=== PATIENT | male | born 1955 | race Caucasian/White ===

== ENCOUNTER 2024-06-04 14:17 | Inpatient (IN) | payer MEDICARE, MEDICAID, SELFPAY ==
[2024-06-04] VITALS (10 sets, daily range): BP systolic 153–216; BP diastolic 83–108; PULSE 85–121; RESP 16–20; TEMP 36.6–37; O2SAT 96–98; BMI 31.2
--- NOTE | ~2024-06-04 | US_ITS ---
EXAMINATION: US ABDOMEN LIMITED CLINICAL INFORMATION: Pain. Question acalculous cholecystitis. COMPARISON: CT abdomen/pelvis done earlier the same day. TECHNIQUE: Real-time imaging of the right upper quadrant abdominal viscera. FINDINGS: Thickened and heterogeneous, gallbladder wall measuring up to 1.0 cm with trace pericholecystic free fluid. No gallstone identified. Quadrant tenderness during the examination. The proximal common bile duct measures up to 0.6 cm. US/US abdomen limited IMPRESSION: Thickened and heterogeneous gallbladder wall with trace pericholecystic free fluid and positive sonographic Jules's sign. Findings are consistent with acute cholecystitis. Electronically signed by: Massimo So MD 06/04/2024 08:36 PM [facility] [place]
--- NOTE | ~2024-06-04 | CT_ITS ---
EXAMINATION: CT ABDOMEN AND PELVIS WITH CONTRAST CLINICAL INFORMATION: Upper abdominal pain, abnormal liver function tests COMPARISON: None available. TECHNIQUE: Multidetector volumetric images were obtained from the superior aspect of the liver through the pubic symphysis following administration 85 mL of Omnipaque 350 intravenous contrast. Sagittal and coronal reformatted images were obtained on the technologist's workstation. Oral contrast: No This CT examination was performed using dose optimization techniques as appropriate, variously including the following: *Automated exposure control *Adjustment of mA and/or kV according to patient size (this includes techniques or standardized protocols for targeted exams where dose is matched to indication/reason for exam; i.e. extremities or head) *Use of iterative reconstruction technique DLP: 723 mGy-cm FINDINGS: LUNG BASES: The visualized lung bases are unremarkable. LIVER, GALLBLADDER, AND BILIARY TREE: The liver is markedly nodular in contour with enlargement of the left and caudate lobes and a small right lobe compatible with cirrhosis. Thrombus is evident within the left portal vein extending into the main portal vein. There are multiple collateral vessels in the upper abdomen including left splenorenal shunt formation and very large esophageal varices. The spleen is enlarged, measuring 22 cm long. There are punctate hepatic and splenic calcifications indicative of prior granulomatous exposure. The gallbladder is collapsed and the wall is edematous measuring 8-9 mm, likely related to hepatocellular dysfunction. There is no biliary ductal dilatation. PANCREAS: Unremarkable. SPLEEN: Enlarged, as above. No splenic masses. Prominent splenic varices. Punctate granulomata. ADRENAL GLANDS: Unremarkable. 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 A 22 mm cyst is noted in the mid pole of the left kidney. No calculi, enhancing masses or obstructive uropathy is evident. The ureters are collapsed. BLADDER: Unremarkable. GASTROINTESTINAL TRACT: The small and large bowel are unremarkable. The appendix is unremarkable. ABDOMINAL WALL: There is a fat-containing umbilical hernia. Multiple collateral vessels are evident in the hernia as part of shunting related to portal hypertension, including a prominent vessel that extends through the umbilical hernia in the right side of the abdomen and joints the right common iliac vein. LYMPH NODES: Normal. VASCULAR: Aortoiliac atherosclerosis is present. There is no aneurysm. The proximal right common iliac artery is narrowed to 5 mm by atherosclerosis. PELVIC VISCERA: Unremarkable. OSSEOUS STRUCTURES: Degenerative disc disease is evident at L3-4. Unilateral right spondylolysis is evident at L5 with compensatory hypertrophy of the left pars. There are no suspicious bone lesions. CT/CT abdomen pelvis w IV con IMPRESSION: 1. Hepatic cirrhosis with thrombosis of the left and proximal main portal vein. 2. Splenomegaly with numerous collateral vessels including very prominent esophageal varices, collateral veins within a prominent fat-containing umbilical hernia, and extending from the splenic hilum to the right iliac vein. 3. Collapsed gallbladder with markedly edematous gallbladder wall edema might be on the basis of hepatocellular dysfunction, although primary gallbladder disease would be difficult to exclude. 3. Findings were reported by phone to Dr. Bernal in the [place] emergency division at the time of interpretation on 06/04/2024 at 6:38 PM Fleischner guidelines were followed. Electronically signed by: Charles Dias MD 06/04/2024 06:42 PM [facility]
--- NOTE | ~2024-06-04 | XR_ITS ---
EXAMINATION: XR CHEST CLINICAL INFORMATION: pain COMPARISON: None available TECHNIQUE: Frontal view of the chest was obtained. FINDINGS: No significant abnormality is noted involving the heart, lungs, mediastinum, bony thorax or soft tissues. XR/XR chest 1V IMPRESSION: No acute disease Electronically signed by: Charles Dias MD 06/04/2024 06:44 PM [facility] [place]
--- NOTE | 2024-06-04 14:27 | ECG_ITS ---
Test Reason : ABDOMINAL PAIN Blood Pressure : / mmHG Vent. Rate : 112 BPM Atrial Rate : 112 BPM P-R Int : 212 ms QRS Dur : 076 ms QT Int : 332 ms P-R-T Axes : 072 049 028 degrees QTc Int : 453 ms Sinus tachycardia with 1st degree A-V block with occasional Premature ventricular complexes Possible Left atrial enlargement Low voltage QRS Cannot rule out Anterior infarct (cited on or before 04-JUN-2024) Abnormal ECG When compared with ECG of 02-DEC-2015 10:05, Premature ventricular complexes are now Present OR interval has increased Questionable change in initial forces of Anterior leads Referred By: Carlos Montano Electronically Signed By:IVETH MOE MD
--- NOTE | 2024-06-04 14:28 | ED_ITS ---
HPI - General Adult General Chief complaint: Altered Mental Status Stated complaint: SOB, disoriented Time Seen by Provider: 06/04/24 14:32 Source: patient and old records reviewed Mode of arrival: ambulatory Limitations: other (poor historian) History of Present Illness ED Provider: CESIA BOBO narrative: 69 yo male with PMH of neuropathy, chronic pain, HTN, has known abdominal hernia but no other prior surgeries. He comes in stating he is sick and not well due to coming off his amitryptiline 25mg 20 days ago and he thinks it is making him ill. He notes he hasn't felt well in days and he states he has been feeling like he is dying for 20 days. He states he has upper abdominal pain and n/v this AM. He feels short of breath. He is very upset and agitated and hard to get a history from as he is fixated on his medications. Denies drug or ETOH use MD complaint: multiple Onset (ago): day(s) (20) Location: abdomen Radiation: non-radiation Severity: severe Quality: aching Pain Consistency: constant Relieving factors: none Exacerbating factors: eating Associated symptoms: loss of appetite, malaise, nausea/vomiting and shortness of breath Treatments prior to arrival: none Related Data Allergies Allergy/AdvReac Type Severity Reaction Status Date / Time No Known Allergies Allergy Unverified 06/04/24 14:24 [No Known Allergies*] polycillin Allergy Unknown Unknown Uncoded 06/04/24 14:24 Review of Systems 2 Review of Systems: Constitutional : No Weight loss, No Fever, No Chills ENT/Mouth : No sore throat, No Rhinorrhea Eyes: No Swelling, No Redness Cardiovascular : No Chest Pain, pos SOB, No Edema Respiratory : No Cough, No Sputum, No Wheezing Gastrointestinal : Positive Nausea, Positive Vomiting, no Diarrhea, positive abdominal Pain, No Hematochezia, No Melena Genitourinary : No Dysuria, No Urinary Frequency, No Hematuria, No Urgency Musculoskeletal : No joint pain, No Myalgias, No Joint Swelling Skin : No Skin Lesions, No rash Neuro : No Weakness, No Numbness, No Dizziness, No Headache Psych : pos Anxiety/Panic, No Depression All other systems reviewed and are negative. [facility] Past Medical History Attestation statement: The following information was validated with the patient. Source: old records reviewed Medical History Neuropathy HTN (hypertension) Social History Social History (Updated 06/04/24 @ 16:03 by Darcy Perkins DO) Alcohol intake: former Patient Tobacco Use Status: Tobacco use Unknown Smoked in Last 30 Days: No Use of substances other than those prescribed or required for medical reasons: No Advance Directives: No Advance Directives Information Provided: Yes Physical Exam ED Vital Signs: Vital Signs - 24 hr 06/04/24 14:21 06/04/24 17:17 06/04/24 18:00 Temperature 98.6 F 97.8 F Pulse Rate 121 H 111 H 100 Respiratory Rate 18 16 20 Blood Pressure 153/108 H 216/107 H 191/100 H Pulse Oximetry 97 98 97 Oxygen Delivery Method Room Air Room Air Room Air 06/04/24 19:13 06/04/24 19:33 Temperature 98.3 F Pulse Rate 98 112 H Respiratory Rate 18 Blood Pressure 169/95 H 186/101 H Pulse Oximetry 96 Oxygen Delivery Method Room Air BMI result Body Mass Index 31.2 Appearance: Alert. Oriented X3. Anxious in pain mild acute distress. Eyes: Pupils equal, round and reactive to light. ENT: Pharynx mildly dry MM. Neck: Normal inspection. Neck supple. CVS: tachycardic heart rate and rhythm. Pulses normal. Respiratory: No respiratory distress. Breath sounds normal. Abdomen: Soft and moderate RUQ and epigastric pain - no rebound Skin: Skin warm and dry. Normal skin color. Normal skin turgor. Extremities: No lower extremity edema. Neuro: Oriented X 3. No motor deficit. No sensory deficit. Course Course Course Narrative: RME: 69-year-old male to ED for possible withdrawal symptoms. Patient was on amitriptyline for 20 years and was cut off 15 days ago without being weaned off. Patient states chest pain, nausea, vomiting, and tremors. Patient hypertensive tachycardic in the ED and looks uncomfortable. Patient brought to the main ED immediately. Medications Administered Discontinued Medications Generic Name Dose Route Start Last Admin Trade Name Freq PRN Reason Stop Dose Admin Amlodipine Besylate 10 mg 06/04/24 19:08 06/04/24 19:16 Amlodipine Besylate 10 Mg Tablet PO 06/04/24 19:09 10 mg ONCE ONE Administration Protocol Ceftriaxone Sodium 1 gm 06/04/24 15:31 06/04/24 16:24 Ceftriaxone Sodium 1 Gm Vial IVPUSH 06/04/24 15:32 1 gm ONCE ONE Administration Lactated Ringer's 1,000 mls @ 999 mls/hr 06/04/24 15:28 06/04/24 18:22 Lr IV 06/04/24 16:28 Infused .Q1H1M ONE Infusion Sodium Chloride 1,000 mls @ 999 mls/hr 06/04/24 18:30 06/04/24 18:39 Ns IV 06/04/24 19:30 999 mls/hr .Q1H1M ONE Administration Iohexol 100 ml 06/04/24 15:51 06/04/24 15:51 Iohexol 350 Mg/Ml 100 Ml Infus..Btl IV 06/04/24 15:52 85 ml ONCE ONE Administration Lorazepam 1 mg 06/04/24 15:10 06/04/24 15:30 Lorazepam 2 Mg/Ml Vial IVPUSH 06/04/24 15:11 1 mg STAT STA Administration Morphine Sulfate 2 mg 06/04/24 15:28 06/04/24 15:38 Morphine Sulfate 2 Mg/Ml Cartridge IVPUSH 06/04/24 15:29 2 mg ONCE ONE Administration Protocol Morphine Sulfate 4 mg 06/04/24 18:30 06/04/24 18:40 Morphine Sulfate 4 Mg/Ml Cartridge IVPUSH 06/04/24 18:31 4 mg ONCE ONE Administration Protocol Octreotide Acetate 100 mcg 06/04/24 18:44 06/04/24 19:17 Octreotide Acetate 100 Mcg/Ml Ampul IVPUSH 06/04/24 18:45 100 mcg ONCE ONE Administration Ondansetron HCl 4 mg 06/04/24 15:10 06/04/24 15:30 Ondansetron Hcl 4 Mg/2 Ml Vial IVPUSH 06/04/24 15:11 4 mg ONCE ONE Administration Ondansetron HCl 4 mg 06/04/24 18:30 06/04/24 18:39 Ondansetron Hcl 4 Mg/2 Ml Vial IVPUSH 06/04/24 18:31 4 mg ONCE ONE Administration Pantoprazole Sodium 80 mg 06/04/24 18:45 06/04/24 19:28 Pantoprazole Sodium 40 Mg/10 Ml Vial IVPUSH 06/04/24 18:46 80 mg ONCE ONE Administration Medical Decision Making Medical Decision Making [facility] Narrative: 69 yo male with PMH of neuropathy, chronic pain, HTN here with vague symptoms of amitryptiline withdrawal that does not make sense as it was 25mg and last dose was 20 days ago he c/o he feels terrible with abdominal pain n/v and that he has been about to for 20 days. He notes he feels weak and short of breath pain radiates from upper abdomen at this time will need labs, CT scan IV ativan for anxiety, morphine for pain, empiric antibiotics started given concern for possible infection 1530. He does have some dyspnea and chest pain but I suspect this may be due to abdominal process. Signed out to Dr. Epperson pending further workup 1800; patient is 69 years old with history of hepatitis-C about 15 years old been treated for that follow up with PCP and so far liver enzymes were stable comes here for 20 days of pain in right upper quadrant epigastric area feels withdrawn from the amitriptyline unable to eat anything pain gets worse on taking anything p.o. last meal was 2 days ago vomited multiple times CT scan showed contracted gallbladder with fluid around the gallbladder. Will get ultrasound to rule out acalculous cholecystitis IV hydration CT scan of the abdomen showed portal vein thrombosis of left and proximal main portal vein with prominent esophageal varices platelet counts of 89,000 no history of GI bleed or melena will give sandostatin, Protonix old heparin thrombocytopenia control the blood pressure ultrasound to rule out acalculous cholecystitis Differential Diagnosis Differential Diagnoses: The differential diagnosis associated with the presentation includes biliary colic, pancreatitis, gastritis, atypical chest pain denies travel - dyspnea related to upper abdominal pain low susp for VTE at this time Admission/Observation Consideration of admission/observation: Escalation of care including admission/observation considered Lab Data MDM Lab Attestation statement: I reviewed the patient's lab results. 06/04/24 14:58 06/04/24 14:58 Labs: Lab Results 06/04/24 06/04/24 06/04/24 Range/Units 14:58 14:58 16:12 WBC 7.1 (4.8-10.8) X10*3/uL RBC 5.69 (4.60-5.80) X10*6/uL Hgb 17.1 (14.0-18.0) g/dl Hct 48.7 (42.0-52.0) % MCV 85.6 (80.0-98.0) fL MCH 30.1 (27.0-33.0) pg MCHC 35.1 (31.0-36.0) g/dl RDW 13.4 (11.0-16.0) % Plt Count 89 L (160-400) X10*3/uL MPV 10.6 (9.4-12.4) fL Immature Gran % (Auto) 0.6 H (0.0-0.4) % Neut % (Auto) 86.8 H (45-73) % Lymph % (Auto) 5.5 L (20-40) % [place] % (Auto) 6.5 (2-11) % Eos % (Auto) 0.3 (0-4) % Baso % (Auto) 0.3 (0-2) % Lymph # (Auto) 0.4 L (1.2-4.9) X10*3/uL [place] # (Auto) 0.5 (0.1-1.2) X10*3/uL Eos # (Auto) 0.0 (0.0-0.4) X10*3/uL Baso # (Auto) 0.0 (0.0-0.2) X10*3/uL Abs Immat Gran (auto) 0.04 H (0.00-0.03) X10*3/uL Absolute Neuts (auto) 6.2 (2.0-8.3) x10*3/uL Absolute Nucleated RBC 0.000 (0.0-0.012) X10*3/uL Nucleated RBC % (auto) 0.0 (0.0-0.2) /100WBC Smear Tech's Comments VERIFIED PT 12.7 H (10.9-12.4) SEC INR 1.1 (0.9-1.1) APTT 31.3 (26.0-36.8) SEC Sodium 135 (135-145) mmol/L Potassium 3.9 (3.3-5.1) mmol/L Chloride 101 (96-108) mmol/L Carbon Dioxide 21 L (22-29) mmol/L Anion Gap 17 (12-20) BUN 18 H (9-16) mg/dL Creatinine 0.98 (0.5-1.4) mg/dL Estim Creat Clear Calc 80.9 Estimated GFR > 60 Random Glucose 237 H (60-115) mg/dL Lactic Acid 2.7 H* (0.5-2.0) mmol/L Calcium 10.0 (8.4-10.2) mg/dL Total Bilirubin 4.8 H (0.0-1.0) mg/dL Direct Bilirubin 2.4 H (0.0-0.5) mg/dL AST 100 H (5-37) U/L ALT 56 H (0-40) U/L Alkaline Phosphatase 159 H (39-117) U/L Troponin I High Sens 47.1 H 52.3 H (<3.5-35.0) ng/L Total Protein 8.4 H (6.5-8.0) g/dL Albumin 4.1 (3.5-5.0) g/dL Lipase 45 (8-78) U/L Beta-Hydroxybutyrate 0.60 H (0.02-0.27) mmol/L Urine Color Urine Appearance Urine pH (5.0-9.0) Ur Specific [place] (1.005-1.025) Urine Protein (Neg-Trace) mg/dL Urine Glucose (UA) (Negative) mg/dL Urine Ketones (Negative) mg/dL Urine Blood (Negative) Urine Nitrite (Negative) Ur Leukocyte Esterase (Negative) Urine RBC (0-2) /HPF Urine WBC (0-5) /HPF Ur Squamous Epith Cells (0-2) /HPF Urine Bacteria (None Seen) Hyaline Casts (0-2) /LPF Urine Opiates Screen (Not Detect) Ur Buprenorphine Scrn (Not Detect) ng/mL Ur Oxycodone Screen (Not Detect) ng/mL Urine Methadone Screen (Not Detect) ng/mL Urine Fentanyl Screen (Not Detect) Ur Barbiturates Screen (Not Detect) Ur Phencyclidine Scrn (Not Detect) Ur Amphetamines Screen (Not Detect) U Benzodiazepines Scrn (Not Detect) Urine Cocaine Screen (Not Detect) U Marijuana (THC) Screen (Not Detect) Ethyl Alcohol < 10 Cancelled mg/dL 06/04/24 Range/Units 18:15 WBC (4.8-10.8) X10*3/uL RBC (4.60-5.80) X10*6/uL Hgb (14.0-18.0) g/dl Hct (42.0-52.0) % MCV (80.0-98.0) fL MCH (27.0-33.0) pg MCHC (31.0-36.0) g/dl RDW (11.0-16.0) % Plt Count (160-400) X10*3/uL MPV (9.4-12.4) fL Immature Gran % (Auto) (0.0-0.4) % Neut % (Auto) (45-73) % Lymph % (Auto) (20-40) % [place] % (Auto) (2-11) % Eos % (Auto) (0-4) % Baso % (Auto) (0-2) % Lymph # (Auto) (1.2-4.9) X10*3/uL [place] # (Auto) (0.1-1.2) X10*3/uL Eos # (Auto) (0.0-0.4) X10*3/uL Baso # (Auto) (0.0-0.2) X10*3/uL Abs Immat Gran (auto) (0.00-0.03) X10*3/uL Absolute Neuts (auto) (2.0-8.3) x10*3/uL Absolute Nucleated RBC (0.0-0.012) X10*3/uL Nucleated RBC % (auto) (0.0-0.2) /100WBC Smear Tech's Comments PT (10.9-12.4) SEC INR (0.9-1.1) APTT (26.0-36.8) SEC Sodium (135-145) mmol/L Potassium (3.3-5.1) mmol/L Chloride (96-108) mmol/L Carbon Dioxide (22-29) mmol/L Anion Gap (12-20) BUN (9-16) mg/dL Creatinine (0.5-1.4) mg/dL Estim Creat Clear Calc Estimated GFR Random Glucose (60-115) mg/dL Lactic Acid (0.5-2.0) mmol/L Calcium (8.4-10.2) mg/dL Total Bilirubin (0.0-1.0) mg/dL Direct Bilirubin (0.0-0.5) mg/dL AST (5-37) U/L ALT (0-40) U/L Alkaline Phosphatase (39-117) U/L Troponin I High Sens (<3.5-35.0) ng/L Total Protein (6.5-8.0) g/dL Albumin (3.5-5.0) g/dL Lipase (8-78) U/L Beta-Hydroxybutyrate (0.02-0.27) mmol/L Urine Color Dark Yellow Urine Appearance Clear Urine pH 6.0 (5.0-9.0) Ur Specific [place] >= 1.030 H (1.005-1.025) Urine Protein >=1000 (4+) H (Neg-Trace) mg/dL Urine Glucose (UA) 500 H (Negative) mg/dL Urine Ketones Trace (Negative) mg/dL Urine Blood Moderate (2+) H (Negative) Urine Nitrite Negative (Negative) Ur Leukocyte Esterase Negative (Negative) Urine RBC >20 H (0-2) /HPF Urine WBC 0-5 (0-5) /HPF Ur Squamous Epith Cells 0-2 (0-2) /HPF Urine Bacteria None Seen (None Seen) Hyaline Casts 0-2 (0-2) /LPF Urine Opiates Screen POSITIVE H (Not Detect) Ur Buprenorphine Scrn Not Detected (Not Detect) ng/mL Ur Oxycodone Screen Not Detected (Not Detect) ng/mL Urine Methadone Screen Not Detected (Not Detect) ng/mL Urine Fentanyl Screen Not Detected (Not Detect) Ur Barbiturates Screen Not Detected (Not Detect) Ur Phencyclidine Scrn Not Detected (Not Detect) Ur Amphetamines Screen Not Detected (Not Detect) U Benzodiazepines Scrn Not Detected (Not Detect) Urine Cocaine Screen Not Detected (Not Detect) U Marijuana (THC) Screen POSITIVE H (Not Detect) Ethyl Alcohol mg/dL Independent Interpretation I performed an independent interpretation of an: EKG, Plain X-Ray and CT Scan Interpretation: Rate: 112 Rhythm: sinus tach Leming: normal Normal P waves. Normal LETTY. Normal QRS complex. ST T wave : nonspecific ST T wave changes no RIGOBERTO qTC: 453 prior studies: no prior The study has been interpreted contemporaneously by me. . Discharge Plan Discharge Clinical Impression: Abnormal LFTs Abdominal pain Qualifiers: Abdominal location: epigastric Qualified Code(s): R10.13 - Epigastric pain Nausea & vomiting Qualifiers: Vomiting type: unspecified Qualified Code(s): R11.2 - Nausea with vomiting, unspecified Patient Disposition: Still a Patient Print Language: Malian
[2024-06-04 15:07] LABS: Hemoglobin 17.1 g/dl (14.0-18.0); Imm Gran Abs Auto 0.04 X10*3/uL (0.00-0.03); Imm Gran Pct Auto 0.6 % (0.0-0.4); MANUAL DIFF FLAG SCAN; PLT CLUMP 1; SCAN SMEAR FLAG 1
[2024-06-04 15:09] LABS: Basophils Percent Auto 0.3 % (0-2); Eosinophils Percent Auto 0.3 % (0-4); Hematocrit 48.7 % (42.0-52.0); INTERNATIONAL NORM RATIO 1.1 (0.9-1.1); Lymphocytes Absolute Auto 0.4 X10*3/uL (1.2-4.9); Lymphocytes Percent Auto 5.5 % (20-40); Mean Corpuscular HGB Conc 35.1 g/dl (31.0-36.0); Mean Corpuscular Hemoglobin 30.1 pg (27.0-33.0); Mean Corpuscular Volume 85.6 fL (80.0-98.0); Mean Platelet Volume 10.6 fL (9.4-12.4); Monocytes Absolute Auto 0.5 X10*3/uL (0.1-1.2); Monocytes Percent Auto 6.5 % (2-11); Neutrophils Absolute Auto 6.2 x10*3/uL (2.0-8.3); Neutrophils Percent Auto 86.8 % (45-73); Prothrombin Time 12.7 SEC (10.9-12.4); Red Blood Count 5.69 X10*6/uL (4.60-5.80); Red Cell Distribution Width 13.4 % (11.0-16.0)
[2024-06-04 15:12] LABS: Partial Thromboplastin Time 31.3 SEC (26.0-36.8)
[2024-06-04 15:23] LABS: Alanine Aminotransferase 56 U/L (0-40); Albumin Level 4.1 g/dL (3.5-5.0); Alkaline Phosphatase 159 U/L (39-117); Anion Gap 17 (12-20); Aspartate Amino Transferase 100 U/L (5-37); Bilirubin Total 4.8 mg/dL (0.0-1.0); Blood Urea Nitrogen 18 mg/dL (9-16); Carbon Dioxide 21 mmol/L (22-29); Chloride 101 mmol/L (96-108); Creatinine Clr Calc Pharmacy 80.9; Estimated Glomerular Filt Rate > 60; Ethanol < 10 mg/dL; Glucose Random 237 mg/dL (60-115); Potassium 3.9 mmol/L (3.3-5.1); Sodium 135 mmol/L (135-145); Total Protein 8.4 g/dL (6.5-8.0)
[2024-06-04 15:27] LABS: Troponin-I High Sensitivity 47.1 ng/L (<3.5-35.0); White Blood Count 7.1 X10*3/uL (4.8-10.8)
[2024-06-04] MEDS: ondansetron HCL 4 MG/2 ML VIAL IVPUSH ×2 (15:30→18:39)
[2024-06-04] MEDS: LORazepam 2 MG/ML VIAL 1 MG IVPUSH (15:30)
[2024-06-04 15:32] LABS: Lipase 45 U/L (8-78)
[2024-06-04] MEDS: Lactated Ringers 1,000 ML 999 ML IV (15:33)
[2024-06-04] MEDS: Morphine Sulfate 2 MG/ML CARTRIDGE IVPUSH (15:38)
[2024-06-04] MEDS: iohexoL 350 MG/ML 100 ML INFUS..BTL IV (15:51)
[2024-06-04 16:04] LABS: Bilirubin Direct 2.4 mg/dL (0.0-0.5)
[2024-06-04 16:07] LABS: Platelet Count 89 X10*3/uL (160-400); SLIDE REVIEW VERIFIED
[2024-06-04] MEDS: cefTRIAXone sodium 1 GM VIAL IVPUSH (16:24)
[2024-06-04 16:38] LABS: Lactic Acid 2.7 mmol/L (0.5-2.0)
[2024-06-04 16:42] LABS: Troponin-I High Sensitivity 52.3 ng/L (<3.5-35.0)
[2024-06-04 18:19] LABS: Reflex Lactate? Lactic Acid Added
[2024-06-04 18:22] LABS: Appearance Urine Clear; Color Urine Dark Yellow; Glucose Urine UA 500 mg/dL (Negative); Leukocyte Esterase Urine Negative (Negative); Nitrite Urine Negative (Negative); Specific Gravity - Urine >= 1.030 (1.005-1.025); UMIC TRIGGER UACC YES; Urine Blood Moderate (2+) (Negative); Urine Ketones Trace mg/dL (Negative); Urine Protein >=1000 (4+) mg/dL (Neg-Trace)
[2024-06-04 18:25] LABS: Bacteria Urine None Seen (None Seen); Hyaline Casts Urine 0-2 /LPF (0-2); RBC Urine >20 /HPF (0-2); Squamous Epithelial Cell Urine 0-2 /HPF (0-2); WBC Urine 0-5 /HPF (0-5)
[2024-06-04 18:37] LABS: Amphetamine Screen Urine Not Detected (Not Detect); Barbiturates, Urine Not Detected (Not Detect); Benzodiazepines Screen Urine Not Detected (Not Detect); Buprenorphine Scr Not Detected (Not Detect); Cannabinoid Screen Urine POSITIVE (Not Detect); Cocaine Screen Urine Not Detected (Not Detect); Fentanyl, urine Not Detected (Not Detect); Methadone Screen, Urine Not Detected (Not Detect); Opiate Screen Urine POSITIVE (Not Detect); Oxycodone Screen Urine Not Detected (Not Detect); Phencyclidine Screen Urine Not Detected (Not Detect)
[2024-06-04] MEDS: 0.9 % Sodium Chloride 1,000 ML 999 ML IV (18:39)
[2024-06-04] MEDS: Morphine Sulfate 4 MG/ML CARTRIDGE IVPUSH (18:40)
--- NOTE | 2024-06-04 19:07 | PC.NURSE ---
Report taken from Breana BINGHAM assumed care of pt at this time.Pt off floor to US.
[2024-06-04] MEDS: amLODIPine Besylate 10 MG TABLET PO (19:16)
[2024-06-04] MEDS: Octreotide Acetate 100 MCG/ML AMPUL IVPUSH (19:17)
--- NOTE | 2024-06-04 19:25 | PC.NURSE ---
pt started in 22h. reporting abd pain that had been getting worse over the course of several days, starting with when he stopped his amitriptyline without a taper. ativan, zofran, fluids, morphine started. pt reported that pain improved slightly but then came back. pt very uncofortable. Dr Bernal notified of pts condition - very uncomfrotalbe. more pain medications and BP medications ordered. Pt took PO amlodipine but them vomited. notified and IVP labetalol ordered.
[2024-06-04] MEDS: Pantoprazole Sodium 40 MG/10 ML VIAL 80 MG IVPUSH (19:28)
[2024-06-04] MEDS: Labetalol HCL 100 MG/20 ML VIAL 10 MG IVPUSH ×2 (19:37→23:43)
[2024-06-04 20:02] LABS: ~Lactic Acid-LAB USE ONLY 3.4 mmol/L (0.5-2.0)
--- NOTE | 2024-06-04 20:39 | PC.NURSE ---
Pt resting on stretcher A&Ox3 skin pwd respirations even unlabored. BP improving post meds. IVF completed. Pt reports feeling better, denies N/V, endorsing continued yet improved left upper abd pain 01/21. MD notified. Pt awaiting US results and MD reeval. Probable admit, aware of plan of care.
[2024-06-04] MEDS: Piperacillin Sodium/Tazobactam 3.375 GM in 0.9 % Sodium Chloride 50 ML IV (21:01)
--- NOTE | 2024-06-04 21:04 | PM.CNGS ---
History of Present Illness Consult details Consult date: 06/04/24 Narrative: 69-year-old male with known chronic liver disease, here in the ER because of multiple complaints. He says that he has not been feeling well for about over a month now. He says that he had been on multiple medications and had been trying to wean off this medications. He says that his primary care physician stopped some of his medications abruptly and he has not been feeling well for over a month. He says that he has had a sense of being unwell, with vague complaints including severe anxiety, body malaise, weakness, agitation, and emotional instability. He says the he had an episode of abdominal pain in the epigastric area today and had 1 episode of vomiting In view of his multiple complaints he decided to come to the emergency room He used to drink heavily but says he has been sober for about 12 years He has known hepatitis-C. Currently he denies any abdominal pain. Review of Systems Constitutional: Constitutional: Reports fatigue, Reports lethargy, Reports malaise, Reports poor appetite and Reports weakness Cardiovascular: Cardiovascular: Denies chest pain Respiratory: Respiratory: Denies cough Gastrointestinal: Gastrointestinal: Denies hematochezia and Denies diarrhea Genitourinary: Genitourinary: Denies difficulty urinating Neurologic: Reports weakness Endocrine: Endocrine: Reports fatigue [facility] Past Medical History Medical History (Updated 06/13/24 @ 00:03 by Dexter Craig) Peripheral neuropathy Insulin dependent type 2 diabetes mellitus Neuropathy HTN (hypertension) Social History Social History Alcohol intake: former Patient Tobacco Use Status: Never used Tobacco Meds Allergies Allergy/AdvReac Type Severity Reaction Status Date / Time No Known Allergies Allergy Unverified 06/04/24 14:24 [No Known Allergies*] polycillin Allergy Unknown Unknown Uncoded 06/04/24 14:24 Active Medications: Current Medications Piperacillin Sod/Tazobactam (Sod 3.375 gm/ Sodium Chloride) 50 mls @ 100 mls/hr IV ONCE ONE Stop: 06/04/24 21:14 Last Admin: 06/04/24 21:01 Dose: 100 mls/hr Home Medications ?Medication ?Instructions ?Recorded ?Confirmed ?Last Taken ?Type amlodipine 5 mg tablet 5 mg PO DAILY 06/04/24 06/04/2406/03/24 History dulaglutide 3 mg/0.5 mL 3 mg subcut WE 06/04/24 06/04/24 06/03/24 History subcutaneous pen injector (Trulicity) insulin aspart U-100 100 unit/mL See Protocol subcut TIDAC 06/04/24 06/04/24 06/03/24 History (3 mL) subcutaneous pen (Novolog FlexPen U-100 Insulin aspart) insulin glargine-yfgn 100 unit/mL 60 unit subcut BEDTIME 06/04/24 06/04/24 06/03/24 History (3 mL) subcutaneous pen (Semglee (insulin glargine-yfgn) Pen) lisinopril 20 1 tab PO DAILY 06/04/24 06/04/24 06/03/24 History mg-hydrochlorothiazide 12.5 mg tablet Physical Exam Vital Signs: Vital Signs: Last Vital Signs Temp 98.3 F 06/04/24 19:13 Pulse 97 06/04/24 19:42 Resp 20 06/04/24 19:42 BP 166/87 H 06/04/24 20:19 Pulse Ox 96 06/04/24 19:13 O2 Del Method Room Air 06/04/24 19:13 BMI result Body Mass Index 31.2 Const: General: comfortable and no acute distress Orientation/consciousness: patient oriented x3 Neck: Neck: Yes no lymphadenopathy Resp: Auscultation: clear to auscultation bilaterally Cardio: Rhythm: regular rhythm GI: Other: No abdominal pain or tenderness, no Jules's sign Palpation (GI): Soft to palpation, nontender and no guarding Neuro: General: patient oriented x3 Results Labs 06/05/24 04:41 06/05/24 04:41 Labs: Abnormal lab results 06/04/24 06/04/24 06/04/24 Range/Units 14:58 16:12 18:15 Plt Count 89 L (160-400) X10*3/uL Immature Gran % (Auto) 0.6 H (0.0-0.4) % Neut % (Auto) 86.8 H (45-73) % Lymph % (Auto) 5.5 L (20-40) % Lymph # (Auto) 0.4 L (1.2-4.9) X10*3/uL Abs Immat Gran (auto) 0.04 H (0.00-0.03) X10*3/uL PT 12.7 H (10.9-12.4) SEC Carbon Dioxide 21 L (22-29) mmol/L BUN 18 H (9-16) mg/dL Random Glucose 237 H (60-115) mg/dL Lactic Acid 2.7 H* (0.5-2.0) mmol/L Lactic Acid F/U @ 2Hr (0.5-2.0) mmol/L Total Bilirubin 4.8 H (0.0-1.0) mg/dL Direct Bilirubin 2.4 H (0.0-0.5) mg/dL AST 100 H (5-37) U/L ALT 56 H (0-40) U/L Alkaline Phosphatase 159 H (39-117) U/L Troponin I High Sens 47.1 H 52.3 H (<3.5-35.0) ng/L Total Protein 8.4 H (6.5-8.0) g/dL Beta-Hydroxybutyrate 0.60 H (0.02-0.27) mmol/L Ur Specific [place] >= 1.030 H (1.005-1.025) Urine Protein >=1000 (4+) H (Neg-Trace) mg/dL Urine Glucose (UA) 500 H (Negative) mg/dL Urine Blood Moderate (2+) H (Negative) Urine RBC >20 H (0-2) /HPF Urine Opiates Screen POSITIVE H (Not Detect) U Marijuana (THC) Screen POSITIVE H (Not Detect) 06/04/24 Range/Units 19:36 Plt Count (160-400) X10*3/uL Immature Gran % (Auto) (0.0-0.4) % Neut % (Auto) (45-73) % Lymph % (Auto) (20-40) % Lymph # (Auto) (1.2-4.9) X10*3/uL Abs Immat Gran (auto) (0.00-0.03) X10*3/uL PT (10.9-12.4) SEC Carbon Dioxide (22-29) mmol/L BUN (9-16) mg/dL Random Glucose (60-115) mg/dL Lactic Acid (0.5-2.0) mmol/L Lactic Acid F/U @ 2Hr 3.4 H* (0.5-2.0) mmol/L Total Bilirubin (0.0-1.0) mg/dL Direct Bilirubin (0.0-0.5) mg/dL AST (5-37) U/L ALT (0-40) U/L Alkaline Phosphatase (39-117) U/L Troponin I High Sens (<3.5-35.0) ng/L Total Protein (6.5-8.0) g/dL Beta-Hydroxybutyrate (0.02-0.27) mmol/L Ur Specific [place] (1.005-1.025) Urine Protein (Neg-Trace) mg/dL Urine Glucose (UA) (Negative) mg/dL Urine Blood (Negative) Urine RBC (0-2) /HPF Urine Opiates Screen (Not Detect) U Marijuana (THC) Screen (Not Detect) Short CBC 06/04/24 Range/Units 14:58 WBC 7.1 (4.8-10.8) X10*3/uL Hgb 17.1 (14.0-18.0) g/dl Hct 48.7 (42.0-52.0) % Plt Count 89 L (160-400) X10*3/uL BMP 06/04/24 14:58 Sodium 135 Potassium 3.9 Chloride 101 Carbon Dioxide 21 L BUN 18 H Creatinine 0.98 Calcium 10.0 Liver Function 06/04/24 Range/Units 14:58 Total Bilirubin 4.8 H (0.0-1.0) mg/dL Direct Bilirubin 2.4 H (0.0-0.5) mg/dL AST 100 H (5-37) U/L ALT 56 H (0-40) U/L Alkaline Phosphatase 159 H (39-117) U/L Albumin 4.1 (3.5-5.0) g/dL Urine 06/04/24 Range/Units 18:15 Urine Color Dark Yellow Urine Appearance Clear Urine pH 6.0 (5.0-9.0) Ur Specific [place] >= 1.030 H (1.005-1.025) Urine Protein >=1000 (4+) H (Neg-Trace) mg/dL Urine Glucose (UA) 500 H (Negative) mg/dL All other labs normal. Imaging Abdomen CT scan report/results: report reviewed and image reviewed CT scan - pelvis: report reviewed Abdominal ultrasound report/results: report reviewed and image reviewed Assessment and Plan (1) Abnormal LFTs: Status: Acute The patient has a known history of alcohol abuse and hepatitis-C. This explains his elevated bilirubin. Review of his CT scan shows that he has significant cirrhosis, portal hypertension, very cell disease, with a contracted thick-walled gallbladder. He does not have gallstones. He does not have cholecystitis. The changes seen on the gallbladder wall is secondary to his liver cirrhosis He does not have any surgical issue at this time with regards to the gallbladder. He does not appear septic although his lactate is elevated. He is hemodynamically stable. He may benefit from a consultation with a commercial green retrofit architect as the patient says he has not seen any liver specialist. I discussed the above with the ER staff. Procedures Date of Service Date of Service: 06/16/24
--- NOTE | 2024-06-04 21:12 | PHA.MEDREC ---
Addendum entered by Amna Nice RPh 06/04/24 21:44: reviewed by [facility]. Original Note: Pharmacy Consult ? Medication Reconciliation Pharmacy has completed the medication reconciliation. Confirmed medication with patient. He confirmed his Trulicity 3 mg/0.5 mL injection once a week on Wednesdays and he confirmed he took it this past Sunday 06/03. He confirmed his Novolog 100 unit/mL (3 mL) sliding scale three times a day before his meals. He also confirmed his Semglee 100 unit/mL (3 mL) injecting 60 units at bedtime. He confirmed he took all his medications last night.
--- NOTE | 2024-06-04 21:13 | PC.NURSE ---
Pt to be admitted, aware of plan of care. Med rec completed by pharmacy. No change in physical assessment. Will continue to monitor.
[2024-06-04 21:38] LABS: Reflex Lactate? 2 Y
--- NOTE | 2024-06-04 21:47 | PM.IMHP ---
History of Present Illness Date of Service: 06/04/24 Attending physician on admission: Bhavesh Barkley Chief Complaint: SOB, N/V, abd pain Pt is a 69-year-old male with a PMH significant for?HTN, insulin-dependent type 2 diabetes, peripheral neuropathy, and remote hx of alcohol use disorder sober x20 years who presents to the ED with?multiple complaints, including shortness of breath, pleuritic chest pain, nausea, vomiting, tremors, and disorientation. Patient believes his symptoms started around 3 weeks ago when he went to his PCP and requested be taken off amitriptyline, gabapentin, and tramadol. Reports he initially was going to be tapered off his amitriptyline, but when he went to refill his script found he was unable to do so. Called his PCP back but still was unable to get anymore refills for tapering. Patient then reports a constellation of symptoms, including headache, dizziness, disorientation, shortness of breath, productive cough, nausea, vomiting, hiccups, ataxia, and central abdominal pain at the site of his weekly Trulicity injection. Patient has a long and remote history of heavy alcohol use, though reports quit drinking approximately 20 years ago. At that time was told he had fatty liver but no indication of cirrhosis. In the ED pt was tachycardic up to 121 and hypertensive up to 216/107. Labs were significant for initial lactic acid 2.7 with repeat 3.4, T bili 4.8, AST 100, ALT 56, alk-phos 159, and initial troponin 47.1 with repeat 52.3. No leukocytosis. Stable H&H. No significant electrolyte abnormalities. UA negative for UTI. CXR showed no acute disease. CT?of abdomen and pelvis showed hepatic cirrhosis with thrombus of the left and proximal main portal vein, splenomegaly with numerous collateral vessels including prominent esophageal varices, and collateral veins with a prominent fat containing umbilical hernia and extending from splenic hilum to right iliac vein. Also found collapsed gallbladder with markedly edematous gallbladder wall edema. Abdominal ultrasound found thickened and heterogeneous gallbladder wall with trace pericholecystic free fluid and positive sonographic Jules sign, concerning for acute cholecystitis. EKG demonstrated sinus tachycardia with occasional PVCs. Pt was treated with Ativan, ondansetron, IVF, morphine, amlodipine 10 mg p.o., labetalol 10 mg IV, octreotide 100 mcg IV, Protonix, ceftriaxone, and Zosyn. Pt will be admitted to the hospital for treatment and further evaluation of abdominal pain and portal vein thrombosis likely secondary to liver cirrhosis. Review of Systems Review of Systems: Negative except for that which is stated in the [facility] Medical History (Updated 06/04/24 @ 22:36 by VINNIE Burkett) Peripheral neuropathy Insulin dependent type 2 diabetes mellitus Neuropathy HTN (hypertension) Social History Alcohol intake: former Patient Tobacco Use Status: Never used Tobacco Smoked in Last 30 Days: No Use of substances other than those prescribed or required for medical reasons: No Advance Directives: No Advance Directives Information Provided: Yes Nutrition Risks: No Nutritional Risk Meds Allergies Allergy/AdvReac Type Severity Reaction Status Date / Time No Known Allergies Allergy Unverified 06/04/24 14:24 [No Known Allergies*] polycillin Allergy Unknown Unknown Uncoded 06/04/24 14:24 Active Medications: Current Medications Acetaminophen (Acetaminophen 325 Mg Tablet) 650 mg PO Q6H PRN PRN Reason: Pain, Mild (Pain Scale 1-3), fever or headache Calcium Carbonate (Calcium Carbonate 750 Mg Tab.Chew) 750 mg PO Q4H PRN PRN Reason: Heartburn Glucose (Glucose Gel 15 Gm Gel..Gram.) 15 gm PO Q15M PRN; Protocol PRN Reason: per Hypoglycemia Standing Ord. Hydromorphone HCl (Hydromorphone Hcl 1 Mg/Ml Syringe) 0.5 mg IVPUSH Q4H PRN; Protocol PRN Reason: Pain, Severe (Pain Scale 7-10) Piperacillin Sod/Tazobactam (Sod 3.375 gm/ Sodium Chloride) 50 mls @ 100 mls/hr IV Q6H DO Dextrose (D10) 250 mls @ 750 mls/hr IV Q15M PRN; Protocol PRN Reason: per Hypoglycemia Standing Ord. Insulin Human Lispro (Insulin Lispro 100 Unit/Ml 3 Ml Vial) 0 unit SUBCUT Q6H DO; Protocol Magnesium Hydroxide (Milk Of Magnesia 30 Ml Oral.Susp) 30 ml PO DAILY PRN PRN Reason: Constipation Melatonin (Melatonin 3 Mg Tablet) 6 mg PO BEDTIME PRN PRN Reason: Insomnia Ondansetron HCl (Ondansetron Hcl 4 Mg/2 Ml Vial) 4 mg IVPUSH Q8H PRN PRN Reason: Nausea and Vomiting Sodium Chloride (0.9 % Sodium Chloride Flush 3 Ml Syringe) [facility]ations ?Medication ?Instructions ?Recorded ?Confirmed ?Last Taken ?Type amlodipine 5 mg tablet 5 mg PO DAILY 06/04/24 06/04/24 06/03/24 History dulaglutide 3 mg/0.5 mL 3 mg subcut WE 06/04/24 06/04/24 06/03/24 History subcutaneous pen injector (Trulicity) insulin aspart U-100 100 unit/mL See Protocol subcut TIDAC 06/04/24 06/04/24 06/03/24 History (3 mL) subcutaneous pen (Novolog FlexPen U-100 Insulin aspart) insulin glargine-yfgn 100 unit/mL 60 unit subcut BEDTIME 06/04/24 06/04/24 06/03/24 History (3 mL) subcutaneous pen (Semglee (insulin glargine-yfgn) Pen) lisinopril 20 1 tab PO DAILY 06/04/24 06/04/24 06/03/24 History mg-hydrochlorothiazide 12.5 mg tablet Physical Exam Vital Signs and Narrative: Vital Signs: Last Vital Signs Temp 98.3 F 06/04/24 19:13 Pulse 88 06/04/24 21:04 Resp 16 06/04/24 21:04 BP 174/101 H 06/04/24 21:04 Pulse Ox 97 06/04/24 21:04 O2 Del Method Room Air 06/04/24 21:04 BMI result Body Mass Index 31.2 General: AOx3, no acute distress Resp: CTA bilaterally CVS: S1, S2, RRR GI: +BS, no distention, with epigastric and RUQ tenderness. Large reducible umbilical hernia. Skin: Warm, dry Neuro: Cranial nerves II-XII grossly intact bilaterally. Motor grossly intact bilaterally Extremities: No edema Psych: Appropriate affect Results Labs 06/04/24 14:58 06/04/24 14:58 Labs: Laboratory Results - last 24 hr 06/04/24 06/04/24 06/04/24 14:58 14:58 16:12 MCV 85.6 MCH 30.1 MCHC 35.1 RDW 13.4 Plt Count 89 L MPV 10.6 Immature Gran % (Auto) 0.6 H Neut % (Auto) 86.8 H Lymph % (Auto) 5.5 L [place] % (Auto) 6.5 Eos % (Auto) 0.3 Baso % (Auto) 0.3 Lymph # (Auto) 0.4 L [place] # (Auto) 0.5 Eos # (Auto) 0.0 Baso # (Auto) 0.0 Abs Immat Gran (auto) 0.04 H Absolute Neuts (auto) 6.2 Absolute Nucleated RBC 0.000 Nucleated RBC % (auto) 0.0 Smear Tech's Comments VERIFIED PT 12.7 H INR 1.1 APTT 31.3 Anion Gap 17 Estim Creat Clear Calc 80.9 Estimated GFR > 60 Random Glucose 237 H Lactic Acid 2.7 H* Lactic Acid F/U @ 2Hr Calcium 10.0 Total Bilirubin 4.8 H Direct Bilirubin 2.4 H AST 100 H ALT 56 H Alkaline Phosphatase 159 H Troponin I High Sens 47.1 H 52.3 H Total Protein 8.4 H Albumin 4.1 Lipase 45 Beta-Hydroxybutyrate 0.60 H Urine Color Urine Appearance Urine pH Ur Specific [place] Urine Protein Urine Glucose (UA) Urine Ketones Urine Blood Urine Nitrite Ur Leukocyte Esterase Urine RBC Urine WBC Ur Squamous Epith Cells Urine Bacteria Hyaline Casts Urine Opiates Screen Ur Buprenorphine Scrn Ur Oxycodone Screen Urine Methadone Screen Urine Fentanyl Screen Ur Barbiturates Screen Ur Phencyclidine Scrn Ur Amphetamines Screen U Benzodiazepines Scrn Urine Cocaine Screen U Marijuana (THC) Screen Ethyl Alcohol < 10 Cancelled 06/04/24 06/04/24 18:15 19:36 MCV MCH MCHC RDW Plt Count MPV Immature Gran % (Auto) Neut % (Auto) Lymph % (Auto) [place] % (Auto) Eos % (Auto) Baso % (Auto) Lymph # (Auto) [place] # (Auto) Eos # (Auto) Baso # (Auto) Abs Immat Gran (auto) Absolute Neuts (auto) Absolute Nucleated RBC Nucleated RBC % (auto) Smear Tech's Comments PT INR APTT Anion Gap Estim Creat Clear Calc Estimated GFR Random Glucose Lactic Acid Lactic Acid F/U @ 2Hr 3.4 H* Calcium Total Bilirubin Direct Bilirubin AST ALT Alkaline Phosphatase Troponin I High Sens Total Protein Albumin Lipase Beta-Hydroxybutyrate Urine Color Dark Yellow Urine Appearance Clear Urine pH 6.0 Ur Specific [place] >= 1.030 H Urine Protein >=1000 (4+) H Urine Glucose (UA) 500 H Urine Ketones Trace Urine Blood Moderate (2+) H Urine Nitrite Negative Ur Leukocyte Esterase Negative Urine RBC >20 H Urine WBC 0-5 Ur Squamous Epith Cells 0-2 Urine Bacteria None Seen Hyaline Casts 0-2 Urine Opiates Screen POSITIVE H Ur Buprenorphine Scrn Not Detected Ur Oxycodone Screen Not Detected Urine Methadone Screen Not Detected Urine Fentanyl Screen Not Detected Ur Barbiturates Screen Not Detected Ur Phencyclidine Scrn Not Detected Ur Amphetamines Screen Not Detected U Benzodiazepines Scrn Not Detected Urine Cocaine Screen Not Detected U Marijuana (THC) Screen POSITIVE H Ethyl Alcohol Imaging Radiologist's Impressions: Impressions Abdomen/Pelvis CT 06/04/24 15:53 IMPRESSION: 1. Hepatic cirrhosis with thrombosis of the left and proximal main portal vein. 2. Splenomegaly with numerous collateral vessels including very prominent esophageal varices, collateral veins within a prominent fat-containing umbilical hernia, and extending from the splenic hilum to the right iliac vein. 3. Collapsed gallbladder with markedly edematous gallbladder wall edema might be on the basis of hepatocellular dysfunction, although primary gallbladder disease would be difficult to exclude. 3. Findings were reported by phone to Dr. Bernal in the [place] emergency division at the time of interpretation on 06/04/2024 at 6:38 PM Fleischner guidelines were followed. Electronically signed by: Charles Dias MD 06/04/2024 06:42 PM [employer] RP Chest X-Ray 06/04/24 15:55 IMPRESSION: No acute disease Electronically signed by: Charles Dias MD 06/04/2024 06:44 PM [employer] RP Abdomen Ultrasound 06/04/24 18:54 IMPRESSION: Thickened and heterogeneous gallbladder wall with trace pericholecystic free fluid and positive sonographic Jules's sign. Findings are consistent with acute cholecystitis. Electronically signed by: Massimo So MD 06/04/2024 08:36 PM EST RP Assessment and Plan (1) Abdominal pain: Qualifiers: Abdominal location: epigastric Qualified Code(s): R10.13 - Epigastric pain Status: Acute (2) Portal vein thrombosis: Status: Acute Plan Pt is a 69-year-old male with a PMH significant for?HTN, insulin-dependent type 2 diabetes, peripheral neuropathy, and remote hx of alcohol use disorder sober x20 years who presents to the ED with?multiple complaints, including shortness of breath, pleuritic chest pain, nausea, vomiting, tremors, and disorientation. Pt will be admitted to the hospital for treatment and further evaluation of abdominal pain and portal vein thrombosis likely secondary to liver cirrhosis. Abdominal pain CT of abdomen/pelvis found collapsed gallbladder with markedly edematous gallbladder wall edema Abdominal ultrasound found thickened and heterogeneous gallbladder with trace pericholecystic free fluid and positive sonographic Jules's sign, concerning for acute cholecystitis General surgery consulted, believe GB changes secondary to hepatocellular dysfunction, not cholecystitis Analgesics for pain management GI consult Will empirically cover with Zosyn, started 06/04/2024 No sepsis: Tachycardic, but no fever, tachypnea, leukocytosis Portal vein thrombosis CT showing thrombus of left and proximal main portal vein Secondary to hepatic cirrhosis Patient given octreotide and Protonix in the ED GI consult Will defer anticoagulation pending likely EGD in the morning Patient will be made NPO Hypertensive urgency BP as high as 216/107 in the ED Given amlodipine 10 mg p.o. and labetalol 10 mg IV Continue amlodipine, lisinopril/hydrochlorothiazide Monitor BP ?Amitriptyline withdrawal Patient previously on amitriptyline 25 mg daily x15+ years Abruptly quit 3 weeks ago when discontinued by PCP Patient received Ativan in the ED Continue supportive care Insulin-dependent type [address] on sliding scale insulin, continue Lantus Diabetic diet once no longer NPO Full Code Attending:?Dr. Barkley DVT Prophylaxis: Pneumatic compression due to risk of variceal bleeding Pt will require a hospitalization of at least two nights for treatment of?abdominal pain and portal vein thrombosis likely secondary to hepatic cirrhosis. Patient will require hospital level care for further workup to evaluate for bleeding risk with an EGD before starting anticoagulation for portal vein thrombosis. Quality Stroke Does the patient have a stroke diagnosis?: No VTE Prior VTE?: No VTE Risk Level:: Medical - moderate - high VTE Device Contraindication: N/A - Device Ordered VTE Drug Contraindication: Treatment Not Indicated
[2024-06-04 21:56] LABS: Glucose, Whole Blood 188 mg/dL (60-115)
[2024-06-04] MEDS: Insulin Glargine,Hum.rec.anlog 100 UNIT/ML 10 ML VIAL 30 UNIT SUBCUT (22:16)
[2024-06-04 22:17] LABS: Cancel Lactic Acid Canceled
[2024-06-04] MEDS: Insulin Lispro 100 UNIT/ML 3 ML VIAL SUBCUT (22:17)
[2024-06-04] MEDS: 0.9 % Sodium Chloride Flush 3 ML SYRINGE IVFLUSH (23:45)
--- NOTE | 2024-06-05 01:58 | PC.NURSE ---
Pt sleeping, NAD. Awaiting bed assignment for admission, will continue to monitor.
[2024-06-05 03:18] VITALS: BP 131/74; PULSE 75; RESP 20; TEMP 37.3; O2SAT 96
--- NOTE | 2024-06-05 04:30 | PC.NURSE ---
Pt is NPO per hospitalist.
[2024-06-05 04:55] LABS: MANUAL DIFF FLAG NO
[2024-06-05 05:01] LABS: Basophils Percent Auto 0.2 % (0-2); Eosinophils Absolute Auto 0.1 X10*3/uL (0.0-0.4); Eosinophils Percent Auto 1.8 % (0-4); Hematocrit 39.7 % (42.0-52.0); Hemoglobin 13.8 g/dl (14.0-18.0); Imm Gran Abs Auto 0.02 X10*3/uL (0.00-0.03); Imm Gran Pct Auto 0.4 % (0.0-0.4); Lymphocytes Absolute Auto 0.6 X10*3/uL (1.2-4.9); Lymphocytes Percent Auto 12.7 % (20-40); Mean Corpuscular HGB Conc 34.8 g/dl (31.0-36.0); Mean Corpuscular Volume 86.3 fL (80.0-98.0); Mean Platelet Volume 11.2 fL (9.4-12.4); Monocytes Absolute Auto 0.5 X10*3/uL (0.1-1.2); Monocytes Percent Auto 10.8 % (2-11); Neutrophils Absolute Auto 3.6 x10*3/uL (2.0-8.3); Neutrophils Percent Auto 74.1 % (45-73); Red Cell Distribution Width 13.5 % (11.0-16.0); White Blood Count 4.9 X10*3/uL (4.8-10.8)
[2024-06-05 05:10] LABS: Platelet Count 71 X10*3/uL (160-400)
[2024-06-05 05:20] LABS: Alanine Aminotransferase 46 U/L (0-40); Albumin Level 3.3 g/dL (3.5-5.0); Alkaline Phosphatase 112 U/L (39-117); Anion Gap 13 (12-20); Aspartate Amino Transferase 66 U/L (5-37); Blood Urea Nitrogen 22 mg/dL (9-16); Calcium 8.7 mg/dL (8.4-10.2); Carbon Dioxide 24 mmol/L (22-29); Chloride 104 mmol/L (96-108); Creatinine Clr Calc Pharmacy 62.9; Estimated Glomerular Filt Rate 57; Glucose Random 171 mg/dL (60-115); Potassium 3.6 mmol/L (3.3-5.1); Sodium 137 mmol/L (135-145); Total Protein 6.5 g/dL (6.5-8.0)
[2024-06-05 05:55] VITALS: BP 115/60; PULSE 80; RESP 18; TEMP 36.8; O2SAT 95
[2024-06-05 05:55] LABS: Glucose, Whole Blood 146 mg/dL (60-115)
[2024-06-05] MEDS: Piperacillin Sodium/Tazobactam 3.375 GM in 0.9 % Sodium Chloride 50 ML IV (06:29)
--- NOTE | 2024-06-05 06:31 | PC.NURSE ---
Pt medicated per SEP, remains NPO. POC 146, no ss coverage. Offers no complaints, awaiting bed assignment for admission, aware of plan of care.
--- NOTE | 2024-06-05 07:29 | P.CNGI_ITS ---
History of Present Illness Data of Consult Service Date: 06/05/24 Requesting physician: Bhavesh Barkley Primary Care Provider: Kyle Dyson MD HPI Reason for consult: Cirrhosis, Portal Vein Thrombosis 69 YM with HTN, insulin-dependent type 2 diabetes, peripheral neuropathy, and remote hx of alcohol use disorder sober x 20 years seen at [facility] on 06/03/24 with?shortness of breath, pleuritic chest pain, nausea, vomiting, tremors, difficulty urinating and disorientation. Patient believes his symptoms started around 3 weeks ago when he went to his PCP and requested be taken off amitriptyline, gabapentin, and tramadol (after taking these medications x 10 yrs) Reports he initially was going to be tapered off his amitriptyline, but when he went to refill his script found he was unable to do so. Called his PCP back but still was unable to get anymore refills for tapering. Patient then reports a constellation of symptoms, including headache, dizziness, disorientation, shortness of breath, productive cough, nausea, vomiting, hiccups, ataxia, and central abdominal pain at the site of his weekly Trulicity injection. Pt denies hearburn, dysphagia, hematochezia or melena. He reports having a BM 1-3 times a day. Pt notes wt loss from 212 to 205 lbs after taking Trulicity for DM for the past 1-2 years. Patient has a long and remote history of heavy alcohol use, though reports quit drinking approximately 20 years ago. At that time was told he had fatty liver but no indication of cirrhosis. Pt smokes week 1 jt per day and denies smoking tobacco or ETOH abuse Pt states he quitted drinking alcohol when he gained custody of his son. Patient denies major cardiac or pulmonary problems, loud snoring or sleep apnea. 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 Pt reports his Mom had liver cirrhosis (? from exposure to hair spray while working in a hair salon) and denies known history of colon polyps or GI malignancy In the ED pt was tachycardic up to 121 and hypertensive up to 216/107. Labs were significant for initial lactic acid 2.7 with repeat 3.4, T bili 4.8, AST 100, ALT 56, alk-phos 159, and initial troponin 47.1 with repeat 52.3. No leukocytosis. Stable H&H. No significant electrolyte abnormalities. UA negative for UTI. CXR showed no acute disease. Pt was treated with Ativan, ondansetron, IVF, morphine, amlodipine 10 mg p.o., labetalol 10 mg IV, octreotide 100 mcg IV, Protonix, ceftriaxone, and Zosyn And admitted to [facility] for management of abdominal pain and portal vein thrombosis likely secondary to liver cirrhosis. 06/04/[address] SCAN SHOWED: 1. Hepatic cirrhosis with thrombosis of the left and proximal main portal vein. 2. Splenomegaly with numerous collateral vessels including very prominent esophageal varices, collateral veins within a prominent fat-containing umbilical hernia, and extending from the splenic hilum to the right iliac vein. 3. Collapsed gallbladder with markedly edematous gallbladder wall edema might be on the basis of hepatocellular dysfunction, although primary gallbladder disease would be difficult to exclude. 06/04/24 ABD US SHOWED: Thickened and heterogeneous gallbladder wall with trace pericholecystic free fluid and positive sonographic Jules's sign. [facility] Past Medical History Medical History (Updated 06/04/24 @ 22:36 by VINNIE Burkett) Peripheral neuropathy Insulin dependent type 2 diabetes mellitus Neuropathy HTN (hypertension) Social History Social History Alcohol intake: former Patient Tobacco Use Status: Never used Tobacco Meds Allergies Allergy/AdvReac Type Severity Reaction Status Date / Time No Known Allergies Allergy Unverified 06/04/24 14:24 [No Known Allergies*] polycillin Allergy Unknown Unknown Uncoded 06/04/24 14:24 Active Medications: Current Medications Acetaminophen (Acetaminophen 325 Mg Tablet) 650 mg PO Q6H PRN PRN Reason: Pain, Mild (Pain Scale 1-3), fever or headache Amlodipine Besylate (Amlodipine Besylate 5 Mg Tablet) 5 mg PO DAILY DO; Protocol Calcium Carbonate (Calcium Carbonate 750 Mg Tab.Chew) 750 mg PO Q4H PRN PRN Reason: Heartburn Glucose (Glucose Gel 15 Gm Gel..Gram.) 15 gm PO Q15M PRN; Protocol PRN Reason: per Hypoglycemia Standing Ord. Hydrochlorothiazide (Hydrochlorothiazide 12.5 Mg Tablet) 12.5 mg PO DAILY DO Hydromorphone HCl (Hydromorphone Hcl 1 Mg/Ml Syringe) 0.5 mg IVPUSH Q4H PRN; Protocol PRN Reason: Pain, Severe (Pain Scale 7-10) Piperacillin Sod/Tazobactam (Sod 3.375 gm/ Sodium Chloride) 50 mls @ 100 mls/hr IV Q6H [facility] Last Infusion: 06/05/24 07:04 Dose: Infused Dextrose (D10) 250 mls @ 750 mls/hr IV Q15M PRN; Protocol PRN Reason: per Hypoglycemia Standing Ord. Insulin Glargine (Insulin Glargine,Hum.Rec.Anlog 100 Unit/Ml 10 Ml Vial) 42 unit SUBCUT BEDTIME [facility] Insulin Human Lispro (Insulin Lispro 100 Unit/Ml 3 Ml Vial) 0 unit SUBCUT Q6H [facility]; Protocol Last Admin: 06/05/24 06:19 Dose: Not Given Lisinopril (Lisinopril 20 Mg Tablet) 20 mg PO DAILY [facility] Magnesium Hydroxide (Milk Of Magnesia 30 Ml Oral.Susp) 30 ml PO DAILY PRN PRN Reason: Constipation Melatonin (Melatonin 3 Mg Tablet) 6 mg PO BEDTIME PRN PRN Reason: Insomnia Ondansetron HCl (Ondansetron Hcl 4 Mg/2 Ml Vial) 4 mg IVPUSH Q8H PRN PRN Reason: Nausea and Vomiting Sodium Chloride (0.9 % Sodium Chloride Flush 3 Ml Syringe) 3 ml IVFLUSH QSHIFT [facility] Last Admin: 06/05/24 07:04 Dose: Not Given Home Medications ?Medication ?Instructions ?Recorded ?Confirmed ?Last Taken ?Type amlodipine 5 mg tablet 5 mg PO DAILY 06/04/24 06/04/24 06/03/24 History dulaglutide 3 mg/0.5 mL 3 mg subcut WE 06/04/24 06/04/24 06/03/24 History subcutaneous pen injector (Trulicity) insulin aspart U-100 100 unit/mL See Protocol subcut TIDAC 06/04/24 06/04/24 06/03/24 History (3 mL) subcutaneous pen (Novolog FlexPen U-100 Insulin aspart) insulin glargine-yfgn 100 unit/mL 60 unit subcut BEDTIME 06/04/24 06/04/24 06/03/24 History (3 mL) subcutaneous pen (Semglee (insulin glargine-yfgn) Pen) lisinopril 20 1 tab PO DAILY 06/04/24 06/04/24 06/03/24 History mg-hydrochlorothiazide 12.5 mg tablet Physical Exam 2 Vital Signs: Vital Signs: Last Vital Signs Temp 98.2 F 06/05/24 05:55 Pulse 80 06/05/24 05:55 Resp 18 06/05/24 05:55 BP 115/60 06/05/24 05:55 Pulse Ox 95 06/05/24 05:55 O2 Del Method Room Air 06/05/24 05:55 BMI result Body Mass Index 31.2 Const: General: healthy appearing and no acute distress Nutritional Appearance: obese Orientation/consciousness: patient oriented x3 L imitations: no limitations HEENT: Head: Yes normal to inspection Ears: hearing grossly normal bilaterally Eyes: Sclerae: sclerae normal Pupils: Equal, round and reactive pupils present Neck: Neck: Yes normal visual inspection Chest: Chest palpation & inspection: normal inspection of the chest Resp: Effort & Inspection: normal respiratory effort Auscultation: clear to auscultation bilaterally Cardio: Palpation: normal PMI Rate: regular rate Rhythm: regular rhythm Heart sounds: S1 normal heart sound present, S2 normal heart sound present and no murmurs GI: Inspection: Yes obesity Palpation (GI): Soft to palpation, nontender and No hepatosplenomegaly present Auscultation: normal bowel sounds Rectal Exam - Male: Yes deferred Skin: General skin exam: no rashes or lesions noted and spider nevi Neuro: General: patient oriented x3, gait normal and moves all extremities Cranial nerves: Yes Equal, round and reactive pupils present Extrem: General: No pedal edema Psych: Appearance: grossly normal Mental Status: mental status grossly normal Results Labs 06/05/24 04:41 06/05/24 04:41 Labs: Short CBC 06/04/24 06/05/24 Range/Units 14:58 04:41 WBC 7.1 4.9 (4.8-10.8) X10*3/uL Hgb 17.1 13.8 L (14.0-18.0) g/dl Hct 48.7 39.7 L (42.0-52.0) % Plt Count 89 L 71 L (160-400) X10*3/uL BMP 11/21/24 11/22/24 14:58 04:41 Sodium 135 137 Potassium 3.9 3.6 Chloride 101 104 Carbon Dioxide 21 L 24 BUN 18 H 22 H Creatinine 0.98 1.26 Calcium 10.0 8.7 D Liver Function 06/04/24 06/05/24 Range/Units 14:58 04:41 Total Bilirubin 4.8 H 2.0 H (0.0-1.0) mg/dL Direct Bilirubin 2.4 H (0.0-0.5) mg/dL AST 100 H 66 H (5-37) U/L ALT 56 H 46 H (0-40) U/L Alkaline Phosphatase 159 H 112 (39-117) U/L Albumin 4.1 3.3 L (3.5-5.0) g/dL Urine 06/04/24 Range/Units 18:15 Urine Color Dark Yellow Urine Appearance Clear Urine pH 6.0 (5.0-9.0) Ur Specific [place] >= 1.030 H (1.005-1.025) Urine Protein >=1000 (4+) H (Neg-Trace) mg/dL Urine Glucose (UA) 500 H (Negative) mg/dL Assessment and Plan (1) Portal vein thrombosis: Status: Acute (2) Abnormal LFTs: Status: Acute (3) Abdominal pain: Qualifiers: Abdominal location: epigastric Qualified Code(s): R10.13 - Epigastric pain Status: Acute Plan 69 YM with HTN, insulin-dependent type 2 diabetes, peripheral neuropathy, and remote hx of alcohol use disorder sober x 20 years seen at [facility] on 06/03/24 with?shortness of breath, pleuritic chest pain, nausea, vomiting, tremors, difficulty urinating and disorientation. 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 Cirrhosis is likely due to past Hep C and CARTAGENA He was treated for Hep C in 2009 with Ribavarin + two additional oral medications with eradication. In the ED pt was tachycardic up to 121 and hypertensive up to 216/107. Labs were significant for initial lactic acid 2.7 with repeat 3.4, T bili 4.8, AST 100, ALT 56, alk-phos 159, and initial troponin 47.1 with repeat 52.3. No leukocytosis. Stable H&H. No significant electrolyte abnormalities. UA negative for UTI. Abd CT showed hepatic cirrhosis with thrombosis of the left and proximal main portal vein, splenomegaly with collateral vessels, prominent esophageal varices, fat containing umbilical hernia Gallbladder wall edema which was felt to be related to hepatocellular dysfunction. Pt was evaluated by surgery and GB abnormality was felt to be related to cirrhosis Pt staes he is back to normal today. RECOMMENDATIONS: 1. Since pt has prominent esophageal varices, he is not a candidate for anticoagulation due to increased risk of variceal bleed 2. Pt was offered further evaluation with EGD with possible band ligation of esophafeal varices. He declined due to concern for complications and prefer to discuss his condition with his PCP. He may elect to an EGD as an outpt Procedures Date of Service Date of Service: 06/05/24
--- NOTE | 2024-06-05 08:43 | P.DS_ITS ---
DS: Providers Provider Date of Service: 06/05/24 Date of admission: 06/04/24 21:32 Date of discharge: 06/05/24 Primary care physician: Kyle Dyson MD Consults: 06/04/24 21:32 Consult to Gastroenterology Routine Consulting Provider: George Perez Reason for consultation: cirrhosis with varices, portal vein thrombosis DS: Diagnosis Discharge Diagnosis (1) Portal vein thrombosis: Status: Acute (2) Abnormal LFTs: Status: Acute (3) Abdominal pain: Status: Acute DS: Summary Hospital Course Hospital Course: from initial hpi: 69-year-old male with a PMH significant for?HTN, insulin-dependent type 2 diabetes, peripheral neuropathy, and remote hx of alcohol use disorder sober x20 years who presents to the ED with?multiple complaints, including shortness of breath, pleuritic chest pain, nausea, vomiting, tremors, and disorientation. Patient believes his symptoms started around 3 weeks ago when he went to his PCP and requested be taken off amitriptyline, gabapentin, and tramadol. Reports he initially was going to be tapered off his amitriptyline, but when he went to refill his script found he was unable to do so. Called his PCP back but still was unable to get anymore refills for tapering. Patient then reports a constellation of symptoms, including headache, dizziness, disorientation, shortness of breath, productive cough, nausea, vomiting, hiccups, ataxia, and central abdominal pain at the site of his weekly Trulicity injection. Patient has a long and remote history of heavy alcohol use, though reports quit drinking approximately 20 years ago. At that time was told he had fatty liver but no indication of cirrhosis. In the ED pt was tachycardic up to 121 and hypertensive up to 216/107. Labs were significant for initial lactic acid 2.7 with repeat 3.4, T bili 4.8, AST 100, ALT 56, alk-phos 159, and initial troponin 47.1 with repeat 52.3. No leukocytosis. Stable H&H. No significant electrolyte abnormalities. UA negative for UTI. CXR showed no acute disease. CT?of abdomen and pelvis showed hepatic cirrhosis with thrombus of the left and proximal main portal vein, splenomegaly with numerous collateral vessels including prominent esophageal varices, and collateral veins with a prominent fat containing umbilical hernia and extending from splenic hilum to right iliac vein. Also found collapsed gallbladder with markedly edematous gallbladder wall edema. Abdominal ultrasound found thickened and heterogeneous gallbladder wall with trace pericholecystic free fluid and positive sonographic Jules sign, concerning for acute cholecystitis. EKG demonstrated sinus tachycardia with occasional PVCs. Pt was treated with Ativan, ondansetron, IVF, morphine, amlodipine 10 mg p.o., labetalol 10 mg IV, octreotide 100 mcg IV, Protonix, ceftriaxone, and Zosyn. Pt will be admitted to the hospital for treatment and further evaluation of abdominal pain and portal vein thrombosis likely secondary to liver cirrhosis. hospital course: Patient was admitted for abdominal pain, possibly due to acute portal vein thrombosis, imaging was suggestive of cholecystitis however patient was evaluated by General surgery who felt this was likely just changes due to cirrhosis. Patient's pain quickly resolved making cholecystitis unlikely. For portal vein thrombosis patient is not a candidate for anticoagulation due to large varices and thrombocytopenia. Was seen by Gastroenterology who recommended starting low-dose beta-wally and EGD for banding, however, patient was not interested in EGD at this time and will follow up outpatient. For hypertensive urgency was given amlodipine, lisinopril, hydrochlorothiazide and blood pressure improved. For diabetes with proteinuria patient was continued on basal bolus insulin and lisinopril. For liver cirrhosis likely due to combination of history of alcohol dependence now in remission, HCV, nonalcoholic fatty liver we will follow up with GI as outpatient. Time Attestation Discharge Coordination Time (in mins): 33 Quality: Safe Use of Opioids Does Pt have an Active Cancer Diagnosis on the Problem List?: No Quality: Stroke Does the patient have a stroke diagnosis?: No Physical Exam Vital Signs: Vital Signs: Last Vital Signs Temp 98.2 F 06/05/24 05:55 Pulse 80 06/05/24 05:55 Resp 18 06/05/24 05:55 BP 115/60 06/05/24 05:55 Pulse Ox 95 06/05/24 05:55 O2 Del Method Room Air 06/05/24 05:55 BMI result Body Mass Index 31.2 Const: General: comfortable and no acute distress Orientation/consciousness: patient oriented x3 Neck: Neck: Yes no lymphadenopathy Resp: Auscultation: clear to auscultation bilaterally Cardio: Rhythm: regular rhythm GI: Other: No abdominal pain or tenderness, no Jules's sign Palpation (GI): Soft to palpation, nontender and no guarding Neuro: General: patient oriented x3 DS: Data Data Completed and Pending Labs on day of discharge: Laboratory Results - last 24 hr 06/04/24 06/04/24 06/04/24 14:58 14:58 16:12 WBC 7.1 RBC 5.69 Hgb 17.1 Hct 48.7 MCV 85.6 MCH 30.1 MCHC 35.1 RDW 13.4 Plt Count 89 L MPV 10.6 Immature Gran % (Auto) 0.6 H Neut % (Auto) 86.8 H Lymph % (Auto) 5.5 L [place] % (Auto) 6.5 Eos % (Auto) 0.3 Baso % (Auto) 0.3 Lymph # (Auto) 0.4 L [place] # (Auto) 0.5 Eos # (Auto) 0.0 Baso # (Auto) 0.0 Abs Immat Gran (auto) 0.04 H Absolute Neuts (auto) 6.2 Absolute Nucleated RBC 0.000 Nucleated RBC % (auto) 0.0 Smear Tech's Comments VERIFIED PT 12.7 H INR 1.1 APTT 31.3 Sodium 135 Potassium 3.9 Chloride 101 Carbon Dioxide 21 L Anion Gap 17 BUN 18 H Creatinine 0.98 Estim Creat Clear Calc 80.9 Estimated GFR > 60 POC Glucose Random Glucose 237 H Lactic Acid 2.7 H* Lactic Acid F/U @ 2Hr Calcium 10.0 Total Bilirubin 4.8 H Direct Bilirubin 2.4 H AST 100 H ALT 56 H Alkaline Phosphatase 159 H Troponin I High Sens 47.1 H 52.3 H Total Protein 8.4 H Albumin 4.1 Lipase 45 Beta-Hydroxybutyrate 0.60 H Urine Color Urine Appearance Urine pH Ur Specific [place] Urine Protein Urine Glucose (UA) Urine Ketones Urine Blood Urine Nitrite Ur Leukocyte Esterase Urine RBC Urine WBC Ur Squamous Epith Cells Urine Bacteria Hyaline Casts Urine Opiates Screen Ur Buprenorphine Scrn Ur Oxycodone Screen Urine Methadone Screen Urine Fentanyl Screen Ur Barbiturates Screen Ur Phencyclidine Scrn Ur Amphetamines Screen U Benzodiazepines Scrn Urine Cocaine Screen U Marijuana (THC) Screen Ethyl Alcohol < 10 Cancelled 06/04/24 06/04/24 06/04/24 18:15 19:36 21:51 WBC RBC Hgb Hct MCV MCH MCHC RDW Plt Count MPV Immature Gran % (Auto) Neut % (Auto) Lymph % (Auto) [place] % (Auto) Eos % (Auto) Baso % (Auto) Lymph # (Auto) [place] # (Auto) Eos # (Auto) Baso # (Auto) Abs Immat Gran (auto) Absolute Neuts (auto) Absolute Nucleated RBC Nucleated RBC % (auto) Smear Tech's Comments PT INR APTT Sodium Potassium Chloride Carbon Dioxide Anion Gap BUN Creatinine Estim Creat Clear Calc Estimated GFR POC Glucose 188 H Random Glucose Lactic Acid Lactic Acid F/U @ 2Hr 3.4 H* Calcium Total Bilirubin Direct Bilirubin AST ALT Alkaline Phosphatase Troponin I High Sens Total Protein Albumin Lipase Beta-Hydroxybutyrate Urine Color Dark Yellow Urine Appearance Clear Urine pH 6.0 Ur Specific [place] >= 1.030 H Urine Protein >=1000 (4+) H Urine Glucose (UA) 500 H Urine Ketones Trace Urine Blood Moderate (2+) H Urine Nitrite Negative Ur Leukocyte Esterase Negative Urine RBC >20 H Urine WBC 0-5 Ur Squamous Epith Cells 0-2 Urine Bacteria None Seen Hyaline Casts 0-2 Urine Opiates Screen POSITIVE H Ur Buprenorphine Scrn Not Detected Ur Oxycodone Screen Not Detected Urine Methadone Screen Not Detected Urine Fentanyl Screen Not Detected Ur Barbiturates Screen Not Detected Ur Phencyclidine Scrn Not Detected Ur Amphetamines Screen Not Detected U Benzodiazepines Scrn Not Detected Urine Cocaine Screen Not Detected U Marijuana (THC) Screen POSITIVE H Ethyl Alcohol 06/05/24 06/05/24 04:41 05:43 WBC 4.9 RBC 4.60 Hgb 13.8 L Hct 39.7 L MCV 86.3 MCH 30.0 MCHC 34.8 RDW 13.5 Plt Count 71 L MPV 11.2 Immature Gran % (Auto) 0.4 Neut % (Auto) 74.1 H Lymph % (Auto) 12.7 L [place] % (Auto) 10.8 Eos % (Auto) 1.8 Baso % (Auto) 0.2 Lymph # (Auto) 0.6 L [place] # (Auto) 0.5 Eos # (Auto) 0.1 Baso # (Auto) 0.0 Abs Immat Gran (auto) 0.02 Absolute Neuts (auto) 3.6 Absolute Nucleated RBC 0.000 Nucleated RBC % (auto) 0.0 Smear Tech's Comments PT INR APTT Sodium 137 Potassium 3.6 Chloride 104 Carbon Dioxide 24 Anion Gap 13 BUN 22 H Creatinine 1.26 Estim Creat Clear Calc 62.9 Estimated GFR 57 POC Glucose 146 H Random Glucose 171 H Lactic Acid Lactic Acid F/U @ 2Hr Calcium 8.7 D Total Bilirubin 2.0 H Direct Bilirubin AST 66 H ALT 46 H Alkaline Phosphatase 112 Troponin I High Sens Total Protein 6.5 Albumin 3.3 L Lipase Beta-Hydroxybutyrate Urine Color Urine Appearance Urine pH Ur Specific [place] Urine Protein Urine Glucose (UA) Urine Ketones Urine Blood Urine Nitrite Ur Leukocyte Esterase Urine RBC Urine WBC Ur Squamous Epith Cells Urine Bacteria Hyaline Casts Urine Opiates Screen Ur Buprenorphine Scrn Ur Oxycodone Screen Urine Methadone Screen Urine Fentanyl Screen Ur Barbiturates Screen Ur Phencyclidine Scrn Ur Amphetamines Screen U Benzodiazepines Scrn Urine Cocaine Screen U Marijuana (THC) Screen Ethyl Alcohol Discharge Plan Discharge Anticipated Discharge Date/Time: 06/05/24 08:40 Patient Disposition: Home, Self-Care Discharge Diagnosis: portal vein thrombosus, varices, cirrhosis Referrals: Kyle Dyson MD [Primary Care Provider] - 1 Week George Perez MD [Physician] - 1 Week Discharge Medications: New carvedilol 3.125 mg tablet 3.125 mg PO BID Qty: 180 0RF Rx Instructions: must administer with a meal/food Continued lisinopril-hydrochlorothiazide 20-12.5 mg tablet 1 tab PO DAILY amlodipine 5 mg tablet 5 mg PO DAILY insulin aspart U-100 [Novolog FlexPen U-100 Insulin] 100 unit/mL (3 mL) insulin pen See Protocol subcut TIDA Protocol: Insulin Correction Scale Less than or equal to 110 ---- Give (units): 0 111 to 150 Give (units): 0 151 to 200 Give (units): 2 201 to 250 Give (units): 4 251 to 300 Give (units): 6 301 to 350 Give (units): 8 Greater than 350 Give (units): 10 Call MD if Blood Glucose > : 350 Trulicity 3 mg/0.5 mL pen injector 3 mg subcut WE insulin glargine-yfgn [Semglee(insulin glarg-yfgn)Pen] 100 unit/mL (3 mL) insulin pen 60 unit subcut BEDTIME Discharge Orders: Discharge Order (Routine); Ordered 06/05/24 Ordered By: Delgado Mercado Diet: Diabetic diet Activity on Discharge: As tolerated Stand Alone Forms: Patient Portal Discharge page Print Language: Latvian Care Plan Goals: manage cirrhosis Health Concerns: cirrhosis, portal vein thrombosus, esophogeal varices Plan of Treatment: starting low dose beta wally for variceal bleed prophylaxis follow up with GI for EGD for banding Assessment: see above
--- NOTE | 2024-06-05 08:45 | MHC.CM.PN ---
Patient dc'd home self care prior to CM assessment.
== END 2024-06-05 09:01 | disposition home or self-care (01) | DRG 442 ==
LOC: HO.ED 16:20 → HO.EDOVER 21:37 → HO.S3 06-05 07:49 → HO.EDOVER 06-05 08:38
PROVIDERS: Emergency Medicine; Physician Assistant; Student in an Organized Health Care Education/Training Program; Admitting Provider Student in an Organized Health Care Education/Training Program; Emergency Provider Internal Medicine; PCP Family Medicine; Visit Provider Internal Medicine
DX: I81 Portal vein thrombosis (principal); F13.939 Sedative, hypnotic or anxiolytic use, unspecified with withdrawal, unspecified; I85.10 Secondary esophageal varices without bleeding; E11.42 Type 2 diabetes mellitus with diabetic polyneuropathy; K70.30 Alcoholic cirrhosis of liver without ascites; D69.6 Thrombocytopenia, unspecified; F10.21 Alcohol dependence, in remission; K76.0 Fatty (change of) liver, not elsewhere classified; B19.20 Unspecified viral hepatitis C without hepatic coma; I16.0 Hypertensive urgency; Z79.4 Long term (current) use of insulin; Z79.85 Long-term (current) use of injectable non-insulin antidiabetic drugs; Z79.899 Other long term (current) drug therapy
CPT/HCPCS: 36415; 71045; 74177; 76705; 80053; 80307; 81001; 82010; 82248; 82947; 83605; 83690; 84484; 85025; 85610; 85730; 87040; 93005; 99285; J0696; J1920; J2060; J2270; J2354; J2405; J2470; J2543; J7120; Q9967

== ENCOUNTER → 2024-06-04 14:27 | Outpatient (BNV) | payer OTHER, MEDICAID, SELFPAY | PROVIDERS: Admitting Provider Student in an Organized Health Care Education/Training Program; Emergency Provider Internal Medicine; PCP Family Medicine; Visit Provider Internal Medicine Cardiovascular Disease | DX: R00.0 Tachycardia, unspecified (principal); R94.31 Abnormal electrocardiogram [ECG] [EKG]; I44.0 Atrioventricular block, first degree | CPT/HCPCS: 93010 ==

== ENCOUNTER → 2024-06-04 21:32 | Outpatient (BNV) | payer MEDICARE, MEDICAID, SELFPAY | PROVIDERS: Admitting Provider Student in an Organized Health Care Education/Training Program; Emergency Provider Internal Medicine; PCP Family Medicine; Visit Provider Surgery | DX: R79.89 Other specified abnormal findings of blood chemistry (principal) | CPT/HCPCS: 99283 ==

== ENCOUNTER → 2024-06-04 21:32 | Outpatient (BNV) | payer OTHER, MEDICAID, SELFPAY | PROVIDERS: Admitting Provider Student in an Organized Health Care Education/Training Program; Emergency Provider Internal Medicine; PCP Family Medicine; Visit Provider Student in an Organized Health Care Education/Training Program | DX: I81 Portal vein thrombosis (principal); R79.89 Other specified abnormal findings of blood chemistry; R10.13 Epigastric pain | CPT/HCPCS: 99223; 99239 ==

== ENCOUNTER → 2024-06-04 21:32 | Outpatient (BNV) | payer MEDICARE, MEDICAID, SELFPAY | PROVIDERS: Admitting Provider Student in an Organized Health Care Education/Training Program; Emergency Provider Internal Medicine; PCP Family Medicine; Visit Provider Internal Medicine Gastroenterology | DX: I81 Portal vein thrombosis (principal); R74.01 Elevation of levels of liver transaminase levels; R10.13 Epigastric pain | CPT/HCPCS: 99222 ==

== ENCOUNTER 2024-07-24 11:19 | Inpatient (IN) | payer MEDICARE, MEDICAID, SELFPAY ==
--- NOTE | ~2024-07-24 | CT_ITS ---
EXAMINATION: CT ABDOMEN AND PELVIS WITH CONTRAST CLINICAL INFORMATION: Severe right upper quadrant pain. Question of acalculous cholecystitis. COMPARISON: CT AP 06/04/2024. Ultrasound abdomen Limited 07/24/2024. TECHNIQUE: Multidetector volumetric images were obtained from the superior aspect of the liver through the pubic symphysis following administration 85 mL of Omnipaque 350 intravenous contrast. Sagittal and coronal reformatted images were obtained on the technologist's workstation. Oral contrast: No This CT examination was performed using dose optimization techniques as appropriate, variously including the following: *Automated exposure control *Adjustment of mA and/or kV according to patient size (this includes techniques or standardized protocols for targeted exams where dose is matched to indication/reason for exam; i.e. extremities or head) *Use of iterative reconstruction technique DLP: 556 mGy-cm FINDINGS: LUNG BASES: -Lung bases demonstrate motion degradation, limiting findings. There is a vague nodular opacity in the medial right lower lobe measuring 1.3 cm (series 3, image 87), unable to further characterize due to motion. In addition there are subcentimeter nodular foci in the lingula, and right lateral costophrenic sulcus, all new from the prior exam. These could be inflammatory, infectious, or neoplastic. Motion precludes further characterization. -There are no effusions. -There are large esophageal varices. -Heart size is normal. There are mitral and aortic annular calcifications. There are heavy coronary calcifications. No pericardial effusion. LIVER, GALLBLADDER, AND BILIARY TREE: -Shrunken, nodular appearance of the liver consistent with cirrhosis. -There is redemonstration of thrombosis, chronic, of the left main portal vein and its radicles to the left hepatic lobe. -There is worsening intrahepatic biliary radicle dilatation of the left hepatic lobe, with associated geographic fatty change, and worsening left hepatic lobe atrophy. Altered perfusion to the left lobe. -There is a vague hypoattenuating focus involving the origin of segments 4A and 4B, suggestive of an infiltrating hypoattenuating nonenhancing mass. A biliary neoplasm is suspected. This is difficult to measure due to its infiltrative appearance although grossly appears to measure approximately 2.2 x 3.9 x 1.9 cm (rough estimate). MRI is recommended for further characterization. -The gallbladder is suboptimally distended and demonstrates diffuse low-attenuation wall thickening suggesting wall edema. No calculi visualized. This is most likely secondary to the process in the liver. No pericholecystic inflammatory change. -The common bile duct is hyperattenuating which may indicate presence of sludge or other, and measures up to 10 mm in diameter. -There are mild infiltrative changes surrounding the celiac axis, and marc hepatis, of uncertain etiology or significance. PANCREAS: Unremarkable. Normal pancreatic duct. SPLEEN: Marked splenomegaly present, with the spleen measuring 20.1 cm in AP, by 20.1 cm in craniocaudad dimension. No focal splenic lesions. ADRENAL GLANDS: Mild bilateral hyperplasia. KIDNEYS AND URETERS: The kidneys are normal in size, shape, and attenuation. No hydronephrosis, hydroureter, or calculi seen. No perinephric stranding. There is a 1.8 cm simple cyst in the lower pole of the left kidney, which is mildly malrotated. There are bilateral extrarenal pelves. BLADDER: Minimal wall thickening without other abnormality. GASTROINTESTINAL TRACT: -Mild thickening of the cecum and proximal ascending colon, possibly due to cirrhosis and portal hypertension. -Stomach is decompressed. -Duodenum is normal. -Small bowel is nondilated without evidence of inflammatory change. -Normal appendix. -Mild diverticulosis of the descending and sigmoid colon. -No rectal abnormality. ABDOMINAL WALL: There is a periumbilical hernia on the right containing dilated varices. LYMPH NODES: No pathologic lymphadenopathy is detected.. VASCULAR: -There are splenic, gastric, splenorenal, umbilical, and esophageal varices. There are mesenteric varices. -Left portal vein thrombosis as described above. -There is a subtle filling defect in the infracardiac IVC (series 2, image 9), for which thrombus is not excluded, although this is possibly artifact as well. -No aortic aneurysm. Moderate atheromatous disease of the aorta and iliac vessels. PELVIC VISCERA: -The prostate is enlarged, with estimated diameter of 5.1 cm. The median lobe protrudes into the bladder base. -There are calcifications within the corpora cavernosa. OSSEOUS STRUCTURES: No suspicious lytic or blastic bone lesions. Severe disc degeneration L3-4. Mild bilateral hip degenerative changes. CT/CT abdomen pelvis w IV con IMPRESSION: 1. Advanced hepatic cirrhosis. There is left main portal vein thrombosis, which appears chronic and unchanged from the prior study. There is altered perfusion to the left lobe of the liver. 2. There is a suggestion of biliary radical dilatation of the left hepatic lobe, versus nonenhancing portal veins, although there is a subtle hypoattenuating focus at the junction of the left and right hepatic lobes as discussed, possibly representing a neoplasm (possibly biliary). This is indeterminate on this examination and enhanced MRI is recommended for definitive characterization. 3. The common bile duct is dilated to 10 mm in hyperattenuating, uncertain etiology, possibly filled with sludge. Again, MRI recommended. 4. Massive splenomegaly. 5. Extensive esophageal, splenic, splenorenal, gastric, mesenteric, and umbilical varices. Portal hypertension. 6. The gallbladder is underdistended but demonstrates a markedly edematous wall. This is felt to most likely represent changes related to portal hypertension as opposed to acalculus cholecystitis. There are no surrounding inflammatory changes. 7. There are new vague nodular opacities in the lingula and right lower lobe of the lungs, of which further characterization is not possible due to motion artifact. Consider infectious, inflammatory, and neoplastic causes. 8. Refer to the body the report for more details and additional ancillary findings. Electronically signed by: Roderick Martinez MD 07/24/2024 04:28 PM JEANETTE
--- NOTE | ~2024-07-24 | MR_ITS ---
CLINICAL HISTORY: biliary neoplasm? MR abdomen with and without intravenous contrast Comparison: CT of the abdomen and pelvis from 07/24/2024 Findings: Again there is marked liver surface nodularity of the cirrhosis. Multiple hypervascular masses demonstrate rapid washout concerning for hepatocellular carcinoma. To expand in the caudate, measuring 2.5 cm posteriorly and 2.5 cm anteriorly (image number 26 of series 3). Diffuse GI spur affects. And/or large mass measures 6.7 x 13.3 cm (image number 33 of series 19). Anterior and inferior right lobe measures 2.4 cm. Dorsal right lobe measures 2.8 cm approaching the inferior vena cava without definite extra capsular spread or intravascular invasion to the IVC. Upper portions of the IVC partly obscured by artifacts. Abnormal appearance of the gallbladder with cholelithiasis, gallbladder wall thickening, and pericholecystic fluid. These 3 findings are concerning for cholecystitis. Findings of portal vein hypertension with splenomegaly. Spleen measures 17 cm at this time. Main portal vein and portions of the portal veins in the right lobe of the liver are patent. Majority of portal veins in the left lobe of the liver are thrombosed. No significant change in cystic lesions in the kidneys. No hydronephrosis. Bilateral adrenal hyperplasia. Pancreas unremarkable for technique. Multiple varices are noted including about imaged umbilicus, and in the upper abdomen including paraesophageal, perigastric, and perisplenic. No definite small bowel obstruction in the [id number]. Mild free fluid is nonspecific and may be due to ascites. Infected fluid is not excluded. Degenerative changes involve the imaged spine. Mild bibasilar atelectasis in the [id number]. IMPRESSION: 1. Liver masses concerning for hepatocellular carcinoma. 2. Largest left lobe mass may be overestimated and/or accentuated by asymmetric perfusion given left-sided portal vein thrombosis. 3. Findings of portal venous hypertension with multiple varices and splenomegaly. 4. Cholelithiasis, gallbladder wall thickening, and pericholecystic fluid concerning for cholecystitis. This document has been electronically signed by: Diego Tejada MD on 07/25/2024 19:35:38
--- NOTE | ~2024-07-24 | US_ITS ---
EXAMINATION: US ABDOMEN LIMITED CLINICAL INFORMATION: Right upper quadrant pain and vomiting. COMPARISON: None available. TECHNIQUE: Real-time imaging of the right upper quadrant abdominal viscera. FINDINGS: GALLBLADDER: The gallbladder is physiologically distended without any echogenic stones, sludge or polyps. Echogenic bile is visualized within. The gallbladder wall is heterogenous with thickness measuring 1.5 cm there is anechoic fluid within the wall. There is mild pericholecystic fluid collection. There is mild tenderness in right upper quadrant by ultrasound probe COMMON BILE DUCT: Normal in caliber measuring 0.7 cm in diameter. US/US abdomen limited IMPRESSION: Findings suspicious of acalculous cholecystitis. Heterogenous-appearing gallbladder wall. Electronically signed by: Tanner Yanes MD 07/24/2024 12:29 PM EST
[2024-07-24 11:22] VITALS: BP 165/90; PULSE 110; RESP 20; TEMP 36.6; O2SAT 98; BMI 25.8
--- NOTE | 2024-07-24 11:22 | ED_ITS ---
HPI - General Adult General Chief complaint: Abdominal Pain Stated complaint: gallbladder pain Time Seen by Provider: 07/24/24 13:30 Source: patient Mode of arrival: ambulatory Limitations: no limitations History of Present Illness ED Provider: VINNIE Motta HPI narrative: This is a 69-year-old male history of portal vein thrombus, hypertension, diabetes, cirrhosis, hep c, opiate use presenting with right upper quadrant pain it is severe in nature and patient is very uncomfortable he states pain >12/10. He reports associated nausea and vomiting and cant keep food down. He reports something like this happened to him a few months ago, they wanted to take his gallbladder out but now the pain is much more severe. Pain seems to be worse today. He tells me initially he was hesitant to get his gallbladder out however now pain is intolerable. He denies fevers, chills, chest pain, shortness of breath, headache, vision changes, dizziness, weakness. No sick contacts. Related Data Home Medications ?Medication ?Instructions ?Recorded ?Confirmed amlodipine 5 mg tablet 5 mg PO DAILY 06/04/24 06/04/24 dulaglutide 3 mg/0.5 mL 3 mg subcut WE 06/04/24 06/04/24 subcutaneous pen injector (Trulicity) insulin aspart U-100 100 unit/mL See Protocol subcut TIDAC 06/04/24 06/04/24 (3 mL) subcutaneous pen (Novolog FlexPen U-100 Insulin aspart) insulin glargine-yfgn 100 unit/mL 60 unit subcut BEDTIME 06/04/24 06/04/24 (3 mL) subcutaneous pen (Semglee (insulin glargine-yfgn) Pen) lisinopril 20 1 tab PO DAILY 06/04/24 06/04/24 mg-hydrochlorothiazide 12.5 mg tablet Previous Rx's ?Medication ?Instructions ?Recorded carvedilol 3.125 mg tablet 3.125 mg PO BID #180 tabs 06/05/24 Allergies Allergy/AdvReac Type Severity Reaction Status Date / Time No Known Allergies Allergy Verified 07/24/24 11:28 [No Known Allergies*] Review of Systems 2 Review of Systems: Yes all other systems are reviewed and are negative PMFSH Past Medical History Attestation statement: The following information was validated with the patient. Source: old records reviewed and nursing notes reviewed Medical History (Updated 07/24/24 @ 14:14 by VINNIE Gould) Peripheral neuropathy Insulin dependent type 2 diabetes mellitus Neuropathy HTN (hypertension) Social History Social History Alcohol intake: former Patient Tobacco Use Status: Never used Tobacco Advance Directives: No Advance Directives Information Provided: No Physical Exam ED Vital Signs: Vital Signs - 24 hr 07/24/24 11:22 07/24/24 13:52 Temperature 97.9 F 98.3 F Pulse Rate 110 H 104 H Respiratory Rate 20 18 Blood Pressure 165/90 H 150/95 H Pulse Oximetry 98 97 Oxygen Delivery Method Room Air Room Air BMI result Body Mass Index 25.8 vss Appearance: Alert.? Oriented X3.? No acute distress.? Head: Normocephalic, atraumatic, no step-offs or deformities Eyes: Pupils equal, round and reactive to light.? Neck: Normal inspection.? Neck supple.? CVS: Normal heart rate and rhythm.? Pulses normal.? Respiratory: No respiratory distress.? Breath sounds normal.? Abdomen: Soft and right upper quadrant tenderness with positive Jules sign.? Skin: Skin warm and dry.? Normal skin color.? Normal skin turgor.? Extremities: No lower extremity edema.? No calf ttp. 5/5 strength to bilateral upper and lower extremities Neuro: Oriented X 3.? No motor deficit.? No sensory deficit. CN 2-12 intact Course Course Course Narrative: This is an RME performed by Harinder Martinez CNP: Additional HPI, ROS, PE not included below will be deferred to primary provider. Patient is a 69-year-old male who presents to the emergency department for evaluation of ?gallbladder attack? reports onset of pain a few days ago but increasingly more severe over the past couple of hours. Localized to right upper quadrant and epigastrium. One episode of vomiting just prior to arrival. Recently constipated but has since resolved. Admitted in May of 2024 due to possible acute portal vein thrombosis imaging suggestive of cholecystitis general surgery thought this may be secondary changes from cirrhosis, head quick resolution pain thought to be unlikely cholecystitis unfortunately deemed not a candidate for anticoagulation for portal vein thrombosis due to large varices and thrombocytopenia, GI recommended low-dose beta-wally and EGD for banding patient was not interested in EGD at that time, patient states he wanted to ?follow-up with his PCP? Plan: Serum labs, US Reevaluation(s) Reevaluation #1: CBC with leukopenia, chemistry with no acute findings needing acute intervention. Mild bump in BUN likely secondary to poor p.o. intake/dehydration patient states he is not eating or drinking secondary to nausea and vomiting. Elevated total bilirubin appears to be around his baseline with elevated transaminases likely secondary to hepatitis-C/hepatitis. Non surgical management per Dr. Phipps. Patient needs to see a GI specialist. Hospitalist consult advised. Time: 14:14 Reevaluation #2: Ultrasound showing acalculous cholecystitis however nonoperative per surgery. CT scan recommended for further evaluation. Will admit patient to the medical team. CT scan pending at time of the admission Time: 14:14 Medical Decision Making Medical Decision Making [facility] Narrative: 69-year-old male presents with right upper quadrant abdominal discomfort intermittent in nature, severe. Physical exam positive Jules's and right upper quadrant tenderness. Patient appears uncomfortable History and physical exam concerning for acute cholecystitis. Less likely diverticulitis, appendicitis, acute abdomen, obstruction. Will rule out metabolic derangements. Plan labs, imaging, urine. Differential Diagnosis Differential Diagnoses: The differential diagnosis associated with the presentation includes (History and physical exam concerning for acute cholecystitis. Less likely diverticulitis, appendicitis, acute abdomen, obstruction. Will rule out metabolic derangements.) Admission/Observation Consideration of admission/observation: Escalation of care including admission/observation considered (Likely) Consult Healthcare Provider Management of the patient was discussed with: Lint Cleaner (Dr. Phipps surgery) Lab Data [facility] Lab Attestation statement: I reviewed the patient's lab results. 07/24/24 13:21 07/24/24 13:21 Labs: Lab Results 07/24/24 Range/Units 13:21 WBC 3.1 L (4.8-10.8) X10*3/uL RBC 4.78 (4.60-5.80) X10*6/uL Hgb 14.3 (14.0-18.0) g/dl Hct 41.6 L (42.0-52.0) % MCV 87.0 (80.0-98.0) fL MCH 29.9 (27.0-33.0) pg MCHC 34.4 (31.0-36.0) g/dl RDW 13.9 (11.0-16.0) % Plt Count 57 L (160-400) X10*3/uL MPV 13.0 H (9.4-12.4) fL Immature Gran % (Auto) 0.3 (0.0-0.4) % Neut % (Auto) 79.1 H (45-73) % Lymph % (Auto) 10.6 L (20-40) % [place] % (Auto) 9.7 (2-11) % Eos % (Auto) 0.0 (0-4) % Baso % (Auto) 0.3 (0-2) % Lymph # (Auto) 0.3 L (1.2-4.9) X10*3/uL [place] # (Auto) 0.3 (0.1-1.2) X10*3/uL Eos # (Auto) 0.0 (0.0-0.4) X10*3/uL Baso # (Auto) 0.0 (0.0-0.2) X10*3/uL Abs Immat Gran (auto) 0.01 (0.00-0.03) X10*3/uL Absolute Neuts (auto) 2.5 (2.0-8.3) x10*3/uL Absolute Nucleated RBC 0.000 (0.0-0.012) X10*3/uL Nucleated RBC % (auto) 0.0 (0.0-0.2) /100WBC PT 12.9 H (10.9-12.4) SEC INR 1.1 (0.9-1.1) Sodium 136 (135-145) mmol/L Potassium 3.9 (3.3-5.1) mmol/L Chloride 107 (96-108) mmol/L Carbon Dioxide 22 (22-29) mmol/L Anion Gap 11 L (12-20) BUN 30 H (9-16) mg/dL Creatinine 1.08 (0.5-1.4) mg/dL Estim Creat Clear Calc 64.2 Estimated GFR > 60 Random Glucose 319 H (60-115) mg/dL Calcium 8.9 (8.4-10.2) mg/dL Total Bilirubin 1.6 H (0.0-1.0) mg/dL Direct Bilirubin 0.9 H (0.0-0.5) mg/dL AST 136 H (5-37) U/L ALT 70 H (0-40) U/L Alkaline Phosphatase 229 H (39-117) U/L Total Protein 7.4 (6.5-8.0) g/dL Albumin 3.5 (3.5-5.0) g/dL Lipase 95 H (8-78) U/L Independent Interpretation I performed an independent interpretation of an: Ultrasound (US/US abdomen limited IMPRESSION: Findings suspicious of acalculous cholecystitis. Heterogenous-appearing gallbladder wall.) Radiology Impression Discussion of test interpretation with radiology: I have reviewed the radiologist's reading. External Record Review External record reviewed: Inpatient record, Office record, Outpatient record, Prior outpatient labs, Prior outpatient radiology and Primary care record Prescription Management I considered prescription management with: Antibiotic Chronic Conditions Patient?s care impacted by: Diabetes, Hypertension and Other (Portal vein thrombus ) Critical Care Time Critical Care Time Critical Care Time: Yes Total Critical Care Time: 35 Attestation: I attest to this time spent taking care of the patient, obtaining history, physical, reviewing labs, imaging, treatment of patients condition +/- specialist/hospitalist consult Discharge Plan Discharge Clinical Impression: Cholecystitis, Portal vein thrombosis, Abdominal pain, Cirrhosis, Nausea & vomiting Patient Disposition: Admitted As Inpatient Print Language: Wallisian
[2024-07-24 13:27] LABS: MANUAL DIFF FLAG NO
[2024-07-24 13:30] LABS: Basophils Percent Auto 0.3 % (0-2); Hematocrit 41.6 % (42.0-52.0); Hemoglobin 14.3 g/dl (14.0-18.0); Imm Gran Abs Auto 0.01 X10*3/uL (0.00-0.03); Imm Gran Pct Auto 0.3 % (0.0-0.4); Lymphocytes Absolute Auto 0.3 X10*3/uL (1.2-4.9); Lymphocytes Percent Auto 10.6 % (20-40); Mean Corpuscular HGB Conc 34.4 g/dl (31.0-36.0); Mean Corpuscular Hemoglobin 29.9 pg (27.0-33.0); Monocytes Absolute Auto 0.3 X10*3/uL (0.1-1.2); Monocytes Percent Auto 9.7 % (2-11); Neutrophils Absolute Auto 2.5 x10*3/uL (2.0-8.3); Neutrophils Percent Auto 79.1 % (45-73); Platelet Count 57 X10*3/uL (160-400); Red Blood Count 4.78 X10*6/uL (4.60-5.80); Red Cell Distribution Width 13.9 % (11.0-16.0); White Blood Count 3.1 X10*3/uL (4.8-10.8)
[2024-07-24 13:37] LABS: INTERNATIONAL NORM RATIO 1.1 (0.9-1.1); Prothrombin Time 12.9 SEC (10.9-12.4)
[2024-07-24 13:52] VITALS: BP 150/95; PULSE 104; RESP 18; TEMP 36.8; O2SAT 97
[2024-07-24 13:58] LABS: Alanine Aminotransferase 70 U/L (0-40); Albumin Level 3.5 g/dL (3.5-5.0); Anion Gap 11 (12-20); Aspartate Amino Transferase 136 U/L (5-37); Bilirubin Direct 0.9 mg/dL (0.0-0.5); Bilirubin Total 1.6 mg/dL (0.0-1.0); Blood Urea Nitrogen 30 mg/dL (9-16); Calcium 8.9 mg/dL (8.4-10.2); Carbon Dioxide 22 mmol/L (22-29); Chloride 107 mmol/L (96-108); Creatinine Clr Calc Pharmacy 64.2; Estimated Glomerular Filt Rate > 60; Glucose Random 319 mg/dL (60-115); Lipase 95 U/L (8-78); Potassium 3.9 mmol/L (3.3-5.1); Sodium 136 mmol/L (135-145); Total Protein 7.4 g/dL (6.5-8.0)
[2024-07-24 14:09] LABS: Alkaline Phosphatase 229 U/L (39-117)
--- NOTE | 2024-07-24 14:10 | PM.CNGS ---
History of Present Illness Consult details Consult date: 07/24/24 Narrative: 69-year-old male with known chronic liver disease, here in the ER because of multiple complaints including abdominal pain. He was actually here last May, for similar complaints.. He says that he has not been feeling well for several months now.now. He had initially stated that time that he had been on multiple medications and had been trying to wean off this medications. He says that his primary care physician stopped some of his medications abruptly and blames all his symptoms to this. He says that he has had a sense of being unwell, with vague complaints including severe anxiety, body malaise, weakness, agitation, and emotional instability for over a year now. He has known chronic liver disease and cirrhosis. He has had chronic abdominal pain for several months. He says that he usually gets medication and this helps with relief significantly. He says his primary care physician in [place] is away so he decided to come to the emergency room today because of his abdominal pain. He denies any fever or chills. Denies any vomiting. He also complains of severe coughing with ?phlegm?. He says he has not been feeling well at all for several months overall. He says he was supposed to see a liver specialist in [place] but says this is not scheduled until 01/31/2025. 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 Review of Systems Constitutional: Constitutional: Denies chills, Denies fever(s), Reports lethargy and Reports weakness Cardiovascular: Cardiovascular: Denies chest pain, Denies dyspnea and Reports dyspnea on exertion Respiratory: Respiratory: Denies cough, Denies dyspnea and Reports dyspnea on exertion Gastrointestinal: Gastrointestinal: Denies hematochezia and Denies change in bowel habits Genitourinary: Genitourinary: Denies hematuria and Denies difficulty urinating Musculoskeletal: Musculoskeletal: Denies back pain and Denies limited range of motion Neurologic: Denies focal weakness, Denies convulsions and Reports weakness Psychiatric: Psychiatric: Denies depression and Denies mood swings [facility] Past Medical History Medical History Peripheral neuropathy Insulin dependent type 2 diabetes mellitus Neuropathy HTN (hypertension) Social History Social History Household Members: Friend(s) Housing: Apartment Do you presently have visiting nurse or other home services: No Alcohol intake: never Patient Tobacco Use Status: Never used Tobacco Use of substances other than those prescribed or required for medical reasons: No Substance Use Type: Marijuana Do you feel safe in your current relationship?: No Current Relationship Do you have thoughts of harming others: None Do you have a plan to hurt others: No Plan service: Yes Current occupational status: retired Gender identity: Male Meds Allergies Allergy/AdvReac Type Severity Reaction Status Date / Time lisinopril AdvReac Severe cough Verified 07/28/24 13:04 Home Medications ?Medication ?Instructions ?Recorded ?Confirmed ?Last Taken ?Type amlodipine 5 mg tablet 5 mg PO DAILY 06/04/24 07/28/24 07/24/24 History insulin glargine-yfgn 100 unit/mL 60 unit subcut BEDTIME 06/04/24 07/28/24 07/24/24 History (3 mL) subcutaneous pen (Semglee (insulin glargine-yfgn) Pen) carvedilol 3.125 mg tablet 3.15 mg PO DAILY 07/28/24 07/28/24 Unknown History Physical Exam Vital Signs: Vital Signs: Last Vital Signs Temp 98.3 F 07/24/24 13:52 Pulse 104 H 07/24/24 13:52 Resp 18 07/24/24 13:52 BP 150/95 H 07/24/24 13:52 Pulse Ox 97 07/24/24 13:52 O2 Del Method Room Air 07/24/24 13:52 BMI result Body Mass Index 25.8 Const: Other: He does not seem to be in obvious pain at this time General: no acute distress Eyes: Other: Nonicteric GI: Other: No Jules's sign currently Palpation (GI): Soft to palpation, not firm, nontender and no guarding Results Labs 07/26/24 05:40 07/26/24 05:40 Labs: Abnormal lab results 07/24/24 Range/Units 13:21 WBC 3.1 L (4.8-10.8) X10*3/uL Hct 41.6 L (42.0-52.0) % Plt Count 57 L (160-400) X10*3/uL MPV 13.0 H (9.4-12.4) fL Neut % (Auto) 79.1 H (45-73) % Lymph % (Auto) 10.6 L (20-40) % Lymph # (Auto) 0.3 L (1.2-4.9) X10*3/uL PT 12.9 H (10.9-12.4) SEC Anion Gap 11 L (12-20) BUN 30 H (9-16) mg/dL Random Glucose 319 H (60-115) mg/dL Total Bilirubin 1.6 H (0.0-1.0) mg/dL Direct Bilirubin 0.9 H (0.0-0.5) mg/dL AST 136 H (5-37) U/L ALT 70 H (0-40) U/L Alkaline Phosphatase 229 H (39-117) U/L Lipase 95 H (8-78) U/L Short CBC 07/24/24 Range/Units 13:21 WBC 3.1 L (4.8-10.8) X10*3/uL Hgb 14.3 (14.0-18.0) g/dl Hct 41.6 L (42.0-52.0) % Plt Count 57 L (160-400) X10*3/uL BMP 07/24/24 13:21 Sodium 136 Potassium 3.9 Chloride 107 Carbon Dioxide 22 BUN 30 H Creatinine 1.08 Calcium 8.9 Liver Function 07/24/24 Range/Units 13:21 Total Bilirubin 1.6 H (0.0-1.0) mg/dL Direct Bilirubin 0.9 H (0.0-0.5) mg/dL AST 136 H (5-37) U/L ALT 70 H (0-40) U/L Alkaline Phosphatase 229 H (39-117) U/L Albumin 3.5 (3.5-5.0) g/dL All other labs normal. Imaging Abdominal ultrasound report/results: report reviewed and image reviewed Assessment and Plan (1) Abdominal pain: Status: Acute He has had this chronic abdominal pain which he says has been going for several months now. He says that often times this becomes severe. He has known chronic liver disease with cirrhosis and portal vein thrombosis. Current exam does not suggest acute cholecystitis. I have reviewed his ultrasound. The gallbladder actually does not appear to be markedly distended. The gallbladder wall thickening is likely secondary to this cirrhosis. There is no gallstones seen. I would not recommend going ahead with cholecystectomy at this time, especially in the background of his chronic liver disease and cirrhosis. I actually had recommended to him to be followed by a exchange specialist as well to see if there is any intervention that may be beneficial to him for his liver cirrhosis. He does state that has been sober long time now. His exam is actually very benign. He has no leukocytosis. I will follow along while he is in the hospital. Procedures Date of Service Date of Service: 07/31/24
[2024-07-24] MEDS: ondansetron HCL 4 MG/2 ML VIAL IVPUSH (14:37)
[2024-07-24] MEDS: Morphine Sulfate 4 MG/ML CARTRIDGE IVPUSH ×2 (14:38→18:08)
[2024-07-24] MEDS: Lactated Ringers 1,000 ML 100 ML IVCONT (14:42)
--- NOTE | 2024-07-24 14:44 | P.HPHOSP_ITS ---
History of Present Illness Date of Service: 07/24/24 Chief Complaint: Right upper quadrant abdominal pain 69-year-old male history of portal vein thrombus, hypertension, diabetes, cirrhosis, hep c, opiate use presenting with right upper quadrant pain it is severe in nature and patient is very uncomfortable he states pain >12/10. He reports associated nausea and vomiting and cant keep food down. He reports something like this happened to him a few months ago, they wanted to take his gallbladder out but now the pain is much more severe. Pain seems to be worse today. He tells me initially he was hesitant to get his gallbladder out however now pain is intolerable. Has been worked up previously and not been taken for cholecystectomy.. Seen by surgery in ER; not found to be surgical candidate at this time Review of Systems 2 Review of Systems: Denies chest pain Denies shortness of breath Admits to nausea vomiting and right upper quadrant pain with anorexia Denies fever chills PMFSH Medical History (Updated 07/24/24 @ 14:48 by Cralo Handy DO) Peripheral neuropathy Insulin dependent type 2 diabetes mellitus Neuropathy HTN (hypertension) Social History Alcohol intake: former Patient Tobacco Use Status: Never used Tobacco Advance Directives: No Advance Directives Information Provided: No Meds Allergies Allergy/AdvReac Type Severity Reaction Status Date / Time No Known Allergies Allergy Verified 07/24/24 11:28 [No Known Allergies*] Active Medications: Current Medications Acetaminophen (Acetaminophen 325 Mg Tablet) 650 mg PO Q6H PRN PRN Reason: Pain, Mild 1-3,fever,headache Calcium Carbonate (Calcium Carbonate 750 Mg Tab.Chew) 750 mg PO Q4H PRN PRN Reason: Heartburn Enoxaparin Sodium (Enoxaparin Sodium 40 Mg/0.4 Ml Syringe) 40 mg SUBCUT Q24H DO Glucose (Glucose Gel 15 Gm Gel..Gram.) 15 gm PO Q15M PRN; Protocol PRN Reason: per Hypoglycemia Standing Ord. Lactated Ringer's (Lr) 1,000 mls @ 100 mls/hr IVCONT .Q10H DO Last Admin: 07/24/24 14:42 Dose: 100 mls/hr Dextrose (D10) 250 mls @ 750 mls/hr IV Q15M PRN; Protocol PRN Reason: per Hypoglycemia Standing Ord. Insulin Human Lispro (Insulin Lispro 100 Unit/Ml 3 Ml Vial) 0 unit SUBCUT QIDACHS [facility]; Protocol Magnesium Hydroxide (Milk Of Magnesia 30 Ml Oral.Susp) 30 ml PO DAILY PRN PRN Reason: Constipation Melatonin (Melatonin 3 Mg Tablet) 6 mg PO BEDTIME PRN PRN Reason: Insomnia Morphine Sulfate (Morphine Sulfate 4 Mg/Ml Cartridge) 4 mg IVPUSH Q4H PRN; Protocol PRN Reason: Pain, Severe (Pain Scale 7-10) Ondansetron HCl (Ondansetron Hcl 4 Mg/2 Ml Vial) 4 mg IVPUSH Q4H PRN PRN Reason: Nausea and Vomiting Oxycodone HCl (Oxycodone Hcl Immed Release 5 Mg Tablet) 10 mg PO Q6H PRN PRN Reason: Pain, Moderate(Pain Scale 4-6) Sodium Chloride (0.9 % Sodium Chloride Flush 3 Ml Syringe) 3 ml IVFLUSH [facility] Home Medications ?Medication ?Instructions ?Recorded ?Confirmed ?Last Taken ?Type amlodipine 5 mg tablet 5 mg PO DAILY 06/04/24 06/04/24 06/03/24 History dulaglutide 3 mg/0.5 mL 3 mg subcut WE 06/04/24 06/04/24 06/03/24 History subcutaneous pen injector (Trulicity) insulin aspart U-100 100 unit/mL See Protocol subcut TIDAC 06/04/24 06/04/24 06/03/24 History (3 mL) subcutaneous pen (Novolog FlexPen U-100 Insulin aspart) insulin glargine-yfgn 100 unit/mL 60 unit subcut BEDTIME 06/04/24 06/04/24 06/03/24 History (3 mL) subcutaneous pen (Semglee (insulin glargine-yfgn) Pen) lisinopril 20 1 tab PO DAILY 06/04/24 06/04/24 06/03/24 History mg-hydrochlorothiazide 12.5 mg tablet Physical Exam 2 Vital Signs and Narrative: Vital Signs: Last Vital Signs Temp 98.3 F 07/24/24 13:52 Pulse 104 H 07/24/24 13:52 Resp 18 07/24/24 13:52 BP 150/95 H 07/24/24 13:52 Pulse Ox 97 07/24/24 13:52 O2 Del Method Room Air 07/24/24 13:52 BMI result Body Mass Index 25.8 Const: Other: Awake alert; uncomfortable appearing Resp: Other: Clear to auscultation bilaterally no rales rhonchi or wheezes Cardio: Other: No S4; positive S1-S2; no S3 murmurs rubs or gallops GI: Other: Soft positive bowel sounds. Umbilical hernia noted. Diffusely tender across upper abdomen without rebound Neuro: Other: Cranial nerves 2-12 grossly intact as tested. Sensation is intact. Motor 5/5 all extremities. Cognition appropriate. Gait steady Extrem: Other: No edema bilaterally Results Labs 07/24/24 13:21 07/24/24 13:21 Labs: Laboratory Results - last 24 hr 07/24/24 13:21 MCV 87.0 MCH 29.9 MCHC 34.4 RDW 13.9 Plt Count 57 L MPV 13.0 H Immature Gran % (Auto) 0.3 Neut % (Auto) 79.1 H Lymph % (Auto) 10.6 L [place] % (Auto) 9.7 Eos % (Auto) 0.0 Baso % (Auto) 0.3 Lymph # (Auto) 0.3 L [place] # (Auto) 0.3 Eos # (Auto) 0.0 Baso # (Auto) 0.0 Abs Immat Gran (auto) 0.01 Absolute Neuts (auto) 2.5 Absolute Nucleated RBC 0.000 Nucleated RBC % (auto) 0.0 PT 12.9 H INR 1.1 Anion Gap 11 L Estim Creat Clear Calc 64.2 Estimated GFR > 60 Random Glucose 319 H Calcium 8.9 Total Bilirubin 1.6 H Direct Bilirubin 0.9 H AST 136 H ALT 70 H Alkaline Phosphatase 229 H Total Protein 7.4 Albumin 3.5 Lipase 95 H Imaging Radiologist's Impressions: Impressions Abdomen Ultrasound 07/24/24 11:50 IMPRESSION: Findings suspicious of acalculous cholecystitis. Heterogenous-appearing gallbladder wall. Electronically signed by: Tanner Yanes MD 07/24/2024 12:29 PM [facility] [place] and Plan (1) Abdominal pain: Qualifiers: Abdominal location: right lower quadrant Qualified Code(s): R10.31 - Right lower quadrant pain Status: Acute (2) Insulin dependent type 2 diabetes mellitus: Status: Acute (3) HTN (hypertension): Qualifiers: Hypertension type: primary hypertension Qualified Code(s): I10 - Essential (primary) hypertension Status: Acute Plan 69-year-old male with past medical history significant for hypertension, insulin-dependent type 2 diabetes, peripheral neuropathy and remote history of alcohol use presents with recurrent right upper quadrant pain. He has previously worked up at this institution not felt to candidate for cholecystectomy. Pain has been severe over the last 5 weeks and then he notes a 30 lb weight loss. 1. Right upper quadrant abdominal pain -imaging reviewed by surgery; does not feel candidate for cholecystectomy at this time -CTA abdomen pelvis ordered by ER. .. Pending at this time -morphine/oxycodone for pain -empiric Zosyn -GI consult in a.m. 2. Diabetes type 2 requiring insulin -acceptable control on current therapies -lispro correctional scale -continue outpatient therapies as tolerated -adjust as indicated 3. Hypertension -acceptable control on outpatient therapies... Continue same -adjust as indicated Full code Lovenox Patient will require at least 2 midnights going forward of inpatient stay for empiric antibiotics to treat right upper quadrant abdominal pain and specialty consultation. This can not be achieved a lesser acute setting Quality Stroke Does the patient have a stroke diagnosis?: No VTE Prior VTE?: No VTE Risk Level:: Medical - moderate - high VTE Device Contraindication: Treatment Not Indicated VTE Drug Contraindication: N/A - Med Ordered
[2024-07-24 14:51] LABS: Glucose, Whole Blood 240 mg/dL (60-115)
[2024-07-24 15:07] LABS: Hematocrit 38.7 % (42.0-52.0); Hemoglobin 13.4 g/dl (14.0-18.0); Mean Corpuscular HGB Conc 34.6 g/dl (31.0-36.0); Mean Corpuscular Hemoglobin 30.3 pg (27.0-33.0); Mean Corpuscular Volume 87.6 fL (80.0-98.0); Red Blood Count 4.42 X10*6/uL (4.60-5.80)
[2024-07-24 15:13] LABS: Platelet Count 47 X10*3/uL (160-400); White Blood Count 2.5 X10*3/uL (4.8-10.8)
--- NOTE | 2024-07-24 15:23 | PHA.MEDREC ---
Addendum entered by Atilio Luna [facility] 07/24/24 15:35: med rec reviewed Original Note: Pharmacy Consult ? Medication Reconciliation Pharmacy has completed the medication reconciliation. Spoke to patient to confirm med list. Patient states he is no longer taking Carvedilol 3.125 mg, Tresiba Flextouch pen, Lisinopril-HZTZ (now on Losartan-HCTZ) and Trulicity 3 mg. Patient confirmed Novolog Flex pen is per sliding scale, and Semglee is 60 units at bedtime.
[2024-07-24] MEDS: iohexoL 350 MG/ML 100 ML INFUS..BTL IV (15:39)
[2024-07-24 15:41] VITALS: BP 139/78; PULSE 81; RESP 17; TEMP 36.6; O2SAT 99
[2024-07-24 16:47] LABS: Appearance Urine Clear; Color Urine Yellow; Glucose Urine UA >=1000 mg/dL (Negative); Leukocyte Esterase Urine Negative (Negative); Nitrite Urine Negative (Negative); Specific Gravity - Urine 1.015 (1.005-1.025); UMIC TRIGGER UACC YES; Urine Blood Negative (Negative); Urine Ketones Negative (Negative); Urine Protein 100 (2+) mg/dL (Neg-Trace)
[2024-07-24 16:53] VITALS: BP 141/83; PULSE 80; RESP 16; TEMP 36.6; O2SAT 96
[2024-07-24 17:01] LABS: Bacteria Urine None Seen (None Seen); Hyaline Casts Urine 0-2 /LPF (0-2); RBC Urine 0-2 /HPF (0-2); Squamous Epithelial Cell Urine 0-2 /HPF (0-2); WBC Urine 0-5 /HPF (0-5)
[2024-07-24 17:09] LABS: Glucose, Whole Blood 154 mg/dL (60-115)
[2024-07-24] MEDS: Insulin Lispro 100 UNIT/ML 3 ML VIAL SUBCUT (18:00)
[2024-07-24] MEDS: Enoxaparin Sodium 40 MG/0.4 ML SYRINGE SUBCUT (18:38)
[2024-07-24 19:19] VITALS: BP 152/82; PULSE 100; RESP 16; TEMP 36.5; O2SAT 96
[2024-07-24 19:45] LABS: Glucose, Whole Blood 114 mg/dL (60-115)
[2024-07-24] MEDS: LORazepam 1 MG TABLET PO (21:01)
[2024-07-25] MEDS: Lactated Ringers 1,000 ML 100 ML IVCONT ×3 (00:54→21:00)
[2024-07-25 03:46] VITALS: BP 120/65; PULSE 79; RESP 16; TEMP 36.1; O2SAT 95
[2024-07-25 07:10] VITALS: BP 126/71; PULSE 81; RESP 18; TEMP 36.6; O2SAT 98
[2024-07-25 07:22] LABS: Eosinophils Percent Auto 1.7 % (0-4); Hematocrit 32.3 % (42.0-52.0); Hemoglobin 11.2 g/dl (14.0-18.0); Lymphocytes Absolute Auto 0.4 X10*3/uL (1.2-4.9); Lymphocytes Percent Auto 29.8 % (20-40); MANUAL DIFF FLAG SCAN; Mean Corpuscular HGB Conc 34.7 g/dl (31.0-36.0); Mean Corpuscular Hemoglobin 30.4 pg (27.0-33.0); Mean Corpuscular Volume 87.5 fL (80.0-98.0); Mean Platelet Volume 12.9 fL (9.4-12.4); Monocytes Absolute Auto 0.1 X10*3/uL (0.1-1.2); Monocytes Percent Auto 11.6 % (2-11); Neutrophils Absolute Auto 0.7 x10*3/uL (2.0-8.3); Neutrophils Percent Auto 56.9 % (45-73); Red Blood Count 3.69 X10*6/uL (4.60-5.80); Red Cell Distribution Width 14.2 % (11.0-16.0); SCAN SMEAR FLAG 1
[2024-07-25 07:26] LABS: Platelet Count 35 X10*3/uL (160-400); White Blood Count 1.2 X10*3/uL (4.8-10.8)
[2024-07-25 07:47] LABS: Alanine Aminotransferase 67 U/L (0-40); Albumin Level 2.7 g/dL (3.5-5.0); Alkaline Phosphatase 180 U/L (39-117); Anion Gap 7 (12-20); Aspartate Amino Transferase 114 U/L (5-37); Bilirubin Total 1.3 mg/dL (0.0-1.0); Blood Urea Nitrogen 18 mg/dL (9-16); Calcium 7.4 mg/dL (8.4-10.2); Carbon Dioxide 26 mmol/L (22-29); Chloride 111 mmol/L (96-108); Creatinine Clr Calc Pharmacy 73.7; Estimated Glomerular Filt Rate > 60; Glucose Random 73 mg/dL (60-115); Potassium 3.7 mmol/L (3.3-5.1); Sodium 140 mmol/L (135-145); Total Protein 5.7 g/dL (6.5-8.0)
[2024-07-25 07:59] LABS: SLIDE REVIEW VERIFIED
[2024-07-25] MEDS: Morphine Sulfate 4 MG/ML CARTRIDGE IVPUSH (08:52)
--- NOTE | 2024-07-25 09:07 | PM.PNGS ---
Subjective Subjective Date of Service: 07/25/24 Interval history: Slept well overnight He says he feels much better However, asked for Dilaudid this morning Tolerating clear liquids and says he is hungry Seen to be ambulating down the hallway and looks well Physical Exam Vital Signs: Vital Signs: Last Vital Signs Temp 97.8 F 07/25/24 07:10 Pulse 81 07/25/24 07:10 Resp 18 07/25/24 07:10 BP 126/71 07/25/24 07:10 Pulse Ox 98 07/25/24 07:10 O2 Del Method Room Air 07/25/24 07:10 BMI result Body Mass Index 25.8 Const: Other: Actually looks well General: comfortable and no acute distress Resp: Effort & Inspection: normal respiratory effort Cardio: Rate: regular rate GI: Other: Mild vague tenderness Palpation (GI): Soft to palpation, not firm and no guarding Objective Data Active Medications Acetaminophen (Acetaminophen 325 Mg Tablet) 650 mg PO Q6H PRN PRN Reason: Pain, Mild 1-3,fever,headache Calcium Carbonate (Calcium Carbonate 750 Mg Tab.Chew) 750 mg PO Q4H PRN PRN Reason: Heartburn Enoxaparin Sodium (Enoxaparin Sodium 40 Mg/0.4 Ml Syringe) 40 mg SUBCUT Q24H [facility] Last Admin: 07/24/24 18:38 Dose: 40 mg Documented By: ROHIT Glucose (Glucose Gel 15 Gm Gel..Gram.) 15 gm PO Q15M PRN; Protocol PRN Reason: per Hypoglycemia Standing Ord. Lactated Ringer's (Lr) 1,000 mls @ 100 mls/hr IVCONT .Q10H [facility] Last Admin: 07/25/24 00:54 Dose: 100 mls/hr Documented By: MEG Dextrose (D10) 250 mls @ 750 mls/hr IV Q15M PRN; Protocol PRN Reason: per Hypoglycemia Standing Ord. Insulin Human Lispro (Insulin Lispro 100 Unit/Ml 3 Ml Vial) 0 unit SUBCUT QIDACHS [facility]; Protocol Last Admin: 07/24/24 21:03 Dose: Not Given Documented By: MEG Non-Admin Reason: No Insulin Coverage Comments: poc 114 Magnesium Hydroxide (Milk Of Magnesia 30 Ml Oral.Susp) 30 ml PO DAILY PRN PRN Reason: Constipation Melatonin (Melatonin 3 Mg Tablet) 6 mg PO BEDTIME PRN PRN Reason: Insomnia Morphine Sulfate (Morphine Sulfate 4 Mg/Ml Cartridge) 4 mg IVPUSH Q4H PRN; Protocol PRN Reason: Pain, Severe (Pain Scale 7-10) Last Admin: 07/25/24 08:52 Dose: 4 mg Documented By: CIARA Ondansetron HCl (Ondansetron Hcl 4 Mg/2 Ml Vial) 4 mg IVPUSH Q6H PRN PRN Reason: Nausea and Vomiting Oxycodone HCl (Oxycodone Hcl Immed Release 5 Mg Tablet) 10 mg PO Q6H PRN PRN Reason: Pain, Moderate(Pain Scale 4-6) Sodium Chloride (0.9 % Sodium Chloride Flush 3 Ml Syringe) 3 ml IVFLUSH QSHIFT [facility] Last Admin: 07/24/24 21:59 Dose: Not Given Documented By: MEG Non-Admin Reason: IV Running Labs 07/25/24 06:31 07/25/24 06:31 Labs: Laboratory Results - last 24 hr 07/24/24 07/24/24 07/24/24 13:21 14:47 14:57 MCV 87.0 87.6 MCH 29.9 30.3 MCHC 34.4 34.6 RDW 13.9 14.0 Plt Count 57 L 47 L MPV 13.0 H 12.0 Immature Gran % (Auto) 0.3 Neut % (Auto) 79.1 H Lymph % (Auto) 10.6 L [place] % (Auto) 9.7 Eos % (Auto) 0.0 Baso % (Auto) 0.3 Lymph # (Auto) 0.3 L [place] # (Auto) 0.3 Eos # (Auto) 0.0 Baso # (Auto) 0.0 Abs Immat Gran (auto) 0.01 Absolute Neuts (auto) 2.5 Absolute Nucleated RBC 0.000 0.000 Nucleated RBC % (auto) 0.0 0.0 Smear Tech's Comments PT 12.9 H INR 1.1 Anion Gap 11 L Estim Creat Clear Calc 64.2 Estimated GFR > 60 POC Glucose 240 H Random Glucose 319 H Calcium 8.9 Total Bilirubin 1.6 H Direct Bilirubin 0.9 H AST 136 H ALT 70 H Alkaline Phosphatase 229 H Total Protein 7.4 Albumin 3.5 Lipase 95 H Urine Color Urine Appearance Urine pH Ur Specific [place] Urine Protein Urine Glucose (UA) Urine Ketones Urine Blood Urine Nitrite Ur Leukocyte Esterase Urine RBC Urine WBC Ur Squamous Epith Cells Urine Bacteria Hyaline Casts 07/24/24 07/24/24 07/24/24 16:38 16:56 19:14 MCV MCH MCHC RDW Plt Count MPV Immature Gran % (Auto) Neut % (Auto) Lymph % (Auto) [place] % (Auto) Eos % (Auto) Baso % (Auto) Lymph # (Auto) [place] # (Auto) Eos # (Auto) Baso # (Auto) Abs Immat Gran (auto) Absolute Neuts (auto) Absolute Nucleated RBC Nucleated RBC % (auto) Smear Tech's Comments PT INR Anion Gap Estim Creat Clear Calc Estimated GFR POC Glucose 154 H 114 Random Glucose Calcium Total Bilirubin Direct Bilirubin AST ALT Alkaline Phosphatase Total Protein Albumin Lipase Urine Color Yellow Urine Appearance Clear Urine pH 5.0 Ur Specific [place] 1.015 Urine Protein 100 (2+) H Urine Glucose (UA) >=1000 H Urine Ketones Negative Urine Blood Negative Urine Nitrite Negative Ur Leukocyte Esterase Negative Urine RBC 0-2 Urine WBC 0-5 Ur Squamous Epith Cells 0-2 Urine Bacteria None Seen Hyaline Casts 0-2 07/25/24 06:31 MCV 87.5 MCH 30.4 MCHC 34.7 RDW 14.2 Plt Count 35 L D MPV 12.9 H Immature Gran % (Auto) 0.0 Neut % (Auto) 56.9 Lymph % (Auto) 29.8 [place] % (Auto) 11.6 H Eos % (Auto) 1.7 Baso % (Auto) 0.0 Lymph # (Auto) 0.4 L [place] # (Auto) 0.1 Eos # (Auto) 0.0 Baso # (Auto) 0.0 Abs Immat Gran (auto) 0.00 Absolute Neuts (auto) 0.7 L Absolute Nucleated RBC 0.000 Nucleated RBC % (auto) 0.0 Smear Tech's Comments VERIFIED PT INR Anion Gap 7 L Estim Creat Clear Calc 73.7 Estimated GFR > 60 POC Glucose Random Glucose 73 Calcium 7.4 L D Total Bilirubin 1.3 H Direct Bilirubin AST 114 H ALT 67 H Alkaline Phosphatase 180 H Total Protein 5.7 L Albumin 2.7 L Lipase Urine Color Urine Appearance Urine pH Ur Specific [place] Urine Protein Urine Glucose (UA) Urine Ketones Urine Blood Urine Nitrite Ur Leukocyte Esterase Urine RBC Urine WBC Ur Squamous Epith Cells Urine Bacteria Hyaline Casts Procedures Date of Service Date of Service: 07/25/24 Progress Note: A&P Assessment and plan (1) Abdominal pain: Status: Acute Assessment and Plan: Clinically not acute cholecystitis He has multiple medical problems including cirrhosis, low platelets, low WBC Would not do cholecystectomy at this time especially with background of portal hypertension/thrombosis He looks well overall Okay to advance diet Exam remains very benign Time Spent With Patient Time: Total time managing care of this patient today ____ minutes. Quality Stroke Does the patient have a stroke diagnosis?: No VTE Prior VTE?: No VTE Risk Level:: Medical - moderate - high VTE Device Contraindication: Treatment Not Indicated VTE Drug Contraindication: N/A - Med Ordered
[2024-07-25] MEDS: oxyCODONE HCl Immed Release 5 MG TABLET 10 MG PO ×2 (09:58→21:20)
--- NOTE | 2024-07-25 09:58 | PM.GICN ---
History of Present Illness Data of Consult Service Date: 07/25/24 Requesting physician: Carlo Handy Primary Care Provider: Kyle Dyson MD HPI Reason for consult: RUQ pain 69 YM with portal vein thrombus, hypertension, diabetes, cirrhosis, hep c, opiate use seen at [facility] [place] [facility] on 07/24/24 with severe RUQ pain (patient was very uncomfortable and stated pain was >12/10). He reported associated nausea and vomiting and was unable to keep food down. Pain has been severe over the last 5 weeks and then he notes a 30 lb weight loss. Pt reported similar symptoms a few months ago and cholecystectomy was advised and now the pain is more severe in intensity. Pain seems to be worse today. Pt notes that he was hesitant to have his GB removed and now pain is intolerable. Has been worked up previously and not been taken for cholecystectomy.. Pt was seen by surgery in ER; not found to be surgical candidate at this time PT was admitted and started on IV pain medications and antibiotics Pt reports pain has improved to 4/10 (from 8/10 earlier today) after he was given pain medications (PO oxycodone) Pt notes wt loss from 212 to 205 lbs after taking Trulicity for DM for the past 1-2 years. Patient has a long and remote history of heavy alcohol use, though reports quit drinking approximately 20 years ago. At that time was told he had fatty liver but no indication of cirrhosis. Pt smokes week 1 jt per day and denies smoking tobacco or ETOH abuse Pt states he quitted drinking alcohol when he gained custody of his son. Patient denies major cardiac or pulmonary problems, loud snoring or sleep apnea. 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 Pt reports his Mom had liver cirrhosis (? from exposure to hair spray while working in a hair salon) and denies known history of colon polyps or GI malignancy 07/24/[address] SCAN SHOWED: 1. Advanced hepatic cirrhosis. There is left main portal vein thrombosis, which appears chronic and unchanged from the prior study. There is altered perfusion to the left lobe of the liver. 2. There is a suggestion of biliary radical dilatation of the left hepatic lobe, versus nonenhancing portal veins, although there is a subtle hypoattenuating focus at the junction of the left and right hepatic lobes as discussed, possibly representing a neoplasm (possibly biliary). This is indeterminate on this examination and enhanced MRI is recommended for definitive characterization. 3. The common bile duct is dilated to 10 mm in hyperattenuating, uncertain etiology, possibly filled with sludge. Again, MRI recommended. 4. Massive splenomegaly. 5. Extensive esophageal, splenic, splenorenal, gastric, mesenteric, and umbilical varices. Portal hypertension. 6. The gallbladder is underdistended but demonstrates a markedly edematous wall. This is felt to most likely represent changes related to portal hypertension as opposed to acalculus cholecystitis. There are no surrounding inflammatory changes. 7. There are new vague nodular opacities in the lingula and right lower lobe of the lungs, of which further characterization is not possible due to motion artifact. Consider infectious, inflammatory, and neoplastic causes. Review of Systems Review of Systems: Denies chest pain Denies shortness of breath Admits to nausea vomiting and right upper quadrant pain with anorexia Denies fever chills PMFSH Past Medical History Medical History (Updated 07/24/24 @ 14:48 by Carlo Handy DO) Peripheral neuropathy Insulin dependent type 2 diabetes mellitus Neuropathy HTN (hypertension) Social History Social History Household Members: Friend(s) Housing: Apartment Do you presently have visiting nurse or other home services: No Alcohol intake: never Patient Tobacco Use Status: Never used Tobacco Smoked in Last 30 Days: No Use of substances other than those prescribed or required for medical reasons: Yes Substance Use Type: Marijuana Substance Use Frequency: Daily Last Used Substance: Days (ago) Currently Displaying Signs/Symptoms of Drug Intoxication Withdrawal: No Any prior treatment program specific to substance use: No Have you been hit, kicked, punched, or otherwise hurt by someone within the past year? If so, by whom?: No Do you feel safe in your current relationship?: No Current Relationship Is there a partner from a previous relationship who is making you feel unsafe now?: No Are you made to feel afraid or neglected: No Advance Directives: No Advance Directives Information Provided: No Do you have a plan to hurt others: No Plan Recently lost weight without trying: Yes How much weight loss: 34pounds or more Eating poorly because of decreased appetite: Yes Nutrition screen score: 7 Nutrition Risks: No Nutritional Risk Poor oral hygiene: No service: Yes Meds Allergies Allergy/AdvReac Type Severity Reaction Status Date / Time No Known Allergies Allergy Verified 07/24/24 11:28 [No Known Allergies*] Active Medications: Current Medications Acetaminophen (Acetaminophen 325 Mg Tablet) 650 mg PO Q6H PRN PRN Reason: Pain, Mild 1-3,fever,headache Amlodipine Besylate (Amlodipine Besylate 5 Mg Tablet) 5 mg PO DAILY DO; Protocol Calcium Carbonate (Calcium Carbonate 750 Mg Tab.Chew) 750 mg PO Q4H PRN PRN Reason: Heartburn Enoxaparin Sodium (Enoxaparin Sodium 40 Mg/0.4 Ml Syringe) 40 mg SUBCUT Q24H [facility] Last Admin: 07/24/24 18:38 Dose: 40 mg Glucose (Glucose Gel 15 Gm Gel..Gram.) 15 gm PO Q15M PRN; Protocol PRN Reason: per Hypoglycemia Standing Ord. Hydrochlorothiazide (Hydrochlorothiazide 12.5 Mg Tablet) 12.5 mg PO BEDTIME [facility] Lactated Ringer's (Lr) 1,000 mls @ 100 mls/hr IVCONT .Q10H [facility] Last Admin: 07/25/24 00:54 Dose: 100 mls/hr Dextrose (D10) 250 mls @ 750 mls/hr IV Q15M PRN; Protocol PRN Reason: per Hypoglycemia Standing Ord. Insulin Human Lispro (Insulin Lispro 100 Unit/Ml 3 Ml Vial) 0 unit SUBCUT QIDACHS [facility]; Protocol Last Admin: 07/25/24 09:19 Dose: Not Given Losartan Potassium (Losartan Potassium 50 Mg Tablet) 50 mg PO BEDTIME [facility] Magnesium Hydroxide (Milk Of Magnesia 30 Ml Oral.Susp) 30 ml PO DAILY PRN PRN Reason: Constipation Melatonin (Melatonin 3 Mg Tablet) 6 mg PO BEDTIME PRN PRN Reason: Insomnia Morphine Sulfate (Morphine Sulfate 4 Mg/Ml Cartridge) 4 mg IVPUSH Q4H PRN; Protocol PRN Reason: Pain, Severe (Pain Scale 7-10) Last Admin: 07/25/24 08:52 Dose: 4 mg Ondansetron HCl (Ondansetron Hcl 4 Mg/2 Ml Vial) 4 mg IVPUSH Q6H PRN PRN Reason: Nausea and Vomiting Oxycodone HCl (Oxycodone Hcl Immed Release 5 Mg Tablet) 10 mg PO Q6H PRN PRN Reason: Pain, Moderate(Pain Scale 4-6) Sodium Chloride (0.9 % Sodium Chloride Flush 3 Ml Syringe) 3 ml IVFLUSH QSHIFT [facility] Last Admin: 07/24/24 21:59 Dose: Not Given Home Medications ?Medication ?Instructions ?Recorded ?Confirmed ?Last Taken ?Type amlodipine 5 mg tablet 5 mg PO DAILY 06/04/24 07/24/24 07/24/24 History insulin aspart U-100 100 unit/mL See Protocol subcut TIDAC 06/04/24 07/24/24 07/24/24 History (3 mL) subcutaneous pen (Novolog FlexPen U-100 Insulin aspart) insulin glargine-yfgn 100 unit/mL 60 unit subcut BEDTIME 06/04/24 07/24/24 07/24/24 History (3 mL) subcutaneous pen (Semglee (insulin glargine-yfgn) Pen) losartan 50 mg-hydrochlorothiazide 1 tab PO BEDTIME 07/24/24 07/24/24 07/24/24 History 12.5 mg tablet Physical Exam Vital Signs: Vital Signs: Last Vital Signs Temp 97.8 F 07/25/24 07:10 Pulse 81 07/25/24 07:10 Resp 18 07/25/24 07:10 BP 126/71 07/25/24 07:10 Pulse Ox 98 07/25/24 07:10 O2 Del Method Room Air 07/25/24 07:10 BMI result Body Mass Index 25.8 Results Labs 07/25/24 06:31 07/25/24 06:31 Labs: Short CBC 07/24/24 07/24/24 07/25/24 Range/Units 13:21 14:57 06:31 WBC 3.1 L 2.5 L 1.2 L (4.8-10.8) X10*3/uL Hgb 14.3 13.4 L 11.2 L (14.0-18.0) g/dl Hct 41.6 L 38.7 L 32.3 L (42.0-52.0) % Plt Count 57 L 47 L 35 L D (160-400) X10*3/uL BMP 07/24/24 07/25/24 13:21 06:31 Sodium 136 140 Potassium 3.9 3.7 Chloride 107 111 H Carbon Dioxide 22 26 BUN 30 H 18 H Creatinine 1.08 0.94 Calcium 8.9 7.4 L D Liver Function 07/24/24 07/25/24 Range/Units 13:21 06:31 Total Bilirubin 1.6 H 1.3 H (0.0-1.0) mg/dL Direct Bilirubin 0.9 H (0.0-0.5) mg/dL AST 136 H 114 H (5-37) U/L ALT 70 H 67 H (0-40) U/L Alkaline Phosphatase 229 H 180 H (39-117) U/L Albumin 3.5 2.7 L (3.5-5.0) g/dL Urine 07/24/24 Range/Units 16:38 Urine Color Yellow Urine Appearance Clear Urine pH 5.0 (5.0-9.0) Ur Specific [place] 1.015 (1.005-1.025) Urine Protein 100 (2+) H (Neg-Trace) mg/dL Urine Glucose (UA) >=1000 H (Negative) mg/dL Assessment and Plan (1) Cirrhosis: Status: Acute (2) Abdominal pain: Qualifiers: Abdominal location: right lower quadrant Qualified Code(s): R10.31 - Right lower quadrant pain Status: Acute (3) Portal vein thrombosis: Status: Acute Plan 69 YM with HTN, insulin-dependent type 2 diabetes, peripheral neuropathy, and remote hx of alcohol use disorder sober x 20 years admitted to [facility] [place] [facility] on 07/24/24 with?RUQ pain. 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 Cirrhosis is likely due to past Hep C and CARTAGENA He was treated for Hep C in 2009 with Ribavarin + two additional oral medications with eradication. Abd CT scan showed advanced cirrhosis, splenomegaly, chronic left main portal vein thrombosis and biliary radical dilatation of the left hepatic lobe and a subtle hypo-attenuating focus at the junction of the left and right hepatic lobes (possible cholangioca) and dilated CBD 10 mm with possible sludge RECOMMENDATIONS: 1. Agree with pain medications, antiemetics and antibiotics. 2. Await MRI results 3. Check CEA, CA 19-9 - added to am labs. Procedures Date of Service Date of Service: 07/25/24
--- NOTE | 2024-07-25 13:21 | MHC.CM.PN ---
pt lives with a roomate he is indepedent has his car in parking lot at [facility] when dcd he plans on driving himself home
[2024-07-25 15:25] VITALS: BP 115/65; PULSE 91; RESP 18; TEMP 36.5; O2SAT 92
--- NOTE | 2024-07-25 15:47 | PC.NURSE ---
Addendum entered by Nidia Mak RN 07/25/24 19:27: POC @ 1600 124. Remains NPO for MRI. Original Note: Pt refusing POC checks with our meter. Has subcutaneous monitor in right upper arm. AM POC 92. 11am POC 238. Pt had his own medications in a janessa pack at bedside. Took 4 units of novolog from his insulin pen. Explained that we need to take his medications to store them while inpatient. Educated him that it was unsafe for him to take his own medications and we would manage them. Pt understood and medications were placed in med storage bag and sent to pharmacy. Pt was NPO when he took the insulin injection. POC recheced at 1415 - 144.
--- NOTE | 2024-07-25 16:01 | HO.PM.IMPN ---
Subjective Subjective Date of Service: 07/25/24 Interval History: c/o RUQ pain, no N/V no fever Review of Systems Review of Systems: Yes all other systems are reviewed and are negative Physical Exam Vital Signs: Vital Signs: Last Vital Signs Temp 97.7 F 07/25/24 15:25 Pulse 91 07/25/24 15:25 Resp 18 07/25/24 15:25 BP 115/65 07/25/24 15:25 Pulse Ox 92 07/25/24 15:25 O2 Del Method Room Air 07/25/24 15:25 BMI result Body Mass Index 25.8 Gen: in no acute distress HEENT: sclera anicteric, moist mucus membranes Neck: supple Lungs: clear to auscultation bilaterally Heart: regular rate and rhythm, no murmurs Abd: soft, RUQ tender without rebound, non-distended Ext: no edema Skin: warm/well-perfused Neuro: alert and oriented x3, no focal findings Psych: appropriate affect Objective Data Active Medications Acetaminophen (Acetaminophen 325 Mg Tablet) 650 mg PO Q6H PRN PRN Reason: Pain, Mild 1-3,fever,headache Amlodipine Besylate (Amlodipine Besylate 5 Mg Tablet) 5 mg PO DAILY [facility]; Protocol Calcium Carbonate (Calcium Carbonate 750 Mg Tab.Chew) 750 mg PO Q4H PRN PRN Reason: Heartburn Enoxaparin Sodium (Enoxaparin Sodium 40 Mg/0.4 Ml Syringe) 40 mg SUBCUT Q24H [facility] Last Admin: 07/24/24 18:38 Dose: 40 mg Documented By: ROHIT Glucose (Glucose Gel 15 Gm Gel..Gram.) 15 gm PO Q15M PRN; Protocol PRN Reason: per Hypoglycemia Standing Ord. Hydrochlorothiazide (Hydrochlorothiazide 12.5 Mg Tablet) 12.5 mg PO BEDTIME [facility] Lactated Ringer's (Lr) 1,000 mls @ 100 mls/hr IVCONT .Q10H [facility] Last Admin: 07/25/24 09:59 Dose: 100 mls/hr Documented By: MADHAV Dextrose (D10) 250 mls @ 750 mls/hr IV Q15M PRN; Protocol PRN Reason: per Hypoglycemia Standing Ord. Insulin Human Lispro (Insulin Lispro 100 Unit/Ml 3 Ml Vial) 0 unit SUBCUT QIDACHS [facility]; Protocol Last Admin: 07/25/24 12:13 Dose: Not Given Documented By: MADHAV Non-Admin Reason: pt took own meds Losartan Potassium (Losartan Potassium 50 Mg Tablet) 50 mg PO BEDTIME DO Magnesium Hydroxide (Milk Of Magnesia 30 Ml Oral.Susp) 30 ml PO DAILY PRN PRN Reason: Constipation Melatonin (Melatonin 3 Mg Tablet) 6 mg PO BEDTIME PRN PRN Reason: Insomnia Morphine Sulfate (Morphine Sulfate 4 Mg/Ml Cartridge) 4 mg IVPUSH Q4H PRN; Protocol PRN Reason: Pain, Severe (Pain Scale 7-10) Last Admin: 07/25/24 08:52 Dose: 4 mg Documented By: CIARA Ondansetron HCl (Ondansetron Hcl 4 Mg/2 Ml Vial) 4 mg IVPUSH Q6H PRN PRN Reason: Nausea and Vomiting Oxycodone HCl (Oxycodone Hcl Immed Release 5 Mg Tablet) 10 mg PO Q6H PRN PRN Reason: Pain, Moderate(Pain Scale 4-6) Last Admin: 07/25/24 09:58 Dose: 10 mg Documented By: MADHAV Sodium Chloride (0.9 % Sodium Chloride Flush 3 Ml Syringe) 3 ml IVFLUSH QSHIFT [facility] Last Admin: 07/25/24 10:21 Dose: Not Given Documented By: MADHAV Non-Admin Reason: IV Running Labs 07/25/24 06:31 07/25/24 06:31 Labs: Laboratory Results - last 24 hr 07/24/24 07/24/24 07/24/24 16:38 16:56 19:14 MCV MCH MCHC RDW Plt Count MPV Immature Gran % (Auto) Neut % (Auto) Lymph % (Auto) [place] % (Auto) Eos % (Auto) Baso % (Auto) Lymph # (Auto) [place] # (Auto) Eos # (Auto) Baso # (Auto) Abs Immat Gran (auto) Absolute Neuts (auto) Absolute Nucleated RBC Nucleated RBC % (auto) Smear Tech's Comments Anion Gap Estim Creat Clear Calc Estimated GFR POC Glucose 154 H 114 Random Glucose Calcium Total Bilirubin AST ALT Alkaline Phosphatase Total Protein Albumin Urine Color Yellow Urine Appearance Clear Urine pH 5.0 Ur Specific [place] 1.015 Urine Protein 100 (2+) H Urine Glucose (UA) >=1000 H Urine Ketones Negative Urine Blood Negative Urine Nitrite Negative Ur Leukocyte Esterase Negative Urine RBC 0-2 Urine WBC 0-5 Ur Squamous Epith Cells 0-2 Urine Bacteria None Seen Hyaline Casts 0-2 07/25/24 06:31 MCV 87.5 MCH 30.4 MCHC 34.7 RDW 14.2 Plt Count 35 L D MPV 12.9 H Immature Gran % (Auto) 0.0 Neut % (Auto) 56.9 Lymph % (Auto) 29.8 [place] % (Auto) 11.6 H Eos % (Auto) 1.7 Baso % (Auto) 0.0 Lymph # (Auto) 0.4 L [place] # (Auto) 0.1 Eos # (Auto) 0.0 Baso # (Auto) 0.0 Abs Immat Gran (auto) 0.00 Absolute Neuts (auto) 0.7 L Absolute Nucleated RBC 0.000 Nucleated RBC % (auto) 0.0 Smear Tech's Comments VERIFIED Anion Gap 7 L Estim Creat Clear Calc 73.7 Estimated GFR > 60 POC Glucose Random Glucose 73 Calcium 7.4 L D Total Bilirubin 1.3 H AST 114 H ALT 67 H Alkaline Phosphatase 180 H Total Protein 5.7 L Albumin 2.7 L Urine Color Urine Appearance Urine pH Ur Specific [place] Urine Protein Urine Glucose (UA) Urine Ketones Urine Blood Urine Nitrite Ur Leukocyte Esterase Urine RBC Urine WBC Ur Squamous Epith Cells Urine Bacteria Hyaline Casts ITS Impressions Abdomen Ultrasound 07/24/24 11:50 IMPRESSION: Findings suspicious of acalculous cholecystitis. Heterogenous-appearing gallbladder wall. Electronically signed by: Tanner Yanes MD 07/24/2024 12:29 PM [facility] Abdomen/Pelvis CT 07/24/24 13:35 IMPRESSION: 1. Advanced hepatic cirrhosis. There is left main portal vein thrombosis, which appears chronic and unchanged from the prior study. There is altered perfusion to the left lobe of the liver. 2. There is a suggestion of biliary radical dilatation of the left hepatic lobe, versus nonenhancing portal veins, although there is a subtle hypoattenuating focus at the junction of the left and right hepatic lobes as discussed, possibly representing a neoplasm (possibly biliary). This is indeterminate on this examination and enhanced MRI is recommended for definitive characterization. 3. The common bile duct is dilated to 10 mm in hyperattenuating, uncertain etiology, possibly filled with sludge. Again, MRI recommended. 4. Massive splenomegaly. 5. Extensive esophageal, splenic, splenorenal, gastric, mesenteric, and umbilical varices. Portal hypertension. 6. The gallbladder is underdistended but demonstrates a markedly edematous wall. This is felt to most likely represent changes related to portal hypertension as opposed to acalculus cholecystitis. There are no surrounding inflammatory changes. 7. There are new vague nodular opacities in the lingula and right lower lobe of the lungs, of which further characterization is not possible due to motion artifact. Consider infectious, inflammatory, and neoplastic causes. 8. Refer to the body the report for more details and additional ancillary findings. Electronically signed by: Roderick Martinez MD 07/24/2024 04:28 PM [facility] Assessment and Plan (1) Abdominal pain: Status: Acute Plan d2 for 69yo M with HTN, DM2, neuropaathy, hx alcohol use, cirrhosis likely due to HCV [treated in past with Harvoni + ribavirin] and CARTAGENA; presenting with worsening RUQ pain + weight loss of 30lb over last 5wk RUQ pain advanced cirrhosis chronic portal vein thrombosis CBD dilation with sludge possible biliary neoplasm - Gen Surg consulted; doubt cholecystitis - CT findings as above; GI consulted; MRI ordered - NOT on empiric Zosyn as the H+P would have suggested; agree no antibiotics for now - prn oxycodone + morphine pancytopenia - due to cirrhosis; monitor CHRONIC ISSUES HTN: losartan, amlodipine, HCTZ DM2: camille-dose lispro VTE ppx - SCDs; d/c enoxaparin due to thrombocytopenia Total time managing care of this patient today: 45 minutes. Quality Stroke Does the patient have a stroke diagnosis?: No VTE Prior VTE?: No VTE Risk Level:: Medical - moderate - high VTE Device Contraindication: Treatment Not Indicated VTE Drug Contraindication: N/A - Med Ordered
[2024-07-25] MEDS: gadobutroL 10 ML VIAL IVPUSH (19:04)
[2024-07-25 19:59] VITALS: BP 147/86; PULSE 103; RESP 20; TEMP 36.3; O2SAT 96
[2024-07-25 20:03] LABS: Glucose, Whole Blood 182 mg/dL (60-115)
[2024-07-25] MEDS: Insulin Lispro 100 UNIT/ML 3 ML VIAL SUBCUT (20:09)
[2024-07-25] MEDS: hydroCHLOROthiazide 12.5 MG TABLET PO (20:12)
[2024-07-25] MEDS: Losartan Potassium 50 MG TABLET PO (20:12)
[2024-07-25] MEDS: LORazepam 1 MG TABLET PO (20:58)
[2024-07-26 04:00] VITALS: BP 112/60; PULSE 62; RESP 18; TEMP 36.1; O2SAT 97
[2024-07-26 06:06] LABS: Hematocrit 32.4 % (42.0-52.0); Hemoglobin 10.9 g/dl (14.0-18.0); Mean Corpuscular HGB Conc 33.6 g/dl (31.0-36.0); Mean Corpuscular Volume 89.3 fL (80.0-98.0); Mean Platelet Volume 12.5 fL (9.4-12.4); Red Blood Count 3.63 X10*6/uL (4.60-5.80)
[2024-07-26 06:07] LABS: Platelet Count 38 X10*3/uL (160-400); White Blood Count 1.2 X10*3/uL (4.8-10.8)
[2024-07-26 06:25] LABS: Alanine Aminotransferase 55 U/L (0-40); Albumin Level 2.8 g/dL (3.5-5.0); Alkaline Phosphatase 175 U/L (39-117); Anion Gap 8 (12-20); Aspartate Amino Transferase 95 U/L (5-37); Bilirubin Total 1.3 mg/dL (0.0-1.0); Blood Urea Nitrogen 21 mg/dL (9-16); Calcium 7.9 mg/dL (8.4-10.2); Carbon Dioxide 25 mmol/L (22-29); Chloride 110 mmol/L (96-108); Creatinine Clr Calc Pharmacy 78.8; Estimated Glomerular Filt Rate > 60; Glucose Random 103 mg/dL (60-115); Potassium 3.7 mmol/L (3.3-5.1); Sodium 139 mmol/L (135-145); Total Protein 5.7 g/dL (6.5-8.0)
[2024-07-26 07:33] VITALS: BP 167/89; PULSE 104; RESP 16; TEMP 36.1; O2SAT 99
[2024-07-26 07:42] LABS: Glucose, Whole Blood 123 mg/dL (60-115)
[2024-07-26] MEDS: Lactated Ringers 1,000 ML 100 ML IVCONT (07:52)
[2024-07-26] MEDS: amLODIPine Besylate 5 MG TABLET PO (07:52)
[2024-07-26] MEDS: oxyCODONE HCl Immed Release 5 MG TABLET 10 MG PO (08:22)
[2024-07-26] MEDS: 0.9 % Sodium Chloride Flush 3 ML SYRINGE IVFLUSH (08:24)
--- NOTE | 2024-07-26 09:54 | P.PNGS_ITS ---
Subjective Subjective Date of Service: 07/26/24 Interval history: Has multiple complaints Says he is not getting his usual medications for diabetes here in the hospital Abdominal pain better Tolerating diet No nausea or vomiting Physical Exam 2 Vital Signs: Vital Signs: Last Vital Signs Temp 97.0 F 07/26/24 07:33 Pulse 104 H 07/26/24 07:33 Resp 16 07/26/24 07:33 BP 167/89 H 07/26/24 07:33 Pulse Ox 99 07/26/24 07:33 O2 Del Method Room Air 07/26/24 07:33 BMI result Body Mass Index 25.8 Const: General: comfortable and no acute distress Resp: Effort & Inspection: normal respiratory effort Cardio: Rate: regular rate GI: Other: Some mild diffuse tenderness Palpation (GI): Soft to palpation, not firm, Tenderness to palpation present (GI) and no guarding Objective Data Active Medications Acetaminophen (Acetaminophen 325 Mg Tablet) 650 mg PO Q6H PRN PRN Reason: Pain, Mild 1-3,fever,headache Amlodipine Besylate (Amlodipine Besylate 5 Mg Tablet) 5 mg PO DAILY [facility]; Protocol Last Admin: 07/26/24 07:52 Dose: 5 mg Documented By: MADHAV Calcium Carbonate (Calcium Carbonate 750 Mg Tab.Chew) 750 mg PO Q4H PRN PRN Reason: Heartburn Glucose (Glucose Gel 15 Gm Gel..Gram.) 15 gm PO Q15M PRN; Protocol PRN Reason: per Hypoglycemia Standing Ord. Hydrochlorothiazide (Hydrochlorothiazide 12.5 Mg Tablet) 12.5 mg PO BEDTIME [facility] Last Admin: 07/25/24 20:12 Dose: 12.5 mg Documented By: MEG Lactated Ringer's (Lr) 1,000 mls @ 100 mls/hr IVCONT .Q10H [facility] Last Admin: 07/26/24 07:52 Dose: 100 mls/hr Documented By: MADHAV Dextrose (D10) 250 mls @ 750 mls/hr IV Q15M PRN; Protocol PRN Reason: per Hypoglycemia Standing Ord. Insulin Human Lispro (Insulin Lispro 100 Unit/Ml 3 Ml Vial) 0 unit SUBCUT QIDACHS [facility]; Protocol Last Admin: 07/26/24 07:46 Dose: Not Given Documented By: MADHAV Non-Admin Reason: No Insulin Coverage Lorazepam (Lorazepam 1 Mg Tablet) 1 mg PO BEDTIME PRN PRN Reason: anxiety and/or insomnia Last Admin: 07/25/24 20:58 Dose: 1 mg Documented By: MEG Losartan Potassium (Losartan Potassium 50 Mg Tablet) 50 mg PO BEDTIME [facility] Last Admin: 07/25/24 20:12 Dose: 50 mg Documented By: MEG Magnesium Hydroxide (Milk Of Magnesia 30 Ml Oral.Susp) 30 ml PO DAILY PRN PRN Reason: Constipation Melatonin (Melatonin 3 Mg Tablet) 6 mg PO BEDTIME PRN PRN Reason: Insomnia Morphine Sulfate (Morphine Sulfate 4 Mg/Ml Cartridge) 4 mg IVPUSH Q4H PRN; Protocol PRN Reason: Pain, Severe (Pain Scale 7-10) Last Admin: 07/25/24 08:52 Dose: 4 mg Documented By: CIARA Ondansetron HCl (Ondansetron Hcl 4 Mg/2 Ml Vial) 4 mg IVPUSH Q6H PRN PRN Reason: Nausea and Vomiting Oxycodone HCl (Oxycodone Hcl Immed Release 5 Mg Tablet) 10 mg PO Q6H PRN PRN Reason: Pain, Moderate(Pain Scale 4-6) Last Admin: 07/26/24 08:22 Dose: 5 mg Documented By: MADHAV Comments: pt requesting 5mg Sodium Chloride (0.9 % Sodium Chloride Flush 3 Ml Syringe) 3 ml IVFLUSH [facility] Last Admin: 07/26/24 08:24 Dose: 3 ml Documented By: MADHAV Labs 07/26/24 05:40 07/26/24 05:40 Labs: Laboratory Results - last 24 hr 07/25/24 07/26/24 07/26/24 19:57 05:40 07:36 MCV 89.3 MCH 30.0 MCHC 33.6 RDW 14.0 Plt Count 38 L MPV 12.5 H Absolute Nucleated RBC 0.000 Nucleated RBC % (auto) 0.0 Anion Gap 8 L Estim Creat Clear Calc 78.8 Estimated GFR > 60 POC Glucose 182 H 123 H Random Glucose 103 Calcium 7.9 L D Total Bilirubin 1.3 H AST 95 H ALT 55 H Alkaline Phosphatase 175 H Total Protein 5.7 L Albumin 2.8 L Carcinoembryonic Ag 3.20 Microbiology Microbiology Results: Microbiology 07/24/24 14:57 Blood Culture - Preliminary Blood - Venous No growth after 24 hours. 07/24/24 14:57 Blood Culture - Preliminary Blood - Venous No growth after 24 hours. Procedures Date of Service Date of Service: 07/26/24 Progress Note: A&P Assessment and plan (1) Abdominal pain: Status: Acute Assessment and Plan: Unlikely to be acute cholecystitis He has cirrhosis, chronic liver disease Pain actually chronic in nature Low platelet count, low WBC, may be because of chronic liver disease He wants to see a industrial design engineer because of his chronic liver disease Says he will not be able to see a industrial design engineer in [place] until January, No surgical intervention at this time Time Spent With Patient Time: Total time managing care of this patient today ____ minutes. Quality Stroke Does the patient have a stroke diagnosis?: No VTE Prior VTE?: No VTE Risk Level:: Medical - moderate - high VTE Device Contraindication: Treatment Not Indicated VTE Drug Contraindication: N/A - Med Ordered
[2024-07-26] MEDS: Sennosides/Docusate Sodium TABLET 2 TAB PO (10:59)
[2024-07-26] MEDS: Furosemide 20 MG TABLET PO (10:59)
[2024-07-26] MEDS: LORazepam 2 MG/ML VIAL 0.5 MG IVPUSH (10:59)
[2024-07-26 11:19] LABS: Glucose, Whole Blood 196 mg/dL (60-115)
[2024-07-26] MEDS: Insulin Lispro 100 UNIT/ML 3 ML VIAL SUBCUT (12:20)
[2024-07-26 14:49] VITALS: BP 138/88; PULSE 100; RESP 18; TEMP 36.4; O2SAT 96
--- NOTE | 2024-07-26 15:31 | MHC.CM.PN ---
pt dcd home self care
[2024-07-26] MEDS: oxyCODONE HCl Immed Release 5 MG TABLET PO (15:52)
--- NOTE | 2024-07-26 16:50 | PM.DS ---
DS: Providers Provider Date of Service: 07/26/24 Date of admission: 07/24/24 14:36 Date of discharge: 07/26/24 Primary care physician: Kyle Dyson MD Consults: 07/24/24 14:40 Consult to Gastroenterology Routine Consulting Provider: George Perez Reason for consultation: RUQ pain Has provider been notified: No 07/24/24 14:41 Consult to General Surgery Routine Consulting Provider: [facility] General Surgeons Reason for consultation: RUQ pain Has provider been notified: Yes 07/26/24 07:21 Consult to Hematology / Oncology Routine Consulting Provider: [facility] Oncology/Hematology Reason for consultation: hepatocellular carcinoma DS: Diagnosis Discharge Diagnosis (1) Abdominal pain: Status: Acute (2) Hepatocellular carcinoma: Status: Acute (3) Portal vein thrombosis: Status: Acute (4) Cirrhosis: Status: Acute DS: Summary Hospital Course Hospital Course: From the history and physical by the admitting hospitalist, Carlo Handy DO, 07/24/24: 69-year-old male history of portal vein thrombus, hypertension, diabetes, cirrhosis, hep c, opiate use presenting with right upper quadrant pain it is severe in nature and patient is very uncomfortable he states pain >12/10. He reports associated nausea and vomiting and cant keep food down. He reports something like this happened to him a few months ago, they wanted to take his gallbladder out but now the pain is much more severe. Pain seems to be worse today. He tells me initially he was hesitant to get his gallbladder out however now pain is intolerable. Has been worked up previously and not been taken for cholecystectomy.. 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 Admitted to the medical-surgical unit with Gastroenterology and General Surgery consultations. He was not felt clinically to have acute cholecystitis. CT showed chronic portal vein thrombosis, CBD dilation with sludge, advanced cirrhosis with multiple varices, and possible biliary neoplasm. MRI revealed multiple lesions with rapid washout concerning for hepatocellular carcinoma. Oncology consultation was requested but the patient did not wish to stay to speak to the oncologist. Likely treatment plan will be systemic immunotherapy. I will arrange an outpatient appointment at [facility] Oncology for the patient and call him with the appointment. He also plans to seek a second opinion at [facility] [place] in [place]. I prescribed oxycodone 5 mg q4h prn severe pain #30. Time Attestation Discharge Coordination Time (in mins): 45 Quality: Safe Use of Opioids Does Pt have an Active Cancer Diagnosis on the Problem List?: No Quality: Stroke Does the patient have a stroke diagnosis?: No Physical Exam Vital Signs: Vital Signs: Last Vital Signs Temp 97.5 F 07/26/24 14:49 Pulse 100 07/26/24 14:49 Resp 18 07/26/24 14:49 BP 138/88 07/26/24 14:49 Pulse Ox 96 07/26/24 14:49 O2 Del Method Room Air 07/26/24 14:49 BMI result Body Mass Index 25.8 Gen: in no acute distress HEENT: sclera anicteric, moist mucus membranes Neck: supple Lungs: clear to auscultation bilaterally Heart: regular rate and rhythm, no murmurs Abd: soft, RUQ tender without rebound, non-distended Ext: no edema Skin: warm/well-perfused Neuro: alert and oriented x3, no focal findings Psych: appropriate affect DS: Data Data Completed and Pending Completed studies during hospitalization [Text1]: Laboratory Results WBC 1.2 X10*3/uL (4.8-10.8) L 07/26/24 05:40 RBC 3.63 X10*6/uL (4.60-5.80) L 07/26/24 05:40 Hgb 10.9 g/dl (14.0-18.0) L 07/26/24 05:40 Hct 32.4 % (42.0-52.0) L 07/26/24 05:40 MCV 89.3 fL (80.0-98.0) 07/26/24 05:40 MCH 30.0 pg (27.0-33.0) 07/26/24 05:40 MCHC 33.6 g/dl (31.0-36.0) 07/26/24 05:40 RDW 14.0 % (11.0-16.0) 07/26/24 05:40 Plt Count 38 X10*3/uL (160-400) L 07/26/24 05:40 MPV 12.5 fL (9.4-12.4) H 07/26/24 05:40 Immature Gran % (Auto) 0.0 % (0.0-0.4) 07/25/24 06:31 Neut % (Auto) 56.9 % (45-73) 07/25/24 06:31 Lymph % (Auto) 29.8 % (20-40) 07/25/24 06:31 [place] % (Auto) 11.6 % (2-11) H 07/25/24 06:31 Eos % (Auto) 1.7 % (0-4) 07/25/24 06:31 Baso % (Auto) 0.0 % (0-2) 07/25/24 06:31 Lymph # (Auto) 0.4 X10*3/uL (1.2-4.9) L 07/25/24 06:31 [place] # (Auto) 0.1 X10*3/uL (0.1-1.2) 07/25/24 06:31 Eos # (Auto) 0.0 X10*3/uL (0.0-0.4) 07/25/24 06:31 Baso # (Auto) 0.0 X10*3/uL (0.0-0.2) 07/25/24 06:31 Abs Immat Gran (auto) 0.00 X10*3/uL (0.00-0.03) 07/25/24 06:31 Absolute Neuts (auto) 0.7 x10*3/uL (2.0-8.3) L 07/25/24 06:31 Absolute Nucleated RBC 0.000 X10*3/uL (0.0-0.012) 07/26/24 05:40 Nucleated RBC % (auto) 0.0 /100WBC (0.0-0.2) 07/26/24 05:40 Smear Tech's Comments VERIFIED 07/25/24 06:31 PT 12.9 SEC (10.9-12.4) H 07/24/24 13:21 INR 1.1 (0.9-1.1) 07/24/24 13:21 Sodium 139 mmol/L (135-145) 07/26/24 05:40 Potassium 3.7 mmol/L (3.3-5.1) 07/26/24 05:40 Chloride 110 mmol/L (96-108) H 07/26/24 05:40 Carbon Dioxide 25 mmol/L (22-29) 07/26/24 05:40 Anion Gap 8 (12-20) L 07/26/24 05:40 BUN 21 mg/dL (9-16) H 07/26/24 05:40 Creatinine 0.88 mg/dL (0.5-1.4) 07/26/24 05:40 Estim Creat Clear Calc 78.8 07/26/24 05:40 Estimated GFR > 60 07/26/24 05:40 POC Glucose 196 mg/dL (60-115) H 07/26/24 11:15 Random Glucose 103 mg/dL (60-115) 07/26/24 05:40 Calcium 7.9 mg/dL (8.4-10.2) L D 07/26/24 05:40 Total Bilirubin 1.3 mg/dL (0.0-1.0) H 07/26/24 05:40 Direct Bilirubin 0.9 mg/dL (0.0-0.5) H 07/24/24 13:21 AST 95 U/L (5-37) H 07/26/24 05:40 ALT 55 U/L (0-40) H 07/26/24 05:40 Alkaline Phosphatase 175 U/L (39-117) H 07/26/24 05:40 Total Protein 5.7 g/dL (6.5-8.0) L 07/26/24 05:40 Albumin 2.8 g/dL (3.5-5.0) L 07/26/24 05:40 Lipase 95 U/L (8-78) H 07/24/24 13:21 Carcinoembryonic Ag 3.20 ng/mL 07/26/24 05:40 Urine Color Yellow 07/24/24 16:38 Urine Appearance Clear 07/24/24 16:38 Urine pH 5.0 (5.0-9.0) 07/24/24 16:38 Ur Specific [place] 1.015 (1.005-1.025) 07/24/24 16:38 Urine Protein 100 (2+) mg/dL (Neg-Trace) H 07/24/24 16:38 Urine Glucose (UA) >=1000 mg/dL (Negative) H 07/24/24 16:38 Urine Ketones Negative mg/dL (Negative) 07/24/24 16:38 Urine Blood Negative (Negative) 07/24/24 16:38 Urine Nitrite Negative (Negative) 07/24/24 16:38 Ur Leukocyte Esterase Negative (Negative) 07/24/24 16:38 Urine RBC 0-2 /HPF (0-2) 07/24/24 16:38 Urine WBC 0-5 /HPF (0-5) 07/24/24 16:38 Ur Squamous Epith Cells 0-2 /HPF (0-2) 07/24/24 16:38 Urine Bacteria None Seen (None Seen) 07/24/24 16:38 Hyaline Casts 0-2 /LPF (0-2) 07/24/24 16:38 Impressions Abdomen Ultrasound 07/24/24 11:50 IMPRESSION: Findings suspicious of acalculous cholecystitis. Heterogenous-appearing gallbladder wall. Electronically signed by: Tanner Yanes MD 07/24/2024 12:29 PM [facility] Abdomen/Pelvis CT 07/24/24 13:35 IMPRESSION: 1. Advanced hepatic cirrhosis. There is left main portal vein thrombosis, which appears chronic and unchanged from the prior study. There is altered perfusion to the left lobe of the liver. 2. There is a suggestion of biliary radical dilatation of the left hepatic lobe, versus nonenhancing portal veins, although there is a subtle hypoattenuating focus at the junction of the left and right hepatic lobes as discussed, possibly representing a neoplasm (possibly biliary). This is indeterminate on this examination and enhanced MRI is recommended for definitive characterization. 3. The common bile duct is dilated to 10 mm in hyperattenuating, uncertain etiology, possibly filled with sludge. Again, MRI recommended. 4. Massive splenomegaly. 5. Extensive esophageal, splenic, splenorenal, gastric, mesenteric, and umbilical varices. Portal hypertension. 6. The gallbladder is underdistended but demonstrates a markedly edematous wall. This is felt to most likely represent changes related to portal hypertension as opposed to acalculus cholecystitis. There are no surrounding inflammatory changes. 7. There are new vague nodular opacities in the lingula and right lower lobe of the lungs, of which further characterization is not possible due to motion artifact. Consider infectious, inflammatory, and neoplastic causes. 8. Refer to the body the report for more details and additional ancillary findings. Electronically signed by: Roderick Martinez MD 07/24/2024 04:28 PM [facility] MRI abdomen with/without contrast 07/25/24 1. Liver masses concerning for hepatocellular carcinoma. 2. Largest left lobe mass may be overestimated and/or accentuated by asymmetric perfusion given left-sided portal vein thrombosis. 3. Findings of portal venous hypertension with multiple varices and splenomegaly. 4. Cholelithiasis, gallbladder wall thickening, and pericholecystic fluid concerning for cholecystitis. Discharge Plan Discharge Anticipated Discharge Date/Time: 07/26/24 15:17 Patient Disposition: Home, Self-Care Discharge Diagnosis: hepatocellular carcinoma Referrals: Mary Kay Potts MD [Physician] - 1 Week Kyle Dyson MD [Primary Care Provider] - 1 Week Discharge Medications: New oxycodone 5 mg Tablet 5 mg PO Q4H PRN (Reason: severe pain) Qty: 30 0RF Rx Instructions: Partial Fill upon patient request. Continued amlodipine 5 mg tablet 5 mg PO DAILY insulin aspart U-100 [Novolog FlexPen U-100 Insulin] 100 unit/mL (3 mL) insulin pen See Protocol subcut TIDAC Protocol: Insulin Correction Scale Less than or equal to 110 ---- Give (units): 0 111 to 150 Give (units): 0 151 to 200 Give (units): 2 201 to 250 Give (units): 4 251 to 300 Give (units): 6 301 to 350 Give (units): 8 Greater than 350 Give (units): 10 Call MD if Blood Glucose > : 350 insulin glargine-yfgn [Semglee(insulin glarg-yfgn)Pen] 100 unit/mL (3 mL) insulin pen 60 unit subcut BEDTIME losartan-hydrochlorothiazide 50-12.5 mg tablet 1 tab PO BEDTIME Discharge Orders: Discharge Order (Routine); Ordered 07/26/24 Ordered By: Dilip Soria Diet: Diabetic diet Activity on Discharge: As tolerated Stand Alone Forms: Patient Portal Discharge page Print Language: [place] Care Plan Goals: treatment of cancer Health Concerns: hepatocellular carcinoma Plan of Treatment: continue to follow a healthy diet and exercise program we will call you tomorrow with an initial appointment with the oncologist Dr Potts at [facility] Oncology for pain, take acetaminophen [Tylenol] but do NOT exceed 2000 mg a day; for severe pain, take oxycodone 5 mg every 4 hours as needed Please follow up with your primary care doctor within 1 week. Return to the hospital if you experience recurrent or worsening symptoms. Assessment: See Discharge Summary. Discharge Date/Time: 07/26/24 15:55
[2024-07-27 15:57] LABS: Carbohydrate Antigen 19-9 49 U/mL (<34)
== END 2024-07-26 15:55 | disposition home or self-care (01) | DRG 435 ==
LOC: HO.ED 14:53 → HO.EDOVER 14:59 → HO.S3 15:37
PROVIDERS: Internal Medicine Gastroenterology; Nurse Practitioner Family; Admitting Provider Hospitalist; Emergency Provider Emergency Medicine; PCP Family Medicine; Visit Provider Family Medicine
DX: C22.0 Liver cell carcinoma (principal); I81 Portal vein thrombosis; D61.818 Other pancytopenia; E11.42 Type 2 diabetes mellitus with diabetic polyneuropathy; I10 Essential (primary) hypertension; F10.91 Alcohol use, unspecified, in remission; K74.69 Other cirrhosis of liver; Z86.19 Personal history of other infectious and parasitic diseases; K75.81 Nonalcoholic steatohepatitis (NASH); Z79.4 Long term (current) use of insulin; Z79.899 Other long term (current) drug therapy
CPT/HCPCS: 36415; 74177; 74183; 76705; 80048; 80053; 80076; 81001; 82105; 82378; 82947; 83690; 85025; 85027; 85610; 86301; 87040; 99285; A9585; J1650; J2060; J2270; J2405; J7120; Q9967

== ENCOUNTER → 2024-07-24 11:26 | Outpatient (BNV) | payer MEDICARE, MEDICAID, SELFPAY | PROVIDERS: PCP Family Medicine; Visit Provider Radiology Diagnostic Radiology | DX: K82.9 Disease of gallbladder, unspecified (principal) | CPT/HCPCS: 74177; 76705 ==

== ENCOUNTER → 2024-07-24 14:13 | Outpatient (BNV) | payer MEDICARE, MEDICAID, SELFPAY | PROVIDERS: PCP Family Medicine; Visit Provider Hospitalist | DX: R10.11 Right upper quadrant pain (principal) | CPT/HCPCS: 99222; 99232 ==

== ENCOUNTER 2024-07-24 14:36 | Outpatient (BNV) | payer MEDICARE, MEDICAID, SELFPAY | END 2024-07-25 18:22 | PROVIDERS: Admitting Provider Hospitalist; Emergency Provider Emergency Medicine; PCP Family Medicine; Visit Provider Radiology Neuroradiology | DX: R10.31 Right lower quadrant pain (principal) | CPT/HCPCS: 74183 ==

== ENCOUNTER → 2024-07-24 14:36 | Outpatient (BNV) | payer MEDICARE, MEDICAID, SELFPAY | PROVIDERS: Admitting Provider Hospitalist; Emergency Provider Emergency Medicine; PCP Family Medicine; Visit Provider Internal Medicine Gastroenterology | DX: K74.60 Unspecified cirrhosis of liver (principal); R10.31 Right lower quadrant pain; I81 Portal vein thrombosis | CPT/HCPCS: 99222 ==

== ENCOUNTER → 2024-07-24 14:36 | Outpatient (BNV) | payer MEDICARE, MEDICAID, SELFPAY | PROVIDERS: Admitting Provider Hospitalist; Emergency Provider Emergency Medicine; PCP Family Medicine; Visit Provider Surgery | DX: R10.31 Right lower quadrant pain (principal) | CPT/HCPCS: 99222; 99232 ==

== ENCOUNTER → 2024-07-28 13:00 | Outpatient (BNV) | payer MEDICARE, MEDICAID, SELFPAY | PROVIDERS: PCP Family Medicine; Visit Provider Internal Medicine | DX: C22.0 Liver cell carcinoma (principal) | CPT/HCPCS: 99205; G2211 ==

== ENCOUNTER 2024-09-01 13:02 | Outpatient (REF) | payer MEDICARE, SELFPAY ==
--- NOTE | ~2024-09-01 | CT_ITS ---
CLINICAL HISTORY: staging CT chest without contrast Comparison: MR/DE - MR ABDOMEN WO/W CON - 07/25/24 17:[address]/DE/SR - CT ABDOMEN PELVIS W IV CON - 07/24/24 15:25 EST Findings: The thyroid gland appears normal. There is no mediastinal, hilar, or axillary lymphadenopathy. The heart is normal in size. Coronary artery calcifications are present. There is a trace pericardial effusion. Gastroesophageal varices are noted. 3 mm right upper lobe nodule (axial image 21 of series 3), 2 mm subpleural right lower lobe nodule (axial image 40), 5 mm left upper lobe nodule (axial image 28), and 4 mm subpleural lingular nodule (axial image 35) are present. Mild paraseptal emphysema is noted. Limited examination of the upper abdomen demonstrates nodularity of the liver contour. There is dilatation of the left hepatic ducts. 3.8 cm hypodense right hepatic lesion is noted. Nonspecific gallbladder wall thickening is present. The spleen is enlarged in size. Mild ascites is present. 2.2 cm left renal cyst is seen. No acute osseous abnormality is identified. No aggressive lytic or blastic lesion is seen. IMPRESSION: 1. Several lung nodules measuring up to 5 mm in the left upper lobe. 2. Mild pulmonary emphysema. 3. Imaging findings of cirrhosis and portal hypertension with gastroesophageal varices, splenomegaly, and mild ascites. 4. 3.8 cm hypodense right hepatic lesion and dilatation of the left hepatic ducts. MR abdomen of 07/25/2024 better illustrates the known hepatic masses. 5. Gallbladder wall thickening, which can be seen in patients with cirrhosis. This document has been electronically signed by: Андрей Cruz on 09/02/2024 08:39:26
== END 2024-09-01 13:03 | disposition home or self-care (01) ==
LOC: HO.CT 13:02
PROVIDERS: PCP Family Medicine; Visit Provider Internal Medicine
DX: C22.0 Liver cell carcinoma (principal)
CPT/HCPCS: 71250

== ENCOUNTER → 2024-09-01 13:04 | Outpatient (BNV) | payer MEDICARE, SELFPAY | PROVIDERS: PCP Family Medicine; Visit Provider Radiology Vascular & Interventional Radiology | DX: R91.8 Other nonspecific abnormal finding of lung field (principal); C22.0 Liver cell carcinoma | CPT/HCPCS: 71250 ==

== ENCOUNTER → 2024-09-22 08:06 | Day surgery (SDC) | payer MEDICARE, SELFPAY ==
[2024-09-22] VITALS (10 sets, daily range): BP systolic 127–146; BP diastolic 64–91; PULSE 82–99; RESP 16–20; TEMP 36.1; O2SAT 95–99; BMI 30.6
--- NOTE | ~2024-09-22 | US_ITS ---
EXAMINATION: US GUIDED PARACENTESIS CLINICAL INFORMATION: Abdominal discomfort, ascites COMPARISON: None available. TECHNIQUE: Following explaining ultrasound-guided abdominal paracentesis procedure, benefits in risk, a written consent was obtained. Patient was placed supine on ultrasound stretcher and preliminary ultrasound imaging was obtained. An optimal site was selected along the right lower quadrant and marked. The marked site was cleaned and draped in usual sterile manner. 1% lidocaine was administered prior to side. There is small skin incision a 5 Latvian catheter was advanced into the peritoneal space. After observing fluid return, the stylet was withdrawn and catheter connected to vacuum bottle via connecting cannula. After obtaining all fluid and observing no more fluid return, catheter was withdrawn and complete hemostasis achieved appendicitis. Sterile dressing was applied post procedure. Patient tolerated procedure extremely well. FINDINGS: There is a large amount of free fluid seen on preliminary ultrasound imaging. 5.6 L of red-tinged fluid was drained from the right lower quadrant for therapeutic purpose. US/US paracentesis abd w/image IMPRESSION: Successful ultrasound-guided right paracentesis without immediate complications. Electronically signed by: Tanner Yanes MD 09/24/2024 09:27 AM EDT
[2024-09-22 09:49] LABS: INTERNATIONAL NORM RATIO 1.3 (0.9-1.1); Prothrombin Time 14.9 SEC (10.9-12.4)
[2024-09-22] MEDS: Lidocaine HCl 1 % MPF 5 ML VIAL SUBCUT (11:01)
== END | disposition home or self-care (01) ==
PROVIDERS: Radiology Diagnostic Radiology; PCP Family Medicine; Visit Provider Internal Medicine
DX: R18.8 Other ascites (principal); C22.0 Liver cell carcinoma; R10.9 Unspecified abdominal pain; I10 Essential (primary) hypertension; E11.9 Type 2 diabetes mellitus without complications; G62.9 Polyneuropathy, unspecified; D69.6 Thrombocytopenia, unspecified; Z79.4 Long term (current) use of insulin; Z79.899 Other long term (current) drug therapy; Z88.8 Allergy status to other drugs, medicaments and biological substances
CPT/HCPCS: 36415; 49083; 85610; J2003

== ENCOUNTER → 2024-09-22 09:25 | Outpatient (BNV) | payer MEDICARE, MEDICAID, SELFPAY | PROVIDERS: PCP Family Medicine; Visit Provider Radiology Diagnostic Radiology | DX: R10.9 Unspecified abdominal pain (principal); R18.8 Other ascites | CPT/HCPCS: 49083 ==

== ENCOUNTER 2024-10-23 11:18 | Day surgery (SDC) | payer MEDICARE, MEDICAID, SELFPAY ==
[2024-10-23] VITALS (10 sets, daily range): BP systolic 107–136; BP diastolic 69–84; PULSE 75–96; RESP 12–20; TEMP 36.1–37.1; O2SAT 94–100; BMI 27.8
--- NOTE | ~2024-10-23 | US_ITS ---
EXAMINATION: US GUIDED PARACENTESIS CLINICAL INFORMATION: Ascites. COMPARISON: Ultrasound guided paracentesis 09/22/2024 TECHNIQUE: Following explaining ultrasound-guided paracentesis procedure, benefits and risk, a written consent was obtained from the patient. Patient was placed supine on ultrasound stretcher and pulmonary ultrasound imaging was obtained through the abdomen. There is moderate fluid seen in the left lower quadrant. An optimal site was marked on the skin in the left lower quadrant. Area marked was cleaned and draped in usual sterile manner. 1% lidocaine was injected at puncture site. Through a small skin incision a short 5 Ecuadorean Yueh catheter was advanced from the skin into the peritoneal space. After observing fluid return, stylet was withdrawn and catheter connective to vacuum bottle via connecting cannula. After obtaining all fluid and observing no more fluid return, catheter was withdrawn and complete hemostasis achieved at puncture site. Simple dressing was applied at the puncture site. Patient tolerated procedure extremely well. FINDINGS: Preliminary ultrasound imaging there is very little fluid remaining cyst suggestive of significant improvement since the last exam. Approximately 1.4 L of orange thinned color fluid was removed. Then of this fluid was sent to lab. US/US paracentesis abd w/image IMPRESSION: Therapeutic ultrasound-guided paracentesis performed. Electronically signed by: Tanner Yanes MD 10/23/2024 02:16 PM EDT
[2024-10-23 12:23] LABS: INTERNATIONAL NORM RATIO 1.2 (0.9-1.1); Prothrombin Time 13.9 SEC (10.9-12.4)
[2024-10-23] MEDS: Lidocaine HCl 1 % MPF 5 ML VIAL SUBCUT (13:40)
== END 2024-10-23 14:50 | disposition home or self-care (01) ==
PROVIDERS: Radiology Diagnostic Radiology; PCP Family Medicine; Visit Provider Internal Medicine
DX: R18.8 Other ascites (principal); C22.0 Liver cell carcinoma; K74.60 Unspecified cirrhosis of liver; I81 Portal vein thrombosis; R16.1 Splenomegaly, not elsewhere classified; I10 Essential (primary) hypertension; G62.9 Polyneuropathy, unspecified; E11.9 Type 2 diabetes mellitus without complications; Z79.4 Long term (current) use of insulin; Z79.899 Other long term (current) drug therapy; Z88.8 Allergy status to other drugs, medicaments and biological substances
CPT/HCPCS: 36415; 49083; 85610; J2003

== ENCOUNTER → 2024-10-23 13:00 | Outpatient (BNV) | payer MEDICARE, MEDICAID, SELFPAY | PROVIDERS: PCP Family Medicine; Visit Provider Radiology Diagnostic Radiology | DX: R18.8 Other ascites (principal) | CPT/HCPCS: 49083 ==

== ENCOUNTER 2024-11-29 12:39 | Outpatient (REF) | payer MEDICARE, MEDICAID, SELFPAY ==
--- NOTE | ~2024-11-29 | MR_ITS ---
CLINICAL HISTORY: Assess response to treatment Diagnosis of liver cancer 6 months ago. MR abdomen with and without gadolinium Comparison: MR/SD - MR ABDOMEN WO/W CON - 07/25/24 17:[address]/SD/SR - CT ABDOMEN PELVIS W IV CON - 07/24/24 15:[address]/SR - CT ABDOMEN PELVIS W IV CON - 07/24/24 15:16 EST Findings: Lung bases are clear. Heart size is normal. Hepatic contour is nodular as before. There has been a slight decrease in previously seen hepatic masses which demonstrate arterial phase hyperenhancement. For example, the caudate lobe mass currently measures 34 mm transverse by 20 mm anteroposterior. The mass within the right hepatic lobe posteromedially currently measures 26 mm anteroposterior by 16 mm transverse. Hypervascular mass within the right hepatic lobe anterolaterally measures 30 mm anteroposterior by 25 mm transverse. No new hepatic masses are seen. Previously seen intrahepatic biliary ductal dilatation, predominantly within the left hepatic lobe, has decreased, and is now mild. No extrahepatic biliary ductal dilatation. Gallbladder is contracted and demonstrates severe wall thickening as before. Pancreas is within normal limits. No pancreatic ductal dilatation. Splenomegaly is present as before. Spleen measures 20.2 cm anteroposterior. Adrenals and kidneys are within normal limits. Visualized bowel loops are normal in caliber. Multiple portosystemic collateral vessels are present as before, predominantly within the periesophageal location. Visualized vasculature is otherwise normal in appearance. No adenopathy. Visualized osseous structures are normal in appearance. IMPRESSION: 1. Slight decrease in multifocal hepatic masses, consistent with multifocal hepatocellular carcinoma. 2. Decreased intrahepatic biliary ductal dilatation within the left hepatic lobe. 3. Cirrhosis and portal hypertension. This document has been electronically signed by: Norman Garcia MD on 11/29/2024 14:05:36
[2024-11-29] MEDS: gadobutroL 10 ML VIAL IVPUSH (13:29)
== END 2024-11-29 12:40 | disposition home or self-care (01) ==
LOC: HO.MRI 12:39
PROVIDERS: PCP Family Medicine; Visit Provider Internal Medicine
DX: C22.0 Liver cell carcinoma (principal)
CPT/HCPCS: 74183; A9585

== ENCOUNTER → 2024-11-29 12:47 | Outpatient (BNV) | payer MEDICARE, MEDICAID, SELFPAY | PROVIDERS: PCP Family Medicine; Visit Provider Radiology Diagnostic Radiology | DX: Z85.05 Personal history of malignant neoplasm of liver (principal) | CPT/HCPCS: 74183 ==

== ENCOUNTER 2024-12-21 07:58 | Outpatient (AMB) | payer MEDICARE, MEDICAID, SELFPAY ==
--- NOTE | 2024-12-21 08:32 | MHC.PC.OV ---
Vital Signs 12/21/24 08:37 Height 5 ft 5.35 in Weight 169 lb 8 oz BMI 27.9 BP 130/70 Blood Pressure Location Lt brachial Position Sitting Respiration 18 Pulse 105 H Pulse Source Pulse Oximeter Temp 97.3 F Temp Source Temporal Artery Scan Pulse Oximetry (%) 98 Oxygen Delivery Method Room Air Intake Visit Reasons: Establish Care Intake Note: Patient is a new patient here to establish care for Liver Cancer, T2DM, Umbilical hernia, HTN, Depression, Anxiety. Transferring care from DR Dyson ([facility]). Medical records have been requested and have not received. Ice Cream Man Required: No Esthetician Makeup Artist: Not Required per policy Accompanied by: Self / Same As Patient Allergies lisinopril Adverse Reaction (Severe, Verified 12/21/24 09:20) cough Tobacco use date assessed: 12/21/24 Fall risk assessment: No Falls in past year Last assessed Fall Risk: 12/21/24 Dental Screening Dental Screen Date: 12/21/24 Did you have a dental visit in the last 12 months?: No Did you have a dental problem in the last 6 months where you did not have access to dental care?: No Was dental information given to patient?: Patient declined HPI Establish Care HPI Details Previous PCP: Dr. Dyson, [facility] Last visit: 4 months ago Last PE:couple of years ago Specialist: endocrinology (Dr. Eber Tesfaye), oncologist, OBGYN:n/a Past medical history:DM, Medications: Family HX: mother and father had diabetes, both Problem: The patient is a 69-year-old male presenting primarily for the management of chronic conditions including Diabetes Mellitus Type 2 and Hypertension, as well as ongoing symptoms associated with liver cancer. The patient has a history of diabetes, which appears to be well-managed under the care of an pharmacy stock clerk, Dr. Eber Moran, in [place], [place]. The patient's diabetes regimen includes daily monitoring of blood glucose levels. Hypertension is also a concern, with medications currently being administered to maintain stable blood pressure. The patient has been diagnosed with liver cancer, presenting symptoms that prompted past interventions, including drainage of abdominal fluid and management with chemotherapy. He reports pain associated with the cancer, currently managed with oxycodone and morphine prescribed by an oncologist, Dr. Potts. Additionally, the patient describes issues with sinus infections and past use of amoxicillin for symptomatic relief. He notes a history of deviated nasal septum likely resulting from martial arts activity, leading to chronic nasal congestion and episodic sinusitis. The patient has a history of alcohol use, which he discontinued for familial responsibilities, and expresses concern about potential dependency on prescribed opioid analgesia. He reports familial history of diabetes with both parents diagnosed and due to complications of the disease. Sara De La Cruz- Eber Moran, pharmacy stock clerk, [address] [place] [address] Dr. Fausto [place] Reports that he had two cups of coffee this morning possibly influencing elevated his blood pressure rhinosinitis-Augmentin, deviated septum and chronic sinusitis-will refer to ENT Reports sob-with exertion, no chest pain, dizziness/lightheaded everyday since he had cancer, only if he exerted himself left upper quadrant stomach pain-reports that this used to be on the right side of the upper abdomen He does used ducolox once a week, the natarajan flavor 60 mg with positive reporting since, his constipation resolved umbilical hernia, stomach binder in place, reports that this was deemed inoperative leg pain, +1 pitting edema Bilateral leg neuropathy-refused gabapentin, reports that it was hard for him to be weaned off this medication He is taking NAC-1000mg, which he thinks is helping in reducing his mucus Arthritis in both knees, lower back, and shoulders-reports that his left knee is the most concerning [facility] Medical History (Updated 12/21/24 @ 19:56 by MARTA Walker) Hepatitis C HTN (hypertension) Diabetes mellitus Nausea & vomiting Peripheral neuropathy Insulin dependent type 2 diabetes mellitus Neuropathy Surgical History (Updated 12/21/24 @ 12:31 by Mary Kay Potts MD) No pertinent past surgical history Family History (Updated 12/21/24 @ 10:07 by MARTA Walker) Father Diabetes mellitus Mother Diabetes mellitus Other Substance use disorder Social History Household Members: Friend(s) Housing: Homeless Do you presently have visiting nurse or other home services: No Alcohol intake: former Patient Tobacco Use Status: Never used Tobacco e-Cigarette/Vaping Use: Never Used Second Hand Smoke Exposure: No Use of substances other than those prescribed or required for medical reasons: No Substance Use Type: Marijuana Do you feel safe in your current relationship?: No Current Relationship Do you have thoughts of harming others: None Do you have a plan to hurt others: No Plan service: Yes Current occupational status: retired Gender identity: Male Cognitive needs: No Hearing needs: No Vision needs: Yes (Glasses) Questionnaire PHQ-9 Over the last 2 weeks, how often have you been bothered by any of the following problems? 1. Little interest or pleasure in doing things: not at all 2. Feeling down, depressed, or hopeless: not at all 3. Trouble falling or staying asleep, or sleeping too much: not at all 4. Feeling tired or having little energy: not at all 5. Poor appetite or overeating: not at all 6. Feeling bad about yourself - or that you are a failure or have let yourself or your family down: not at all 7. Trouble concentrating on things, such as reading the newspaper or watching television: not at all 8. Moving or speaking so slowly that other people could have noticed. Or the opposite - being so fidgety or restless that you have been moving around a lot more than usual: not at all 9. Thoughts that you would be better off or of hurting yourself in some way: not at all Total score: 0 Depression Screening Interpretation: Negative Depression Screening Done: Yes 44731 - PHQ-9 Billing: Yes Source: Developed by Drs. Leonardo August, Shyla Monzon, Andrew Jimenez and colleagues, with an educational martha from [employer]. Thrive Questionnaire Date Thrive assessed: 07/25/24 AUDIT C Alcohol Use Questionnaire (AUDIT-C) 1. How often do you have a drink containing alcohol?: Never Total Score: 0 ROSITA-7 AMB Questionnaire ROSITA-7 Date ROSITA - 7 assessed: 12/21/24 Feeling nervous, anxious, or on edge: 0 = Not at all Not being able to stop or control worryin = Not at all Worrying too much about different things: 0 = Not at all Trouble relaxin = Not at all Being so restless that it is hard to sit still: 0 = Not at all Becoming easily annoyed or irritable: 0 = Not at all Feeling afraid as if something awful might happen: 0 = Not at all Total ROSITA-7 score (0-4 normal; 5-9 mild; 10-14 moderate; 15-21 severe): 0 Source: Developed by Drs. Leonardo August, Shyla Monzon, Andrew Jimenez and colleagues, with an educational martha from [employer]. ROSITA-7 Assessment Billing ROSITA-7 Assessment Tool: ROSITA-7 Assessment 98172 Review of Systems Const Denies headache(s) Eyes Reports change in vision and Denies loss of vision ENT Denies vertigo, Reports dizziness, Denies headache(s), Reports nasal congestion, Reports nasal discharge, Denies sinus pressure and Denies sore throat Card Denies chest pain, Reports leg edema (ongoing), Denies lightheadedness and Reports dyspnea on exertion Resp Denies cough, Denies hemoptysis, Reports dyspnea on exertion and Denies wheezing GI Reports abdominal pain (left upper quadrant), Denies melena, Reports constipation (improved with current treatment and after starting chemo), Denies diarrhea, Denies vomiting and Reports other (umbilical hernia inoperable) Denies dysuria, Denies urinary frequency and Denies urinary urgency Musc Reports back pain (lower back), Reports arthralgias (bilateral knees, shoulders), Denies joint swelling, Reports numbness (feet and burning sensation in feet) and Denies tingling Skin/Breast Denies lesions and Denies rash Neuro Denies Abnormal speech present, Denies behavioral changes, Denies vertigo, Reports dizziness, Denies headache(s), Denies loss of vision, Denies memory loss, Reports numbness (feet and burning sensation in feet) and Denies tingling Psych Denies anxiety, Denies behavioral changes, Denies depression, Denies memory loss and Denies panic attacks Sadiq/Lymph Denies easy bleeding and Denies easy bruising Aller/Immun Denies wheezing Physical exam (Primary Care) Vital Signs: Last Vital Signs Temp 97.3 F 12/21/24 08:37 Pulse 105 H 12/21/24 08:37 BP 130/70 12/21/24 08:37 Pulse Ox 98 12/21/24 08:37 Oxygen Delivery Method Room Air 12/21/24 08:37 BMI result Body Mass Index 27.9 Tobacco/Smoking Status: Tobacco use Status Tobacco use date assessed 12/21/24 12/21/24 09:00 Patient Tobacco Use Status Never used Tobacco 12/21/24 08:57 e-Cigarette/Vaping Use Never Used 12/21/24 09:00 PHQ-9: PHQ-9 Score PHQ-9: Total score 0 12/21/24 10:20 Depression Screening Interpretation: Negative Thrive Assessment: Date of Thrive Assessment Date Thrive assessed 07/25/24 12/21/24 08:32 Const General: healthy appearing, no acute distress, alert and awake Nutritional Appearance: well nourished Orientation/consciousness: oriented to person, oriented to place and oriented to time HENMT Ears: TM's normal bilaterally General nose exam: Abnormal mucous membranes and turbinates present boggy bilateral and erythematous bilateral, Abnormal nasal septum present deviated and Nasal discharge present purulent on the left Face and sinus: No sinuses nontender Eyes Conjunctivae: conjunctivae normal Sclerae: sclerae normal Pupils: Equal, round and reactive pupils present Neck Neck: Yes no lymphadenopathy and Yes no JVD Thyroid: Thyroid normal Carotids: no bruits Resp Effort & Inspection: normal respiratory effort and not tachypneic Auscultation: no crackles, no rales, no rhonchi and no wheezes Cardio Rate: regular rate Rhythm: regular rhythm Heart sounds: no murmurs and normal S1 and S2 GI Palpation (GI): Soft to palpation, nontender, no hepatomegaly and no splenomegaly Auscultation: normal bowel sounds General: Yes no CVA tenderness Back/Spine/Pelvis Back: no CVA tenderness Skin General skin exam: no rashes or lesions noted and dry skin Neuro General: oriented to person, oriented to place and oriented to time Cranial nerves: Yes Equal, round and reactive pupils present Speech: No Abnormal speech present Gait exam (Neuro): Normal gait present Motor exam (neuro): no tremor noted Extrem Right upper extremity: full ROM Left upper extremity: full ROM Right lower extremity: full ROM and lower leg Details: pitting edema Details: 1+ Left lower extremity: full ROM and lower leg Details: pitting edema Details: 1+ Psych Mental Status: mental status grossly normal Speech and movement: Normal speech and movement present Affect: normal affect Attitude: cooperative Thought process: Normal thought process present Results AMB Hemoglobin A1c AMB Hemoglobin A1c 6.3 % Last Edit by ANGELICA Bush on 12/21/24 09:00 Results Reviewed Results Reviewed: Laboratory Last Values Hgb A1c (Clinic) 6.3 % (4.0-6.0) H 12/21/24 08:33 Coding Level of Care Code New Pt Level 4 (09235) Diagnoses Type 2 diabetes mellitus with other specified complication, with long-term current use of insulin E11.69; Z79.4 Diabetes mellitus type: type 2 Diabetes mellitus prison insulin use: with termite exterminator use Diabetes mellitus complication status: with other specified complication Rhinosinusitis J32.9 Hepatocellular carcinoma C22.0 Primary hypertension I10 Hypertension type: primary hypertension Alcoholic cirrhosis of liver with ascites K70.31 Hepatic cirrhosis type: alcoholic cirrhosis Ascites presence: with ascites Hepatitis C virus infection without hepatic coma, unspecified chronicity B19.20 Viral hepatitis chronicity: unspecified Hepatic coma status: without hepatic coma Portal venous hypertension K76.6 Esophageal varices without bleeding, unspecified esophageal varices type I85.00 Esophageal varices type: unspecified type Esophageal varices bleeding: without bleeding Lung nodules R91.8 Portal vein thrombosis I81 Right lower quadrant abdominal pain R10.31 Abdominal location: right lower quadrant Additional Codes ROSITA-7 Assessment Billing - ROSITA-7 Assessment Tool: ROSITA-7 Assessment 28264 ([id number]) PHQ-9 - 93645 - PHQ-9 Billing: Yes ([id number]) Time Spent (min) 49 Assessment & Plan Assessment & Plan (1) Diabetes mellitus: Code(s): E11.9 - Type 2 diabetes mellitus without complications Category: Medical Qualifiers: Diabetes mellitus type: type 2 Diabetes mellitus termite exterminator insulin use: with termite exterminator use Diabetes mellitus complication status: with other specified complication Qualified Code(s): E11.69 - Type 2 diabetes mellitus with other specified complication; Z79.4 - exterminator termite (current) use of insulin Plan: A1c in office 6.3%-goal less than 7% Continue NovoLog FlexPen U-100 insulin as part per sliding scale, insulin glargine-yfgn 60 units s.c bedtime Follow up with Endocrinology as scheduled, Sara Moran, pharmacy stock clerk, [address] [place] [address] Dr. Fausto [place] (2) Rhinosinusitis: Code(s): J32.9 - Chronic sinusitis, unspecified Category: Medical Plan: Boggy erythematous turbinates with small amount of purulent drainage in left nostril will give the patient augmentin 875-125 mg bid ongoing deviated septum from an old injury-will refer the patient to ENT (3) Hepatocellular carcinoma: Code(s): C22.0 - Liver cell carcinoma Category: Medical Plan: Patient was admitted on 08/03/2024 for complaints of abdominal pain. Imaging, MRI abdomen with contrast was read as multiple hypervascular masses demonstrating rapid washout concerning for hepatocellular carcinoma. He underwent core needle biopsy of left liver lobe lesion with Dr. Abebe at [facility] on 08/10/2024 which revealed hepatocellular carcinoma, moderate to poorly differentiated. Tumor necrosis and lymphovascular invasion present. Pathological diagnosis was disscussed with patient by Dr. Potts - confirms that he has HCC. He was started on systemic therapy with durvalumab plus tremelimumab on 08/24/24. He is not eligible to receive bevacizumab because of extensive varices. He is s/p cycle 5 with durvalumab. He will receive it every 4 weeks until disease progression or unacceptable toxicity. Alpha fetoprotein level decreased from 731898 NG/mL to 5029 NG/mL in December 2024. Follow up with Oncology as scheduled (4) HTN (hypertension): Code(s): I10 - Essential (primary) hypertension Category: Medical Qualifiers: Hypertension type: primary hypertension Qualified Code(s): I10 - Essential (primary) hypertension Plan: multiple factor, liver cirrhosis with portal hypertension, Hepatic liver cancer with abdominal pain Encouraged a low sodium diet continue carvedilol 3.15 mg daily-patient did not remember being on this medication at first, suspect that he was not taking this. After talking to him about the medication, he remembered that this was started after he was unable to tolerate lisinopril, continue amlodipine 5 mg daily. Encouraged the patient to monitor his blood pressure at least twice a day (5) Cirrhosis: Code(s): K74.60 - Unspecified cirrhosis of liver Category: Medical Qualifiers: Hepatic cirrhosis type: alcoholic cirrhosis Ascites presence: with ascites Qualified Code(s): K70.31 - Alcoholic cirrhosis of liver with ascites Plan: Hx of alcoholism. Refrain from alcohol or Tylenol use. Reinforced low-cholesterol diet (6) Hepatitis C: Code(s): B19.20 - Unspecified viral hepatitis C without hepatic coma Category: Medical Qualifiers: Viral hepatitis chronicity: unspecified Hepatic coma status: without hepatic coma Qualified Code(s): B19.20 - Unspecified viral hepatitis C without hepatic coma Plan: Treated successfully with Harvoni 5 years ago (7) Portal venous hypertension: Code(s): K76.6 - Portal hypertension Category: Medical Plan: Ascites was drained in the hospital with positive effect (8) Esophageal varices: Code(s): I85.00 - Esophageal varices without bleeding Category: Medical Qualifiers: Esophageal varices type: unspecified type Esophageal varices bleeding: without bleeding Qualified Code(s): I85.00 - Esophageal varices without bleeding Plan: Was seen by Gastroenterology who recommended starting low-dose beta-wally and EGD for banding, however, patient was not interested in EGD and wanted to follow up as outpatient. (9) Lung nodules: Code(s): R91.8 - Other nonspecific abnormal finding of lung field Category: Medical Plan: Ongoing shortness of breath with exertion, the patient was also found to have mild emphysema Resolves with rest (10) Portal vein thrombosis: Code(s): I81 - Portal vein thrombosis Category: Medical Plan: Patient was not coagulated due to thrombocytopenia and varicose veins (11) Abdominal pain: Code(s): R10.9 - Unspecified abdominal pain Category: Medical Qualifiers: Abdominal location: right lower quadrant Qualified Code(s): R10.31 - Right lower quadrant pain Plan: Abdominal pain secondary to malignancy. He has been started on oxycodone 5 mg every 4-6 hours as needed and MS Contin 30 mg p.o. at bedtime by Oncology with positive effects Follow up with Oncology as scheduled Orders: Orders Vitamin B12 and Folate Today E11.9 - Type 2 diabetes mellitus without complications, Z00.00 - Encounter for general adult medical examination without abnormal findings UA CC w/rflx Micro + Cult Today E11.9 - Type 2 diabetes mellitus without complications, Z00.00 - Encounter for general adult medical examination without abnormal findings Lipid Panel Today E11.9 - Type 2 diabetes mellitus without complications, Z00.00 - Encounter for general adult medical examination without abnormal findings AMB Hemoglobin A1c Today Z13.9 - Encounter for screening, unspecified Vitamin D 25-OH Total Today E11.9 - Type 2 diabetes mellitus without complications, Z00.00 - Encounter for general adult medical examination without abnormal findings Medications: New carvedilol 3.15 mg (1.008 x 3.125 mg) PO DAILY 30 tabs 3RF amoxicillin-pot clavulanate 875-125 mg 1 tab PO BID 14 tabs 0RF J32.9 - Chronic sinusitis, unspecified Refilled amlodipine 5 mg PO DAILY 60 tabs 3RF spironolactone 50 mg PO QAM 30 tabs 3RF Discontinued diazepam Discontinued Reason: Patient Completed Course 2 mg PO BID PRN 30 tabs 0RF Anxiety furosemide (Lasix) Discontinued Reason: Patient Completed Course 20 mg PO QAM 7 tabs 0RF ondansetron Discontinued Reason: Patient Completed Course 8 mg PO Q8H PRN 30 tabs 2RF Nausea
[2024-12-21 08:37] VITALS: BP 130/70; PULSE 105; RESP 18; TEMP 36.3; O2SAT 98; BMI 27.9
== END 2024-12-21 10:09 | disposition home or self-care (01) ==
LOC: HO.HMCH 07:58
DX: E11.69 Type 2 diabetes mellitus with other specified complication (principal); Z79.4 Long term (current) use of insulin; C22.0 Liver cell carcinoma; K70.31 Alcoholic cirrhosis of liver with ascites; K76.6 Portal hypertension; I85.00 Esophageal varices without bleeding; J32.9 Chronic sinusitis, unspecified; I10 Essential (primary) hypertension; B19.20 Unspecified viral hepatitis C without hepatic coma; R91.8 Other nonspecific abnormal finding of lung field; I81 Portal vein thrombosis; R10.31 Right lower quadrant pain

== ENCOUNTER 2024-12-21 10:23 | Outpatient (REF) | payer MEDICARE, MEDICAID, SELFPAY ==
--- NOTE | ~2024-12-21 | CT_ITS ---
EXAMINATION: CT ANGIOGRAM CHEST CLINICAL INFORMATION: Shortness of breath with ambulation. COMPARISON: No prior CTPA. CT chest 09/01/2024. MRI abdomen 11/29/2024. TECHNIQUE: Multiple axial images were obtained through the chest after the administration of 50 mL of Omnipaque 350 intravenous contrast. Extensive vascular post-processing including two-dimensional and three-dimensional reformatted images were created and reviewed on an independent workstation. This CT examination was performed using dose optimization techniques as appropriate, variously including the following: *Automated exposure control *Adjustment of mA and/or kV according to patient size (this includes techniques or standardized protocols for targeted exams where dose is matched to indication/reason for exam; i.e. extremities or head) *Use of iterative reconstruction technique FINDINGS: VASCULAR: Diagnostic opacification of the pulmonary arterial system. There is a solitary pulmonary embolus identified in a right lower lobe segmental pulmonary artery (series 7, image 65). This may be old embolus although this is not definitive. There is no additional pulmonary embolus identified. There is no right heart strain. There is no reflux of contrast into the IVC. The aorta is normal in caliber with mild tortuosity, however there is no evidence of acute aortic syndrome. The main pulmonary artery is not enlarged. The heart is mildly enlarged. There is no pericardial effusion. There are moderate coronary calcifications. LUNGS: There is mild paraseptal emphysema with upper lobe predominance. There is mild linear atelectasis or scarring in the medial right middle lobe. The lungs are otherwise grossly clear. There are no small airway abnormalities. There are no consolidative opacities. No groundglass opacities. No effusion or pneumothorax. No pulmonary nodules. MEDIASTINUM: -No masses or lymphadenopathy. -There are probable extensive esophageal varices and there is a moderate-sized hiatus hernia. Given the appearance, soft tissue masses not excluded although difficult to characterize fully. -Central airways are patent. -The thyroid is normal. -Prominent hiatus hernia. The esophagus appears patulous diffusely. CHEST WALL/AXILLAE: Moderate gynecomastia bilaterally. No masses or abnormal lymph nodes. UPPER ABDOMEN: Advanced cirrhosis of the liver. Evaluation of liver parenchyma extremely limited on this examination. Multifocal hepatic masses again suspected. Refer to the recent MR abdomen 11/29/2024. Marked splenomegaly again noted. Varices and sequela of portal hypertension. CT/CT angio chest PE protocol IMPRESSION: 1. There is a solitary pulmonary embolus in a left lower lobe segmental pulmonary artery. No additional pulmonary embolus seen. 2. No evidence of right heart strain. No acute aortic syndrome. 3. Paraseptal emphysema. No active pulmonary disease identified. 4. There are no effusions. 5. There are extensive gastric varices surrounding a hiatus hernia. 6. Advanced cirrhosis, splenomegaly, and sequela of portal hypertension. Please refer to the dedicated MRI abdomen 11/29/2024 for clarification on liver masses. This critical result was discussed with Elda Connors NP of the [facility] via secure text at 12:41 PM, 12/21/2024. It was ascertained that the content and urgency of the report was understood at the time of direct communication. Electronically signed by: Roderick Martinez MD 12/21/2024 12:43 PM EDT
[2024-12-21] MEDS: iohexoL 350 MG/ML 100 ML INFUS..BTL IV (12:14)
== END 2024-12-21 10:24 | disposition home or self-care (01) ==
LOC: HO.CT 10:23
PROVIDERS: PCP Family Medicine; Visit Provider Nurse Practitioner Family
DX: R06.02 Shortness of breath (principal); E11.69 Type 2 diabetes mellitus with other specified complication; J32.9 Chronic sinusitis, unspecified; C22.0 Liver cell carcinoma; I10 Essential (primary) hypertension; K70.31 Alcoholic cirrhosis of liver with ascites; B19.20 Unspecified viral hepatitis C without hepatic coma; K76.6 Portal hypertension; I85.00 Esophageal varices without bleeding; R91.8 Other nonspecific abnormal finding of lung field; I81 Portal vein thrombosis; R10.31 Right lower quadrant pain; Z79.4 Long term (current) use of insulin
CPT/HCPCS: 71275; 83036; 96127; 99202; Q9967

== ENCOUNTER → 2024-12-21 10:25 | Outpatient (BNV) | payer MEDICARE, MEDICAID, SELFPAY | PROVIDERS: PCP Family Medicine; Visit Provider Radiology Diagnostic Radiology | DX: J43.8 Other emphysema (principal) | CPT/HCPCS: 71275 ==

== ENCOUNTER 2025-02-12 10:07 | Outpatient (REF) | payer MEDICARE, SELFPAY ==
--- NOTE | ~2025-02-12 | US_ITS ---
EXAMINATION: US TRIPLEX LOWER EXTREMITY, BILATERAL CLINICAL INFORMATION: Bilateral lower extremity edema and swelling COMPARISON: None available. TECHNIQUE: Color-flow triplex imaging with spectral analysis and compression Doppler were performed on the bilateral lower extremities. FINDINGS: Respiratory variation, normal compression and augmented flow are noted throughout the bilateral lower extremities. The visualized common femoral vein, superficial femoral vein, profunda femoral vein, popliteal vein and midcalf peroneal and posterior tibial venous segments show no evidence of deep venous thrombosis bilaterally. US/US venous duplex LE BI IMPRESSION: No evidence of deep venous thrombosis involving the bilateral lower extremities. Electronically signed by: Emeterio Post MD 02/12/2025 11:37 AM EDT
--- OUTSIDE RECORDS SUMMARY | 2025-02-12 10:15 | XMS_ITS | Patient Health Record ---
Author Organization [facility] Address [address] [place] [address] Care Team Providers Care Photographic Colorist Name Role Phone Harish Madrid MD Primary Care Provider Migue Beltran Jr Unavailable Reason For Referral No Information Medications Medication SIG (Take, Route, Frequency, Duration) Notes Start Date End Date Status Colyte with Flavor Packs 240 GM As directed Orally Over the specified time. for 1 day(s) 10/14/2013 Active Lisinopril-hydroCHLOROthia zide 20/12.5mg Active Cymbalta 60mg Active Metoprolol Tartrate 50mg Active oxyCODONE HCl 15mg A ctive glyBURIDE Active Problems Problem Type SNOMED Code ICD Code Onset Dates Problem Status W/U Status Risk Notes Problem Colon cancer screening (V76.51) Active confirmed Problem Hepatitis C (66623430) Hepatitis C (070.70) Active confirmed Plan Of Treatment Future Test Test Name Order Date COLONOSCOPY 10/14/2013 Insurance Providers Payer Name Payer Address Payer Phone Subscriber Number Group Number Insured Name Patient Relationship to Insured Coverage Start Date Coverage End Date [employer] OF [employer] [address] [place] HERNANDEZ [phone] [id number] STEPHANIE PHILIP Self - patient is the insured Medical (General) History Medical History History ICD Code type II diabetes neuropathy hypertension depression hepatitis C-not treated osteoarthritis Denies RI,CVA,Lung disease,renal disease Surgical History Surgery Date(Month/Year) tonsillectomy
== END 2025-02-12 10:08 | disposition home or self-care (01) ==
LOC: HO.US 10:07
PROVIDERS: Visit Provider Internal Medicine
DX: C22.0 Liver cell carcinoma (principal); R60.0 Localized edema
CPT/HCPCS: 93970

== ENCOUNTER → 2025-02-12 10:08 | Outpatient (BNV) | payer MEDICARE, SELFPAY | PROVIDERS: Visit Provider Radiology Diagnostic Radiology | DX: R22.43 Localized swelling, mass and lump, lower limb, bilateral (principal) | CPT/HCPCS: 93970 ==

== ENCOUNTER 2025-02-16 12:47 | Outpatient (AMB) | payer MEDICARE, MEDICAID, SELFPAY ==
[2025-02-16 12:52] VITALS: BP 132/76; PULSE 70; RESP 18; O2SAT 95
--- NOTE | 2025-02-16 12:52 | A.OFFPC_ITS ---
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 Accompanied by: Self / Same As Patient Allergies lisinopril Adverse Reaction (Severe, Verified 02/16/25 14:03) cough Medication List - Last Reconciled 03/12/25 by MARTA Walker amlodipine 10 mg PO DAILY amoxicillin-pot clavulanate 875-125 mg 1 tab PO BID 10 days apixaban (Eliquis) 2.5 mg PO BID carvedilol 3.15 mg (1.008 x 3.125 mg) PO DAILY furosemide (Lasix) 20 mg PO DAILY insulin aspart U-100 (Novolog FlexPen U-100 Insulin aspart) 1 sliding scale dose subcut TID insulin glargine-yfgn (Semglee (insulin glargine-yfgn) Pen) 60 units subcut BEDTIME magnesium oxide 250 mg PO DAILY morphine ER (MS Contin) 30 mg PO Q12H oxycodone 5 mg PO Q4H PRN spironolactone 50 mg PO QAM Tobacco use date assessed: 02/16/25 Fall risk assessment: No Falls in past year Last assessed Fall Risk: 02/16/25 Dental Screening Dental Screen Date: 02/16/25 Did you have a dental visit in the last 12 months?: Yes Did you have a dental problem in the last 6 months where you did not have access to dental care?: No Was dental information given to patient?: Patient has dentist HPI Annual Exam HPI Details Patient is presenting for annual physical Dentist: up to date Eye: up to date Snellen: Right: Left: Corrected vision:yes: new pair of glasses for the first time STI screening: Colonoscopy: He was already referred-put in the referral Pap Smer:n/a PHQ-9: Flu: COVID: n/a Tdap:one year ago Diet:Reports that his appetite has been good, which needs to be due to his chemotherapy Exercise: Not right now, he is being treated for cancer and does not have the energy The patient is a 70-year-old male presenting with concerns related to cancer and its treatment, as well as management of chronic conditions such as hypertension and diabetes. The patient reports undergoing chemotherapy for cancer, which has been challenging due to significant side effects, including fatigue and general malaise. He has completed five chemotherapy sessions and is scheduled for another session next week. 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 He has been prescribed amoxicillin for these infections, but has not completed the full course of antibiotics in the past, leading to recurrent symptoms. Hypertension is managed with amlodipine, which was recently increased to 10 mg, resulting in well-controlled blood pressure. Diabetes mellitus is also under c ontrol, with recent endocrinology follow-up indicating satisfactory management. The patient experiences neuropathy, particularly at night, which he manages with hot baths and topical creams. He has previously tried gabapentin but discontinued it due to adverse effects. The patient has a history of hepatitis C, which he believes was contracted during his time in the [facility]. He reports a hernia that is currently inoperable, and dry mouth, which he attributes to his medications. [facility] Medical History Hepatitis C HTN (hypertension) Diabetes mellitus Nausea & vomiting Peripheral neuropathy Insulin dependent type 2 diabetes mellitus Neuropathy Surgical History No pertinent past surgical history Family History Father Diabetes mellitus Mother Diabetes mellitus Other Substance use disorder Social History Household Members: Friend(s) Housing: Homeless Do you presently have visiting nurse or other home services: No Alcohol intake: former Patient Tobacco Use Status: Never used Tobacco e-Cigarette/Vaping Use: Never Used Second Hand Smoke Exposure: No Substance Use Type: Marijuana service: Yes Current occupational status: retired Gender identity: Male Cognitive needs: No Hearing needs: No Vision needs: Yes (Glasses) Questionnaire PHQ-9 Over the last 2 weeks, how often have you been bothered by any of the following problems? 1. Little interest or pleasure in doing things: not at all 2. Feeling down, depressed, or hopeless: not at all 3. Trouble falling or staying asleep, or sleeping too much: not at all 4. Feeling tired or having little energy: several days 5. Poor appetite or overeating: not at all 6. Feeling bad about yourself - or that you are a failure or have let yourself or your family down: not at all 7. Trouble concentrating on things, such as reading the newspaper or watching television: not at all 8. Moving or speaking so slowly that other people could have noticed. Or the opposite - being so fidgety or restless that you have been moving around a lot more than usual: not at all 9. Thoughts that you would be better off or of hurting yourself in some way: not at all Total score: 1 Depression Screening Interpretation: Negative Depression Screening Done: Yes Source: Developed by Drs. Leonardo uAgust, Shyla Monzon, Andrew Jimenez and colleagues, with an educational martha from [employer]. Thrive Questionnaire Date Thrive assessed: 02/16/25 I am a: Patient What is your living situation today?: I have a steady place to live Within the past 12 months, did the food you bought not last and you didn't have the money to get more?: Sometimes True Within the past 12 months, did you worry whether your food would run out before you got money to buy more?: Sometimes True Do you have trouble paying for medicines?: No Do you have trouble getting transportation to medical appointments?: No Do you have trouble paying your heating and electricity bill?: No Do you have trouble taking care of your child, family member or friend?: No Do you have trouble with day-to-day activities such as bathing, preparing meals, shopping, managing finances, etc.?: No Are you currently unemployed and looking for a job?: No Are you interested in more education?: No Please select the resources that you would like help with: Housing/Intermediate Currently or been in a relationship where the following occur: No concerns reported THRIVE Score: 2 AUDIT C Alcohol Use Questionnaire (AUDIT-C) 1. How often do you have a drink containing alcohol?: Never 3. How often do you have six or more drinks on one occasion?: Never Total Score: 0 ROSITA-7 AMB Questionnaire ROSITA-7 Date ROSITA - 7 assessed: 02/16/25 Feeling nervous, anxious, or on edge: 1 = Several days Not being able to stop or control worryin = Several days Worrying too much about different things: 0 = Not at all Trouble relaxin = More than half the days Being so restless that it is hard to sit still: 0 = Not at all Becoming easily annoyed or irritable: 0 = Not at all Feeling afraid as if something awful might happen: 0 = Not at all Total ROSITA-7 score (0-4 normal; 5-9 mild; 10-14 moderate; 15-21 severe): 4 Source: Developed by Drs. Leonardo August, Shyla Monzon, Andrew Jimenez and colleagues, with an educational martha from [employer]. Review of Systems Const Denies headache(s) and Reports lethargy Eyes Denies loss of vision ENT Denies vertigo, Reports dizziness (On and off), Denies headache(s) and Denies sore throat Card Denies chest pain, Denies leg edema, Denies lightheadedness and Reports dyspnea on exertion (Occasional, resolves with rest) Resp Denies cough, Denies hemoptysis, Reports dyspnea on exertion (Occasional, resolves with rest) and Denies wheezing GI Reports abdominal pain, Denies melena, Denies constipation, Denies diarrhea and Denies vomiting Denies dysuria, Denies urinary frequency and Denies urinary urgency Musc Reports back pain (Lower back), Reports arthralgias (Both knees), Denies joint swelling, Denies numbness and Denies tingling Neuro Denies Abnormal speech present, Denies behavioral changes, Denies vertigo, Reports dizziness (On and off), Denies headache(s), Denies loss of vision, Denies memory loss, Denies numbness and Denies tingling Psych Denies anxiety, Denies behavioral changes, Denies depression, Denies memory loss and Denies panic attacks Sadiq/Lymph Denies easy bleeding and Denies easy bruising Aller/Immun Denies wheezing Physical exam (Primary Care) Vital Signs: Last Vital Signs Pulse 70 02/16/25 12:52 Resp 18 02/16/25 12:53 BP 132/76 02/16/25 12:52 Pulse Ox 95 02/16/25 12:52 Oxygen Delivery Method Room Air 02/16/25 12:53 Tobacco/Smoking Status: Tobacco use Status Tobacco use date assessed 02/16/25 02/16/25 13:02 Patient Tobacco Use Status Never used Tobacco 02/16/25 13:02 e-Cigarette/Vaping Use Never Used 02/16/25 13:02 PHQ-9: PHQ-9 Score PHQ-9: Total score 1 03/15/25 03:20 Depression Screening Interpretation: Negative Thrive Assessment: Date of Thrive Assessment Date Thrive assessed 02/16/25 02/16/25 13:02 Currently or been in a relationship where the following occur: No concerns reported Const General: healthy appearing, no acute distress, alert and awake Nutritional Appearance: well nourished Orientation/consciousness: oriented to person, oriented to place and oriented to time HENMT Ears: TM's normal bilaterally General nose exam: Normal nasal mucous membranes and turbinates present Eyes Conjunctivae: conjunctivae normal Sclerae: sclerae normal Pupils: Equal, round and reactive pupils present Neck Neck: Yes no lymphadenopathy and Yes no JVD Thyroid: Thyroid normal Carotids: no bruits Resp Effort & Inspection: normal respiratory effort and not tachypneic Auscultation: no crackles, no rales, no rhonchi and no wheezes Cardio Rate: regular rate Rhythm: regular rhythm Heart sounds: no murmurs and normal S1 and S2 GI Palpation (GI): Soft to palpation, nontender, no hepatomegaly and no splenomegaly Auscultation: normal bowel sounds General: Yes no CVA tenderness Back/Spine/Pelvis Back: no CVA tenderness Thoracic/Lumbar Spine: thoracic and lumbar spine normal to inspection Skin General skin exam: no rashes or lesions noted and dry skin Neuro General: oriented to person, oriented to place and oriented to time Cranial nerves: Yes Equal, round and reactive pupils present Speech: No Abnormal speech present Gait exam (Neuro): Normal gait present Motor exam (neuro): no tremor noted Deep tendon reflexes (DTR's): Right triceps reflex intensity grade: 2+, Left triceps reflex intensity grade: 2+, Rt Biceps (C5, C6): 2+, Left biceps reflex intensity grade: 2+, Right brachioradialis reflex intensity grade: 2+, Left brachioradialis reflex intensity grade: 2+, Right patellar reflex intensity grade: 2+ and Left patellar reflex intensity grade: 2+ Extrem Right upper extremity: full ROM Left upper extremity: full ROM Right lower extremity: full ROM and knee Details: no tenderness and no swelling; no edema Left lower extremity: full ROM and knee Details: no tenderness and no swelling; no edema Psych Mental Status: mental status grossly normal Speech and movement: Normal speech and movement present Affect: normal affect Attitude: cooperative Thought process: Normal thought process present Results Reviewed Results Reviewed: Laboratory Tests 02/08/25 12:13 WBC 3.6 L RBC 4.12 L Hgb 13.1 L Hct 37.6 L MCV 91.3 MCH 31.8 MCHC 34.8 RDW 13.2 Plt Count 60 L Sodium 140 Potassium 4.8 Chloride 107 Carbon Dioxide 28 Anion Gap 10 L BUN 28 H Creatinine 1.05 Estim Creat Clear Calc 66.0 Estimated GFR > 60 Random Glucose 117 H Calcium 9.1 Total Bilirubin 1.4 H AST 56 H ALT 18 Alkaline Phosphatase 106 Total Protein 7.3 Albumin 3.9 TSH 1.56 Coding Level of Care Code Est Pt Prev Care >65y(00973) Diagnoses Annual physical exam Z00.00 Type 2 diabetes mellitus with other specified complication, with long-term current use of insulin E11.69; Z79.4 Diabetes mellitus complication status: with other specified complication Diabetes mellitus detention insulin use: with technician terminal and repeater use Diabetes mellitus type: type 2 Hepatocellular carcinoma C22.0 Primary hypertension I10 Hypertension type: primary hypertension Alcoholic cirrhosis of liver with ascites K70.31 Ascites presence: with ascites Hepatic cirrhosis type: alcoholic cirrhosis Hepatitis C virus infection without hepatic coma, unspecified chronicity B19.20 Hepatic coma status: without hepatic coma Viral hepatitis chronicity: unspecified Portal venous hypertension K76.6 Esophageal varices without bleeding, unspecified esophageal varices type I85.00 Esophageal varices bleeding: without bleeding Esophageal varices type: unspecified type Lung nodules R91.8 Portal vein thrombosis I81 Right lower quadrant abdominal pain R10.31 Abdominal location: right lower quadrant Time Spent (min) 41 Assessment & Plan Assessment & Plan (1) Annual physical exam: Code(s): Z00.00 - Encounter for general adult medical examination without abnormal findings Category: Medical Plan: PREVENTIVE GUIDELINES AND RECENT LABS REVIEWED WITH THE PATIENT. (2) Diabetes mellitus: Code(s): E11.9 - Type 2 diabetes mellitus without complications Category: Medical Qualifiers: Diabetes mellitus complication status: with other specified complication Diabetes mellitus detention insulin use: with detention use Diabetes mellitus type: type 2 Qualified Code(s): E11.69 - Type 2 diabetes mellitus with other specified complication; Z79.4 - technician terminal and repeater (current) use of insulin Plan: A1c in office 6.3%-goal less than 7% Continue NovoLog FlexPen U-100 insulin as part per sliding scale, insulin glargine-yfgn 60 units s.c bedtime Follow up with Endocrinology as scheduled, Sara Moran, poultry dresser, [address] [place] [address] Dr. Fausto MA (3) Hepatocellular carcinoma: Code(s): C22.0 - Liver cell carcinoma Category: Medical Plan: Patient was admitted on 08/03/2024 for complaints of abdominal pain. Imaging, MRI abdomen with contrast was read as multiple hypervascular masses demonstrating rapid washout concerning for hepatocellular carcinoma. He underwent core needle biopsy of left liver lobe lesion with Dr. Abebe at [facility] on 08/10/2024 which revealed hepatocellular carcinoma, moderate to poorly differentiated. Tumor necrosis and lymphovascular invasion present. Pathological diagnosis was disscussed with patient by Dr. Potts - confirms that he has HCC. He was started on systemic therapy with durvalumab plus tremelimumab on 08/24/24. He is not eligible to receive bevacizumab because of extensive varices. He is s/p cycle 5 with durvalumab. He will receive it every 4 weeks until d isease progression or unacceptable toxicity. Alpha fetoprotein level decreased from 502802 NG/mL to 5029 NG/mL in December 2024. Follow up with Oncology as scheduled (4) HTN (hypertension): Code(s): I10 - Essential (primary) hypertension Category: Medical Qualifiers: Hypertension type: primary hypertension Qualified Code(s): I10 - Essential (primary) hypertension Plan: Blood pressure 132/76 within goal Reinforced low-salt diet Continue amlodipine 10 mg daily, carvedilol 3.15 mg daily, furosemide 20 mg daily, spironolactone 50 mg q.a.m. (5) Cirrhosis: Code(s): K74.60 - Unspecified cirrhosis of liver Category: Medical Qualifiers: Ascites presence: with ascites Hepatic cirrhosis type: alcoholic cirrhosis Qualified Code(s): K70.31 - Alcoholic cirrhosis of liver with ascites Plan: Hx of alcoholism. Refrain from alcohol or Tylenol use. Reinforced low- cholesterol diet (6) Hepatitis C: Code(s): B19.20 - Unspecified viral hepatitis C without hepatic coma Category: Medical Qualifiers: Hepatic coma status: without hepatic coma Viral hepatitis chronicity: unspecified Qualified Code(s): B19.20 - Unspecified viral hepatitis C without hepatic coma Plan: Treated successfully with Harvoni 5 years ago (7) Portal venous hypertension: Code(s): K76.6 - Portal hypertension Category: Medical Plan: Ascites was drained in the hospital with positive effect previously. No sign or symptom of ascites noted. (8) Esophageal varices: Code(s): I85.00 - Esophageal varices without bleeding Category: Medical Qualifiers: Esophageal varices bleeding: without bleeding Esophageal varices type: unspecified type Qualified Code(s): I85.00 - Esophageal varices without bleeding Plan: Was seen by Gastroenterology who recommended starting low-dose beta-wally and EGD for banding, however, patient was not interested in EGD and wanted to follow up as outpatient. Continue monitoring for bleeding. (9) Lung nodules: Code(s): R91.8 - Other nonspecific abnormal finding of lung field Category: Medical Plan: Ongoing shortness of breath with exertion, the patient was also found to have mild emphysema Resolves with rest. Pace yourself and modify activities as needed. (10) Portal vein thrombosis: Code(s): I81 - Portal vein thrombosis Category: Medical Plan: Patient was not coagulated due to thrombocytopenia and varicose veins. The patient refused EGD and wanted to be seen outpatient, will refer him to GI. (11) Abdominal pain: Code(s): R10.9 - Unspecified abdominal pain Category: Medical Qualifiers: Abdominal location: right lower quadrant Qualified Code(s): R10.31 - Right lower quadrant pain Plan: Abdominal pain secondary to malignancy. He has been started on oxycodone 5 mg every 4-6 hours as needed and MS Contin 30 mg p.o. at bedtime by Oncology with positive effects Follow up with Oncology as scheduled Orders: Orders Comprehensive [place]. Panel Fast 3 Months I10 - Essential (primary) hypertension, I26.93 - Single subsegmental thrombotic pulmonary embolism without acute cor pulmonale, E11.69 - Type 2 diabetes mellitus with other specified complication, Z79.4 - [facility] (current) use of insulin, I85.00 - Esophageal varices without bleeding, R79.89 - Other specified abnormal findings of blood chemistry, K70.31 - Alcoholic cirrhosis of liver with ascites Hemoglobin A1c 3 Months I10 - Essential (primary) hypertension, I26.93 - Single subsegmental thrombotic pulmonary embolism without acute cor pulmonale, E11.69 - Type 2 diabetes mellitus with other specified complication, Z79.4 - [facility] (current) use of insulin, I85.00 - Esophageal varices without bleeding, R79.89 - Other specified abnormal findings of blood chemistry, K70.31 - Alcoholic cirrhosis of liver with ascites Complete Blood Count Auto Diff 3 Months I10 - Essential (primary) hypertension, I26.93 - Single subsegmental thrombotic pulmonary embolism without acute cor pulmonale, E11.69 - Type 2 diabetes mellitus with other specified complication, Z79.4 - [facility] (current) use of insulin, I85.00 - Esophageal varices without bleeding, R79.89 - Other specified abnormal findings of blood chemistry, K70.31 - Alcoholic cirrhosis of liver with ascites UA CC w/rflx Micro + Cult 3 Months I10 - Essential (primary) hypertension, I26.93 - Single subsegmental thrombotic pulmonary embolism without acute cor pulmonale, E11.69 - Type 2 diabetes mellitus with other specified complication, Z79.4 - [facility] (current) use of insulin, I85.00 - Esophageal varices without bleeding, R79.89 - Other specified abnormal findings of blood chemistry, K70.31 - Alcoholic cirrhosis of liver with ascites TSH reflex Free T4 3 Months I10 - Essential (primary) hypertension, I26.93 - Single subsegmental thrombotic pulmonary embolism without acute cor pulmonale, E11.69 - Type 2 diabetes mellitus with other specified complication, Z79.4 - [facility] (current) use of insulin, I85.00 - Esophageal varices without bleeding, R79.89 - Other specified abnormal findings of blood chemistry, K70.31 - Alcoholic cirrhosis of liver with ascites Medications: Changed From amoxicillin-pot clavulanate 875-125 mg 1 tab PO BID 14 tabs 0RF J32.9 - Chronic sinusitis, unspecified To amoxicillin-pot clavulanate 875-125 mg 1 tab PO BID 20 tabs 0RF 10 days J32.9 - Chronic sinusitis, unspecified Patient Instructions: Follow up in 3 months
[2025-02-16 12:53] VITALS: RESP 18
--- OUTSIDE RECORDS SUMMARY | 2025-02-16 13:19 | XMS_ITS | Patient Health Record ---
Author Organization [facility] Address [address] [place] [address] Care Team Providers Care Collateral Clerk Name Role Phone Harish Madrid MD Primary Care Provider Migue Beltran Jr Unavailable [phone] Reason For Referral No Information Medications Medication [...] Status Risk Notes Problem Colon cancer screening (767093429) Colon cancer screening (V76.51) Active confirmed Problem Hepatitis C (25289765) Hepatitis C (070.70) Active confirmed Plan Of Treatment Future Test Test Name Order Date COLONOSCOPY 10/14/2013 Insurance Providers Payer Name Payer Address Payer Phone Subscriber Number Group Number Insured Name Patient Relationship to Insured Coverage Start Date Coverage End Date MEDICAID OF [employer] [address] [place]NDEZ [phone] [id number] STEPHANIE PHILIP Self - patient is the insured Medical (General) History Medical History History ICD Code type II diabetes neuropathy hypertension depression hepatitis C-not treated osteoarthritis Denies RI,CVA,Lung disease,renal disease Surgical History Surgery Date(Month/Year) tonsillectomy
== END 2025-02-16 14:40 | disposition home or self-care (01) ==
LOC: HO.HMCH 12:48
DX: Z00.00 Encounter for general adult medical examination without abnormal findings (principal); E11.69 Type 2 diabetes mellitus with other specified complication; Z79.4 Long term (current) use of insulin; C22.0 Liver cell carcinoma; K70.31 Alcoholic cirrhosis of liver with ascites; K76.6 Portal hypertension; I85.00 Esophageal varices without bleeding; I10 Essential (primary) hypertension; B19.20 Unspecified viral hepatitis C without hepatic coma; R91.8 Other nonspecific abnormal finding of lung field; I81 Portal vein thrombosis; R10.31 Right lower quadrant pain

== ENCOUNTER → 2025-02-16 12:47 | Outpatient (BNVA) | payer MEDICARE, MEDICAID, SELFPAY | DX: Z00.00 Encounter for general adult medical examination without abnormal findings (principal); E11.69 Type 2 diabetes mellitus with other specified complication; Z79.4 Long term (current) use of insulin; C22.0 Liver cell carcinoma; I10 Essential (primary) hypertension; K70.31 Alcoholic cirrhosis of liver with ascites; B19.20 Unspecified viral hepatitis C without hepatic coma; K76.6 Portal hypertension; I85.00 Esophageal varices without bleeding; R91.8 Other nonspecific abnormal finding of lung field; I81 Portal vein thrombosis; R10.31 Right lower quadrant pain | CPT/HCPCS: 99397 ==

== ENCOUNTER 2025-03-18 10:27 | Inpatient (IN) | payer MEDICARE, MEDICAID, SELFPAY ==
[2025-03-18] VITALS (7 sets, daily range): BP systolic 132–158; BP diastolic 67–83; PULSE 84–103; RESP 16–20; TEMP 36.7–37.3; O2SAT 93–98; BMI 26.9
--- NOTE | ~2025-03-18 | XR_ITS ---
EXAMINATION: XR CHEST CLINICAL INFORMATION: CP COMPARISON: CTPA chest 12/21/2024. TECHNIQUE: 2 views of the chest were obtained. FINDINGS: Borderline cardiac enlargement. Aorta is tortuous and uncoiled. Hilar silhouettes appear normal. Retrocardiac hiatus hernia suggested. There are known retrocardiac esophageal varices. Lungs demonstrate increased subtle nodular opacities in the right mid and upper lung, not previously seen and suggestive of metastases versus pneumonia. There is likely underlying COPD with pulmonary hyperaeration. There is no pneumothorax or pleural effusion. There is no focal osseous or soft tissue abnormality. XR/XR chest 2V IMPRESSION: 1. Increased nodular opacities in the right mid and upper lung suggestive of metastases versus pneumonia in the appropriate clinical setting. Recommend radiographic follow-up. Electronically signed by: Roderick Martinez MD 03/18/2025 11:00 AM EDT
--- NOTE | ~2025-03-18 | US_ITS ---
EXAMINATION: US TRIPLEX LOWER EXTREMITY, BILATERAL CLINICAL INFORMATION: Bilateral lower extremity edema COMPARISON: None available. TECHNIQUE: Color-flow triplex imaging with spectral analysis and compression Doppler were performed on the bilateral lower extremities. FINDINGS: Respiratory variation, normal compression and augmented flow are noted throughout the bilateral lower extremities. The visualized common femoral vein, superficial femoral vein, profunda femoral vein, popliteal vein and midcalf peroneal and posterior tibial venous segments show no evidence of deep venous thrombosis bilaterally. US/US venous duplex LE BI IMPRESSION: No evidence of deep venous thrombosis involving the bilateral lower extremities. Electronically signed by: Emeterio Post MD 03/23/2025 05:03 PM EDT
--- NOTE | ~2025-03-18 | XR_ITS ---
EXAMINATION: XR CHEST CLINICAL INFORMATION: dyspnea leg swelling COMPARISON: March 18, 2025. TECHNIQUE: Frontal view of the chest was obtained. FINDINGS: Pulmonary reticular nodular pattern involving mostly the right lung. Poor inspiration. No gross pleural effusion or pneumothorax. Cardiomediastinal silhouette size is normal. Thoracic aorta is tortuous. S-shaped curvature of the thoracic spine. XR/XR chest 1V IMPRESSION: Overall no gross change. Please refer to the CT chest findings from March 18, 2025. Electronically signed by: Avel Anderson MD 03/23/2025 10:40 AM EDT
--- NOTE | ~2025-03-18 | CT_ITS ---
EXAMINATION: CT ANGIOGRAM CHEST CLINICAL INFORMATION: Cancer, pets vs pna on xr. COMPARISON: December 21, 2024. TECHNIQUE: Multiple axial images were obtained through the chest after the administration of 65 mL of Omnipaque 350 intravenous contrast. Extensive vascular post-processing including two-dimensional and three-dimensional reformatted images were created and reviewed on an independent workstation. SmartPrep technique. This CT examination was performed using dose optimization techniques as appropriate, variously including the following: *Automated exposure control *Adjustment of mA and/or kV according to patient size (this includes techniques or standardized protocols for targeted exams where dose is matched to indication/reason for exam; i.e. extremities or head) *Use of iterative reconstruction technique. DLP: 341 mGy centimeter. FINDINGS: There is intraluminal filling defects extending throughout the subsegmental pulmonary artery branches to the right lower lung lobe. The right ventricle is not enlarged. The intervertebral septum is in normal position. No aneurysm or dissection in the thoracic aorta. There is confluent pulmonary groundglass in the right lower lung lobe. There is patchy pulmonary groundglass in the posterior segment right upper lung lobe. Multiple, less than 1 cm noncalcified round pulmonary nodules in the right upper lung lobe and to a lesser extent right lower lung lobe. Paraseptal centrilobular emphysematous changes in the upper lung lobes and to a lesser extent right middle lung lobe. No gross bronchiectasis or honeycombing. Respiratory airways patent. Calcified plaques in the thoracic aortic arch, left subclavian artery and right brachiocephalic trunk. Calcified plaques in the coronary arteries. Calcified plaque in the mitral valve. No gross pleural effusion or pneumothorax. No pneumomediastinum. There is a moderate to large size hiatal hernia. Prominent nodularity and the paraesophageal/gastroesophageal junction region. There is a nodular liver with prominent caudate lobe. There is splenomegaly. Fluid-filled prominent gallbladder. There is ascites, moderate volume. Multilevel thoracic spondylosis without acute fracture or gross listhesis. Gynecomastia, bilaterally. CT/CT angio chest PE protocol IMPRESSION: Positive exam for acute pulmonary artery emboli involving mostly subsegmental pulmonary artery branches right lower lung lobe. Multifocal pneumonia, right lung and multiple noncalcified less than 1 cm pulmonary nodules, right lung concerning for metastasis. Probable varices, gastroesophageal junction. Cirrhosis and small moderate amount of ascites likely related to portal hypertension. Findings were communicated to the emergency physician Moe Blackmon at 12:50 PM on March 18, 2025. Fleischner guidelines were followed. Electronically signed by: Avel Anderson MD 03/18/2025 01:00 PM EDT RP
--- NOTE | 2025-03-18 10:31 | ECG_ITS ---
Test Reason : chest pain Blood Pressure : */* mmHG Vent. Rate : 91 BPM Atrial Rate : 91 BPM P-R Int : 200 ms QRS Dur : 86 ms QT Int : 360 ms P-R-T Axes : 63 26 7 degrees QTcB Int : 442 ms Normal sinus rhythm Possible Left atrial enlargement Septal infarct (cited on or before 01-Dec-2015) Abnormal ECG When compared with ECG of 04-Jun-2024 14:47, Premature ventricular complexes are no longer Present Referred By: Generic ED Physician Electronically Signed By: Remberto Donnelly
[2025-03-18 10:46] LABS: MANUAL DIFF FLAG NO
[2025-03-18 10:50] LABS: Hematocrit 37.0 % (42.0-52.0); Hemoglobin 12.8 g/dl (14.0-18.0); Imm Gran Abs Auto 0.02 X10*3/uL (0.00-0.03); Imm Gran Pct Auto 0.5 % (0.0-0.4); Lymphocytes Absolute Auto 0.5 X10*3/uL (1.2-4.9); Mean Corpuscular HGB Conc 34.6 g/dl (31.0-36.0); Mean Corpuscular Hemoglobin 30.0 pg (27.0-33.0); Mean Corpuscular Volume 86.9 fL (80.0-98.0); NRBC Abs Auto 0.000 X10*3/uL (0.0-0.012); NRBC Pct Auto 0.0 /100WBC (0.0-0.2); Platelet Count 85 X10*3/uL (160-400); Red Blood Count 4.26 X10*6/uL (4.60-5.80); White Blood Count 4.1 X10*3/uL (4.8-10.8)
[2025-03-18 11:04] LABS: Anion Gap 13 (12-20); Blood Urea Nitrogen 33 mg/dL (9-16); Calcium 9.5 mg/dL (8.4-10.2); Carbon Dioxide 25 mmol/L (22-29); Chloride 103 mmol/L (96-108); Creatinine Clr Calc Pharmacy 65.1; Estimated Glomerular Filt Rate > 60; Magnesium 1.6 mg/dL (1.6-2.6); Potassium 3.9 mmol/L (3.3-5.1); Sodium 137 mmol/L (135-145)
[2025-03-18 11:06] LABS: COVID-19 Test Negative (Negative); IDNOW Serial# 55D5AD1C
[2025-03-18 11:07] LABS: IDNOW Serial# 58CA691E; Influenza B2 Negative (Negative)
[2025-03-18 11:09] LABS: Troponin-I High Sensitivity 24.6 ng/L (<3.5-35.0)
--- NOTE | 2025-03-18 11:26 | ED_ITS ---
HPI - Chest Pain General Chief Complaint: Chest Pain Stated Complaint: chest pain sob Time Seen by Provider: 03/18/25 11:18 History of Present Illness ED Provider: SHANTE HPI narrative: 70 M with Liver CA, HCV chronic, cirrhoiss, HCC hx 7 mo ago ,on chemo under care of heme onc . Reports worsening PARK, mailaise, deconditioning some mild pleuritic chest pain. No hemoptysis. Denies leg swelling. Recent change of apixaban 2.5 mg Tess epistaxis. No current epistaxis Related Data Home Medications ?Medication ?Instructions ?Recorded ?Confirmed insulin aspart U-100 100 unit/mL 1 sliding scale dose subcut TIDAC 12/21/24 03/18/25 (3 mL) subcutaneous pen (Novolog FlexPen U-100 Insulin aspart) carvedilol 3.125 mg tablet 3.125 mg PO DAILY 03/18/25 03/18/25 insulin degludec 100 unit/mL (3 25 unit subcut BEDTIME 03/18/25 03/18/25 mL) subcutaneous pen (Tresiba FlexTouch U-100 insulin) spironolactone 50 mg tablet 50 mg PO DAILY 03/18/25 Previous Rx's ?Medication ?Instructions ?Recorded magnesium oxide 250 mg PO DAILY #60 tabs amlodipine 10 mg tablet 10 mg PO DAILY #90 tabs 01/14 apixaban 2.5 mg tablet (Eliquis) 2.5 mg PO BID #60 tab s 03/02/25 furosemide 20 mg tablet (Lasix) 20 mg PO DAILY #30 tab s 03/08/25 morphine 30 mg tablet,extended 30 mg PO Q12H #60 tabs 03/08/25 release (MS Contin) oxycodone 5 mg tablet 5 mg PO Q4H PRN Pain (Scale Score 03/08/25 7-10) #60 tabs Allergies Allergy/AdvReac Type Severity Reaction Status Date / Time lisinopril AdvReac Severe cough Verified 03/18/25 10:54 [facility] Past Medical History Medical History Hepatitis C HTN (hypertension) Diabetes mellitus Nausea & vomiting Peripheral neuropathy Insulin dependent type 2 diabetes mellitus Neuropathy Surgical History No pertinent past surgical history Family History Family History Father Diabetes mellitus Mother Diabetes mellitus Other Substance use disorder Social History Social History Household Members: None Housing: Apartment Housing Other:: pt states it is like a [facility]cfp Do you presently have visiting nurse or other home services: No Alcohol intake: former Patient Tobacco Use Status: Never used Tobacco e-Cigarette/Vaping Use: Never Used Second Hand Smoke Exposure: No Substance Use Type: Marijuana service: No Current occupational status: retired Gender identity: Male Cognitive needs: No Hearing needs: No Vision needs: Yes (Glasses) Physical Exam 2 Exam: Exam: EXAM: Gen: Alert, awake, mild respiratory distress but speaking full sentences Head: Atraumatic Eyes: Anicteric, Normal conjunctiva. ENT: Moist mucosa, no pallor. ? Neck: Supple. Skin: ?No observable rash or bruising on exposed or examined skin Respiratory: Tachypneic rate about 26 clear lungs speaking full sentences Cardiovascular: Heart rate 90s Regular rate and rhythm. No murmurs or rub. Well perfused periphery, warm extremities. No edema. ? Abdominal: No focal tenderness. Soft, no objective distension. No palpable masses or obvious organomegaly. ?No guarding, no rebound tenderness or other peritoneal findings. Ventral hernia easily reducible no significant distention tenderness or stigmata of end-stage liver disease. : No flank tenderness. Neuro: Alert. Gross movement of all extremities intact. ? Psych: Calm. Cooperative. MSK: No grossly visible deformity. Vital signs: See flowsheet Vital Signs: Vital Signs: Last Vital Signs Temp 97.1 F 03/19/25 11:25 Pulse 74 03/19/25 11:25 Resp 20 03/19/25 11:25 BP 140/69 H 03/19/25 11:25 Pulse Ox 95 03/19/25 11:25 O2 Del Method Room Air 03/19/25 11:25 BMI result Body Mass Index 26.9 Course Reevaluation(s) Reevaluation #1: 13:50 focused sepsis reassessment with improved overall mentation/clinical impression improved sepsis UTI pyelonephritis Medications Administered Generic Name Dose Route Start Last Admin Trade Name Freq PRN Reason Stop Dose Admin Amlodipine Besylate 10 mg 03/19/25 09:00 03/19/25 07:57 Amlodipine Besylate 10 Mg Tablet PO 10 mg DAILY [facility] Administration Protocol Carvedilol 3.125 mg 03/19/25 09:00 03/19/25 07:56 Carvedilol 3.125 Mg Tablet PO 3.125 mg DAILY DO Administration Protocol Ceftriaxone Sodium 1 gm 03/18/25 15:15 03/18/25 15:40 Ceftriaxone Sodium 1 Gm Vial IVPUSH 1 gm Q24H [facility] Administration Enoxaparin Sodium 80 mg 03/19/25 01:00 03/19/25 12:01 Enoxaparin Sodium 80 Mg/0.8 Ml Syringe 1 mg/kg (80 mg) 80 mg SUBCUT Administration Q12H [facility] Furosemide 20 mg 03/19/25 09:00 03/19/25 07:56 Furosemide 20 Mg Tablet PO 20 mg DAILY [facility] Administration Protocol Doxycycline Hyclate 100 mg/ 250 mls @ 166.67 mls/hr 03/18/25 15:15 03/19/25 04:01 Sodium Chloride IV Infused Q12H [facility] Infusion Insulin Glargine 12 unit 03/18/25 21:00 03/18/25 21:03 Insulin Glargine,Hum.Rec.Anlog 100 Unit/Ml 10 Ml Vial SUBCUT 12 unit BEDTIME [facility] Administration Insulin Human Lispro 0 unit 03/18/25 16:30 03/19/25 11:37 Insulin Lispro 100 Unit/Ml 3 Ml Vial SUBCUT 2 unit QIDACHS [facility] Administration Protocol Lorazepam 0.5 mg 03/19/25 11:30 03/19/25 11:38 Lorazepam 0.5 Mg Tablet PO 0.5 mg Q8H PRN Administration Anxiety Magnesium Oxide 200 mg 03/19/25 09:00 03/19/25 08:04 Magnesium Oxide 400 Mg Tablet PO 200 mg DAILY [facility] Administration Morphine Sulfate 30 mg 03/18/25 15:00 03/19/25 12:02 Morphine Sulfate Er 30 Mg Tablet.Er PO Not Given Q12H [facility] Oxycodone HCl 10 mg 03/19/25 11:31 03/19/25 12:00 Oxycodone Hcl Immed Release 5 Mg Tablet PO 10 mg Q4H PRN Administration Pain (Scale Score 7-10) Sodium Chloride 3 ml 03/18/25 16:00 03/19/25 07:59 0.9 % Sodium Chloride Flush 3 Ml Syringe IVFLUSH 3 ml QSHIFT DO Administration Spironolactone 50 mg 03/19/25 09:00 03/19/25 07:58 Spironolactone 25 Mg Tablet PO 50 mg DAILY DO Administration Protocol Discontinued Medications Generic Name Dose Route Start Last Admin Trade Name Freq PRN Reason Stop Dose Admin Enoxaparin Sodium 80 mg 03/18/25 12:39 03/18/25 12:53 Enoxaparin Sodium 100 Mg/Ml Syringe SUBCUT 03/18/25 12:40 80 mg ONCE ONE Administration Iohexol 100 ml 03/18/25 12:23 03/18/25 12:30 Iohexol 350 Mg/Ml 100 Ml Infus..Btl IV 03/18/25 12:24 65 ml ONCE ONE Administration Oxycodone HCl 10 mg 03/18/25 13:39 03/18/25 13:52 Oxycodone Hcl Immed Release 5 Mg Tablet PO 03/18/25 13:40 10 mg ONCE ONE Administration Oxycodone HCl 5 mg 03/18/25 14:58 03/19/25 07:57 Oxycodone Hcl Immed Release 5 Mg Tablet PO 5 mg Q4H PRN Administration Pain (Scale Score 7-10) Oxycodone HCl 5 mg 03/18/25 20:12 03/18/25 20:53 Oxycodone Hcl Immed Release 5 Mg Tablet PO 03/18/25 20:13 5 mg ONCE ONE Administration Procedures Procedure Narrative Procedure Narrative: EMERGENCY ULTRASOUND INTERPRETATION-Limited Echocardiography [This study was ordered, performed, and interpreted by myself. The study reveals: Impression: NORMAL LV FUNCTION, NO RV DYSFUNCTION, NO PERICARDIAL EFFUSION] [Emergent Cardiac for Indication: Views Used: PLAX, PSSA, A4, apical 5 chamber Pericardial Effusion/Tamponade Findings: NONE RV Dilation (> LV diam in 4ch apical): NONE - Tapse 35mm (normal) Global LV Fxn: NORMAL Performed by: MD Leo Images were stored CPT:19628] __ EMERGENCY ULTRASOUND INTERPRETATION-Limited Point of Care Venous (DVT) [This study was ordered, performed, and interpreted by myself. The study reveals: Impression: NO EVIDENCE OF DVT. I RECOMMENDED TO THE PATIENT REPEAT ULTRASOUND IN ONE WEEK IF SYMPTOMS PERSIST.] [Indication: Laterality: Bilateral Common Femoral: -Full Compressibility: YES -Clot Seen: NO Superficial Femoral: -Full Compressibility: YES -Clot Seen: NO Popliteal: -Full Compressibility: YES -Clot Seen: NO Other: Performed by: Moe Bailey MD Images were stored CPT: 46944] Medical Decision Making Medical Decision Making MDM Narrative: Medical Decision Makin-year-old male with hepatitis/liver CA progressively worsening shortness of breath some atypical chest pain pleuritic/some exertional. No hemoptysis or prior DVT or PE. Mildly tachypneic but not distress no supplemental oxygen requirement. Clear lungs. X-ray initial reading Mets 1st pneumonia. To better clarify this given the patient's cancer history we will get CT with angiography. 13:00: CT reveals segmental right-sided PE this is new was also possible infiltrate and nodule. Bedside echo without RV strain. Troponin 24, BNP slightly elevated. Patient meets criteria for intermediate risk pulmonary embolism. PESI 108 requires admission certainly given the patient has currently on anticoagulation has failed this, low-dose apixaban with minimal missed doses this is unlikely to be an adherence issue. No DVT on bedside ultrasound Preliminary Favored Differential Diagnosis: Mets, deconditioning, ACS, bronchitis, reactive airway disease, restrictive lung disease, PE, pneumonia, pleural effusion, pneumothorax among additional considered etiologies Testing Interpreted Independently: ?See below for details Radiology or Lab testing Results Reviewed: ?See below for details Consults: ?See below for details Independent Historians/External Chart Reviews: ?See below for details Social Determinants of Health Impacting MDM/Planning: ?See below for details Consult Healthcare Provider Management of the patient was discussed with: Hospitalist Lab Data MDM Lab Attestation statement: I reviewed the patient's lab results. 03/19/25 06:47 03/19/25 06:47 Labs: Lab Results 03/18/25 03/18/25 Range/Units 10:38 10:40 WBC 4.1 L (4.8-10.8) X10*3/uL RBC 4.26 L (4.60-5.80) X10*6/uL Hgb 12.8 L (14.0-18.0) g/dl Hct 37.0 L (42.0-52.0) % MCV 86.9 (80.0-98.0) fL MCH 30.0 (27.0-33.0) pg MCHC 34.6 (31.0-36.0) g/dl RDW 12.7 (11.0-16.0) % Plt Count 85 L (160-400) X10*3/uL MPV 11.0 (9.4-12.4) fL Immature Gran % (Auto) 0.5 H (0.0-0.4) % Neut % (Auto) 73.0 (45-73) % Lymph % (Auto) 11.2 L (20-40) % Johnson % (Auto) 11.4 H (2-11) % Eos % (Auto) 3.4 (0-4) % Baso % (Auto) 0.5 (0-2) % Lymph # (Auto) 0.5 L (1.2-4.9) X10*3/uL [place] # (Auto) 0.5 (0.1-1.2) X10*3/uL Eos # (Auto) 0.1 (0.0-0.4) X10*3/uL Baso # (Auto) 0.0 (0.0-0.2) X10*3/uL Abs Immat Gran (auto) 0.02 (0.00-0.03) X10*3/uL Absolute Neuts (auto) 3.0 (2.0-8.3) x10*3/uL Absolute Nucleated RBC 0.000 (0.0-0.012) X10*3/uL Nucleated RBC % (auto) 0.0 (0.0-0.2) /100WBC Sodium 137 (135-145) mmol/L Potassium 3.9 (3.3-5.1) mmol/L Chloride 103 (96-108) mmol/L Carbon Dioxide 25 (22-29) mmol/L Anion Gap 13 (12-20) BUN 33 H (9-16) mg/dL Creatinine 1.05 (0.5-1.4) mg/dL Estim Creat Clear Calc 65.1 Estimated GFR > 60 Random Glucose 178 H (60-115) mg/dL Calcium 9.5 (8.4-10.2) mg/dL Magnesium 1.6 (1.6-2.6) mg/dL Troponin I High Sens 24.6 D (<3.5-35.0) ng/L B-Natriuretic Peptide 335 H (<100) pg/mL Procalcitonin 0.05 ng/mL COVID-19 (SAM) Negative (Negative) COVID-19 Clin Com See Note Influenza Type A (SANDRITA) Negative (Negative) Influenza Type B (SANDRITA) Negative (Negative) Influenza A & B Note See Note Independent Interpretation I performed an independent interpretation of an: EKG (Sinus rhythm rate 91 QTC 442 no ischemic changes artifact in V4. Poor R-wave progression. Similar to previous May 2024) Radiology Impression Discussion of test interpretation with radiology: I have reviewed the radiologist's reading. Radiologist Impression: CT with pyelonephritis and possibly renal cell carcinoma Critical Care Time Critical Care Time Critical Care Time: Yes Total Critical Care Time: 30 Attestation: ED Critical Care: Acute severe dyspnea due to recurrent proximal pulmonary embolism with high PE severity index score Authorized and Performed by: Moe Bailey MD Total critical care time: Approximately 30 Due to a high probability of clinically significant, life threatening deterioration, the patient required my highest level of preparedness to intervene emergently and I personally spent this critical care time directly and personally managing the patient. This critical care time included obtaining a history; examining the patient; pulse oximetry; ordering and review of studies; arranging urgent treatment with development of a management plan; evaluation of patient's response to treatment; frequent reassessment; and, discussions with other providers. This critical care time was performed to assess and manage the high probability of imminent, life-threatening deterioration that could result in multi-organ failure. It was exclusive of separately billable procedures and treating other patients and teaching time. Discharge Plan Discharge Clinical Impression: Pulmonary embolism Patient Disposition: Admitted As Inpatient Interventions: Admission Worksheet (ED) Last Done: 03/18/25 19:44 Discharge Date/Time: 03/19/25 02:53
[2025-03-18] MEDS: iohexoL 350 MG/ML 100 ML INFUS..BTL IV (12:30)
[2025-03-18 13:30] LABS: B Type Natriuretic Peptide 335 pg/mL (<100)
[2025-03-18 13:46] LABS: Hematocrit 36.7 % (42.0-52.0); Hemoglobin 13.0 g/dl (14.0-18.0); Mean Corpuscular HGB Conc 35.4 g/dl (31.0-36.0); Mean Corpuscular Hemoglobin 30.6 pg (27.0-33.0); Mean Corpuscular Volume 86.4 fL (80.0-98.0); NRBC Abs Auto 0.000 X10*3/uL (0.0-0.012); NRBC Pct Auto 0.0 /100WBC (0.0-0.2); Platelet Count 91 X10*3/uL (160-400); Red Blood Count 4.25 X10*6/uL (4.60-5.80); White Blood Count 4.2 X10*3/uL (4.8-10.8)
[2025-03-18] MEDS: oxyCODONE HCl Immed Release 5 MG TABLET 10 MG PO (13:52)
[2025-03-18 13:54] LABS: INTERNATIONAL NORM RATIO 1.3 (0.9-1.1); Prothrombin Time 14.9 SEC (10.9-12.4)
[2025-03-18 13:57] LABS: Partial Thromboplastin Time 37.5 SEC (26.7-34.1)
--- NOTE | 2025-03-18 13:58 | P.HPHOSP_ITS ---
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 Patient states for the past 3 days he has not been feeling well. He has reported shortness of breath with no significant cough. He is reporting chills no fever. He reports chronic abdominal pain with no associated nausea or vomiting. He does take chronic narcotics at baseline due to underlying hepatocellular carcinoma which she states is the source of his abdominal pain. In the emergency department he underwent a CTA which was positive for acute pulmonary artery emboli involving mostly subsegmental pulmonary artery branches of the right lower lobe. Also showing multifocal pneumonia. Patient does have history of previous PE and has been on Eliquis. Recently his Eliquis was reduced from 5 mg twice daily to 2.5 mg twice daily which seems to be due to worsening thrombocytopenia and daily nosebleeds. In the emergency department patient received a dose of Lovenox in the decision was made to admit him to the hospital for further management. Of note patient was not hypoxic, bedside echocardiogram as per emergency room provider showed no RV strain. Troponin 24.6, lower than previous. BNP 335 although did not appear volume overloaded. Review of Systems 2 Review of Systems: Yes all other systems are reviewed and are negative Constitutional: Constitutional: Reports chills and Denies fever(s) Cardiovascular: Cardiovascular: Denies chest pain, Denies palpitations and Reports dyspnea Respiratory: Respiratory: Denies cough and Reports dyspnea Gastrointestinal: Gastrointestinal: Reports abdominal pain, Reports constipation, Denies nausea and Denies vomiting Endocrine: Endocrine: Denies palpitations [facility] Medical History Hepatitis C HTN (hypertension) Diabetes mellitus Nausea & vomiting Peripheral neuropathy Insulin dependent type 2 diabetes mellitus Neuropathy Family History Father Diabetes mellitus Mother Diabetes mellitus Other Substance use disorder Surgical History No pertinent past surgical history Social History Household Members: Friend(s) Housing: Homeless Do you presently have visiting nurse or other home services: No Alcohol intake: former Patient Tobacco Use Status: Never used Tobacco Smoked in Last 30 Days: No e-Cigarette/Vaping Use: Never Used Second Hand Smoke Exposure: No Use of substances other than those prescribed or required for medical reasons: Yes Substance Use Type: Marijuana Substance Use Frequency: Occasionally Advance Directives: No Advance Directives Information Provided: Yes Do you have a plan to hurt others: No Plan service: Yes Current occupational status: retired Gender identity: Male Cognitive needs: No Hearing needs: No Vision needs: Yes (Glasses) Meds Allergies Allergy/AdvReac Type Severity Reaction Status Date / Time lisinopril AdvReac Severe cough Verified 03/18/25 10:54 Active Medications: Current Medications Acetaminophen (Acetaminophen 325 Mg Tablet) 650 mg PO Q6H PRN PRN Reason: Pain, Mild 1-3,fever,headache Apixaban (Apixaban 5 Mg Tablet) 10 mg PO BID DO Stop: 03/25/25 09:01 Calcium Carbonate (Calcium Carbonate 750 Mg Tab.Chew) 750 mg PO Q4H PRN PRN Reason: Heartburn Dextrose (Dextrose 50 % 25 Gm/50 Ml Syringe) 25 gm IVPUSH Q15M PRN; Protocol PRN Reason: per Hypoglycemia Standing Ord. Glucose (Glucose Gel 15 Gm Gel..Gram.) 15 gm PO Q15M PRN; Protocol PRN Reason: per Hypoglycemia Standing Ord. Insulin Human Lispro (Insulin Lispro 100 Unit/Ml 3 Ml Vial) [facility]; Protocol Magnesium Hydroxide (Milk Of Magnesia 30 Ml Oral.Susp) 30 ml PO DAILY PRN PRN Reason: Constipation Melatonin (Melatonin 3 Mg Tablet) 6 mg PO BEDTIME PRN PRN Reason: Insomnia Sodium Chloride (0.9 % Sodium Chloride Flush 3 Ml Syringe) 3 ml IVFLUSH QSHIFT [facility] Home Medications ?Medication ?Instructions ?Recorded ?Confirmed ?Last Taken ?Type insulin aspart U-100 100 unit/mL 1 sliding scale dose subcut TIDAC 12/21/24 03/18/25 03/17/25 History (3 mL) subcutaneous pen (Novolog FlexPen U-100 Insulin aspart) carvedilol 3.125 mg tablet 3.125 mg PO DAILY 09/11/0603/18/25 03/17/25 History insulin degludec 100 unit/mL (3 25 unit subcut BEDTIME 03/18/25 03/18/25 03/17/25 History mL) subcutaneous pen (Tresiba FlexTouch U-100 insulin) spironolactone 50 mg tablet 50 mg PO DAILY 03/18/2503/17/25 History Physical Exam 2 Vital Signs and Narrative: Vital Signs: Last Vital Signs Temp 98.6 F 03/18/25 12:44 Pulse 103 H 03/18/25 13:48 Resp 16 03/18/25 12:55 BP 139/69 03/18/25 13:48 Pulse Ox 93 03/18/25 12:55 O2 Del Method Room Air 03/18/25 12:55 BMI result Body Mass Index 26.9 Const: General: cooperative, alert and awake Nutritional Appearance: a verage body habitus Orientation/consciousness: patient oriented x3 Resp: Effort & Inspection: normal respiratory effort, able to speak in complete sentences, no respiratory distress and no use of accessory muscles Cardio: Rate: regular rate GI: Other: denies tenderness at this time, no guarding or rebound Palpation (GI): Soft to palpation Neuro: General: patient oriented x3, moves all extremities and CN's II-XI intact bilaterally Results Labs 03/18/25 13:39 03/18/25 10:40 Labs: Laboratory Results - last 24 hr 03/18/25 03/18/25 03/18/25 10:38 10:40 13:39 MCV 86.9 86.4 MCH 30.0 30.6 MCHC 34.6 35.4 RDW 12.7 12.9 Plt Count 85 L 91 L MPV 11.0 11.0 Immature Gran % (Auto) 0.5 H Neut % (Auto) 73.0 Lymph % (Auto) 11.2 L [place] % (Auto) 11.4 H Eos % (Auto) 3.4 Baso % (Auto) 0.5 Lymph # (Auto) 0.5 L [place] # (Auto) 0.5 Eos # (Auto) 0.1 Baso # (Auto) 0.0 Abs Immat Gran (auto) 0.02 Absolute Neuts (auto) 3.0 Absolute Nucleated RBC 0.000 0.000 Nucleated RBC % (auto) 0.0 0.0 PT 14.9 H INR 1.3 H APTT 37.5 H Anion Gap 13 Estim Creat Clear Calc 65.1 Estimated GFR > 60 Random Glucose 178 H Calcium 9.5 Magnesium 1.6 B-Natriuretic Peptide 335 H COVID-19 (SAM) Negative COVID-19 Clin Com See Note Influenza Type A (SANDRITA) Negative Influenza Type B (SANDRITA) Negative Influenza A & B Note See Note Imaging Radiologist's Impressions: Impressions Chest X-Ray 03/18/25 09:50 IMPRESSION: 1. Increased nodular opacities in the right mid and upper lung suggestive of metastases versus pneumonia in the appropriate clinical setting. Recommend radiographic follow-up. Electronically signed by: Roderick Martinez MD 03/18/2025 11:00 AM EDT RP Chest CTA 03/18/25 12:17 IMPRESSION: Positive exam for acute pulmonary artery emboli involving mostly subsegmental pulmonary artery branches right lower lung lobe. Multifocal pneumonia, right lung and multiple noncalcified less than 1 cm pulmonary nodules, right lung concerning for metastasis. Probable varices, gastroesophageal junction. Cirrhosis and small moderate amount of ascites likely related to portal hypertension. Findings were communicated to the emergency physician Moe Blackmon at 12:50 PM on March 18, 2025. Fleischner guidelines were followed. Electronically signed by: Avel Anderson MD 03/18/2025 01:00 PM EDT RP Assessment and Plan (1) Pulmonary embolism: Qualifiers: Pulmonary embolism type: single subsegmental (without acute cor pulmonale) Qualified Code(s): I26.93 - Single subsegmental thrombotic pulmonary embolism without acute cor pulmonale Status: Acute Plan This is a 70-year-old male with history of alcoholic liver cirrhosis with esophageal varices and chronic thrombocytopenia, hepatocellular carcinoma followed by Dr. Potts, portal vein hypertension, chronic thrombosis of the left and proximal main portal veins on anticoagulation with Eliquis who presents to the emergency department with dyspnea found to have acute PE Acute PE Involving sub segmental pulmonary artery branches of the right lower lung lobe Eliquis recently decreased from 5 mg twice daily to 2.5 mg twice daily During hospitalization we will treat with therapeutic Lovenox, then increase Eliquis back to 5 mg bid Echocardiogram to eval for right heart strain, bedside echocardiogram with no heart strain as per ED provider Mild elevation of BNP at 335, no overt fluid overload pneumonia CTA with multifocal pna treat with IV doxy and ceftriaxone check procalcitonin HHC/liver cirrhosis due to h/o etoh and HCV with thrombocytopenia, portal hypertension, splenomegaly, chronic thrombosis of left and proximal main portal vein, esophageal varices imaging with concern for lung mets Currently undergoing chemotherapy for hepatocellular carcinoma - follows with Dr Potts. last chemo 03/08 Continue Lasix, Aldactone, carvedilol Continue baseline pain medication DM. on tresiba at baseline (nonformulary) converted to lantus is 17 units, will start at 12U and titrate prn SSI, POCs, ada diet HTN Continue Norvasc, carvedilol dvt ppx - therapeutic Lovenox Patient will likely require 2 midnight stay in the hospital for management of acute PE and pneumonia requiring IV antibiotics and therapeutic Lovenox as well as close monitoring for bleeding as high bleeding risk due to chronic thrombocytopenia and underlying liver disease Quality Stroke Does the patient have a stroke diagnosis?: No VTE Prior VTE?: Yes VTE Risk Level:: Medical - moderate - high VTE Device Contraindication: Treatment Not Indicated VTE Drug Contraindication: N/A - Med Ordered
--- NOTE | 2025-03-18 14:28 | PHA.MEDREC ---
Addendum entered by Ramona Solis RPh 03/18/25 14:49: MED REC REVIEWED BY [facility] Original Note: Pharmacy Consult ? Medication Reconciliation Pharmacy has completed the medication reconciliation. Spoke with pt and he confirmed his medications. Pt confirmed his Eliquis decreased from 5mg to 2.5mg BID ~5 days ago. Pt confirmed his Tresiba FlexTouch 25 units at bedtime and Insulin Aspart per a sliding scale TIDAC.
[2025-03-18 14:46] LABS: Procalcitonin 0.05 ng/mL
[2025-03-18] MEDS: 0.9 % Sodium Chloride Flush 3 ML SYRINGE IVFLUSH (15:40)
[2025-03-18] MEDS: Morphine Sulfate ER 30 MG TABLET.ER PO (15:41)
[2025-03-18 16:00] LABS: Glucose, Whole Blood 195 mg/dL (60-115)
--- NOTE | 2025-03-18 16:44 | PC.NURSE ---
Pt c/o blood streaked phlegm/nasal mucous. Information reported to Attending Brendan. verbal orders received to continue to monitor at this time. No orders for intervention received.
[2025-03-18] MEDS: oxyCODONE HCl Immed Release 5 MG TABLET PO (20:53)
[2025-03-18] MEDS: Insulin Glargine,Hum.rec.anlog 100 UNIT/ML 10 ML VIAL 12 UNIT SUBCUT (21:03)
[2025-03-18 21:06] LABS: Glucose, Whole Blood 142 mg/dL (60-115)
[2025-03-19] VITALS: BP 125/59; PULSE 71; RESP 16; TEMP 36.7; O2SAT 94
[2025-03-19] MEDS: Morphine Sulfate ER 30 MG TABLET.ER PO (02:14)
[2025-03-19] MEDS: 0.9 % Sodium Chloride Flush 3 ML SYRINGE IVFLUSH ×4 (02:17→21:06)
[2025-03-19] MEDS: oxyCODONE HCl Immed Release 5 MG TABLET PO ×2 (03:59→07:57)
[2025-03-19 04:00] VITALS: BP 115/56; PULSE 82; RESP 16; TEMP 37.1; O2SAT 92
--- NOTE | 2025-03-19 07:00 | CA_ITS ---
Transthoracic Echocardiogram Patient (Last, First, Middle): Damian Strauss, Gender: Male Date of : 1955 Age: 70 Procedure Date: 03/19/2025 Procedure Type: Transthoracic Echocardiogram Location: [facility] [place] Height: 172.72 cm Weight: 84.37 kg BSA: 1.98 m2 Heart Rate: bpm BP: 115 / 56 mmHg Test Conductor: Referring MD: Noa BIRMINGHAM Symptoms: PE Study Quality: Good ECG Rhythm: Sinus Conclusions: - 1. Normal LV ejection fraction of 65-70% with mild LVH with impaired relaxation filling pattern 2. Severely dilated left atrium 3. Calcific aortic valve changes noted with mild aortic stenosis 4. At least moderate mitral regurgitation could be underestimated 5. Upper limits of normal ascending aortic size 6. Upper limits normal RV systolic pressure 7. No gross pericardial effusion Findings Left Ventricle Normal left ventricular size and systolic function. There is mildly increased left ventricular wall thickness. The visually estimated ejection fraction is between 65-70%. Spectral Doppler is indicative of an impaired relaxation filling pattern. E/E prime ratio is between 8 and 15 consistent with indeterminate filling pressures. Right Ventricle Normal right ventricular cavity size and systolic function. Atria The left atrium is severely dilated. There is no evidence of interatrial shunt. The right atrium is mildly dilated. Aortic Valve There is moderate calcification of the aortic valve. There is mild aortic valve stenosis. The peak aortic gradient is 24 mmHg.The mean gradient is 12 mmHg. The aortic valve area is 2.13 cm2. There is no aortic valve regurgitation. Mitral Valve There is mild anterior and moderate posterior mitral leaflet thickening. The posterior mitral leaflet has restricted mobility. There is moderate mitral valve regurgitation. There is no mitral valve stenosis. Pulmonic Valve The pulmonic valve was not well visualized. Tricuspid Valve There is mild tricuspid valve regurgitation. The right ventricular systolic pressure is normal. The right ventricular systolic pressure is 35 mmHg. Normal right atrial pressure. There is no evidence of pulmonary hypertension. Great Vessels The pulmonary artery was not well visualized. There is no dilatation of the ascending aorta measuring 3.60 cm. Small plaque is seen in the sino tubular ridge. Venous The inferior vena cava is normal in size and collapses greater than 50% with inspiration. Pericardium/Pleural There is no evidence of pericardial effusion. Prior Study Comparison No prior study available for comparison. I was requested to read this study on 03/22/2025 Measurements 2D Linear Measurements IVSd: 1.39 0.6-0.9/0.6-1.0 cm LVIDd: 4.12 3.9-5.3/4.2-5.9 cm LVIDd Index: 2.08 2.4-3.2/2.2-3.1 cm/m2 LVIDs: 2.67 2.0-3.6 cm LVPWd: 1.30 0.7-1.1 cm Ao Root: 3.20 2.1-3.5 cm LA Diam: 5.90 2.7-3.8/3.0-4.0 cm LAIDs Index: 2.98 1.5-2.3 cm/m2 LV Mass: 255.72 67-162/88-224 g LV Mass Index: 129.15 43-95/49-115 g/m2 LVOT Diam: 2.20 3.0+(-)1.3 cm Mitral Valve MR Vol - PW Dopp: 42.00 MR VTI: 1.68 MR ERO: 25.00 MR Alias Heath: 0.34 MR RAD: 0.80 Aortic Valve AoV Pk Heath: 2.46 AoV Mn Heath: 1.61 AoV VTI: 0.54 AoV Pk Grad: 24.00 Aov Mn Grad: 12.00 MELINDA Cont.VTI: 2.13 LVOT LVOT Pk Heath: 1.41 LVOT Mn Heath: 0.97 LVOT VTI: 0.30 LVOT Pk Grad: 8.00 LVOT Mn Grad: 5.00 LVOT Diam: 2.20 LVOT Area: 3.80 Right Ventricle TAPSE (mm): 26.00 TVS' Heath: 21.00 Tricuspid Valve TR Pk Heath: 2.82 TR Pk Grad: 32.00 RA Press: 3.00 RVSP: 35.00 Great Vessels Aorta Ao Root-2D: 3.20 2.0-3.7 cm Ao Asc: 3.60 2.1-3.4 cm Pulmonary Valve PV Pk Heath: 1.46 Peak PV Grad: 9.00 Updated in Other Vendor System with Status of Final Felipe Arroyo MD electronically signed on 03/22/2025 11:08:22 AM with status of Final
[2025-03-19 07:09] LABS: Glucose, Whole Blood 93 mg/dL (60-115)
[2025-03-19 07:21] VITALS: BP 145/76; PULSE 92; RESP 20; TEMP 36.4; O2SAT 96
[2025-03-19 07:22] LABS: MANUAL DIFF FLAG NO
[2025-03-19 07:27] LABS: Hematocrit 33.4 % (42.0-52.0); Hemoglobin 11.4 g/dl (14.0-18.0); Imm Gran Abs Auto 0.01 X10*3/uL (0.00-0.03); Imm Gran Pct Auto 0.3 % (0.0-0.4); Lymphocytes Absolute Auto 0.5 X10*3/uL (1.2-4.9); Mean Corpuscular HGB Conc 34.1 g/dl (31.0-36.0); Mean Corpuscular Hemoglobin 29.8 pg (27.0-33.0); Mean Corpuscular Volume 87.4 fL (80.0-98.0); NRBC Abs Auto 0.000 X10*3/uL (0.0-0.012); NRBC Pct Auto 0.0 /100WBC (0.0-0.2); Red Blood Count 3.82 X10*6/uL (4.60-5.80); White Blood Count 3.2 X10*3/uL (4.8-10.8)
[2025-03-19 07:31] LABS: Platelet Count 74 X10*3/uL (160-400)
[2025-03-19 07:43] LABS: Anion Gap 12 (12-20); Blood Urea Nitrogen 32 mg/dL (9-16); Carbon Dioxide 24 mmol/L (22-29); Chloride 106 mmol/L (96-108); Creatinine Clr Calc Pharmacy 68.4; Estimated Glomerular Filt Rate > 60; Potassium 3.7 mmol/L (3.3-5.1); Sodium 138 mmol/L (135-145)
[2025-03-19 07:56] LABS: Calcium 8.7 mg/dL (8.4-10.2)
[2025-03-19 11:21] LABS: Glucose, Whole Blood 157 mg/dL (60-115)
[2025-03-19 11:25] VITALS: BP 140/69; PULSE 74; RESP 20; TEMP 36.2; O2SAT 95
[2025-03-19] MEDS: oxyCODONE HCl Immed Release 5 MG TABLET 10 MG PO ×3 (12:00→21:04)
--- NOTE | 2025-03-19 12:05 | HO.PM.IMPN ---
Subjective Subjective Date of Service: 03/19/25 Interval History: c/o dyspnea but not hypoxic Review of Systems Review of Systems: Yes all other systems are reviewed and are negative Physical Exam Vital Signs: Vital Signs: Last Vital Signs Temp 97.1 F 03/19/25 11:25 Pulse 74 03/19/25 11:25 Resp 20 03/19/25 11:25 BP 140/69 H 03/19/25 11:25 Pulse Ox 95 03/19/25 11:25 O2 Del Method Room Air 03/19/25 11:25 BMI result Body Mass Index 26.9 Gen: in no acute distress HEENT: sclera anicteric, moist mucus membranes Neck: supple Lungs: a few inspiratory crackles Heart: regular rate and rhythm, no murmurs Abd: soft, non-tender, non-distended Ext: no edema Skin: warm/well-perfused Neuro: alert and oriented x3, no focal findings Psych: appropriate affect Objective Data Active Medications Acetaminophen (Acetaminophen 325 Mg Tablet) 650 mg PO Q6H PRN PRN Reason: Pain, Mild 1-3,fever,headache Amlodipine Besylate (Amlodipine Besylate 10 Mg Tablet) 10 mg PO DAILY [facility]; Protocol Last Admin: 03/19/25 07:57 Dose: 10 mg Documented By: VENKATA Calcium Carbonate (Calcium Carbonate 750 Mg Tab.Chew) 750 mg PO Q4H PRN PRN Reason: Heartburn Carvedilol (Carvedilol 3.125 Mg Tablet) 3.125 mg PO DAILY DO; Protocol Last Admin: 03/19/25 07:56 Dose: 3.125 mg Documented By: VENKATA Ceftriaxone Sodium (Ceftriaxone Sodium 1 Gm Vial) 1 gm IVPUSH Q24H DO Last Admin: 03/18/25 15:40 Dose: 1 gm Documented By: KALA Dextrose (Dextrose 50 % 25 Gm/50 Ml Syringe) 25 gm IVPUSH Q15M PRN; Protocol PRN Reason: per Hypoglycemia Standing Ord. Enoxaparin Sodium (Enoxaparin Sodium 80 Mg/0.8 Ml Syringe) 80 mg 1 mg/kg (80 mg) SUBCUT Q12H DO Last Admin: 03/19/25 12:01 Dose: 80 mg Documented By: CHANDLER Furosemide (Furosemide 20 Mg Tablet) 20 mg PO DAILY DO; Protocol Last Admin: 03/19/25 07:56 Dose: 20 mg Documented By: VENKATA Glucose (Glucose Gel 15 Gm Gel..Gram.) 15 gm PO Q15M PRN; Protocol PRN Reason: per Hypoglycemia Standing Ord. Doxycycline Hyclate 100 mg/ (Sodium Chloride) 250 mls @ 166.67 mls/hr IV Q12H [facility] Last Infusion: 03/19/25 04:01 Dose: Infused Documented By: VIVIEN Insulin Glargine (Insulin Glargine,Hum.Rec.Anlog 100 Unit/Ml 10 Ml Vial) 12 unit SUBCUT BEDTIME [facility] Last Admin: 03/18/25 21:03 Dose: 12 unit Documented By: VIVIEN Insulin Human Lispro (Insulin Lispro 100 Unit/Ml 3 Ml Vial) 0 unit SUBCUT QIDACHS [facility]; Protocol Last Admin: 03/19/25 11:37 Dose: 2 unit Documented By: CHANDLER Lorazepam (Lorazepam 0.5 Mg Tablet) 0.5 mg PO Q8H PRN PRN Reason: Anxiety Last Admin: 03/19/25 11:38 Dose: 0.5 mg Documented By: CHANDLER Magnesium Hydroxide (Milk Of Magnesia 30 Ml Oral.Susp) 30 ml PO DAILY PRN PRN Reason: Constipation Magnesium Oxide (Magnesium Oxide 400 Mg Tablet) 200 mg PO DAILY [facility] Last Admin: 03/19/25 08:04 Dose: 200 mg Documented By: VENKATA Melatonin (Melatonin 3 Mg Tablet) 6 mg PO BEDTIME PRN PRN Reason: Insomnia Morphine Sulfate (Morphine Sulfate Er 30 Mg Tablet.Er) 30 mg PO Q12H [facility] Last Admin: 03/19/25 12:02 Dose: Not Given Documented By: CHANDLER Non-Admin Reason: Patient Refused Oxycodone HCl (Oxycodone Hcl Immed Release 5 Mg Tablet) 10 mg PO Q4H PRN PRN Reason: Pain (Scale Score 7-10) Last Admin: 03/19/25 12:00 Dose: 10 mg Documented By: CHANDLER Sodium Chloride (0.9 % Sodium Chloride Flush 3 Ml Syringe) 3 ml IVFLUSH QSHIFT [facility] Last Admin: 03/19/25 07:59 Dose: 3 ml Documented By: VENKATA Spironolactone (Spironolactone 25 Mg Tablet) 50 mg PO DAILY [facility]; Protocol Last Admin: 03/19/25 07:58 Dose: 50 mg Documented By: VENKATA Labs 03/19/25 06:47 03/19/25 06:47 Labs: Laboratory Results - last 24 hr 03/18/25 03/18/25 03/18/25 10:40 13:39 15:33 MCV 86.4 MCH 30.6 MCHC 35.4 RDW 12.9 Plt Count 91 L MPV 11.0 Immature Gran % (Auto) Neut % (Auto) Lymph % (Auto) Sterling % (Auto) Eos % (Auto) Baso % (Auto) Lymph # (Auto) Sterling # (Auto) Eos # (Auto) Baso # (Auto) Abs Immat Gran (auto) Absolute Neuts (auto) Absolute Nucleated RBC 0.000 Nucleated RBC % (auto) 0.0 PT 14.9 H INR 1.3 H APTT 37.5 H Hold Blue Top SEE NOTE Anion Gap Estim Creat Clear Calc Estimated GFR POC Glucose Random Glucose Calcium B-Natriuretic Peptide 335 H Procalcitonin 0.05 03/18/25 03/18/25 03/19/25 15:53 20:55 06:47 MCV 87.4 MCH 29.8 MCHC 34.1 RDW 12.7 Plt Count 74 L MPV 11.0 Immature Gran % (Auto) 0.3 Neut % (Auto) 70.0 Lymph % (Auto) 14.2 L Sterling % (Auto) 13.0 H Eos % (Auto) 1.9 Baso % (Auto) 0.6 Lymph # (Auto) 0.5 L Sterling # (Auto) 0.4 Eos # (Auto) 0.1 Baso # (Auto) 0.0 Abs Immat Gran (auto) 0.01 Absolute Neuts (auto) 2.3 Absolute Nucleated RBC 0.000 Nucleated RBC % (auto) 0.0 PT INR APTT Hold Blue Top Anion Gap 12 Estim Creat Clear Calc 68.4 Estimated GFR > 60 POC Glucose 195 H 142 H Random Glucose 102 Calcium 8.7 D B-Natriuretic Peptide Procalcitonin 03/19/25 03/19/25 06:59 10:58 MCV MCH MCHC RDW Plt Count MPV Immature Gran % (Auto) Neut % (Auto) Lymph % (Auto) Sterling % (Auto) Eos % (Auto) Baso % (Auto) Lymph # (Auto) Sterling # (Auto) Eos # (Auto) Baso # (Auto) Abs Immat Gran (auto) Absolute Neuts (auto) Absolute Nucleated RBC Nucleated RBC % (auto) PT INR APTT Hold Blue Top Anion Gap Estim Creat Clear Calc Estimated GFR POC Glucose 93 157 H Random Glucose Calcium B-Natriuretic Peptide Procalcitonin Assessment and Plan (1) Pulmonary embolism: Status: Acute Plan d2, 70yo M with EtOH cirrhosis with varices + thrombocytopenia, HCC on immunotherapy, portal vein thrombosis, prior PE anticoagulated with reduced-dose apixaban presenting with dyspnea and found to have breakthrough PE acute/breakthrough PE involving subsegmental pulmonary artery branches of the right lower lung lobe - therapeutic enoxaparin, Heme/Onc consult for outpt AC, TTE to check for R heart strain, monitor CBC given thrombocytopenia multifocal PNA - 9/4- doxycycline + ceftriaxone, PCT low HCC cirrhosis + ascites esophageal varices - on immunotherapy, followed by Dr Potts - continue spironolactone + furosemide - continue carvedilol - 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 Quality Stroke Does the patient have a stroke diagnosis?: No VTE Prior VTE?: Yes VTE Risk Level:: Medical - moderate - high VTE Device Contraindication: Treatment Not Indicated VTE Drug Contraindication: N/A - Med Ordered
--- NOTE | 2025-03-19 12:38 | PM.HEMONCCN ---
Subjective - Subjective Chief complaint: Consult for: Recurrent pulmonary embolism. Patient: new to practice Consult date: 03/19/25 Requesting Physician: MARTA Walker Primary Care Provider: MARTA Walker Family Provider: MARTA Walker. Medical Summary: DIAGNOSIS: 1. RECURRENT PE. 2. HCC. 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 He states for the past 3 days he has not been feeling well. He has reported shortness of breath with no significant cough. He is reporting chills no fever. He reports chronic abdominal pain with no associated nausea or vomiting. He does take chronic narcotics at baseline due to underlying hepatocellular carcinoma which he states is the source of his abdominal pain. In the emergency department he underwent a CTA which was positive for acute pulmonary artery emboli involving mostly subsegmental pulmonary artery branches of the right lower lobe. Also showing multifocal pneumonia. Patient does have history of previous PE and has been on Eliquis. Recently his Eliquis was reduced from 5 mg twice daily to 2.5 mg twice daily which seems to be due to worsening thrombocytopenia and daily nose-bleeds. In the emergency department patient received a dose of Lovenox. Of note patient was not hypoxic, bedside echocardiogram as per emergency room provider showed no RV strain. Troponin 24.6, lower than previous. BNP 335, but did not appear volume overloaded. Review of Systems Review of Systems: Yes all other systems are reviewed and are negative Constitutional: Constitutional: Reports chills and Denies fever(s) Cardiovascular: Cardiovascular: Denies chest pain, Denies palpitations and Reports dyspnea Respiratory: Respiratory: Denies cough and Reports dyspnea Gastrointestinal: Gastrointestinal: Reports abdominal pain, Reports constipation, Denies nausea and Denies vomiting Endocrine: Endocrine: Denies palpitations [facility] Medical History: Hepatitis C HTN (hypertension) Diabetes mellitus Nausea & vomiting Peripheral neuropathy Insulin dependent type 2 diabetes mellitus Neuropathy. Surgical History:) No pertinent past surgical history. Family History:) Father Diabetes mellitus Mother Diabetes mellitus Other Substance use disorder Social History:) Household Members: Friend(s) Housing: Homeless Do you presently have visiting nurse or other home services: No Alcohol intake: former Patient Tobacco Use Status: Never used Tobacco Smoked in Last 30 Days: No e-Cigarette/Vaping Use: Never Used Second Hand Smoke Exposure: No Use of substances other than those prescribed or required for medical reasons: Yes Substance Use Type: Marijuana Substance Use Frequency: Occasionally Review of Systems - Constitutional Reports no additional constitutional complaints - Eyes Reports no additional eye complaints - ENT Reports no additional ear, nose, mouth, and throat complaints - Cardiovascular Reports no additional cardiovascular complaints - Respiratory Reports no additional respiratory complaints - Gastrointestinal Reports no additional gastrointestinal complaints - Genitourinary Genitourinary: Reports no additional male genitourinary complaints - Musculoskeletal Reports no additional musculoskeletal complaints - Integumentary/Breasts Skin/Breast: Reports no additional skin complaints - Neurologic Reports no additional neurologic complaints - Psychiatric Reports no additional psychiatric complaints - Endocrine Reports no additional endocrine complaints - Hematologic/Lymphatic Reports no additional hematologic/lymphatic complaints - Allergic/Immunologic Reports no additional allergic/immunologic complaints Oncology Screenings - ECOG Performance Status ECOG Performance Status: 2 [facility] Medical History: Medical History (Last Reviewed 03/20/25 @ 12:50 by Arturo Fatima PT) Diabetes mellitus Hepatitis C HTN (hypertension) Insulin dependent type 2 diabetes mellitus Nausea & vomiting Neuropathy Peripheral neuropathy Functional capacity: uses cane/walker Patient : No Family History: Family History (Last Reviewed 03/18/25 @ 14:52 by VINNIE Mackenzie) Father Diabetes mellitus Mother Diabetes mellitus Other Substance use disorder Surgical History: Surgical History (Last Reviewed 03/20/25 @ 12:50 by Arturo Fatima PT) No pertinent past surgical history Social History: Social History (Last Reviewed 03/19/25 @ 00:46 by Ebonie Navarro RN) Living Situation History: Household Members: None Housing: Apartment Housing Other:: pt states it is like a retirement Do you presently have visiting nurse or other home services: No Tobacco History: Patient Tobacco Use Status: Never used Tobacco e-Cigarette/Vaping Use: Never Used Second Hand Smoke Exposure: No Substance Use History: Substance Use Type: Marijuana 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 Assessmet: service: No Current occupational status: retired Sex/Gender Assessment: Gender identity: Male Home Medications and Allergies Current Medications: Current Medications Acetaminophen (Acetaminophen 325 Mg Tablet) 650 mg PO Q6H PRN PRN Reason: Pain, Mild 1-3,fever,headache Amlodipine Besylate (Amlodipine Besylate 10 Mg Tablet) 10 mg PO DAILY DO; Protocol Last Admin: 03/19/25 07:57 Dose: 10 mg Calcium Carbonate (Calcium Carbonate 750 Mg Tab.Chew) 750 mg PO Q4H PRN PRN Reason: Heartburn Carvedilol (Carvedilol 3.125 Mg Tablet) 3.125 mg PO DAILY [facility]; Protocol Last Admin: 03/19/25 07:56 Dose: 3.125 mg Ceftriaxone Sodium (Ceftriaxone Sodium 1 Gm Vial) 1 gm IVPUSH Q24H DO Last Admin: 03/18/25 15:40 Dose: 1 gm Dextrose (Dextrose 50 % 25 Gm/50 Ml Syringe) 25 gm IVPUSH Q15M PRN; Protocol PRN Reason: per Hypoglycemia Standing Ord. Enoxaparin Sodium (Enoxaparin Sodium 80 Mg/0.8 Ml Syringe) 80 mg 1 mg/kg (80 mg) SUBCUT Q12H [facility] Last Admin: 03/19/25 12:01 Dose: 80 mg Furosemide (Furosemide 20 Mg Tablet) 20 mg PO DAILY [facility]; Protocol Last Admin: 03/19/25 07:56 Dose: 20 mg Glucose (Glucose Gel 15 Gm Gel..Gram.) 15 gm PO Q15M PRN; Protocol PRN Reason: per Hypoglycemia Standing Ord. Doxycycline Hyclate 100 mg/ (Sodium Chloride) 250 mls @ 166.67 mls/hr IV Q12H [facility] Last Infusion: 03/19/25 04:01 Dose: Infused Insulin Glargine (Insulin Glargine,Hum.Rec.Anlog 100 Unit/Ml 10 Ml Vial) 12 unit SUBCUT BEDTIME [facility] Last Admin: 03/18/25 21:03 Dose: 12 unit Insulin Human Lispro (Insulin Lispro 100 Unit/Ml 3 Ml Vial) 0 unit SUBCUT QIDACHS [facility]; Protocol Last Admin: 03/19/25 11:37 Dose: 2 unit Lorazepam (Lorazepam 0.5 Mg Tablet) 0.5 mg PO Q8H PRN PRN Reason: Anxiety Last Admin: 03/19/25 11:38 Dose: 0.5 mg Magnesium Hydroxide (Milk Of Magnesia 30 Ml Oral.Susp) 30 ml PO DAILY PRN PRN Reason: Constipation Magnesium Oxide (Magnesium Oxide 400 Mg Tablet) 200 mg PO DAILY [facility] Last Admin: 03/19/25 08:04 Dose: 200 mg Melatonin (Melatonin 3 Mg Tablet) 6 mg PO BEDTIME PRN PRN Reason: Insomnia Morphine Sulfate (Morphine Sulfate Er 30 Mg Tablet.Er) 30 mg PO Q12H [facility] Last Admin: 03/19/25 12:02 Dose: Not Given Oxycodone HCl (Oxycodone Hcl Immed Release 5 Mg Tablet) 10 mg PO Q4H PRN PRN Reason: Pain (Scale Score 7-10) Last Admin: 03/19/25 12:00 Dose: 10 mg Sodium Chloride (0.9 % Sodium Chloride Flush 3 Ml Syringe) 3 ml IVFLUSH QSHIFT [facility] Last Admin: 03/19/25 07:59 Dose: 3 ml Spironolactone (Spironolactone 25 Mg Tablet) 50 mg PO DAILY [facility]; Protocol Last Admin: 03/19/25 07:58 Dose: 50 mg Home Medications ?Medication ?Instructions ?Recorded ?Confirmed ?Type insulin aspart U-100 100 unit/mL 1 sliding scale dose subcut TIDAC 12/21/24 03/18/25 History (3 mL) subcutaneous pen (Novolog FlexPen U-100 Insulin aspart) carvedilol 3.125 mg tablet 3.125 mg PO DAILY 03/18/25 03/18/25 History insulin degludec 100 unit/mL (3 25 unit subcut BEDTIME 03/18/25 03/18/25 History mL) subcutaneous pen (Tresiba FlexTouch U-100 insulin) spironolactone 50 mg tablet 50 mg PO DAILY 03/18/25 03/18/25 History Allergies Allergy/AdvReac Type Severity Reaction Status Date / Time lisinopril AdvReac Severe cough Verified 03/18/25 10:54 Physical Exam Vital signs: Vital Signs Temp 97.1 F 03/19/25 11:25 Pulse 74 03/19/25 11:25 Resp 20 03/19/25 11:25 BP 140/69 H 03/19/25 11:25 Pulse Ox 95 03/19/25 11:25 O2 Del Method Room Air 03/19/25 11:25 Intake & Output 03/18/25 03/19/25 03/19/25 18:59 06:59 18:59 Intake Total 250 / 500 250 / 500 Balance 250 / 500 250 / 500 Intake: Intake, IV Amount 250 / 500 250 / 500 Doxycycline Hyclate 100 mg In 0 250 / 500 250 / 500 .9 % Sodium Chloride 250 ml @ 166.67 mls/hr IV Q12H [facility] Rx#: [id number] Other: Number of Unmeasured Voids 2 Urine Bathroom Last Bowel Movement 03/18/25 03/18/25 Weight 80.2 kg 80.2 kg Weight 80.2 kg - Constitutional Present: mild distress - Routine HEENT Exam Head: Present: normal inspection, normocephalic Eye: Present: normal appearance ENT: Present: mucous membranes moist - Routine Neck Exam Present: supple Hem/Onc Consult Result - Labs CBC & Chem 7: 03/21/25 07:10 03/19/25 06:47 Labs: Short CBC 03/18/25 03/19/25 Range/Units 13:39 06:47 WBC 4.2 L 3.2 L (4.8-10.8) X10*3/uL Hgb 13.0 L 11.4 L (14.0-18.0) g/dl Hct 36.7 L 33.4 L (42.0-52.0) % Plt Count 91 L 74 L (160-400) X10*3/uL BMP 03/19/25 06:47 Sodium 138 Potassium 3.7 Chloride 106 Carbon Dioxide 24 BUN 32 H Creatinine 1.00 Calcium 8.7 D Assessment and Plan Patient Active problem list reviewed?: Yes (1) Pulmonary embolism Status: Acute Assessment and plan: This is a pleasant 70-year-old gentleman, with a history of previous pulmonary emboli. In addition he has a history of alcoholic liver cirrhosis with esophageal varices and chronic thrombocytopenia. He has hepatocellular carcinoma, portal vein hypertension, chronic thrombosis of the left and proximal main portal veins. He was on anticoagulation with Eliquis, recently dose was reduced to 2.5 mg b.i.d. He presented to the emergency department with dyspnea. He has been found to have acute PE: Involving sub segmental pulmonary artery branches of the right lower lung lobe. Echocardiogram to eval for right heart strain, bedside echocardiogram with no heart strain. Mild elevation of BNP at 335, no overt fluid overload. In addition he has been noted to have pneumonia CTA with multifocal pna He is being treated with IV doxy and ceftriaxone. PLAN: He has been treated with therapeutic Lovenox, initially. The plan is to increase Eliquis back to 5 mg bid. To check procalcitonin. Thank you for the consult, I will follow along with you, CC: Dr. Jorge L Lee. (2) HCC (hepatocellular carcinoma) Status: Acute Assessment and plan: 70-year-old gentleman with a history of HCC. In addition he has liver cirrhosis due to h/o etoh and HCV. Secondary complications include: Thrombocytopenia, portal hypertension, splenomegaly. He has had chronic thrombosis of left and proximal main portal vein, esophageal varices. He underwent core needle biopsy of left liver lobe lesion with Dr. Abebe at [facility] on 08/10/2024 which revealed hepatocellular carcinoma, moderate to poorly differentiated. Tumor necrosis and lymphovascular invasion present. ( He was not eligible to receive bevacizumab because of extensive varices.) He has been started on systemic therapy with durvalumab plus tremelimumab on 08/24/24. He received cycle number 8 on 03/08. Alpha fetoprotein level decreased from 635395 NG/mL to 5029 NG/mL in December 2024. CT chest without contrast performed 09/02/2023 showed several lung nodules measuring up to 5 mm in the left upper lobe, mild pulmonary emphysema. MRI of abdomen obtained on 11/29/2024 revealed: Slight decrease in multifocal hepatic masses, consistent with multifocal hepatocellular carcinoma. 02/08: [id number]. For the abdominal pain secondary to malignancy: He has been taking oxycodone 5 mg every 4-6 hours as needed - reports adequate pain management. He also take MS Contin 30 mg p.o. at bedtime. 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 cAT SCAN OF CHEST FROM 03/18: Positive exam for acute pulmonary artery emboli involving mostly subsegmental pulmonary artery branches right lower lung lobe. Multifocal pneumonia, right lung and multiple noncalcified less than 1 cm pulmonary nodules, right lung concerning for metastasis. Probable varices, gastroesophageal junction. Cirrhosis and small moderate amount of ascites likely related to portal hypertension. PLAN: Next Immunotherapy, Darvalumab, is due on 04/05/25. However, he would need to undergo restaging, in view of the rising AFP, and concern for lung metastases. Thank you for the consult, Will follow along with you, CC: Jorge L Lee. - Time Spent With Patient Time Spent with Patient (in minutes): 30
--- NOTE | 2025-03-19 13:27 | MHC.CM.PN ---
IMM given 03/19. Pt states he is independent with his own care, he lost his apartment 7 months ago because of his cancer after not being able to pay the rent. Pt states he is staying at a homeless retirement and plans to return there after discharge. HCP on file and verified. PCP: Jorge L ALLAN
[2025-03-19 13:29] LABS: INTERNATIONAL NORM RATIO 1.3 (0.9-1.1); Prothrombin Time 15.0 SEC (10.9-12.4)
[2025-03-19 15:29] VITALS: BP 129/71; PULSE 75; RESP 18; TEMP 37; O2SAT 95
[2025-03-19 16:16] LABS: Glucose, Whole Blood 137 mg/dL (60-115)
[2025-03-19 19:37] VITALS: BP 127/63; PULSE 78; RESP 16; TEMP 36.7; O2SAT 92
[2025-03-19 20:34] LABS: Glucose, Whole Blood 154 mg/dL (60-115)
[2025-03-19] MEDS: Insulin Glargine,Hum.rec.anlog 100 UNIT/ML 10 ML VIAL 12 UNIT SUBCUT (21:04)
--- NOTE | 2025-03-19 23:23 | PC.RT ---
Pt was placed on overnight pulse ox on RA. Sat 93%.
[2025-03-20] VITALS (7 sets, daily range): BP systolic 119–147; BP diastolic 62–76; PULSE 73–86; RESP 16–20; TEMP 36.8–37.2; O2SAT 90–98
[2025-03-20] MEDS: oxyCODONE HCl Immed Release 5 MG TABLET 10 MG PO ×6 (00:41→21:25)
[2025-03-20 06:33] LABS: Hematocrit 32.4 % (42.0-52.0); Hemoglobin 11.5 g/dl (14.0-18.0); Mean Corpuscular HGB Conc 35.5 g/dl (31.0-36.0); Mean Corpuscular Hemoglobin 30.4 pg (27.0-33.0); Mean Corpuscular Volume 85.7 fL (80.0-98.0); NRBC Abs Auto 0.000 X10*3/uL (0.0-0.012); NRBC Pct Auto 0.0 /100WBC (0.0-0.2); Platelet Count 76 X10*3/uL (160-400); Red Blood Count 3.78 X10*6/uL (4.60-5.80); White Blood Count 3.8 X10*3/uL (4.8-10.8)
--- NOTE | 2025-03-20 06:44 | PC.RT ---
PT was on overnight pulse ox on , at 0230 Pt began sating below 88. Pt was placed on 1L of O2 and his sats remained above 88 the rest of the night.
[2025-03-20 07:01] LABS: Glucose, Whole Blood 96 mg/dL (60-115)
[2025-03-20] MEDS: 0.9 % Sodium Chloride Flush 3 ML SYRINGE IVFLUSH ×2 (08:49→16:23)
--- NOTE | 2025-03-20 10:52 | P.PNIM_ITS ---
Subjective Subjective Date of Service: 03/20/25 Interval History: c/o cough, dyspnea nocturnal hypoxemia noted Review of Systems Review of Systems: Yes all other systems are reviewed and are negative Physical Exam 2 Vital Signs: Vital Signs: Last Vital Signs Temp 98.6 F 03/20/25 07:16 Pulse 83 03/20/25 07:16 Resp 20 03/20/25 07:16 BP 128/64 03/20/25 07:16 Pulse Ox 96 03/20/25 07:16 O2 Del Method Nasal Cannula 03/20/25 07:16 O2 Flow Rate 2 03/20/25 07:16 BMI result Body Mass Index 26.9 Gen: in no acute distress HEENT: sclera anicteric, moist mucus membranes Neck: supple Lungs: clear Heart: regular rate and rhythm, no murmurs Abd: soft, non-tender, non-distended Ext: no edema Skin: warm/well-perfused Neuro: alert and oriented x3, no focal findings Psych: appropriate affect Objective Data Active Medications Acetaminophen (Acetaminophen 325 Mg Tablet) 650 mg PO Q6H PRN PRN Reason: Pain, Mild 1-3,fever,headache Amlodipine Besylate (Amlodipine Besylate 10 Mg Tablet) 10 mg PO DAILY [facility]; Protocol Last Admin: 03/20/25 08:46 Dose: 10 mg Documented By: CHANDLER Calcium Carbonate (Calcium Carbonate 750 Mg Tab.Chew) 750 mg PO Q4H PRN PRN Reason: Heartburn Carvedilol (Carvedilol 3.125 Mg Tablet) 3.125 mg PO DAILY [facility]; Protocol Last Admin: 03/20/25 08:47 Dose: 3.125 mg Documented By: CHANDLER Ceftriaxone Sodium (Ceftriaxone Sodium 1 Gm Vial) 1 gm IVPUSH Q24H DO Last Admin: 03/19/25 15:32 Dose: 1 gm Documented By: VENKATA Dextrose (Dextrose 50 % 25 Gm/50 Ml Syringe) 25 gm IVPUSH Q15M PRN; Protocol PRN Reason: per Hypoglycemia Standing Ord. Enoxaparin Sodium (Enoxaparin Sodium 80 Mg/0.8 Ml Syringe) 80 mg 1 mg/kg (80 mg) SUBCUT Q12H DO Last Admin: 03/20/25 00:41 Dose: 80 mg Documented By: ZAY Furosemide (Furosemide 20 Mg Tablet) 20 mg PO DAILY [facility]; Protocol Last Admin: 03/20/25 08:47 Dose: 20 mg Documented By: CHANDLER Glucose (Glucose Gel 15 Gm Gel..Gram.) 15 gm PO Q15M PRN; Protocol PRN Reason: per Hypoglycemia Standing Ord. Doxycycline Hyclate 100 mg/ (Sodium Chloride) 250 mls @ 166.67 mls/hr IV Q12H [facility] Last Infusion: 03/20/25 08:22 Dose: Infused Documented By: CHANDLER Insulin Glargine (Insulin Glargine,Hum.Rec.Anlog 100 Unit/Ml 10 Ml Vial) 12 unit SUBCUT BEDTIME [facility] Last Admin: 03/19/25 21:04 Dose: 12 unit Documented By: ZAY Insulin Human Lispro (Insulin Lispro 100 Unit/Ml 3 Ml Vial) 0 unit SUBCUT QIDACHS [facility]; Protocol Last Admin: 03/20/25 08:22 Dose: Not Given Documented By: CHANDLER Non-Admin Reason: No Insulin Coverage Lorazepam (Lorazepam 0.5 Mg Tablet) 0.5 mg PO Q8H PRN PRN Reason: Anxiety Last Admin: 03/20/25 08:46 Dose: 0.5 mg Documented By: CHANDLER Magnesium Hydroxide (Milk Of Magnesia 30 Ml Oral.Susp) 30 ml PO DAILY PRN PRN Reason: Constipation Magnesium Oxide (Magnesium Oxide 400 Mg Tablet) 200 mg PO DAILY [facility] Last Admin: 03/20/25 08:47 Dose: 200 mg Documented By: CHANDLER Melatonin (Melatonin 3 Mg Tablet) 6 mg PO BEDTIME PRN PRN Reason: Insomnia Morphine Sulfate (Morphine Sulfate Er 30 Mg Tablet.Er) 30 mg PO Q12H [facility] Last Admin: 03/20/25 03:57 Dose: Not Given Documented By: ZAY Non-Admin Reason: Patient Refused Oxycodone HCl (Oxycodone Hcl Immed Release 5 Mg Tablet) 10 mg PO Q4H PRN PRN Reason: Pain (Scale Score 7-10) Last Admin: 03/20/25 08:46 Dose: 10 mg Documented By: CHANDLER Sodium Chloride (0.9 % Sodium Chloride Flush 3 Ml Syringe) 3 ml IVFLUSH QSHIFT [facility] Last Admin: 03/20/25 08:49 Dose: 3 ml Documented By: CHANDLER Spironolactone (Spironolactone 25 Mg Tablet) 50 mg PO DAILY [facility]; Protocol Last Admin: 03/20/25 08:46 Dose: 50 mg Documented By: CHANDLER Labs 03/20/25 06:18 03/19/25 06:47 Labs: Laboratory Results - last 24 hr 03/19/25 03/19/25 03/19/25 10:58 12:56 16:06 MCV MCH MCHC RDW Plt Count MPV Absolute Nucleated RBC Nucleated RBC % (auto) PT 15.0 H INR 1.3 H POC Glucose 157 H 137 H 03/19/25 03/20/25 03/20/25 20:24 06:18 06:56 MCV 85.7 MCH 30.4 MCHC 35.5 RDW 12.7 Plt Count 76 L MPV 11.4 Absolute Nucleated RBC 0.000 Nucleated RBC % (auto) 0.0 PT INR POC Glucose 154 H 96 Assessment and Plan (1) Pulmonary embolism: Status: Acute Plan d3, 70yo M with EtOH cirrhosis with varices + thrombocytopenia, HCC on immunotherapy, portal vein thrombosis, prior PE anticoagulated with reduced-dose apixaban presenting with dyspnea and found to have breakthrough PE acute/breakthrough PE involving subsegmental pulmonary artery branches of the right lower lung lobe - therapeutic enoxaparin, Heme/Onc consulted and recommends 5 mg apixaban upon discharge, TTE to check for R heart strain pending, monitor CBC given thrombocytopenia multifocal PNA - 9/4- doxycycline + ceftriaxone, trend PCT HCC cirrhosis + ascites esophageal varices - on immunotherapy, followed by Dr Potts - continue spironolactone + furosemide - continue carvedilol - 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 Quality Stroke Does the patient have a stroke diagnosis?: No VTE Prior VTE?: Yes VTE Risk Level:: Medical - moderate - high VTE Device Contraindication: Treatment Not Indicated VTE Drug Contraindication: N/A - Med Ordered
[2025-03-20 10:56] LABS: Glucose, Whole Blood 173 mg/dL (60-115)
[2025-03-20 16:41] LABS: Glucose, Whole Blood 162 mg/dL (60-115)
[2025-03-20 21:07] LABS: Glucose, Whole Blood 163 mg/dL (60-115)
[2025-03-20] MEDS: Insulin Glargine,Hum.rec.anlog 100 UNIT/ML 10 ML VIAL 12 UNIT SUBCUT (21:25)
[2025-03-21] VITALS: BP 143/66; PULSE 74; RESP 16; TEMP 36.7; O2SAT 93
--- NOTE | 2025-03-21 | ECG_ITS ---
Test Reason : chest pressure Blood Pressure : */* mmHG Vent. Rate : 76 BPM Atrial Rate : 76 BPM P-R Int : 198 ms QRS Dur : 90 ms QT Int : 394 ms P-R-T Axes : * 16 15 degrees QTcB Int : 443 ms Normal sinus rhythm Anteroseptal infarct (cited on or before 01-Dec-2015) Abnormal ECG When compared with ECG of 18-Mar-2025 10:32, No significant change was found Referred By: Dilip Soria Electronically Signed By: IVETH MOE MD
--- NOTE | 2025-03-21 | ECG_ITS ---
Test Reason : cp Blood Pressure : */* mmHG Vent. Rate : 72 BPM Atrial Rate : 72 BPM P-R Int : 210 ms QRS Dur : 88 ms QT Int : 414 ms P-R-T Axes : -12 16 7 degrees QTcB Int : 453 ms Sinus rhythm with 1st degree A-V block Septal infarct (cited on or before 01-Dec-2015) Abnormal ECG When compared with ECG of 21-Mar-2025 12:32, No significant change was found Referred By: Dilip Soria Electronically Signed By:
[2025-03-21] MEDS: oxyCODONE HCl Immed Release 5 MG TABLET 10 MG PO ×6 (01:38→21:57)
[2025-03-21 04:00] VITALS: BP 114/56; PULSE 70; RESP 16; TEMP 36.8; O2SAT 98
[2025-03-21 07:34] VITALS: BP 149/71; PULSE 91; RESP 18; TEMP 36.7; O2SAT 95
[2025-03-21 07:59] LABS: Glucose, Whole Blood 83 mg/dL (60-115)
[2025-03-21 08:30] LABS: Hematocrit 32.1 % (42.0-52.0); Hemoglobin 11.0 g/dl (14.0-18.0); Mean Corpuscular HGB Conc 34.3 g/dl (31.0-36.0); Mean Corpuscular Hemoglobin 29.7 pg (27.0-33.0); Mean Corpuscular Volume 86.8 fL (80.0-98.0); NRBC Abs Auto 0.000 X10*3/uL (0.0-0.012); NRBC Pct Auto 0.0 /100WBC (0.0-0.2); Red Blood Count 3.70 X10*6/uL (4.60-5.80); White Blood Count 3.0 X10*3/uL (4.8-10.8)
[2025-03-21 08:31] LABS: Platelet Count 70 X10*3/uL (160-400)
[2025-03-21] MEDS: 0.9 % Sodium Chloride Flush 3 ML SYRINGE IVFLUSH ×3 (10:01→20:33)
[2025-03-21 10:08] LABS: Procalcitonin 0.09 ng/mL
--- NOTE | 2025-03-21 10:40 | P.PNIM_ITS ---
Subjective Subjective Date of Service: 03/21/25 Interval History: slept well but woke up this AM with mid-sternal chest pressure that has since resolved coughing up phlegm Review of Systems Review of Systems: Yes all other systems are reviewed and are negative Physical Exam 2 Vital Signs: Vital Signs: Last Vital Signs Temp 98.0 F 03/21/25 07:34 Pulse 91 03/21/25 07:34 Resp 18 03/21/25 07:34 BP 149/71 H 03/21/25 07:34 Pulse Ox 95 03/21/25 07:34 O2 Del Method Nasal Cannula 03/21/25 07:34 O2 Flow Rate 1 03/21/25 07:34 BMI result Body Mass Index 26.9 Gen: in no acute distress HEENT: sclera anicteric, moist mucus membranes Neck: supple Lungs: clear Heart: regular rate and rhythm, no murmurs Abd: soft, non-tender, non-distended Ext: no edema Skin: warm/well-perfused Neuro: alert and oriented x3, no focal findings Psych: appropriate affect Objective Data Active Medications Acetaminophen (Acetaminophen 325 Mg Tablet) 650 mg PO Q6H PRN PRN Reason: Pain, Mild 1-3,fever,headache Amlodipine Besylate (Amlodipine Besylate 10 Mg Tablet) 10 mg PO DAILY [facility]; Protocol Last Admin: 03/21/25 10:01 Dose: 10 mg Documented By: CHANDLER Calcium Carbonate (Calcium Carbonate 750 Mg Tab.Chew) 750 mg PO Q4H PRN PRN Reason: Heartburn Carvedilol (Carvedilol 3.125 Mg Tablet) 3.125 mg PO DAILY DO; Protocol Last Admin: 03/21/25 10:01 Dose: 3.125 mg Documented By: CHANDLER Ceftriaxone Sodium (Ceftriaxone Sodium 1 Gm Vial) 1 gm IVPUSH Q24H DO Last Admin: 03/20/25 16:23 Dose: 1 gm Documented By: CHANDLER Dextrose (Dextrose 50 % 25 Gm/50 Ml Syringe) 25 gm IVPUSH Q15M PRN; Protocol PRN Reason: per Hypoglycemia Standing Ord. Enoxaparin Sodium (Enoxaparin Sodium 80 Mg/0.8 Ml Syringe) 80 mg 1 mg/kg (80 mg) SUBCUT Q12H DO Last Admin: 03/21/25 01:39 Dose: 80 mg Documented By: ZAY Furosemide (Furosemide 20 Mg Tablet) 20 mg PO DAILY [facility]; Protocol Last Admin: 03/21/25 10:01 Dose: 20 mg Documented By: CHANDLER Glucose (Glucose Gel 15 Gm Gel..Gram.) 15 gm PO Q15M PRN; Protocol PRN Reason: per Hypoglycemia Standing Ord. Doxycycline Hyclate 100 mg/ (Sodium Chloride) 250 mls @ 166.67 mls/hr IV Q12H [facility] Last Infusion: 03/21/25 05:47 Dose: Infused Documented By: ZAY Insulin Glargine (Insulin Glargine,Hum.Rec.Anlog 100 Unit/Ml 10 Ml Vial) 12 unit SUBCUT BEDTIME [facility] Last Admin: 03/20/25 21:25 Dose: 12 unit Documented By: ZAY Insulin Human Lispro (Insulin Lispro 100 Unit/Ml 3 Ml Vial) 0 unit SUBCUT QIDACHS [facility]; Protocol Last Admin: 03/21/25 08:06 Dose: Not Given Documented By: CHANDLER Non-Admin Reason: No Insulin Coverage Lorazepam (Lorazepam 0.5 Mg Tablet) 0.5 mg PO Q8H PRN PRN Reason: Anxiety Last Admin: 03/21/25 10:00 Dose: 0.5 mg Documented By: CHANDLER Magnesium Hydroxide (Milk Of Magnesia 30 Ml Oral.Susp) 30 ml PO DAILY PRN PRN Reason: Constipation Magnesium Oxide (Magnesium Oxide 400 Mg Tablet) 200 mg PO DAILY [facility] Last Admin: 03/21/25 10:00 Dose: 200 mg Documented By: CHANDLER Melatonin (Melatonin 3 Mg Tablet) 6 mg PO BEDTIME PRN PRN Reason: Insomnia Morphine Sulfate (Morphine Sulfate Er 30 Mg Tablet.Er) 30 mg PO Q12H [facility] Last Admin: 03/21/25 00:07 Dose: Not Given Documented By: ZAY Non-Admin Reason: Patient Refused Oxycodone HCl (Oxycodone Hcl Immed Release 5 Mg Tablet) 10 mg PO Q4H PRN PRN Reason: Pain (Scale Score 7-10) Last Admin: 03/21/25 10:00 Dose: 10 mg Documented By: CHANDLER Sodium Chloride (0.9 % Sodium Chloride Flush 3 Ml Syringe) [facility] Last Admin: 03/21/25 10:01 Dose: 3 ml Documented By: CHANDLER Spironolactone (Spironolactone 25 Mg Tablet) 50 mg PO DAILY [facility]; Protocol Last Admin: 03/21/25 10:01 Dose: 50 mg Documented By: CHANDLER Labs 03/21/25 07:10 03/19/25 06:47 Labs: Laboratory Results - last 24 hr 03/20/25 03/20/25 03/20/25 10:49 16:24 20:55 MCV MCH MCHC RDW Plt Count MPV Absolute Nucleated RBC Nucleated RBC % (auto) POC Glucose 173 H 162 H 163 H Procalcitonin 03/21/25 03/21/25 07:10 07:36 MCV 86.8 MCH 29.7 MCHC 34.3 RDW 12.5 Plt Count 70 L MPV 11.7 Absolute Nucleated RBC 0.000 Nucleated RBC % (auto) 0.0 POC Glucose 83 Procalcitonin 0.09 Assessment and Plan (1) Pulmonary embolism: Status: Acute Plan d4, 70yo M with EtOH cirrhosis with varices + thrombocytopenia, HCC on immunotherapy, portal vein thrombosis, prior PE anticoagulated with reduced-dose apixaban presenting with dyspnea and found to have breakthrough PE acute/breakthrough PE involving subsegmental pulmonary artery branches of the right lower lung lobe - therapeutic enoxaparin, Heme/Onc consulted and recommends 5 mg apixaban upon discharge, TTE to check for R heart strain pending, monitor CBC given thrombocytopenia multifocal PNA - 03/18- doxycycline + ceftriaxone, PCT low chest pressure, resolved - likely related to PE + PNA but will check EKG and cycle troponins nocturnal hypoxemia - needs 1L O2 at night, PSG done and will follow up results as outpt HCC cirrhosis + ascites esophageal varices - on immunotherapy, followed by Dr Potts, call tomorrow to see when next cycle is scheduled - continue spironolactone + furosemide - continue carvedilol - 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 Quality Stroke Does the patient have a stroke diagnosis?: No VTE Prior VTE?: Yes VTE Risk Level:: Medical - moderate - high VTE Device Contraindication: Treatment Not Indicated VTE Drug Contraindication: N/A - Med Ordered
[2025-03-21 11:24] VITALS: BP 121/65; PULSE 75; RESP 18; TEMP 36.8; O2SAT 96
[2025-03-21 11:36] LABS: Glucose, Whole Blood 130 mg/dL (60-115)
[2025-03-21 12:37] LABS: Troponin-I High Sensitivity 225.2 ng/L (<3.5-35.0)
[2025-03-21] MEDS: Nitroglycerin 2 % Oint 1 GM Packet 1 INCH TRANSDERMA (13:19)
[2025-03-21 15:26] VITALS: BP 127/72; PULSE 87; RESP 18; TEMP 36.7; O2SAT 97
[2025-03-21 15:38] LABS: Troponin-I High Sensitivity 218.3 ng/L (<3.5-35.0)
[2025-03-21] MEDS: Milk of Magnesia 30 ML ORAL.SUSP PO (16:28)
[2025-03-21 16:35] LABS: Glucose, Whole Blood 202 mg/dL (60-115)
[2025-03-21 19:18] VITALS: BP 130/70; PULSE 68; RESP 18; TEMP 36.7; O2SAT 96
[2025-03-21 20:07] LABS: Glucose, Whole Blood 140 mg/dL (60-115)
[2025-03-21] MEDS: Insulin Glargine,Hum.rec.anlog 100 UNIT/ML 10 ML VIAL 12 UNIT SUBCUT (20:33)
[2025-03-22] VITALS (7 sets, daily range): BP systolic 129–162; BP diastolic 60–92; PULSE 74–88; RESP 18–20; TEMP 36.1–36.8; O2SAT 94–99
[2025-03-22] MEDS: oxyCODONE HCl Immed Release 5 MG TABLET 10 MG PO ×3 (01:51→09:41)
[2025-03-22 07:33] LABS: Glucose, Whole Blood 87 mg/dL (60-115)
[2025-03-22 08:10] LABS: Hematocrit 35.8 % (42.0-52.0); Hemoglobin 12.6 g/dl (14.0-18.0); Mean Corpuscular HGB Conc 35.2 g/dl (31.0-36.0); Mean Corpuscular Hemoglobin 29.9 pg (27.0-33.0); Mean Corpuscular Volume 85.0 fL (80.0-98.0); NRBC Abs Auto 0.000 X10*3/uL (0.0-0.012); NRBC Pct Auto 0.0 /100WBC (0.0-0.2); Platelet Count 82 X10*3/uL (160-400); Red Blood Count 4.21 X10*6/uL (4.60-5.80); White Blood Count 3.6 X10*3/uL (4.8-10.8)
[2025-03-22] MEDS: 0.9 % Sodium Chloride Flush 3 ML SYRINGE IVFLUSH ×3 (09:41→21:11)
--- NOTE | 2025-03-22 10:41 | HO.PM.IMPN ---
Subjective Subjective Date of Service: 03/22/25 Interval History: chest pressure resolved coughing dyspnea improving weak, anxious Review of Systems Review of Systems: Yes all other systems are reviewed and are negative Physical Exam Vital Signs: Vital Signs: Last Vital Signs Temp 97.0 F 03/22/25 07:38 Pulse 86 03/22/25 07:38 Resp 20 03/22/25 07:38 BP 155/76 H 03/22/25 07:38 Pulse Ox 94 03/22/25 07:38 O2 Del Method Room Air 03/22/25 07:38 O2 Flow Rate 2 03/22/25 00:00 BMI result Body Mass Index 26.9 Gen: in no acute distress HEENT: sclera anicteric, moist mucus membranes Neck: supple Lungs: clear Heart: regular rate and rhythm, no murmurs Abd: soft, non-tender, non-distended Ext: no edema Skin: warm/well-perfused Neuro: alert and oriented x3, no focal findings Psych: appropriate affect Objective Data Active Medications Acetaminophen (Acetaminophen 325 Mg Tablet) 650 mg PO Q6H PRN PRN Reason: Pain, Mild 1-3,fever,headache Amlodipine Besylate (Amlodipine Besylate 10 Mg Tablet) 10 mg PO DAILY [facility]; Protocol Last Admin: 03/22/25 09:40 Dose: 10 mg Documented By: CHANDLER Calcium Carbonate (Calcium Carbonate 750 Mg Tab.Chew) 750 mg PO Q4H PRN PRN Reason: Heartburn Carvedilol (Carvedilol 3.125 Mg Tablet) 3.125 mg PO DAILY DO; Protocol Last Admin: 03/22/25 09:41 Dose: 3.125 mg Documented By: CHANDLER Ceftriaxone Sodium (Ceftriaxone Sodium 1 Gm Vial) 1 gm IVPUSH Q24H DO Last Admin: 03/21/25 16:16 Dose: 1 gm Documented By: CHANDLER Dextrose (Dextrose 50 % 25 Gm/50 Ml Syringe) 25 gm IVPUSH Q15M PRN; Protocol PRN Reason: per Hypoglycemia Standing Ord. Enoxaparin Sodium (Enoxaparin Sodium 80 Mg/0.8 Ml Syringe) 80 mg 1 mg/kg (80 mg) SUBCUT Q12H DO Last Admin: 03/22/25 01:51 Dose: 80 mg Documented By: VIVIEN Furosemide (Furosemide 20 Mg Tablet) 20 mg PO DAILY [facility]; Protocol Last Admin: 03/22/25 09:41 Dose: 20 mg Documented By: CHANDLER Glucose (Glucose Gel 15 Gm Gel..Gram.) 15 gm PO Q15M PRN; Protocol PRN Reason: per Hypoglycemia Standing Ord. Doxycycline Hyclate 100 mg/ (Sodium Chloride) 250 mls @ 166.67 mls/hr IV Q12H [facility] Last Infusion: 03/22/25 05:44 Dose: Infused Documented By: VIVIEN Insulin Glargine (Insulin Glargine,Hum.Rec.Anlog 100 Unit/Ml 10 Ml Vial) 12 unit SUBCUT BEDTIME [facility] Last Admin: 03/21/25 20:33 Dose: 12 unit Documented By: VIVIEN Insulin Human Lispro (Insulin Lispro 100 Unit/Ml 3 Ml Vial) 0 unit SUBCUT QIDACHS [facility]; Protocol Last Admin: 03/22/25 08:09 Dose: Not Given Documented By: CHANDLER Non-Admin Reason: No Insulin Coverage Lorazepam (Lorazepam 0.5 Mg Tablet) 0.5 mg PO Q8H PRN PRN Reason: Anxiety Last Admin: 03/22/25 09:40 Dose: 0.5 mg Documented By: CHANDLER Magnesium Hydroxide (Milk Of Magnesia 30 Ml Oral.Susp) 30 ml PO DAILY PRN PRN Reason: Constipation Last Admin: 03/21/25 16:28 Dose: 30 ml Documented By: CHANDLER Magnesium Oxide (Magnesium Oxide 400 Mg Tablet) 200 mg PO DAILY [facility] Last Admin: 03/22/25 09:41 Dose: 200 mg Documented By: CHANDLER Melatonin (Melatonin 3 Mg Tablet) 6 mg PO BEDTIME PRN PRN Reason: Insomnia Morphine Sulfate (Morphine Sulfate Er 30 Mg Tablet.Er) 30 mg PO Q12H [facility] Last Admin: 03/22/25 03:28 Dose: Not Given Documented By: VIVIEN Non-Admin Reason: Patient Refused Oxycodone HCl (Oxycodone Hcl Immed Release 5 Mg Tablet) 10 mg PO Q4H PRN PRN Reason: Pain (Scale Score 7-10) Last Admin: 03/22/25 09:41 Dose: 10 mg Documented By: CHANDLER Sodium Chloride (0.9 % Sodium Chloride Flush 3 Ml Syringe) 3 ml IVFLUSH QSHIFT DO Last Admin: 03/22/25 09:41 Dose: 3 ml Documented By: CHANDLER Spironolactone (Spironolactone 25 Mg Tablet) 50 mg PO DAILY [facility]; Protocol Last Admin: 03/22/25 09:41 Dose: 50 mg Documented By: CHANDLER Labs 03/22/25 07:44 03/19/25 06:47 Labs: Laboratory Results - last 24 hr 03/21/25 03/21/25 03/21/25 11:25 16:31 19:59 MCV MCH MCHC RDW Plt Count MPV Absolute Nucleated RBC Nucleated RBC % (auto) POC Glucose 130 H 202 H 140 H 03/22/25 03/22/25 07:26 07:44 MCV 85.0 MCH 29.9 MCHC 35.2 RDW 12.8 Plt Count 82 L MPV 11.4 Absolute Nucleated RBC 0.000 Nucleated RBC % (auto) 0.0 POC Glucose 87 Assessment and Plan (1) Pulmonary embolism: Status: Acute Plan d5, 70yo M with EtOH cirrhosis with varices + thrombocytopenia, HCC on immunotherapy, portal vein thrombosis, prior PE anticoagulated with reduced-dose apixaban presenting with dyspnea and found to have breakthrough PE acute/breakthrough PE involving subsegmental pulmonary artery branches of the right lower lung lobe - therapeutic enoxaparin, Heme/Onc consulted and recommends 5 mg apixaban upon discharge, TTE to check for R heart strain pending, monitor CBC given thrombocytopenia multifocal PNA - 03/18- doxycycline + ceftriaxone, PCT low chest pressure, resolved troponin elevation - likely related to PE + PNA causing demand; TTE pending acute hypoxic respiratory failure - needs 2L O2 at night, outpt PSG HCC cirrhosis + ascites esophageal varices - on immunotherapy, followed by Dr Potts, next cycle 04/05 but needs restaging prior - continue spironolactone + furosemide - continue carvedilol - 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 Quality Stroke Does the patient have a stroke diagnosis?: No VTE Prior VTE?: Yes VTE Risk Level:: Medical - moderate - high VTE Device Contraindication: Treatment Not Indicated VTE Drug Contraindication: N/A - Med Ordered
[2025-03-22 11:10] LABS: Glucose, Whole Blood 208 mg/dL (60-115)
--- NOTE | 2025-03-22 11:13 | P.CONCA_ITS ---
History of Present Illness History of Present Illness Date of Service: 03/22/25 Requesting physician: Dilip Soria Consult reason: chest pain Chief complaint: PE Narrative: I was consulted to see Damian in cardiology consultation today for chest pressure elevated but flat troponins. Patient had echocardiogram done on Saturday was reviewed by me today does not show any significant RV strain although she was up limits and I am RV systolic pressure without any RV dysfunction. LV function is normal with mild LVH. That has noted mild aortic stenosis at least moderate mitral regurgitation. Patient is anxious 70-year-old male with multiple medical problems with prior history of alcohol use, hepatocellular carcinoma with cirrhosis of the liver, thrombocytopenia related probably cirrhosis and/or chemotherapy on immunotherapy at this point time, chronic thrombosis of the left main portal vein, prior history of pulmonary embolism although on reduced dose of Eliquis outpatient due to thrombocytopenia. Patient came with increasing symptoms of shortness of breath and felt like he was lightheaded when he was exerting himself and came to the hospital. In the hospital was noted to have acute pulmonary embolism involving mostly subsegmental pulmonary arteries and also suggestion of multifocal pneumonia. Patient says admission he also prior to admission he had chest pressure. On admission troponins were in the low 20s. EKGs issues done on 03/18 showed nonspecific STT wave changes with QS pattern in lead V1 V2 which is nonspecific. Subsequently troponins were repeat yesterday which were flat at 225 and 218. No EKGs were done yesterday. Patient complaining of chest pressure although when I asked him he said he had chest pressure prior to coming in the hospital and not while in the hospital. However patient denies any palpitations. Has remained in sinus rhythm. Cardiology consult was called because of chest pressure. Also has prior history of hypertension, diabetes. No prior history of coronary artery disease or myocardial infarction. Review of Systems 2 Constitutional: Constitutional: Denies chills, Denies fever(s), Reports lethargy and Reports malaise Eyes: Eyes: Reports no additional eye complaints Cardiovascular: Cardiovascular: Reports chest pain at rest, Denies leg edema, Reports lightheadedness, Denies Loss of Consciousness, Denies palpitations and Reports dyspnea on exertion Respiratory: Respiratory: Reports cough and Reports dyspnea on exertion Gastrointestinal: Gastrointestinal: Reports no additional gastrointestinal complaints Genitourinary: Genitourinary: Reports no additional male genitourinary complaints Musculoskeletal: Musculoskeletal: Reports no additional musculoskeletal complaints Neurologic: Reports system reviewed and no additional complaints, except as documented Psychiatric: Psychiatric: Reports no additional psychiatric complaints Endocrine: Endocrine: Denies palpitations PMFSH Past Medical History Medical History Hepatitis C HTN (hypertension) Diabetes mellitus Nausea & vomiting Peripheral neuropathy Insulin dependent type 2 diabetes mellitus Neuropathy Family History Family History Father Diabetes mellitus Mother Diabetes mellitus Other Substance use disorder Surgical History Surgical History No pertinent past surgical history Social History Social History Household Members: None Housing: Apartment Housing Other:: pt states it is like a group home Do you presently have visiting nurse or other home services: No Alcohol intake: former Patient Tobacco Use Status: Never used Tobacco e-Cigarette/Vaping Use: Never Used Second Hand Smoke Exposure: No Substance Use Type: Marijuana service: No Current occupational status: retired Gender identity: Male Cognitive needs: No Hearing needs: No Vision needs: Yes (Glasses) Meds Allergies Allergy/AdvReac Type Severity Reaction Status Date / Time lisinopril AdvReac Severe cough Verified 03/18/25 10:54 Active Medications: Current Medications Acetaminophen (Acetaminophen 325 Mg Tablet) 650 mg PO Q6H PRN PRN Reason: Pain, Mild 1-3,fever,headache Amlodipine Besylate (Amlodipine Besylate 10 Mg Tablet) 10 mg PO DAILY [facility]; Protocol Last Admin: 03/22/25 09:40 Dose: 10 mg Calcium Carbonate (Calcium Carbonate 750 Mg Tab.Chew) 750 mg PO Q4H PRN PRN Reason: Heartburn Carvedilol (Carvedilol 3.125 Mg Tablet) 3.125 mg PO DAILY [facility]; Protocol Last Admin: 03/22/25 09:41 Dose: 3.125 mg Ceftriaxone Sodium (Ceftriaxone Sodium 1 Gm Vial) 1 gm IVPUSH Q24H DO Last Admin: 03/21/25 16:16 Dose: 1 gm Dextrose (Dextrose 50 % 25 Gm/50 Ml Syringe) 25 gm IVPUSH Q15M PRN; Protocol PRN Reason: per Hypoglycemia Standing Ord. Enoxaparin Sodium (Enoxaparin Sodium 80 Mg/0.8 Ml Syringe) 80 mg 1 mg/kg (80 mg) SUBCUT Q12H [facility] Last Admin: 03/22/25 01:51 Dose: 80 mg Furosemide (Furosemide 20 Mg Tablet) 20 mg PO DAILY [facility]; Protocol Last Admin: 03/22/25 09:41 Dose: 20 mg Glucose (Glucose Gel 15 Gm Gel..Gram.) 15 gm PO Q15M PRN; Protocol PRN Reason: per Hypoglycemia Standing Ord. Doxycycline Hyclate 100 mg/ (Sodium Chloride) 250 mls @ 166.67 mls/hr IV Q12H [facility] Last Infusion: 03/22/25 05:44 Dose: Infused Insulin Glargine (Insulin Glargine,Hum.Rec.Anlog 100 Unit/Ml 10 Ml Vial) 12 unit SUBCUT BEDTIME [facility] Last Admin: 03/21/25 20:33 Dose: 12 unit Insulin Human Lispro (Insulin Lispro 100 Unit/Ml 3 Ml Vial) 0 unit SUBCUT QIDACHS [facility]; Protocol Last Admin: 03/22/25 08:09 Dose: Not Given Lorazepam (Lorazepam 0.5 Mg Tablet) 0.5 mg PO Q8H PRN PRN Reason: Anxiety Last Admin: 03/22/25 09:40 Dose: 0.5 mg Magnesium Hydroxide (Milk Of Magnesia 30 Ml Oral.Susp) 30 ml PO DAILY PRN PRN Reason: Constipation Last Admin: 03/21/25 16:28 Dose: 30 ml Magnesium Oxide (Magnesium Oxide 400 Mg Tablet) 200 mg PO DAILY [facility] Last Admin: 03/22/25 09:41 Dose: 200 mg Melatonin (Melatonin 3 Mg Tablet) 6 mg PO BEDTIME PRN PRN Reason: Insomnia Oxycodone HCl (Oxycodone Hcl Immed Release 5 Mg Tablet) 10 mg PO Q4H PRN PRN Reason: Pain (Scale Score 7-10) Last Admin: 03/22/25 09:41 Dose: 10 mg Oxycodone HCl (Oxycodone Hcl Er 10 Mg Tab.Er.12h) 10 mg PO BID [facility] Sodium Chloride (0.9 % Sodium Chloride Flush 3 Ml Syringe) 3 ml IVFLUSH QSHIFT [facility] Last Admin: 03/22/25 09:41 Dose: 3 ml Spironolactone (Spironolactone 25 Mg Tablet) 50 mg PO DAILY [facility]; Protocol Last Admin: 03/22/25 09:41 Dose: 50 mg Home Medications ?Medication ?Instructions ?Recorded ?Confirmed ?Last Taken ?Type insulin aspart U-100 100 unit/mL 1 sliding scale dose subcut TIDAC 12/21/24 03/18/25 03/17/25 History (3 mL) subcutaneous pen (Novolog FlexPen U-100 Insulin aspart) carvedilol 3.125 mg tablet 3.125 mg PO DAILY 03/18/25 03/18/25 03/17/25 History insulin degludec 100 unit/mL (3 25 unit subcut BEDTIME 03/18/25 03/18/25 03/17/25 History mL) subcutaneous pen (Tresiba FlexTouch U-100 insulin) spironolactone 50 mg tablet 50 mg PO DAILY 03/18/2503/17/25 History Physical Exam 2 Vital Signs: Vital Signs: Last Vital Signs Temp 97.0 F 03/22/25 07:38 Pulse 86 03/22/25 07:38 Resp 20 03/22/25 07:38 BP 155/76 H 03/22/25 07:38 Pulse Ox 94 03/22/25 07:38 O2 Del Method Room Air 03/22/25 07:38 O2 Flow Rate 2 03/22/25 00:00 BMI result Body Mass Index 26.9 Const: General: cooperative, comfortable, no acute distress, alert, awake and anxious Nutritional Appearance: average body habitus O rientation/consciousness: patient oriented x3 HEENT: Head: Yes normocephalic and Yes atraumatic Neck: Neck: Yes trachea midline, Yes supple and Yes no JVD Resp: Effort & Inspection: normal respiratory effort Auscultation: clear to auscultation bilaterally Cardio: Jugular venous distension: no JVD Rate: regular rate Rhythm: r egular rhythm Heart sounds: S1 normal heart sound present, S2 normal heart sound present, no click, no gallops and no murmurs GI: Auscultation: normal bowel sounds Skin: General skin exam: no rashes or lesions noted Neuro: General: patient oriented x3 and no focal motor deficits Extrem: General: Yes no clubbing, cyanosis or edema Psych: Appearance: grossly normal Objective Labs and Meds 03/22/25 07:44 03/19/25 06:47 Lab results: Laboratory Results - last 24 hr 03/21/25 03/21/25 03/21/25 11:14 11:14 11:25 WBC RBC Hgb Hct MCV MCH MCHC RDW Plt Count MPV Absolute Nucleated RBC Nucleated RBC % (auto) POC Glucose 130 H Troponin I High Sens 225.2 H* D Cancelled 03/21/25 03/21/25 03/21/25 14:41 16:31 19:59 WBC RBC Hgb Hct MCV MCH MCHC RDW Plt Count MPV Absolute Nucleated RBC Nucleated RBC % (auto) POC Glucose 202 H 140 H Troponin I High Sens 218.3 H* 03/22/25 03/22/25 03/22/25 07:26 07:44 11:06 WBC 3.6 L RBC 4.21 L Hgb 12.6 L Hct 35.8 L MCV 85.0 MCH 29.9 MCHC 35.2 RDW 12.8 Plt Count 82 L MPV 11.4 Absolute Nucleated RBC 0.000 Nucleated RBC % (auto) 0.0 POC Glucose 87 208 H Troponin I High Sens Assessment and Plan (1) Elevated troponin: Status: Acute Elevated troponin in his elderly gentleman admitted with recurrent pulmonary embolism on low-dose anticoagulation could be most likely related to RV ischemia strain although echocardiogram does not show any heart AV dysfunction with significant pulmonary hypertension. Acute coronary syndrome is less likely has has no clear rise and fall. Patient did come in with symptoms exertional shortness of breath, lightheadedness chest pressure which could be related to his pneumonia as well as his pulmonary embolism. He said since started on treatment with full-dose Lovenox he is feeling better. Shortness of breath and lightheadedness have improved. He does not have any more chest pain. No EKGs were done yesterday although echocardiogram does not show any significant wall motion abnormality was suggestive of any stress-induced cardiomyopathy. He has a high likelihood of underlying coronary disease given his diabetes and hypertension although he has significant comorbidities including hepatocellular carcinoma as well as cirrhosis suddenly would significant thrombocytopenia that would probably limit treatment options in the future. Continue treatment for pulmonary embolism which itself presents a dilemma as he has significant thrombocytopenia and epistaxis age as well as the superior devices that makes him at very high risk for bleeding. Follow up with Hematology for the same. As outpatient if he continues to have recurrent chest discomfort despite adequate treatment may consider ischemic workup. Will sign of the case. Thank you for allowing me to partake in his care Procedures Date of Service Date of Service: 03/22/25
[2025-03-22] MEDS: oxyCODONE HCl ER 10 MG TAB.ER.12H PO ×2 (12:22→21:11)
--- NOTE | 2025-03-22 15:15 | MHC.CM.PN ---
EMR reviewed and per MD rounds, pt is not medically cleared for discharge due to management of PNA. This CM met with pt per his request to discuss discharge placement. Pt states he has no [facility] but [facility] to go. Pt is asking for assistance finding a place as he is trying hard to fight the cancer and states the homeless fpc is not an ideal place to live while battling cancer. This CM also received a call from BOUBACAR Spears at [facility], he states there are no [facility] respite beds available, and they are recommending a medical respite for him as he is a liability for them and lives on the second floor, and is frequently in a lot of pain. This CM placed a call to the [facility] medical respite and spoke to an employee there who stated there are no beds available in the foreseeable future as it is a 6 month program and all beds are full, there is also no wait list for the program. This CM placed a call to [facility], they state they are not able to accept pt due to his oxygen use. This CM placed a call to [facility], voicemail left, awaiting return call.
[2025-03-22 16:02] LABS: Glucose, Whole Blood 150 mg/dL (60-115)
[2025-03-22 20:13] LABS: Glucose, Whole Blood 230 mg/dL (60-115)
[2025-03-22] MEDS: Insulin Glargine,Hum.rec.anlog 100 UNIT/ML 10 ML VIAL 12 UNIT SUBCUT (21:10)
[2025-03-23] VITALS (7 sets, daily range): BP systolic 111–159; BP diastolic 56–80; PULSE 71–90; RESP 18–20; TEMP 36.3–37.2; O2SAT 92–99
[2025-03-23] MEDS: oxyCODONE HCl Immed Release 5 MG TABLET 10 MG PO ×3 (01:30→23:54)
[2025-03-23 07:49] LABS: Glucose, Whole Blood 85 mg/dL (60-115)
[2025-03-23 07:52] LABS: Hematocrit 32.3 % (42.0-52.0); Hemoglobin 10.9 g/dl (14.0-18.0); Mean Corpuscular HGB Conc 33.7 g/dl (31.0-36.0); Mean Corpuscular Hemoglobin 29.1 pg (27.0-33.0); Mean Corpuscular Volume 86.4 fL (80.0-98.0); NRBC Abs Auto 0.000 X10*3/uL (0.0-0.012); NRBC Pct Auto 0.0 /100WBC (0.0-0.2); Platelet Count 69 X10*3/uL (160-400); Red Blood Count 3.74 X10*6/uL (4.60-5.80); White Blood Count 2.3 X10*3/uL (4.8-10.8)
--- NOTE | 2025-03-23 08:08 | ECG_ITS ---
Test Reason : chest pressure Blood Pressure : */* mmHG Vent. Rate : 86 BPM Atrial Rate : 86 BPM P-R Int : 194 ms QRS Dur : 82 ms QT Int : 378 ms P-R-T Axes : 69 25 35 degrees QTcB Int : 452 ms Normal sinus rhythm Low voltage QRS Possible Anterolateral infarct (cited on or before 02-Dec-2015) Abnormal ECG When compared with ECG of 21-Mar-2025 14:34, Questionable change in initial forces of Lateral leads Referred By: Dilip Soria Electronically Signed By: IVETH MOE MD
[2025-03-23] MEDS: Nitroglycerin 2 % Oint 1 GM Packet 1 INCH TRANSDERMA (08:33)
[2025-03-23] MEDS: oxyCODONE HCl ER 10 MG TAB.ER.12H PO ×2 (08:34→20:37)
[2025-03-23] MEDS: 0.9 % Sodium Chloride Flush 3 ML SYRINGE IVFLUSH ×2 (08:35→15:14)
[2025-03-23 09:05] LABS: Troponin-I High Sensitivity 106.7 ng/L (<3.5-35.0)
[2025-03-23 09:21] LABS: B Type Natriuretic Peptide 213 pg/mL (<100)
--- NOTE | 2025-03-23 10:57 | HO.PM.IMPN ---
Subjective Subjective Date of Service: 03/23/25 Interval History: woke up again with shortness of breath and chest pressure; resolved legs a little swollen, R>L Review of Systems Review of Systems: Yes all other systems are reviewed and are negative Physical Exam Vital Signs: Vital Signs: Last Vital Signs Temp 98.2 F 03/23/25 07:46 Pulse 86 03/23/25 07:46 Resp 20 03/23/25 07:46 BP 153/75 H 03/23/25 07:46 Pulse Ox 99 03/23/25 07:46 O2 Del Method Nasal Cannula 03/23/25 07:46 O2 Flow Rate 2 03/23/25 07:46 BMI result Body Mass Index 26.9 Gen: in no acute distress HEENT: sclera anicteric, moist mucus membranes Neck: supple Lungs: clear Heart: regular rate and rhythm, no murmurs Abd: soft, non-tender, non-distended Ext: no edema Skin: warm/well-perfused Neuro: alert and oriented x3, no focal findings Psych: appropriate affect Objective Data Active Medications Acetaminophen (Acetaminophen 325 Mg Tablet) 650 mg PO Q6H PRN PRN Reason: Pain, Mild 1-3,fever,headache Amlodipine Besylate (Amlodipine Besylate 10 Mg Tablet) 10 mg PO DAILY DO; Protocol Last Admin: 03/23/25 08:34 Dose: 10 mg Documented By: CHANDLER Calcium Carbonate (Calcium Carbonate 750 Mg Tab.Chew) 750 mg PO Q4H PRN PRN Reason: Heartburn Carvedilol (Carvedilol 3.125 Mg Tablet) 3.125 mg PO DAILY DO; Protocol Last Admin: 03/23/25 08:34 Dose: 3.125 mg Documented By: CHANDLER Ceftriaxone Sodium (Ceftriaxone Sodium 1 Gm Vial) 1 gm IVPUSH Q24H DO Last Admin: 03/22/25 16:51 Dose: 1 gm Documented By: CHANDLER Dextrose (Dextrose 50 % 25 Gm/50 Ml Syringe) 25 gm IVPUSH Q15M PRN; Protocol PRN Reason: per Hypoglycemia Standing Ord. Doxycycline Monohydrate (Doxycycline Monohydrate 100 Mg Capsule) 100 mg PO Q12H DO Enoxaparin Sodium (Enoxaparin Sodium 80 Mg/0.8 Ml Syringe) 80 mg 1 mg/kg (80 mg) SUBCUT Q12H DO Last Admin: 03/23/25 01:30 Dose: 80 mg Documented By: VIVIEN Furosemide (Furosemide 20 Mg Tablet) 20 mg PO DAILY [facility]; Protocol On Hold: 03/23/25 10:57 Resume: 03/25/25 08:00 Last Admin: 03/23/25 08:35 Dose: 20 mg Documented By: CHANDLER Furosemide (Furosemide 40 Mg/4 Ml Vial) 20 mg IVPUSH BID@0900,1800 [facility]; Protocol Stop: 03/23/25 18:01 Glucose (Glucose Gel 15 Gm Gel..Gram.) 15 gm PO Q15M PRN; Protocol PRN Reason: per Hypoglycemia Standing Ord. Insulin Glargine (Insulin Glargine,Hum.Rec.Anlog 100 Unit/Ml 10 Ml Vial) 12 unit SUBCUT BEDTIME [facility] Last Admin: 03/22/25 21:10 Dose: 12 unit Documented By: VIVIEN Insulin Human Lispro (Insulin Lispro 100 Unit/Ml 3 Ml Vial) 0 unit SUBCUT QIDACHS [facility]; Protocol Last Admin: 03/23/25 08:25 Dose: Not Given Documented By: CHANDLER Non-Admin Reason: No Insulin Coverage Lorazepam (Lorazepam 0.5 Mg Tablet) 0.5 mg PO Q8H PRN PRN Reason: Anxiety Last Admin: 03/23/25 10:24 Dose: 0.5 mg Documented By: CHANDLER Magnesium Hydroxide (Milk Of Magnesia 30 Ml Oral.Susp) 30 ml PO DAILY PRN PRN Reason: Constipation Last Admin: 03/21/25 16:28 Dose: 30 ml Documented By: CHANDLER Magnesium Oxide (Magnesium Oxide 400 Mg Tablet) 200 mg PO DAILY [facility] Last Admin: 03/23/25 08:35 Dose: 200 mg Documented By: CHANDLER Melatonin (Melatonin 3 Mg Tablet) 6 mg PO BEDTIME PRN PRN Reason: Insomnia Oxycodone HCl (Oxycodone Hcl Immed Release 5 Mg Tablet) 10 mg PO Q4H PRN PRN Reason: Pain (Scale Score 7-10) Last Admin: 03/23/25 01:30 Dose: 10 mg Documented By: VIVIEN Oxycodone HCl (Oxycodone Hcl Er 10 Mg Tab.Er.12h) 10 mg PO BID [facility] Last Admin: 03/23/25 08:34 Dose: 10 mg Documented By: CHANDLER Sodium Chloride (0.9 % Sodium Chloride Flush 3 Ml Syringe) 3 ml IVFLUSH QSHIFT [facility] Last Admin: 03/23/25 08:35 Dose: 3 ml Documented By: CHANDLER Spironolactone (Spironolactone 25 Mg Tablet) 50 mg PO DAILY [facility]; Protocol Last Admin: 03/23/25 08:34 Dose: 50 mg Documented By: CHANDLER Labs 03/23/25 07:20 03/19/25 06:47 Labs: Laboratory Results - last 24 hr 03/22/25 03/22/25 03/22/25 11:06 15:59 19:53 MCV MCH MCHC RDW Plt Count MPV Absolute Nucleated RBC Nucleated RBC % (auto) POC Glucose 208 H 150 H 230 H B-Natriuretic Peptide 03/23/25 03/23/25 07:20 07:45 MCV 86.4 MCH 29.1 MCHC 33.7 RDW 12.9 Plt Count 69 L MPV 11.2 Absolute Nucleated RBC 0.000 Nucleated RBC % (auto) 0.0 POC Glucose 85 B-Natriuretic Peptide 213 H Assessment and Plan (1) Pulmonary embolism: Status: Acute Plan d6, 70yo M with EtOH cirrhosis with varices + thrombocytopenia, HCC on immunotherapy, portal vein thrombosis, prior PE anticoagulated with reduced-dose apixaban presented with dyspnea, found to have breakthrough PE acute/breakthrough PE involving subsegmental pulmonary artery branches of the right lower lung lobe - therapeutic enoxaparin, Heme/Onc consulted and recommends 5 mg apixaban upon discharge, TTE without significant RV dysfunction; continue to monitor CBC periodically as outptgiven thrombocytopenia - TTE 03/19/25: 1. Normal LV ejection fraction of 65-70% with mild LVH with impaired relaxation filling pattern 2. Severely dilated left atrium 3. Calcific aortic valve changes noted with mild aortic stenosis 4. At least moderate mitral regurgitation could be underestimated 5. Upper limits of normal ascending aortic size 6. Upper limits normal RV systolic pressure 7. No gross pericardial effusion multifocal PNA - 03/18- doxycycline + ceftriaxone, end treatment 03/25 [complete with cefuroxime] chest pressure troponin elevation acute/chronic HFpEF - likely related to PE + PNA causing demand; TTE without WMAs - will give a few doses of IV furosemide as he appears slightly overloaded and some of the symptoms may relate to fluid overload acute hypoxic respiratory failure - needs 2L O2 at night, should also have outpt PSG HCC cirrhosis + ascites esophageal varices - on immunotherapy, followed by Dr Potts, next cycle 04/05 but needs restaging prior - continue spironolactone + furosemide - continue carvedilol - continue chronic opioid therapy for CA-associated pain; changed MS Contin to Oxycontin DM2 - basal-bolus insulin HTN - amlodipine, carvedilol VTE ppx - therapeutic enoxaparin dispo - PT eval: does not qualify for services In my clinical judgment, the patient requires continued inpatient hospitalization for the following reasons: IV diuresis Total time managing care of this patient today: 40 minutes. Quality Stroke Does the patient have a stroke diagnosis?: No VTE Prior VTE?: Yes VTE Risk Level:: Medical - moderate - high VTE Device Contraindication: Treatment Not Indicated VTE Drug Contraindication: N/A - Med Ordered
[2025-03-23 11:52] LABS: Glucose, Whole Blood 150 mg/dL (60-115)
[2025-03-23] MEDS: Furosemide 40 MG/4 ML VIAL 20 MG IVPUSH ×2 (12:04→19:08)
--- NOTE | 2025-03-23 12:42 | PM.HEMONCPN ---
Medical Summary - Medical Summary Date of Service: 03/23/25 Chief complaint: Shortness of breath Primary Care Provider: MARTA Walker Medical Summary: DIAGNOSIS: 1. RECURRENT PE. 2. HCC. Vp Human Resources Utilized?: No - Nepali Speaking Interval History Interval history: Damian Strauss is a 70 year old gentleman, with a history of liver cirrhosis, hepatocellular carcinoma, 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 He states for the past 3 days he has not been feeling well. He has reported shortness of breath with no significant cough. He is reporting chills no fever. He reports chronic abdominal pain with no associated nausea or vomiting. He does take chronic narcotics at baseline due to underlying hepatocellular carcinoma which he states is the source of his abdominal pain. In the emergency department he underwent a CTA which was positive for acute pulmonary artery emboli involving mostly subsegmental pulmonary artery branches of the right lower lobe. Also showing multifocal pneumonia. Patient does have history of previous PE and has been on Eliquis. Recently his Eliquis was reduced from 5 mg twice daily to 2.5 mg twice daily which seems to be due to worsening thrombocytopenia and daily nose-bleeds. In the emergency department patient received a dose of Lovenox. Of note patient was not hypoxic, bedside echocardiogram as per emergency room provider showed no RV strain. Troponin 24.6, lower than previous. BNP 335, but did not appear volume overloaded. Review of Systems Review of Systems: Yes all other systems are reviewed and are negative Constitutional: Constitutional: Reports chills and Denies fever(s) Cardiovascular: Cardiovascular: Denies chest pain, Denies palpitations and Reports dyspnea Respiratory: Respiratory: Denies cough and Reports dyspnea Gastrointestinal: Gastrointestinal: Reports abdominal pain, Reports constipation, Denies nausea and Denies vomiting Endocrine: Endocrine: Denies palpitations [facility] Medical History: Hepatitis C HTN (hypertension) Diabetes mellitus Nausea & vomiting Peripheral neuropathy Insulin dependent type 2 diabetes mellitus Neuropathy. Surgical History:) No pertinent past surgical history. Family History:) Father Diabetes mellitus Mother Diabetes mellitus Other Substance use disorder Social History:) Household Members: Friend(s) Housing: Homeless Do you presently have visiting nurse or other home services: No Alcohol intake: former Patient Tobacco Use Status: Never used Tobacco Smoked in Last 30 Days: No e-Cigarette/Vaping Use: Never Used Second Hand Smoke Exposure: No Use of substances other than those prescribed or required for medical reasons: Yes Substance Use Type: Marijuana Substance Use Frequency: Occasionally Review of Systems - Neurologic Reports no additional neurologic complaints [facility] Medical History: Medical History (Last Reviewed 03/22/25 @ 11:18 by Felipe Arroyo MD) Diabetes mellitus Hepatitis C HTN (hypertension) Insulin dependent type 2 diabetes mellitus Nausea & vomiting Neuropathy Peripheral neuropathy Functional capacity: uses cane/walker Family History: Family History (Last Reviewed 03/22/25 @ 11:18 by Felipe Arroyo MD) Father Diabetes mellitus Mother Diabetes mellitus Other Substance use disorder Surgical History: Surgical History (Last Reviewed 03/22/25 @ 11:18 by Felipe Arroyo MD) No pertinent past surgical history Social History: Social History (Last Reviewed 03/22/25 @ 11:18 by Felipe Arroyo MD) Living Situation History: Household Members: None Housing: Apartment Housing Other:: pt states it is like a [facility]cfp Do you presently have visiting nurse or other home services: No Tobacco History: Patient Tobacco Use Status: Never used Tobacco e-Cigarette/Vaping Use: Never Used Second Hand Smoke Exposure: No Substance Use History: Substance Use Type: Marijuana Occupation Assessmet: service: No Current occupational status: retired Sex/Gender Assessment: Gender identity: Male Home Medications and Allergies Current Medications: Current Medications Acetaminophen (Acetaminophen 325 Mg Tablet) 650 mg PO Q6H PRN PRN Reason: Pain, Mild 1-3,fever,headache Amlodipine Besylate (Amlodipine Besylate 10 Mg Tablet) 10 mg PO DAILY [facility]; Protocol Last Admin: 03/23/25 08:34 Dose: 10 mg Calcium Carbonate (Calcium Carbonate 750 Mg Tab.Chew) 750 mg PO Q4H PRN PRN Reason: Heartburn Carvedilol (Carvedilol 3.125 Mg Tablet) 3.125 mg PO DAILY DO; Protocol Last Admin: 03/23/25 08:34 Dose: 3.125 mg Ceftriaxone Sodium (Ceftriaxone Sodium 1 Gm Vial) 1 gm IVPUSH Q24H DO Last Admin: 03/22/25 16:51 Dose: 1 gm Dextrose (Dextrose 50 % 25 Gm/50 Ml Syringe) 25 gm IVPUSH Q15M PRN; Protocol PRN Reason: per Hypoglycemia Standing Ord. Doxycycline Monohydrate (Doxycycline Monohydrate 100 Mg Capsule) 100 mg PO Q12H [facility] Enoxaparin Sodium (Enoxaparin Sodium 80 Mg/0.8 Ml Syringe) 80 mg 1 mg/kg (80 mg) SUBCUT Q12H [facility] Last Admin: 03/23/25 12:04 Dose: 80 mg Furosemide (Furosemide 20 Mg Tablet) 20 mg PO DAILY [facility]; Protocol On Hold: 03/23/25 10:57 Resume: 03/25/25 08:00 Last Admin: 03/23/25 08:35 Dose: 20 mg Furosemide (Furosemide 40 Mg/4 Ml Vial) 20 mg IVPUSH BID@0900,1800 [facility]; Protocol Stop: 03/23/25 18:01 Last Admin: 03/23/25 12:04 Dose: 20 mg Glucose (Glucose Gel 15 Gm Gel..Gram.) 15 gm PO Q15M PRN; Protocol PRN Reason: per Hypoglycemia Standing Ord. Insulin Glargine (Insulin Glargine,Hum.Rec.Anlog 100 Unit/Ml 10 Ml Vial) 12 unit SUBCUT BEDTIME [facility] Last Admin: 03/22/25 21:10 Dose: 12 unit Insulin Human Lispro (Insulin Lispro 100 Unit/Ml 3 Ml Vial) 0 unit SUBCUT QIDACHS [facility]; Protocol Last Admin: 03/23/25 11:59 Dose: Not Given Lorazepam (Lorazepam 0.5 Mg Tablet) 0.5 mg PO Q8H PRN PRN Reason: Anxiety Last Admin: 03/23/25 10:24 Dose: 0.5 mg Magnesium Hydroxide (Milk Of Magnesia 30 Ml Oral.Susp) 30 ml PO DAILY PRN PRN Reason: Constipation Last Admin: 03/21/25 16:28 Dose: 30 ml Magnesium Oxide (Magnesium Oxide 400 Mg Tablet) 200 mg PO DAILY [facility] Last Admin: 03/23/25 08:35 Dose: 200 mg Melatonin (Melatonin 3 Mg Tablet) 6 mg PO BEDTIME PRN PRN Reason: Insomnia Oxycodone HCl (Oxycodone Hcl Immed Release 5 Mg Tablet) 10 mg PO Q4H PRN PRN Reason: Pain (Scale Score 7-10) Last Admin: 03/23/25 01:30 Dose: 10 mg Oxycodone HCl (Oxycodone Hcl Er 10 Mg Tab.Er.12h) 10 mg PO BID [facility] Last Admin: 03/23/25 08:34 Dose: 10 mg Sodium Chloride (0.9 % Sodium Chloride Flush 3 Ml Syringe) 3 ml IVFLUSH QSHIFT [facility] Last Admin: 03/23/25 08:35 Dose: 3 ml Spironolactone (Spironolactone 25 Mg Tablet) 50 mg PO DAILY [facility]; Protocol Last Admin: 03/23/25 08:34 Dose: 50 mg Home Medications ?Medication ?Instructions ?Recorded ?Confirmed ?Type insulin aspart U-100 100 unit/mL 1 sliding scale dose subcut TIDAC 12/21/24 03/18/25 History (3 mL) subcutaneous pen (Novolog FlexPen U-100 Insulin aspart) carvedilol 3.125 mg tablet 3.125 mg PO DAILY 03/18/25 03/18/25 History insulin degludec 100 unit/mL (3 25 unit subcut BEDTIME 03/18/25 03/18/25 History mL) subcutaneous pen (Tresiba FlexTouch U-100 insulin) spironolactone 50 mg tablet 50 mg PO DAILY 03/18/25 03/18/25 History Allergies Allergy/AdvReac Type Severity Reaction Status Date / Time lisinopril AdvReac Severe cough Verified 03/18/25 10:54 Exam Vital signs: Vital Signs Temp 99 F 03/23/25 11:19 Pulse 71 03/23/25 11:19 Resp 20 03/23/25 11:19 BP 111/56 L 03/23/25 11:19 Pulse Ox 96 03/23/25 11:19 O2 Del Method Nasal Cannula 03/23/25 11:19 O2 Flow Rate 2 03/23/25 11:19 Intake & Output 03/22/25 03/23/25 03/23/25 18:59 06:59 18:59 Intake Total 720 / 1220 500 / 1220 Output Total Balance 720 / 1219 499 / 1219 Urine Output (Average ml/kg/hr) 0.00 0.00 Intake: Intake, Oral Amount 720 / 720 Intake, IV Amount 500 / 500 Doxycycline Hyclate 100 mg In 0 500 / 500 .9 % Sodium Chloride 250 ml @ 166.67 mls/hr IV Q12H [facility] Rx#: [id number] Output: Output, Urine Amount Other: Breakfast % Eaten 100% Lunch % Eaten 100% Number of Unmeasured Voids 2 Urine Bathroom Last Bowel Movement 03/21/25 03/22/25 Weight 80.2 kg BMI result Body Mass Index 26.9 - Constitutional Present: mild distress - Routine HEENT Exam Head: Present: normal inspection, normocephalic Data - Labs CBC & Chem 7: 03/23/25 07:20 03/19/25 06:47 Labs: Laboratory Last Values WBC 2.3 X10*3/uL (4.8-10.8) L 03/23/25 07:20 RBC 3.74 X10*6/uL (4.60-5.80) L 03/23/25 07:20 Hgb 10.9 g/dl (14.0-18.0) L 03/23/25 07:20 Hct 32.3 % (42.0-52.0) L 03/23/25 07:20 MCV 86.4 fL (80.0-98.0) 03/23/25 07:20 MCH 29.1 pg (27.0-33.0) 03/23/25 07:20 MCHC 33.7 g/dl (31.0-36.0) 03/23/25 07:20 RDW 12.9 % (11.0-16.0) 03/23/25 07:20 Plt Count 69 X10*3/uL (160-400) L 03/23/25 07:20 MPV 11.2 fL (9.4-12.4) 03/23/25 07:20 Immature Gran % (Auto) 0.3 % (0.0-0.4) 03/19/25 06:47 Neut % (Auto) 70.0 % (45-73) 03/19/25 06:47 Lymph % (Auto) 14.2 % (20-40) L 03/19/25 06:47 [place] % (Auto) 13.0 % (2-11) H 03/19/25 06:47 Eos % (Auto) 1.9 % (0-4) 03/19/25 06:47 Baso % (Auto) 0.6 % (0-2) 03/19/25 06:47 Lymph # (Auto) 0.5 X10*3/uL (1.2-4.9) L 03/19/25 06:47 [place] # (Auto) 0.4 X10*3/uL (0.1-1.2) 03/19/25 06:47 Eos # (Auto) 0.1 X10*3/uL (0.0-0.4) 03/19/25 06:47 Baso # (Auto) 0.0 X10*3/uL (0.0-0.2) 03/19/25 06:47 Abs Immat Gran (auto) 0.01 X10*3/uL (0.00-0.03) 03/19/25 06:47 Absolute Neuts (auto) 2.3 x10*3/uL (2.0-8.3) 03/19/25 06:47 Absolute Nucleated RBC 0.000 X10*3/uL (0.0-0.012) 03/23/25 07:20 Nucleated RBC % (auto) 0.0 /100WBC (0.0-0.2) 03/23/25 07:20 PT 15.0 SEC (10.9-12.4) H 03/19/25 12:56 INR 1.3 (0.9-1.1) H 03/19/25 12:56 APTT 37.5 SEC (26.7-34.1) H 03/18/25 13:39 Hold Blue Top SEE NOTE 03/18/25 15:33 Sodium 138 mmol/L (135-145) 03/19/25 06:47 Potassium 3.7 mmol/L (3.3-5.1) 03/19/25 06:47 Chloride 106 mmol/L (96-108) 03/19/25 06:47 Carbon Dioxide 24 mmol/L (22-29) 03/19/25 06:47 Anion Gap 12 (12-20) 03/19/25 06:47 BUN 32 mg/dL (9-16) H 03/19/25 06:47 Creatinine 1.00 mg/dL (0.5-1.4) 03/19/25 06:47 Estim Creat Clear Calc 68.4 03/19/25 06:47 Estimated GFR > 60 03/19/25 06:47 POC Glucose 150 mg/dL (60-115) H 03/23/25 11:45 Random Glucose 102 mg/dL (60-115) 03/19/25 06:47 Calcium 8.7 mg/dL (8.4-10.2) D 03/19/25 06:47 Magnesium 1.6 mg/dL (1.6-2.6) 03/18/25 10:40 Troponin I High Sens 106.7 ng/L (<3.5-35.0) H* D 03/23/25 08:16 B-Natriuretic Peptide 213 pg/mL (<100) H 03/23/25 07:20 Procalcitonin 0.09 ng/mL 03/21/25 07:10 COVID-19 (SAM) Negative (Negative) 03/18/25 10:38 COVID-19 Clin Com See Note 03/18/25 10:38 Influenza Type A (SANDRITA) Negative (Negative) 03/18/25 10:38 Influenza Type B (SANDRITA) Negative (Negative) 03/18/25 10:38 Influenza A & B Note See Note 03/18/25 10:38 - Imaging Radiologist's impression: ITS Impressions Chest X-Ray 03/18/25 09:50 IMPRESSION: 1. Increased nodular opacities in the right mid and upper lung suggestive of metastases versus pneumonia in the appropriate clinical setting. Recommend radiographic follow-up. Electronically signed by: Roderick Martinez MD 03/18/2025 11:00 AM EDT RP Chest CTA 03/18/25 12:17 IMPRESSION: Positive exam for acute pulmonary artery emboli involving mostly subsegmental pulmonary artery branches right lower lung lobe. Multifocal pneumonia, right lung and multiple noncalcified less than 1 cm pulmonary nodules, right lung concerning for metastasis. Probable varices, gastroesophageal junction. Cirrhosis and small moderate amount of ascites likely related to portal hypertension. Findings were communicated to the emergency physician Moe Blackmon at 12:50 PM on March 18, 2025. Fleischner guidelines were followed. Electronically signed by: Avel Anderson MD 03/18/2025 01:00 PM EDT RP Chest X-Ray 03/23/25 10:05 IMPRESSION: Overall no gross change. Please refer to the CT chest findings from March 18, 2025. Electronically signed by: Avel Anderson MD 03/23/2025 10:40 AM EDT RP Assessment and Plan Patient Active problem list reviewed?: Yes (1) HCC (hepatocellular carcinoma) Status: Acute Assessment and plan: 1. This is a 70-year-old gentleman with a history of HCC on immunotherapy who has been admitted for pneumonia and acute pulmonary embolism. He has been started on systemic therapy with durvalumab plus tremelimumab on 08/24/24. He received cycle number 8 on 03/08. He was on his way to go for MRI abdomen for restaging but he felt very weak and MRI technicians sent him to the emergency department. Because of shortness of breath, cough and chills he underwent CT angiogram which was positive for acute PE mostly subsegmental in the right lower lobe. He also had multifocal pneumonia. He was started on Lovenox and antibiotics. He can be switched to apixaban 5 mg b.i.d. at the time of discharge. I did discuss with the patient that he will need follow-up outpatient imaging and because there is evidence that his cancer is progressing his treatment would have to be changed as well. Thank you for the consultation. - Time Spent With Patient Time Spent with Patient (in minutes): 15 Additional Coding: - Additional E/M codes Complex E/M visit Add On: CPT G2211
[2025-03-23 16:15] LABS: Glucose, Whole Blood 196 mg/dL (60-115)
[2025-03-23 20:33] LABS: Glucose, Whole Blood 208 mg/dL (60-115)
[2025-03-23] MEDS: Insulin Glargine,Hum.rec.anlog 100 UNIT/ML 10 ML VIAL 12 UNIT SUBCUT (20:39)
[2025-03-24] MEDS: 0.9 % Sodium Chloride Flush 3 ML SYRINGE IVFLUSH ×3 (00:08→16:57)
[2025-03-24 04:00] VITALS: BP 139/65; PULSE 74; RESP 20; TEMP 36.7; O2SAT 95
[2025-03-24 07:21] LABS: Glucose, Whole Blood 118 mg/dL (60-115)
[2025-03-24 07:44] LABS: Anion Gap 16 (12-20); Blood Urea Nitrogen 39 mg/dL (9-16); Calcium 9.2 mg/dL (8.4-10.2); Carbon Dioxide 23 mmol/L (22-29); Chloride 102 mmol/L (96-108); Creatinine Clr Calc Pharmacy 57.0; Estimated Glomerular Filt Rate > 60; Potassium 4.0 mmol/L (3.3-5.1); Sodium 137 mmol/L (135-145)
[2025-03-24 07:49] VITALS: BP 131/81; PULSE 89; RESP 20; TEMP 36.2; O2SAT 99
[2025-03-24] MEDS: oxyCODONE HCl ER 10 MG TAB.ER.12H PO ×2 (08:28→20:21)
[2025-03-24 11:17] LABS: Glucose, Whole Blood 224 mg/dL (60-115)
[2025-03-24 11:33] VITALS: BP 135/74; PULSE 82; RESP 20; TEMP 36.8; O2SAT 97
[2025-03-24] MEDS: oxyCODONE HCl Immed Release 5 MG TABLET 10 MG PO ×2 (13:20→23:39)
--- NOTE | 2025-03-24 14:35 | MHC.CM.PN ---
CM met with pt. to discuss DCP. He lives in a longterm run by [facility]. He complained that it is not a good place for him. When CM explained that he can look into transferring to a rest home, but the process takes a while, so he would go back to the longterm and arrange for this from there, he yelled, insisting that CM could find him a place to live where people could take care of him. He was eval by PT, he does not need services. He walks independently, uses his phone, talks without problem. DCP: return to the longterm, CM to provided phone #s of 2 area rest homes to him. Pt. said he has Medicaid, CM asked for card or #, he said he does not know where this is.
--- NOTE | 2025-03-24 14:39 | P.PNIM_ITS ---
Subjective Subjective Date of Service: 03/24/25 Interval History: No acute issues overnight. Review of Systems Denies chest pain Denies shortness of breath Denies nausea vomiting diarrhea Denies fever chills Physical Exam 2 Vital Signs: Vital Signs: Last Vital Signs Temp 98.3 F 03/24/25 11:33 Pulse 82 03/24/25 11:33 Resp 20 03/24/25 11:33 BP 135/74 03/24/25 11:33 Pulse Ox 97 03/24/25 11:33 O2 Del Method Room Air 03/24/25 11:33 O2 Flow Rate 2 03/23/25 20:00 BMI result Body Mass Index 26.9 Const: Other: Awake alert no acute distress Resp: Other: Clear to auscultation bilaterally no rales rhonchi or wheezes Cardio: Other: No S4; positive S1-S2; no S3 murmurs rubs or gallops GI: Other: Soft nontender nondistended normoactive bowel sounds Extrem: Other: No edema bilaterally Objective Data Active Medications Acetaminophen (Acetaminophen 325 Mg Tablet) 650 mg PO Q6H PRN PRN Reason: Pain, Mild 1-3,fever,headache Amlodipine Besylate (Amlodipine Besylate 10 Mg Tablet) 10 mg PO DAILY [facility]; Protocol Last Admin: 03/24/25 08:27 Dose: 10 mg Documented By: OSMAN Bisacodyl (Bisacodyl 5 Mg Tablet.Dr) 10 mg PO BEDTIME [facility] Last Admin: 03/24/25 08:56 Dose: 10 mg Documented By: OSMAN Calcium Carbonate (Calcium Carbonate 750 Mg Tab.Chew) 750 mg PO Q4H PRN PRN Reason: Heartburn Carvedilol (Carvedilol 3.125 Mg Tablet) 3.125 mg PO DAILY [facility]; Protocol Last Admin: 03/24/25 08:27 Dose: 3.125 mg Documented By: OSMAN Ceftriaxone Sodium (Ceftriaxone Sodium 1 Gm Vial) 1 gm IVPUSH Q24H DO Last Admin: 03/23/25 15:14 Dose: 1 gm Documented By: CHANDLER Dextrose (Dextrose 50 % 25 Gm/50 Ml Syringe) 25 gm IVPUSH Q15M PRN; Protocol PRN Reason: per Hypoglycemia Standing Ord. Doxycycline Monohydrate (Doxycycline Monohydrate 100 Mg Capsule) 100 mg PO Q12H [facility] Last Admin: 03/24/25 01:57 Dose: 100 mg Documented By: MELY Enoxaparin Sodium (Enoxaparin Sodium 80 Mg/0.8 Ml Syringe) 80 mg 1 mg/kg (80 mg) SUBCUT Q12H [facility] Last Admin: 03/24/25 13:20 Dose: 80 mg Documented By: OSMAN Furosemide (Furosemide 20 Mg Tablet) 20 mg PO DAILY [facility]; Protocol On Hold: 03/23/25 10:57 Resume: 03/25/25 08:00 Last Admin: 03/23/25 08:35 Dose: 20 mg Documented By: CHANDLER Glucose (Glucose Gel 15 Gm Gel..Gram.) 15 gm PO Q15M PRN; Protocol PRN Reason: per Hypoglycemia Standing Ord. Insulin Glargine (Insulin Glargine,Hum.Rec.Anlog 100 Unit/Ml 10 Ml Vial) 12 unit SUBCUT BEDTIME [facility] Last Admin: 03/23/25 20:39 Dose: 12 unit Documented By: MELY Insulin Human Lispro (Insulin Lispro 100 Unit/Ml 3 Ml Vial) 0 unit SUBCUT QIDACHS [facility]; Protocol Last Admin: 03/24/25 11:53 Dose: 4 unit Documented By: OSMAN Lorazepam (Lorazepam 0.5 Mg Tablet) 0.5 mg PO Q8H PRN PRN Reason: Anxiety Last Admin: 03/24/25 01:58 Dose: 0.5 mg Documented By: MELY Magnesium Hydroxide (Milk Of Magnesia 30 Ml Oral.Susp) 30 ml PO DAILY PRN PRN Reason: Constipation Last Admin: 03/21/25 16:28 Dose: 30 ml Documented By: CHANDLER Magnesium Oxide (Magnesium Oxide 400 Mg Tablet) 200 mg PO DAILY [facility] Last Admin: 03/24/25 08:27 Dose: 200 mg Documented By: OSMAN Melatonin (Melatonin 3 Mg Tablet) 6 mg PO BEDTIME PRN PRN Reason: Insomnia Oxycodone HCl (Oxycodone Hcl Immed Release 5 Mg Tablet) 10 mg PO Q4H PRN PRN Reason: Pain (Scale Score 7-10) Last Admin: 03/24/25 13:20 Dose: 10 mg Documented By: OSMAN Oxycodone HCl (Oxycodone Hcl Er 10 Mg Tab.Er.12h) 10 mg PO BID [facility] Last Admin: 03/24/25 08:28 Dose: 10 mg Documented By: OSMAN Sodium Chloride (0.9 % Sodium Chloride Flush 3 Ml Syringe) 3 ml IVFLUSH QSHIFT [facility] Last Admin: 03/24/25 08:33 Dose: 3 ml Documented By: OSMAN Sodium Chloride (Sodium Chloride 0.65 % Nasal 44 Ml Sprbtl) 1 spray NOSTRIL-B Q1H PRN PRN Reason: congestion Spironolactone (Spironolactone 25 Mg Tablet) 50 mg PO DAILY [facility]; Protocol Last Admin: 03/24/25 08:28 Dose: 50 mg Documented By: OSMAN Labs 03/23/25 07:20 03/24/25 07:07 Labs: Laboratory Results - last 24 hr 03/23/25 03/23/25 03/24/25 15:51 20:22 07:07 Anion Gap 16 Estim Creat Clear Calc 57.0 Estimated GFR > 60 POC Glucose 196 H 208 H Random Glucose 118 H Calcium 9.2 03/24/25 03/24/25 07:17 11:09 Anion Gap Estim Creat Clear Calc Estimated GFR POC Glucose 118 H 224 H Random Glucose Calcium Assessment and Plan (1) Pulmonary embolism: Status: Acute (2) HCC (hepatocellular carcinoma): Status: Acute Plan d6, 70yo M with EtOH cirrhosis with varices + thrombocytopenia, HCC on immunotherapy, portal vein thrombosis, prior PE anticoagulated with reduced-dose apixaban presented with dyspnea, found to have breakthrough PE 1.Acute/breakthrough PE involving subsegmental pulmonary artery branches of the right lower lung lobe - therapeutic enoxaparin, Heme/Onc consulted and recommends 5 mg apixaban upon discharge, TTE without significant RV dysfunction; continue to monitor CBC periodically as outptgiven thrombocytopenia - TTE 03/19/25: 1. Normal LV ejection fraction of 65-70% with mild LVH with impaired relaxation filling pattern 2. Severely dilated left atrium 3. Calcific aortic valve changes noted with mild aortic stenosis 4. At least moderate mitral regurgitation could be underestimated 5. Upper limits of normal ascending aortic size 6. Upper limits normal RV systolic pressure 7. No gross pericardial effusion 2.Multifocal PNA - 03/18- doxycycline + ceftriaxone, end treatment 03/25 [complete with cefuroxime] 3.Acute hypoxic respiratory failure - needs 2L O2 at night, should also have outpt PSG 4.HCC cirrhosis + ascites esophageal varices - on immunotherapy, followed by Dr Potts, next cycle 04/05 but needs restaging prior - continue spironolactone + furosemide - continue carvedilol - continue chronic opioid therapy for CA-associated pain; changed MS Contin to Oxycontin In my clinical judgment, the patient requires continued inpatient hospitalization for the following reasons placement Quality Stroke Does the patient have a stroke diagnosis?: No VTE Prior VTE?: Yes VTE Risk Level:: Medical - moderate - high VTE Device Contraindication: Treatment Not Indicated VTE Drug Contraindication: N/A - Med Ordered
[2025-03-24 15:36] VITALS: BP 125/61; PULSE 79; RESP 20; TEMP 36.9; O2SAT 97
[2025-03-24 15:49] LABS: Glucose, Whole Blood 178 mg/dL (60-115)
--- NOTE | 2025-03-24 18:58 | PC.NURSE ---
Patient requested stool softeners, did not want MOM, stated dulcolax works best, provider notified and medication ordered. Patient has been using IS, O2 sat's above 95 on 1L NC, patient uses supplemental O2 PRN. Patient reported anxiety but refused to take ativan, provider notified, atarax ordered and administered with good effect.
[2025-03-24 19:00] VITALS: BP 129/60; PULSE 83; RESP 19; TEMP 37.3; O2SAT 96
[2025-03-24 20:07] LABS: Glucose, Whole Blood 202 mg/dL (60-115)
[2025-03-24] MEDS: Insulin Glargine,Hum.rec.anlog 100 UNIT/ML 10 ML VIAL 12 UNIT SUBCUT (20:21)
[2025-03-24 23:56] VITALS: BP 162/73; PULSE 93; RESP 18; TEMP 36.8; O2SAT 93
[2025-03-25 03:32] VITALS: BP 126/70; PULSE 78; RESP 18; TEMP 36.2; O2SAT 97
[2025-03-25 07:03] VITALS: BP 128/80; PULSE 81; RESP 20; TEMP 37.1; O2SAT 97
[2025-03-25 07:15] LABS: Glucose, Whole Blood 129 mg/dL (60-115)
[2025-03-25 08:25] VITALS: BP 122/76
[2025-03-25] MEDS: oxyCODONE HCl ER 10 MG TAB.ER.12H PO (08:25)
[2025-03-25] MEDS: 0.9 % Sodium Chloride Flush 3 ML SYRINGE IVFLUSH (08:27)
--- NOTE | 2025-03-25 10:36 | MHC.CM.PN ---
Per rounds, pt. has been medically cleared to DC, second IMM delivered to pt. today, information on appeal process was reviewed with pt., information on 3 area rest homes was given to pt. Pt. said he wants to speak with his doctor, doctor notified.
--- NOTE | 2025-03-25 11:28 | PM.DS ---
DS: Providers Provider Date of Service: 03/25/25 Date of admission: 03/18/25 13:11 Date of discharge: 03/25/25 Primary care physician: MARTA Walker Consults: 03/19/25 07:54 Consult to Hematology / Oncology Routine Consulting Provider: [facility] [place] Oncology/Hematology Reason for consultation: PE despite eliquis, HCC 03/21/25 12:38 Consult to Cardiology Routine Consulting Provider: [facility] [place] Cardiovascular Specialists Reason for consultation: elev Trop 03/23/25 14:34 Consult to Psychiatry Routine Consulting Provider: [facility] [place] Psych Covering Reason for consultation: depression DS: Diagnosis Discharge Diagnosis (1) Pulmonary embolism: Status: Acute (2) HCC (hepatocellular carcinoma): Status: Acute DS: Summary Hospital Course Hospital Course: 70-year-old male with a history of liver cirrhosis, hepatocellular carcinoma, 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 Patient states for the past 3 days he has not been feeling well. He has reported shortness of breath with no significant cough. He is reporting chills no fever. He reports chronic abdominal pain with no associated nausea or vomiting. He does take chronic narcotics at baseline due to underlying hepatocellular carcinoma which she states is the source of his abdominal pain. In the emergency department he underwent a CTA which was positive for acute pulmonary artery emboli involving mostly subsegmental pulmonary artery branches of the right lower lobe. Also showing multifocal pneumonia. Patient does have history of previous PE and has been on Eliquis. Recently his Eliquis was reduced from 5 mg twice daily to 2.5 mg twice daily which seems to be due to worsening thrombocytopenia and daily nosebleeds. In the emergency department patient received a dose of Lovenox in the decision was made to admit him to the hospital for further management. Of note patient was not hypoxic, bedside echocardiogram as per emergency room provider showed no RV strain. Troponin 24.6, lower than previous. BNP 335 although did not appear volume overloaded. Hospital Course Patient admitted to telemetry on full-dose Lovenox at 1 milligram/kilogram q.12 hours. During his hospitalization he had no active bleeding. Monitor failed to demonstrate any acute dysrhythmias. CT scan did demonstrate as above new acute pulmonary emboli along with multifocal pneumonia. Patient received IV doxycycline and ceftriaxone (full course) during his hospitalization. He has no O2 requirement upon discharge. At this point in time he is medically acceptable for discharge can follow up with the PCP and oncologist as scheduled. His Eliquis is returned to 5 mg q.12 hours Time Attestation Discharge Coordination Time (in mins): 35 Quality: Safe Use of Opioids Does Pt have an Active Cancer Diagnosis on the Problem List?: No Quality: Stroke Does the patient have a stroke diagnosis?: No Physical Exam Vital Signs: Vital Signs: Last Vital Signs Temp 98.7 F 03/25/25 07:03 Pulse 81 03/25/25 07:03 Resp 20 03/25/25 07:03 BP 122/76 03/25/25 08:25 Pulse Ox 97 03/25/25 07:03 O2 Del Method Room Air 03/25/25 07:03 O2 Flow Rate 1 03/24/25 15:36 BMI result Body Mass Index 26.9 Const: Other: Awake alert no acute distress Resp: Other: Clear to auscultation bilaterally no rales rhonchi or wheezes Cardio: Other: No S4; positive S1-S2; no S3 murmurs rubs or gallops GI: Other: Soft nontender nondistended normoactive bowel sounds Extrem: Other: No edema bilaterally DS: Data Data Completed and Pending Labs on day of discharge: Laboratory Results - last 24 hr 03/24/25 03/24/25 03/25/25 15:39 20:01 07:08 POC Glucose 178 H 202 H 129 H Discharge Plan Discharge Anticipated Discharge Date/Time: 03/25/25 11:23 Patient Disposition: Home, Self-Care Discharge Diagnosis: Acute pulmonary embolus Referrals: Jorge L Lee FNP-C [Primary Care Provider, Internal Medicine] - 1 Week Discharge Medications: New Eliquis 5 mg tablet 5 mg PO BID Qty: 60 0RF Continued amlodipine 10 mg tablet 10 mg PO DAILY Qty: 90 3RF magnesium oxide 250 mg magnesium Tablet 250 mg PO DAILY Qty: 60 1RF furosemide [Lasix] 20 mg Tablet 20 mg PO DAILY Qty: 30 0RF morphine [MS Contin] 30 mg Tablet Extended Release 30 mg PO Q12H Qty: 60 0RF Rx Instructions: Partial Fill upon patient request. oxycodone 5 mg Tablet 5 mg PO Q4H PRN (Reason: Pain (Scale Score 7-10)) Qty: 60 0RF Rx Instructions: Partial Fill upon patient request. insulin degludec [Tresiba FlexTouch U-100] 100 unit/mL (3 mL) insulin pen 25 unit subcut BEDTIME carvedilol 3.125 mg tablet 3.125 mg PO DAILY spironolactone 50 mg tablet 50 mg PO DAILY insulin aspart U-100 [Novolog FlexPen U-100 Insulin] 100 unit/mL (3 mL) insulin pen 1 sliding scale dose subcut TIDAC Discontinued Eliquis 2.5 mg Tablet 2.5 mg PO BID Qty: 60 3RF Discharge Orders: Discharge Order (Routine); Ordered 03/25/25 Ordered By: Carlo Handy Diet: Advance to usual diet Activity on Discharge: As tolerated Stand Alone Forms: Patient Portal Discharge page Print Language: Albanian Care Plan Goals: Continue all medicines as taken prior to hospitalization Health Concerns: Continue Eliquis at 2.5 mg twice daily Plan of Treatment: Follow up with the PCP and oncologist as scheduled Assessment: See discharge summary
--- NOTE | 2025-03-25 11:48 | PC.NURSE ---
Upon news of impending discharge, pt quite emotional: sad, frustrated, angry. Pt expressed displeasure at how he was treated while here, noting that he was going to be in contact with hospital administration among other groups/people. Pt unwilling to wait to speak to anyone. MD Handy aware. Able to convince pt to sign discharge paperwork. Pt left hospital in wheelchair pushed by friend; declined hospitral staff. IV removed, supervisor soldering removed, all belongings in pt's possession.
== END 2025-03-25 11:51 | disposition home or self-care (01) | DRG 175 ==
LOC: HO.ED 11:19 → HO.EDOVER 13:11 → HO.IMC 19:40
PROVIDERS: Family Medicine; Admitting Provider Physician Assistant Medical; Emergency Provider Emergency Medicine; Visit Provider Hospitalist
DX: I26.99 Other pulmonary embolism without acute cor pulmonale (principal); I81 Portal vein thrombosis; J18.9 Pneumonia, unspecified organism; J96.01 Acute respiratory failure with hypoxia; C22.0 Liver cell carcinoma; I85.10 Secondary esophageal varices without bleeding; K76.6 Portal hypertension; C78.01 Secondary malignant neoplasm of right lung; K70.31 Alcoholic cirrhosis of liver with ascites; I10 Essential (primary) hypertension; B18.2 Chronic viral hepatitis C; D69.6 Thrombocytopenia, unspecified; G89.3 Neoplasm related pain (acute) (chronic); E11.42 Type 2 diabetes mellitus with diabetic polyneuropathy; Z20.822 Contact with and (suspected) exposure to COVID-19; Z86.711 Personal history of pulmonary embolism; Z79.4 Long term (current) use of insulin; Z79.01 Long term (current) use of anticoagulants; Z79.891 Long term (current) use of opiate analgesic; Z79.899 Other long term (current) drug therapy
CPT/HCPCS: 36415; 71045; 71046; 71275; 80048; 82947; 83735; 83880; 84145; 84484; 85025; 85027; 85610; 85730; 87502; 87635; 93005; 93306; 93970; 97161; 97162; 99285; J0696; J1271; J1650; J1938; J2270; Q9957; Q9967

== ENCOUNTER → 2025-03-18 10:31 | Outpatient (BNV) | payer MEDICARE, MEDICAID, SELFPAY | PROVIDERS: Emergency Provider Emergency Medicine; Visit Provider Internal Medicine Cardiovascular Disease | DX: I25.2 Old myocardial infarction (principal) | CPT/HCPCS: 93010 ==

== ENCOUNTER → 2025-03-18 10:35 | Outpatient (BNV) | payer MEDICARE, MEDICAID, SELFPAY | PROVIDERS: Emergency Provider Emergency Medicine; Visit Provider Radiology Diagnostic Radiology | DX: J18.8 Other pneumonia, unspecified organism (principal); R07.9 Chest pain, unspecified | CPT/HCPCS: 71046; 71275 ==

== ENCOUNTER 2025-03-18 13:11 | Outpatient (BNV) | payer MEDICARE, SELFPAY | END 2025-03-21 12:32 | PROVIDERS: Admitting Provider Physician Assistant Medical; Emergency Provider Emergency Medicine; Visit Provider Internal Medicine Cardiovascular Disease | DX: I25.2 Old myocardial infarction (principal) | CPT/HCPCS: 93010 ==

== ENCOUNTER 2025-03-18 13:11 | Outpatient (BNV) | payer MEDICARE, SELFPAY | END 2025-03-23 10:05 | PROVIDERS: Admitting Provider Physician Assistant Medical; Emergency Provider Emergency Medicine; Visit Provider Radiology Diagnostic Radiology | DX: R22.43 Localized swelling, mass and lump, lower limb, bilateral (principal); R06.02 Shortness of breath | CPT/HCPCS: 71045; 93970 ==

== ENCOUNTER 2025-03-18 13:11 | Outpatient (BNV) | payer MEDICARE, SELFPAY | END 2025-03-23 08:08 | PROVIDERS: Admitting Provider Physician Assistant Medical; Emergency Provider Emergency Medicine; Visit Provider Internal Medicine Cardiovascular Disease | DX: R94.31 Abnormal electrocardiogram [ECG] [EKG] (principal); R07.89 Other chest pain | CPT/HCPCS: 93010 ==

== ENCOUNTER 2025-03-18 13:11 | Outpatient (BNV) | payer MEDICARE, SELFPAY | END 2025-03-19 07:00 | PROVIDERS: Admitting Provider Physician Assistant Medical; Emergency Provider Emergency Medicine; Visit Provider Internal Medicine Cardiovascular Disease | DX: I35.0 Nonrheumatic aortic (valve) stenosis (principal); I35.8 Other nonrheumatic aortic valve disorders; I51.7 Cardiomegaly | CPT/HCPCS: 93306 ==

== ENCOUNTER → 2025-03-18 13:11 | Outpatient (BNV) | payer MEDICARE, SELFPAY | PROVIDERS: Admitting Provider Physician Assistant Medical; Emergency Provider Emergency Medicine; Visit Provider Internal Medicine Cardiovascular Disease | DX: R79.89 Other specified abnormal findings of blood chemistry (principal) | CPT/HCPCS: 99222 ==

== ENCOUNTER → 2025-03-18 13:11 | Outpatient (BNV) | payer MEDICARE, SELFPAY | PROVIDERS: Admitting Provider Physician Assistant Medical; Emergency Provider Emergency Medicine; Visit Provider Physician Assistant Medical | DX: I26.93 Single subsegmental thrombotic pulmonary embolism without acute cor pulmonale (principal); C22.0 Liver cell carcinoma | CPT/HCPCS: 99223; 99232; 99239 ==

== ENCOUNTER → 2025-03-18 13:11 | Outpatient (BNV) | payer MEDICARE, SELFPAY | PROVIDERS: Admitting Provider Physician Assistant Medical; Emergency Provider Emergency Medicine; Visit Provider Internal Medicine Medical Oncology | DX: C22.0 Liver cell carcinoma (principal); I26.99 Other pulmonary embolism without acute cor pulmonale; J18.9 Pneumonia, unspecified organism | CPT/HCPCS: 99222; 99232 ==

== ENCOUNTER 2025-04-07 13:43 | Day surgery (SDC) | payer MEDICARE, MEDICAID, SELFPAY ==
--- NOTE | ~2025-04-07 | US_ITS ---
EXAMINATION: US GUIDED PARACENTESIS CLINICAL INFORMATION: Ascites. Therapeutic drainage. COMPARISON: Numerous priors, most recently 10/23/2024. TECHNIQUE: Risks and benefits and possible complications were discussed with the patient and consent form was signed. Using ultrasound guidance, the amount of ascites was examined in all 4 quadrants of the abdomen. There was not enough fluid present in the peritoneum for a safe paracentesis procedure to be performed. The procedure was canceled. A few phone representative images were obtained. US/US abdomen limited IMPRESSION: Ultrasound-guided paracentesis was canceled due to insufficient volume of ascitic fluid. Electronically signed by: Roderick Martinez MD 04/07/2025 03:28 PM EDT
[2025-04-07 13:28] VITALS: BP 133/73; PULSE 84; RESP 20; TEMP 36.9; O2SAT 96; BMI 28.1
[2025-04-07 13:59] LABS: Glucose, Whole Blood 211 mg/dL (60-115)
--- NOTE | 2025-04-07 15:44 | PC.NURSE ---
Ultrasound showed not enough fluid for paracentesis and procedure canceled. IV removed in PACU. IV angio removed intact and pt tolerated well. Pt dressed self and was brought downstairs in a wheelchair to meet up with his ride. Pt left PACU at 1510.
== END 2025-04-07 15:10 | disposition home or self-care (01) ==
PROVIDERS: Radiology Vascular & Interventional Radiology; Visit Provider Nurse Practitioner Family
DX: K74.60 Unspecified cirrhosis of liver (principal); R18.8 Other ascites; Z53.8 Procedure and treatment not carried out for other reasons; C22.0 Liver cell carcinoma; B19.20 Unspecified viral hepatitis C without hepatic coma; Z79.01 Long term (current) use of anticoagulants; E11.9 Type 2 diabetes mellitus without complications; Z79.4 Long term (current) use of insulin
CPT/HCPCS: 76705; 82947; J2003

== ENCOUNTER → 2025-04-07 14:20 | Outpatient (BNV) | payer MEDICARE, MEDICAID, SELFPAY | PROVIDERS: Visit Provider Radiology Diagnostic Radiology | DX: R18.8 Other ascites (principal) | CPT/HCPCS: 76705 ==

== ENCOUNTER 2025-04-12 12:06 | Day surgery (SDC) | payer MEDICARE, MEDICAID, SELFPAY ==
--- NOTE | ~2025-04-12 | US_ITS ---
EXAMINATION: US ABDOMEN LIMITED HISTORY: cirrhosis with ascites TECHNIQUE: Real-time grayscale ultrasound imaging of the 4 quadrants of the abdomen was performed to assess for ascites. COMPARISON: Correlation is made with an MRI of the abdomen dated 11/29/2024. FINDINGS: A small amount of abdominal ascites is seen in each of the 4 quadrants. The liver contour is nodular, consistent with cirrhosis. US/US abdomen limited IMPRESSION: Abdominal ascites. Electronically signed by: Leonardo Ledesma MD 04/12/2025 02:56 PM EDT
--- OUTSIDE RECORDS SUMMARY | 2025-04-12 05:59 | XMS_ITS | Patient Health Record ---
Author Organization [facility] Address [address] [place] [address] Care Team Providers Care Director Corporate Sales Name Role Phone Harish Madrid MD Primary [...] Status Risk Notes Problem Colon cancer screening (705587189) Colon cancer screening (V76.51) Active confirmed Problem Hepatitis C (72582543) Hepatitis C (070.70) Active confirmed Plan Of Treatment Future Test Test Name Order Date COLONOSCOPY 10/14/2013 Insurance Providers Payer Name Payer Address Payer Phone Subscriber Number Group Number Insured Name Patient Relationship to Insured Coverage Start Date Coverage End Date [employer] [address] [place]NANDEZ [phone] [id number] STEPHANIE PHILIP Self - patient is the insured Medical (General) History Medical History History ICD Code type II diabetes neuropathy hypertension depression hepatitis C-not treated osteoarthritis Denies HI,CVA,Lung disease,renal disease Surgical History Surgery Date(Month/Year) tonsillectomy
--- OUTSIDE RECORDS SUMMARY | 2025-04-12 05:59 | XMS_ITS | Clinical Summary ---
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 Active amitriptyline (ELAVIL) 25 MG tablet Take 25 mg by mouth every other day. Active Medication-Free Text Medical weed Active FREESTYLE LITE METER meter kitIndications:T ype 2 diabetes mellitus with diabetic polyneuropathy, with long-term current use of insulin Use 4 times daily. 1 each 11/04/19 20 Active FREESTYLE LITE Strp stripsIndication s:Type 2 diabetes mellitus with diabetic polyneuropathy, with long-term current use of insulin TEST ONCE EACH MORNING DIRECTED 300 strip 06/25/20 Active CONTOUR Strp test stripsIndication s:Type 2 diabetes mellitus with diabetic polyneuropathy, with long-term current use of insulin 1 each by Miscellaneous route 3 (three) times a day before meals. 100 strip 5 07/03/20 22 Active insulin pen needles, disposable, 31 gauge x 3/16 NdleIndications: Type 2 diabetes mellitus with diabetic polyneuropathy, with long-term current use of insulin 1 each by Miscellaneous route 4 (four) times a day before meals and nightly. 400 each 3 01/31/20 23 Active blood-glucose (TRUE METRIX GLUCOSE METER) [facility] meter use as directed 1 each 10/08/19 24 Active carvedilol (COREG) 3.125 MG tablet Take 3.125 mg by mouth daily. 06/05/20 24 Active oxyCODONE 5 MG immediate release tablet Take 5 mg by mouth 2 (two) times a day. Active furosemide (LASIX) 20 MG tablet Take 20 mg by mouth daily. Active morphine (MS CONTIN) 30 MG ER tablet Take 30 mg by mouth 2 (two) times a day. Active ondansetron (ZOFRAN) 4 MG tablet Take 8 mg by mouth every 8 (eight) hours as needed for nausea. Active magnesium oxide 250 mg (150 mg elemental) Tab Take 250 mg by mouth daily. Active spironolactone (ALDACTONE) 50 MG tablet Take 50 mg by mouth daily. Active diazePAM (VALIUM) 2 MG tablet Take 2 mg by mouth every 6 (six) hours as needed for anxiety. Active amLODIPine (NORVASC) 5 MG tabletIndication s:Essential hypertension Take 1 tablet (5 mg total) by mouth daily. 90 tablet 1 02/04/20 25 Active insulin degludec U-100 (TRESIBA) injection penIndications:T ype 2 diabetes mellitus with diabetic polyneuropathy, with long-term current use of insulin Inject 10 Units under the skin nightly at bedtime. 15 mL 1 02/04/20 25 Active FREESTYLE SNEHA 3 PLUS SENSOR DeviIndications: Type 2 diabetes mellitus with diabetic polyneuropathy, with long-term current use of insulin 1 Application by Miscellaneous route every 15 (fifteen) days. 02/04/20 25 Active blood-glucose,re ceiver,cont (FREESTYLE SNEHA 3 READER) MiscIndications: Type 2 diabetes mellitus with diabetic polyneuropathy, with long-term current use of insulin by Miscellaneous route as needed (Continuous monitoring). 1 each 02/04/20 25 Active insulin lispro (ADMELOG, HUMALOG) 100 unit/mL injection penIndications:T ype 2 diabetes mellitus with diabetic polyneuropathy, with long-term current use of insulin Use 3 times a day with meals based on the correction scale below 70-100 =2 unit 101-150 =4 units 151-200 = 6 units 201-250 =8 units 251-300 =10 units 301-350 =12 units 351-400 =14 units greater than 400 =16 units 15 mL 3 03/30/20 25 Active NOVOLOG FLEXPEN U-100 INSULIN 100 unit/mL (3 mL) flexpenIndicatio ns:Type 2 diabetes mellitus with diabetic polyneuropathy, with long-term current use of insulin Use 3 times a day with meals based on the correction scale below 70-100 =2 unit 101-150 =4 units 151-200 = 6 units 201-250 =8 units 251-300 =10 units 301-350 =12 units 351-400 =14 units greater than 400 =16 units 15 mL 1 02/04/20 25 025 Discontin ued(Formu socorro change) Active Problems Problem Noted Date Diagnosed Date Hyperlipidemia LDL goal <100 02/29/2020 Assessment & Plan (02/03/2025 1:11 PM EDT): Controlled. LDL 75 mg/dL no changes required. He is not on a statin. He is just diet controlled presently Assessment & Plan (08/06/2024 1:34 PM EST): Lipid panel apparently was elevated but if he does have liver cancer or some other condition do not know how we will proceed whether he would require statins or not most likely not. So I asked him to just do his lab work when he gets a chance. Assessment & Plan (01/29/2024 1:54 PM EDT): Uncontrolled LDL was elevated at 108 mg/dL he will benefit from a statin. Presently he is not feeling well states he is ill. I do not want to give him a medication now until we figure out what is wrong because he believes that is one of his medications is affecting him. Asked him to speak with his primary care physician. Assessment & Plan (07/31/2023 1:20 PM EST): Unfortunately I still do not have repeat lipid panel this was requested and he had lab work done everything was done except for the lipid panel so I am going to request this again. He is not on a statin. Last lipid panel was 104 mg/dL I wanted this repeated because he may benefit from a statin. Unfortunately I have not been able to obtain this lab request. I will requested for the follow-up visit. Assessment & Plan (01/30/2023 1:20 PM EDT): His last lipid panel was elevated at 104 mg/dL I asked him to repeat lipid panel but he did not do it. Unclear if he is done it at another facility. He is currently not on any medications for cholesterol. Assessment & Plan (08/01/2022 1:30 PM EST): His LDL is a little bit elevated at 104 mg/dL. Previously was 97 mg/dL he is not on a statin. I will just have to monitor repeat lipid panel in 6 months should be done fasting. Assessment & Plan (02/26/2022 1:30 PM EDT): Based on lipid panel 03/29/2021 his LDL is 97 mg/dl. Needs repeat lipid panel. Assessment & Plan (08/28/2021 9:20 AM EST): Controlled LDL 97 mg/dL he is diet controlled does not take any statins. We will repeat lipid panel. Assessment & Plan (12/22/2020 1:39 PM EDT): Controlled, off statins. LDL is 99 mg/dl on 09/19/2020. Assessment & Plan (09/22/2020 1:37 PM EST): Controlled. LDL 99 mg/dL, he is on diet control. Assessment & Plan (06/01/2020 1:10 PM EST): Uncontrolled. LDL 102 mg/dL he is on diet control. He does not have macrovascular disease. The level is just 2 mg/dL above the reference range. We will repeat the lipid panel next year. Assessment & Plan (02/29/2020 1:18 PM EDT): Uncontrolled her LDL was 102 mg/dL he is not on a statin he can try diet management for now but he may benefit from a statin in the future if he cannot decrease the LDL below 100. Currently he does not have known macrovascular disease. Type 2 diabetes mellitus wit h diabetic polyneuropathy, with long-term current use of insulin 11/04/2019 Assessment & Plan (02/03/2025 1:10 PM EDT): Good hemoglobin A1c of 6.3 and good target range but he is having too many hypoglycemic levels. We will have to decrease the Tresiba to 10 units. He states that he is not consistently using the 20 units only when his glucose levels are high in the evening but we should have a regimen and he continues to use NovoLog. The NovoLog is already at a low scale. The patient has current severe hypoglycemia. There is significant concern hypoglycemic seizures which can be potentially fatal. I reemphasized to the patient that the use of insulin is high risk therapy that requires intensive monitoring for toxic effects (hypoglycemia, metabolic decompensation) due to the narrow therapeutic index of the medication and other factors (such as age, acute renal insufficiency, variable appetite and use of steroids) therefore close monitoring of blood sugar with regular review is paramount in the safe use of this medication. I will give him a follow-up appointment in 3 months time Assessment & Plan (08/06/2024 1:33 PM EST): Based on hemoglobin A1c of 5.7% he appears to be controlled and he states that he does not have anemia based on the last lab work I have he does not have anemia so the hemoglobin A1c should be accurate. He actually decrease his long-acting insulin to 30 units and still using the NovoLog correction scale and result Trulicity. So he is doing quite well with his diet change. Based on our scale he is lost like 13 pounds since the last visit. Since he is doing well we will give him a follow-up appointment in 6 months. Assessment & Plan (01/29/2024 1:54 PM EDT): Controlled. Hemoglobin A1c 5.8% I am not going to change his medications can continue current regimen. Assessment & Plan (07/31/2023 1:18 PM EST): Controlled. Hemoglobin A1c 5.8% which appears lower than before his 90-day average glucose. He does not appear to have many hypoglycemic episodes 2% between 54 and 70. But I told him that he needs to monitor his glucose levels frequently at least every 8 hours so that he does not lose any data. I do not need to make any changes to his regimen because the glycemic levels are good for the most part. 88% in range is quite good. He will follow in 6 months. Assessment & Plan (01/30/2023 1:29 PM EDT): Controlled. Hemoglobin A1c 6.0% continue current regimen no changes required follow-up in 6 months. Assessment & Plan (08/01/2022 1:30 PM EST): Controlled. Hemoglobin A1c 6.8% continue current regimen. However I will have to decrease the Trulicity to 1.5 mg because he is not able to find the 3.0 mg Trulicity. Hopefully the correction scale for Humalog will work. I did see that he had both Humalog and NovoLog I did inquire whether his insurance covers Humalog or NovoLog. He is not sure but he thinks his Humalog so that is what I prescribed. He will follow in 6 months. Assessment & Plan (02/26/2022 1:35 PM EDT): Based on the hemoglobin A1c he is controlled at 6.4% but he has occasional elevated glucose levels in the evening and this is when he snacks at nighttime. He can administer 2 units of lispro if he likes just to prevent the sugars from rising too high. Otherwise unlikely make any changes he should continue Lantus 60 units the lispro correction scale and Trulicity 3.0 mg weekly. I will give him a follow-up in 6 months. Assessment & Plan (08/28/2021 9:19 AM EST): Controlled. Hemoglobin A1c 6.5% he should continue his current medications as indicated in the HPI. I will see him in 6 months time requested urine microalbumin, hemoglobin A1c for the follow-up visit. Assessment & Plan (12/22/2020 1:46 PM EDT): The patient had an improvement in hemoglobin A1c from 6.6 to 6.1%. However the glucose levels do not really correlate with her hemoglobin A1c. He does not have anemia so I would expect that the hemoglobin A1c is accurate. But unwilling to follow the numbers and he is only getting 66% within target range she wants to be above 70% in order to avoid diabetic retinopathy especially since he is complaining of blurry vision. When he has to work is in the evening the fruit and yogurt that he eats he needs to bolus for that because he is having elevations in the evening. During the day he seems to be doing well. I will give him a follow-up appointment in 6 months because I think he is doing relatively well. Assessment & Plan (09/22/2020 1:39 PM EST): Based on his hemoglobin A1c of 6.6% he appears to be controlled and the hemoglobin A1c seems accurate since he is not anemic but lately the patient has been having granola bars at nighttime around 10 PM he is not bolusing for this this is causing him to have elevated glucose levels overnight and surely this is going to result in elevated hemoglobin A1c eventually. So he needs to bolus for the granola bar in the evening. I told him to do half the dose that he normally would do for breakfast, lunch, or dinner. Assessment & Plan (06/01/2020 1:26 PM EST): Uncontrolled. He is having elevated fasting glucose, one of the problem is that he is not really checking glucose levels 3 times a day especially in the evening so he goes to bed high and wakes up with elevated fasting glucose level. He needs the freestyle sneha CGM I think that this will help him at least see what his glucose levels are are and hopefully he will still administer insulin. Remember to make any changes he needs to improve on insulin administration presently. I will give him a follow- up in 3 months time hopefully he will get the freestyle sneha CGM by that if he needs help applying the freestyle sneha he can make a nurse visit and we can show him how to do that in the office. Assessment & Plan (04/19/2020 12:31 PM EDT): Uncontrolled based on reported glycemic levels. I will increase the Lantus to 60 units and I asked him to do 50 units first and if the glucose levels remain elevated in the morning to go up to 60 units. He will continue the same Humalog correction scale with meals 3 times a day and Trulicity 1.5 mg weekly. Since he cannot tolerate Invokana or Jardiance he should just stop the Jardiance administration he states that it makes him feel too weak and still has elevated glucose despite improving his diet. In the meantime he also wants a [employer] CGM which I think will be great but we need his meter download to show that he is monitoring glucose levels at least 4 times a day. I do recommended that this patient obtain CGM for personal use. He has type 2 diabetes, performs 4 or more blood glucose checks per day utilizing his home blood glucose monitor (BGM) is treated with insulin 3-4 times a day, requires frequent adjustments to his insulin treatment regimen on the basis of therapeutic CGM testing results and has been evaluated for diabetes with me in the past 6 months. He has had frequent hypoglycemia. Assessment & Plan (02/29/2020 1:35 PM EDT): Improved control his hemoglobin A1c 7.5% he is doing well with Lantus 40 units, Trulicity 1.5 mg weekly. He has good GFR so I will prescribe Invokana 100 mg daily. He was advised to drink plenty of water he is going to be urinating more the first week is going to be worse the second week it should improve once his glycemic levels improve. The more he eats the higher his glucose levels the more he pees so he should watch out about eating a lot of carbohydrates. He needs to use proper hygiene shower daily in order to prevent genital mycotic yeast infections but this is more common in an uncircumcised man. I will give him a follow-up appointment in 2 months. Assessment & Plan (02/01/2020 12:36 PM EDT): Uncontrolled he still has elevated glucose levels but he is eating more and he is sedentary. I am increasing the Lantus from 30 units to 40 units he will continue Trulicity. I discussed the possible use of SGLT2 inhibitors that will help him lose weight. Although I do not have his glomerular filtration rate so he states he is fasting has not eaten anything has not even had coffee so I will check lipid panel comprehensive and CBC and a urine microalbumin. He will return for follow-up in 4 weeks. Assessment & Plan (12/16/2019 1:41 PM EDT): Uncontrolled, elevated fasting glucose levels for certain too soon to repeat the hemoglobin A1c will increase Trulicity from 0.75 mg to 1.5 mg weekly. He may require an increased dose of Lantus if he has no improvement by the follow-up visit. He will return for follow-up in 6 weeks time. He should continue Humalog correction scale. Assessment & Plan (11/04/2019 11:45 AM EDT): Uncontrolled. The hemoglobin A1c was 8.5%. He should continue using Lantus and Humalog as he is currently doing with his current correction scale. He has no history of pancreatitis or medullary thyroid carcinoma. Therefore I will prescribe Trulicity 0.75 mg which is a GLP-1 agonist. I informed him that this medication is associated with nausea, vomiting, diarrhea, and constipation. The only way to find out if he will tolerate the medication is to try it. He was instructed on how to use the pen and did his first injection today. He was given a sample pen for next week. A prescription was sent to his pharmacy. He will return for follow-up in 6 weeks time. Essential hypertension 11/04/2019 Assessment & Plan (02/03/2025 1:15 PM EDT): Controlled he is using a lower pain carvedilol and spironolactone. No changes required Assessment & Plan (01/29/2024 1:53 PM EDT): Initially elevated but after resting for approximately 30 minutes his blood pressure was in the normal reference range. Advised him to continue his current antihypertensive medications. Assessment & Plan (12/22/2020 1:37 PM EDT): Controlled, continue current medications. Assessment & Plan (09/22/2020 1:37 PM EST): Controlled. He does have elevated microalbumin. Despite improvement in glucose levels. He should continue metoprolol, lisinopril/hydrochlorothiazide. No changes. Assessment & Plan (06/01/2020 1:10 PM EST): Controlled, lisinopril, hydrochlorothiazide, amlodipine and Lopressor. No changes. Assessment & Plan (02/29/2020 1:19 PM EDT): Controlled on lisinopril/hydrochlorothiazide metoprolol, amlodipine. His microalbumin creatinine ratio is elevated but his glycemic levels improving and he is on an BECCA inhibitor would not make any changes. Assessment & Plan (02/01/2020 12:35 PM EDT): Trolled on current medications no changes. Assessment & Plan (12/16/2019 1:39 PM EDT): Controlled no changes to his current medications although he states he has a mild cough with lisinopril. If this gets bad and he does not want to continue using it we can switch him to an angiotensin receptor walyl such as losartan. Assessment & Plan (11/04/2019 11:28 AM EDT): Hold on metoprolol and lisinopril. He likely needs urine microalbumin levels. I did not get any lab results. Encounters Date Type Department Care Team Description 03/29/2025 Telephone [facility] Endocrinology [address] [place] [address] Anayeli Jennings CMA Medication Prior Authorization (Novolog ) 02/09/2025 Telephone [facility] Endocrinology [address] [place] [address] Eber Moran DO [employer] ([employer] [facility] [place]) 02/03/2025 1:00 PM EDT Office Visit [facility] Endocrinology [address] [place] [address] Eber Moran DO Type 2 diabetes mellitus with diabetic polyneuropathy, with long-term current use of insulin (Primary Dx); Hyperlipidemia LDL goal <100; Essential hypertension 02/03/2025 Telephone [facility] [address] [place] [address] [place] [phone] Arabella Griggs MA Medication Prior Authorization 02/03/2025 Telephone [facility] [address] [place] [address] Elena Heart MA 02/03/2025 Telephone [facility] [address] [place] [address] Eber Moran DO Medication Prior Authorization 01/29/2025 12:09 PM EDT - 01/29/2025 11:59 PM EDT Hospital Encounter [facility] [address] [place] [address] Eber Moran DO Discharge Disposition: Home or Self Care 01/27/2025 Telephone [facility] [address] [place] [address] Eber Moran DO Labs Question (labs question) from Last 3 Months Family History Medical History Relation Comments Diabetes Father Diabetes Mother Relation Status Comments Father Mother Social History Tobacco Use Types Packs/Day Years Used Date Smoking Tobacco: Never Smokeless Tobacco: Never Alcohol Use Standard Drinks/Week Comments Not Currently 0 (1 standard drink = 0.6 oz pur e alcohol) Education Answer Date Recorded Are you interested in more education? Not on kelly e 11/09/2022 Are you concerned about learning? Not on file 11/09/2022 No 11/09/2022 No 11/09/2022 Digital Access Answer Date Recorded No 12/11/2022 No 12/11/2022 Reliable internet access at home? Not on file 12/11/2022 Device with a working camera? Not on file Sex and Gender Information Value Date Recorded Sex Assigned at Not on file Legal Sex Male 9:38 AM EDT Gender Identity Not on file Sexual Orientation Not on file Last Filed Vital Signs Vital Sign Reading Time Taken Comments Blood Pressure 130/70 02/03/2025 12:22 PM EDT Pulse 76 02/03/2025 12:22 PM EDT Temperature - - Respiratory Rate - - Oxygen Saturation 98% 02/03/2025 12:22 PM EDT Inhaled Oxygen Concentration - - Weight 78.9 kg (174 lb) 02/03/2025 12:22 PM EDT Height 170.2 cm (5' 7 ) 08/06/2024 12:52 PM EST Body Mass Index 27.25 08/06/2024 12:52 PM EST Plan of Treatment Upcoming Encounters Date Type Department Care Team (Sathish st Contact Info) Description 05/24/2025 2:40 PM EST Office Visit [facility] [address] [place] [phone] Eber Moran, [address] [place] [phone] [email or web address] Health Maintenance Due Date Last Done Comments DEPRESSION SCREENING 1969 HEPATITIS C SCREENING 1975 COLOGUARD 2002 COLONOSCOPY 2002 COLORECTAL CANCER SCREENING 2002 FIT TEST 2002 FOBT 2002 SIGMOIDOSCOPY 2002 VIRTUAL COLONOSCOPY 2002 ZOSTER VACCINES (1 of 2) 2007 RSV VACCINE (1 - Risk 60-74 years 1-dose series) 2017 PNEUMOCOCCAL VACCINES (50+ years) (2 of 2 - PCV) 06/11/2018 06/11/2017 DIABETIC EYE EXAM 11/04/2019 URINE MICROALBUMIN/CREATININE RATIO 01/31/2021 02/01/2020 INFLUENZA VACCINE (#1) 2025 04/26/2006 COVID-19 VACCINE ( - season) 2025 HEMOGLOBIN A1C 08/01/2025 01/29/2025, 07/16, 01/27/2024, Additional history exists BLOOD PRESSURE 08/06/2025 02/03/2025 LIPID PANEL 01/29/2026 01/29/2025, 01/12, 07/11/2022, Additional history exists POTASSIUM LEVEL 01/29/2026 01/29/2025, 02/01/2020 Adult Td,Tdap Booster 03/05/2027 03/05/2017 SMOKING STATUS SCREENING (Once After 26 Yrs) Completed 08/06/2024 HEPATITIS A VACCINES Aged Out No long er eligible based on patient's age to complete this topic HIB VACCINES Aged Out No longer eligi ble based on patient's age to complete this topic MENINGOCOCCAL VACCINES (ACWY) Aged Out No longer eligible based on patient's age to complete this topic MENINGOCOCCAL VACCINES (B) Aged Out N o longer eligible based on patient's age to complete this topic Medical Devices Not on file Procedures Procedure Name Priority Date/Time Associated Diagnosis Comments COMPREHENSIVE METABOLIC PANEL Routine 01/29/2025 12:31 PM EDT Type 2 diabetes mellitus with diabetic polyneuropathy, with long-term current use of insulin LIPID PANEL Routine 01/29/2025 12:31 PM EDT Type 2 diabetes mellitus with diabetic polyneuropathy, with long-term current use of insulin Hyperlipidemia LDL goal <100 HEMOGLOBIN A1C Routine 01/29/2025 12:31 PM EDT Type 2 diabetes mellitus with diabetic polyneuropathy, with long-term current use of insulin CBC Routine 01/29/2025 12:31 PM EDT Type 2 diabetes mellitus with diabetic polyneuropathy, with long-term current use of insulin MICROALBUMIN/CREATININ E RATIO, RANDOM URINE Routine 02/01/2020 12:51 PM EDT Type 2 diabetes mellitus with diabetic polyneuropathy, with long-term current use of insulin from Last 3 Months or Most Recently Relevant to Health Maintenance Results * (ABNORMAL) Comprehensive metabolic panel (01/29/2025 12:31 PM EDT) SODIUM 138 133 - 146 mmol/L [facility] POTASSIUM 4.4 3.3 - 5.1 mmol/L [facility] CHLORIDE 103 96 - 108 mmol/L [facility] CO2 25 21 - 35 mmol/L [facility] BUN 29(H) 6 - 19 mg/dL [facility] CREATININE 1.00 0.5 - 1.5 mg/dL [facility] GLUCOSE 62(L) 70 - 99 mg/dL [facility] ALBUMIN 3.9 3.9 - 4.8 g/dL [facility] TOTAL PROTEIN 7.5 6.5 - 8.0 g/dL [facility] CALCIUM 9.6 8.4 - 10.3 mg/dL [facility] ALKALINE PHOSPHATASE 119(H) 39 - 117 U/L [facility] TOTAL BILIRUBIN 1.2 0.0 - 1.2 mg/dL [facility] AST 31 0 - 37 U/L [facility] ALT 16 0 - 40 U/L [facility] GLOBULIN 3.6 1 - 4.8 g/dL [facility] EGFR 82 >59 mL/min/1.7 3m2 [facility] Comment:Estimated glomerular filtration rate calculated using the CKD-EPI refit equation. ANION GAP 14 10 - 20 mmol/L [facility] Blood 01/29/2025 12:3 1 PM EDT 01/29/2025 12:37 PM EDT us Eber Moran DO LAB BLOOD ORDERABLES Final Resul t [facility] [address] [place] [address] * (ABNORMAL) CBC (01/29/2025 12:31 PM EDT) WBC 4.70 4.00 - 11.00 K/uL [facility] RBC 4.33(L) 4.50 - 5.90 M/uL [facility] HGB 13.5 13.5 - 17.5 g/dL [facility] HCT 40.1(L) 41.0 - 53.0 % [facility] PLT 73(L) 150 - 450 K/uL [facility] Comment:platelets decreased on smear MCV 92.6 80.0 - 100.0 fL [facility] MCH 31.2(H) 27.0 - 31.0 pg [facility] MCHC 33.7 32.0 - 36.0 g/dL [facility] RDW 13.2 11.5 - 14.5 % [facility] MPV 11.4 8.4 - 12.0 fL [facility] NRBC 0.00 0.00 /100 WBCs [facility] ABSOLUTE NRBC 0.00 0.00 K/uL [facility] Blood 01/29/2025 12:3 1 PM EDT 01/29/2025 12:37 PM EDT Eber Moran LAB BLOOD ORDERABLES Final Resul t [address] [address] * (ABNORMAL) Hemoglobin A1c (01/29/2025 12:31 PM EDT) HEMOGLOBIN A1C 6.3(H) 4.3 - 5.8 % [facility] Blood 01/29/2025 12:3 1 PM EDT 01/29/2025 12:37 PM EDT [facility] Final Resul t Performing Organization Address [facility] Co de Phone Number [address] [phone] * (ABNORMAL) Lipid panel (01/29/2025 12:31 PM EDT) HDL 64 mg/dL [facility] Comment: Interpretation <40 mg/dL: Low HDL cholesterol (major risk factor for CHD) Greater than or equal to 60 mg/dL: High HDL cholesterol ( negative risk factor for CHD) HDL - cholesterol is affected by a number of factors, e.g. smoking, excerise, hormones, sex and age. CHOLESTEROL 148 0 - 240 mg/dL [facility] TRIGLYCERIDES 47 30 - 160 mg/dL [facility] LDL 75 50 - 129 mg/dL [facility] Comment: LDL levels in terms of risk for coronary heart disease: <100 mg/dL: Optimal 100-129 mg/dL: Near or above optimal 130-159 mg/dL: Borderline high 160-189 mg/dL: High >190 mg/dL: Very High CARDIAC RISK RATIO 2.3(L) 3.4 - 5.0 C [facility] Blood 01/29/2025 12:3 1 PM EDT 01/29/2025 12:37 PM EDT Eber Moran LAB BLOOD ORDERABLES Final Resul t [address] [address] * (ABNORMAL) Microalbumin/creatinine ratio, random urine (02/01/2020 12:51 PM EDT) URINE MICROALBUMIN 9.9(H) 0 - 2.3 mg/dL [facility] URINE CREATININE 172 mg/dL [employer] [facility] MICROALB/CRE RATIO 57.6(H) 0 - 20 mg/g Cre [facility] Urine (Urine) 02/01/2020 12: 51 PM EDT 02/01/2020 12:56 PM EDT Eber Moran DO URINE ORDERABLES Final Result Performing Organization Address [facility] Co de Phone Number [address] [address] from Last 3 Months or Most Recently Relevant to Health Maintenance Insurance [facility] MEDICARE REPLACEMENT [place] [facility] [place] [place] [place] [place] MEDICARE [facility]PLACEMENT [place] MEDICARE REPLACEMENT [facility] MEDICARE REPLACEMENT Care Teams Retail Customer Service Specialist Relationship Specialty Start Date End Date Kyle Dyson MD [address] [place] [id number] PCP - General Family Medicine 09/28/19 Additional Source Comments The information contained in this document represents components of the legal health record. It is not the complete legal health record.[facility]
--- NOTE | 2025-04-12 08:22 | P.CONAN_ITS ---
Documented by User: Briseida Lees NP 04/12/25 09:14 HPI - Anesthesia Eval Consult details Narrative: 70 yr old male for EGD Chronic liver cirrhosis with portal hypertension related to past history of alcoholism and hepatitis-C: h/o bleeding varices, INR 1.3 on 03/23/25 Diagnosed with hepatocellular carcinoma: on systemic therapy with durvalumab plus tremelimumab since 08/24/24. [place] user H/O PE: H/O eliquis Type 2 DM: follows with endocrine at [facility], A1C 6.3% per PCP note from Feb 2025 Mild aortic stenosis on 03/2025 echo: The mean gradient is 12 mmHg. The aortic valve area is 2.13 cm2. PMFSH Active Problems Active Problems: All Active Problems Lung nodules (Acute) Esophageal varices (Acute) Portal venous hypertension (Acute) Annual physical exam (Acute) Rhinosinusitis (Acute) Hepatocellular carcinoma (Chronic) Cirrhosis (Acute) Abdominal pain (Acute) Portal vein thrombosis (Acute) Portal vein thrombosis (Acute) Abnormal LFTs (Acute) Hepatitis C (Acute) HTN (hypertension) (Acute) Diabetes mellitus (Acute) Past Medical History Medical History Hepatitis C HTN (hypertension) Diabetes mellitus Nausea & vomiting Peripheral neuropathy Insulin dependent type 2 diabetes mellitus Neuropathy Family History Family History Father Diabetes mellitus Mother Diabetes mellitus Other Substance use disorder Surgical History Surgical History No pertinent past surgical history Social History Social History Household Members: None Housing: Apartment Housing Other:: pt states it is like a correction Do you presently have visiting nurse or other home services: No Alcohol intake: former Patient Tobacco Use Status: Never used Tobacco e-Cigarette/Vaping Use: Never Used Second Hand Smoke Exposure: No Substance Use Type: Marijuana Substance Use Frequency: Daily Have you been hit, kicked, punched, or otherwise hurt by someone within the past year? If so, by whom?: No Are you DNR?: No Advance Directives: No Advance Directives Information Provided: Yes Poor oral hygiene: No service: No Current occupational status: retired Gender identity: Male Cognitive needs: No Hearing needs: No Vision needs: Yes (Glasses) Meds Allergies Allergy/AdvReac Type Severity Reaction Status Date / Time lisinopril AdvReac Severe cough Verified 04/12/25 13:37 Home Medications ?Medication ?Instructions ?Recorded ?Confirmed ?Last Taken ?Type insulin aspart U-100 100 unit/mL 1 sliding scale dose subcut TIDAC 12/21/24 04/12/25 03/17/25 History (3 mL) subcutaneous pen (Novolog FlexPen U-100 Insulin aspart) carvedilol 3.125 mg tablet 3.125 mg PO DAILY 03/18/25 04/12/25 04/12/25 History insulin degludec 100 unit/mL (3 25 unit subcut BEDTIME 03/18/25 04/12/25 03/17/25 History mL) subcutaneous pen (Tresiba FlexTouch U-100 insulin) spironolactone 50 mg tablet 50 mg PO DAILY 03/18/2504/12/25 History Exam Pertinent Lab Results Pertinent Lab Results: Laboratory Tests 04/05/25 08:59 WBC 6.5 RBC 3.80 L Hgb 10.7 L Hct 32.2 L Plt Count 145 L D Sodium 134 L Potassium 5.0 D BUN 37 H Creatinine 1.24 Narrative Narrative: EKG 03/2025 Vent. Rate : 86 BPM Atrial Rate : 86 BPM P-R Int : 194 ms QRS Dur : 82 ms QT Int : 378 ms P-R-T Axes : 69 25 35 degrees QTcB Int : 452 ms Normal sinus rhythm Low voltage QRS Possible Anterolateral infarct (cited on or before 02-Dec-2015) Abnormal ECG When compared with ECG of 21-Mar-2025 14:34, Questionable change in initial forces of Lateral leads ECHO 03/19/2025 Conclusions: - 1. Normal LV ejection fraction of 65-70% with mild LVH with impaired relaxation filling pattern 2. Severely dilated left atrium 3. Calcific aortic valve changes noted with mild aortic stenosis 4. At least moderate mitral regurgitation could be underestimated 5. Upper limits of normal ascending aortic size 6. Upper limits normal RV systolic pressure 7. No gross pericardial effusion Documented by User: Herman Osuna MD 04/12/25 14:12 [facility] Past Medical History Medical History Hepatitis C HTN (hypertension) Diabetes mellitus Nausea & vomiting Peripheral neuropathy Insulin dependent type 2 diabetes mellitus Neuropathy Family History Family History Father Diabetes mellitus Mother Diabetes mellitus Other Substance use disorder Family history of problems with anesthesia: No Surgical History Surgical History No pertinent past surgical history History of Problems with Anesthesia: No Social History Social History Household Members: None Housing: Apartment Housing Other:: pt states it is like a correction Do you presently have visiting nurse or other home services: No Alcohol intake: former Patient Tobacco Use Status: Never used Tobacco e-Cigarette/Vaping Use: Never Used Second Hand Smoke Exposure: No Substance Use Type: Marijuana Substance Use Frequency: Daily Have you been hit, kicked, punched, or otherwise hurt by someone within the past year? If so, by whom?: No Are you DNR?: No Advance Directives: No Advance Directives Information Provided: Yes Poor oral hygiene: No service: No Current occupational status: retired Gender identity: Male Cognitive needs: No Hearing needs: No Vision needs: Yes (Glasses) Meds Allergies Allergy/AdvReac Type Severity Reaction Status Date / Time lisinopril AdvReac Severe cough Verified 04/12/25 13:37 Home Medications ?Medication ?Instructions ?Recorded ?Confirmed ?Last Taken ?Type insulin aspart U-100 100 unit/mL 1 sliding scale dose subcut TIDAC 12/21/24 04/12/25 03/17/25 History (3 mL) subcutaneous pen (Novolog FlexPen U-100 Insulin aspart) carvedilol 3.125 mg tablet 3.125 mg PO DAILY 03/18/25 04/12/25 04/12/25 History insulin degludec 100 unit/mL (3 25 unit subcut BEDTIME 03/18/25 04/12/25 03/17/25 History mL) subcutaneous pen (Tresiba FlexTouch U-100 insulin) spironolactone 50 mg tablet 50 mg PO DAILY 03/18/2504/12/25 History Exam Airway Mallampati Class: II TM Dist: >3cm Neck ROM: Full Loose/Missing/Broken Teeth: No Heart: ok Lungs: ok Other: Large, rotund abdomen. US will evaluate now. Assessment and Plan Assessment Anesthesia Assessment: Anesthesia Plan Discussed and Chart Reviewed Final Anesthetic Review Family History of Problems with Anesthesia: No History of Problems with Anesthesia: No NPO: Yes ASA Class: IV Final Preanesthetic Review: No Changes in Pt Med Stat, Meds/Allgs Chart Reviewed, Consent Obtained/Reviewed and Anes Risks/Benef Reviewed Patient Risk: High Procedure Risk: Intermediate Anesthetic Plan Anesthetic Plan: Agree w/ Assess. and Plan and TIVA Disposition: Standard PACU
[2025-04-12 13:17] VITALS: BP 126/66; PULSE 67; RESP 18; TEMP 36.6; O2SAT 98; BMI 28.0
[2025-04-12] MEDS: Lactated Ringers 1,000 ML 100 ML IVCONT (13:19)
[2025-04-12 13:23] LABS: Glucose, Whole Blood 51 mg/dL (60-115)
--- NOTE | 2025-04-12 13:31 | PC.NURSE ---
dr. arnold updated that patient has poc of 51. dr. arnold ordered 5% dextrose 250 ml with 100 ml bolus. patient states i am feeling dizzy dr. arnold also updated that patient has slight crackles in bilatera lower lobes and breathing is slightly labored per patient and assessment. patient states did not have paracentesis last week due to no fluids, but feels that abdomen has grown since that time. dr. arnold stated will be out soon to assess.
[2025-04-12] MEDS: Dextrose 5 % 250 ML 999 ML IVCONT (13:36)
[2025-04-12 13:46] LABS: Glucose, Whole Blood 88 mg/dL (60-115)
--- NOTE | 2025-04-12 13:53 | MHC.SHP ---
Pre-Procedural Eval Section A - 24 Hr Update-Section A only Date of Service: 04/12/25 The patient is an INPATIENT: No The patient has been examined within 24 hours of the surgical procedure. The History & Physical has been completed within 30 days and I have reviewed it.: No Section B - Complete if H&P > 30 days Chief Complaint: cirrhosis - screen for varices Relevant Family History (Specify if Yes): No Relevant Social History: None Present Medications: see Short Stay Collaborative assessment Medical History: Significant History (Hepatitis C HTN (hypertension) Diabetes mellitus Nausea & vomiting Peripheral neuropathy Insulin dependent type 2 diabetes mellitus Neuropathy) Allergies: Allergies Allergy/AdvReac Type Severity Reaction Status Date / Time lisinopril AdvReac Severe cough Verified 04/12/25 13:37 Review of Systems Sugical H&P ROS: Negative: Constitution, Cardiovascular, Respiratory and Gastrointestinal Exam Surgical H&P Exam: Normal: Heart, Normal: Lungs and Normal: Extremities and Significant Findings: Abdomen (distended, umblical hernia) Plan Diagnosis/Plan: Change (proceed with EGD) I have reviewed the history and physical and performed a pertinent physical examination on my patient. No changes have occurred unless specified. Time Spent With Patient Time: Total time managing care of this patient today ____ minutes.
[2025-04-12 13:56] LABS: INTERNATIONAL NORM RATIO 1.3 (0.9-1.1); Prothrombin Time 15.4 SEC (10.9-12.4)
--- NOTE | 2025-04-12 14:52 | PC.NURSE ---
ultrasound of abdomen completed in [facility]. dr. arnold at bedside with interventional radiology tech. okay to proceed at this time.
--- NOTE | 2025-04-12 15:11 | W.PM.OPN ---
Operative Note Operative Note Date of Service: 04/12/25 Narrative: FLEXIBLE TRANSORAL UPPER GASTROINTESTINAL ENDOSCOPY WITH BAND LIGATION OF ESOPHAGEAL VARICES Pre-op diagnosis: Cirrhosis with HCC - screen for varices Post-op diagnosis: Esophageal varices, portal hypertensive gastropathy Endoscopist:? George Perez MD Anesthesia:?MAC UPPER ENDOSCOPY Consent: Indications for the procedure and potential complications of bleeding, perforation, reaction to medications and missed diagnosis were discussed with the patient and informed consent was obtained. Instrument: Olympus GIF H 190 mid size upper endoscope Monitoring: Vital signs and clinical assessment, continuous EKG monitoring, Pulse oximetry, Carbon Dioxide monitoring and blood pressure monitoring were done throughout the procedure. Procedure: The patient was placed in the left lateral decubitis position and pre-procedure medications were administered and a bite block was placed. The endoscope was inserted into the mouth and advanced under direct vision to the third part of duodenum. A careful inspection was made as the upper endoscope was withdrawn including a retroflexed examination of the proximal stomach; Findings and interventions are described below. Findings: Larynx: Normal Esophagus: GE junction at 35 cms. Grade 3-4 four column esophageal varices from 25 to 35 cms with red laz signs. Endoscope was removed and loaded with Speedband Superview Super 7 multiple band ligator ([employer]) and varices were treated with placement of 7 bands. Stomach: Moderate diffuse portal hypertensive gastropathy. Grade 2 flap valve on retroflexed examination of the cardia. Duodenum: Normal bulb and descending duodenum Intervention: Biopsies as noted above Impression and Post Procedure Diagnosis: Endoscopy Findings: ESOPHAGUS: Grade 3-4 four column esophageal varices from 25 to 35 cms with red laz signs. Esophageal varices were treated with band ligation x 7 with flattening of the varices STOMACH: Moderate portal hypertensive gastropathy DUODENUM: Normal Plan: Repeat EGD in 3 - 4 months for follow-up of esophageal varices. Above findings were reviewed with the patient and relevant handouts were given and the discharge area.
[2025-04-12 15:16] VITALS: BP 111/63; PULSE 54; RESP 12; TEMP 36.4; O2SAT 89
[2025-04-12 15:30] LABS: Glucose, Whole Blood 56 mg/dL (60-115)
[2025-04-12 15:30] LABS: Glucose, Whole Blood 105 mg/dL (60-115)
[2025-04-12 15:31] VITALS: BP 109/61; PULSE 63; RESP 17; O2SAT 90
[2025-04-12 15:46] VITALS: BP 124/71; PULSE 64; RESP 17; O2SAT 93
[2025-04-12 15:53] VITALS: BP 124/71; PULSE 69; RESP 18; TEMP 36.4; O2SAT 95
== END 2025-04-12 16:03 | disposition home or self-care (01) ==
PROVIDERS: Nurse Practitioner; Visit Provider Internal Medicine Gastroenterology
PROC: 0DJ08ZZ Inspection of Upper Intestinal Tract, Via Natural or Artificial Opening Endoscopic (ICD-10-PCS; CPT 43235; principal; 2025-04-12 13:50)
DX: K74.60 Unspecified cirrhosis of liver (principal); I85.00 Esophageal varices without bleeding; R18.8 Other ascites; C22.0 Liver cell carcinoma; R11.2 Nausea with vomiting, unspecified; K76.6 Portal hypertension; K31.89 Other diseases of stomach and duodenum; B19.20 Unspecified viral hepatitis C without hepatic coma; I10 Essential (primary) hypertension; I26.99 Other pulmonary embolism without acute cor pulmonale; M79.89 Other specified soft tissue disorders; E11.9 Type 2 diabetes mellitus without complications; G62.9 Polyneuropathy, unspecified; Z79.4 Long term (current) use of insulin; Z79.891 Long term (current) use of opiate analgesic; Z79.899 Other long term (current) drug therapy
CPT/HCPCS: 43244; 36415; 76705; 82947; 85610; J2003; J2704

== ENCOUNTER → 2025-04-12 12:06 | Outpatient (BNV) | payer MEDICARE, MEDICAID, SELFPAY | PROVIDERS: Visit Provider Internal Medicine Gastroenterology | DX: K74.60 Unspecified cirrhosis of liver (principal); I85.00 Esophageal varices without bleeding; K76.6 Portal hypertension; K31.89 Other diseases of stomach and duodenum | CPT/HCPCS: 43244 ==

== ENCOUNTER → 2025-04-12 14:03 | Outpatient (BNV) | payer MEDICARE, MEDICAID, SELFPAY | PROVIDERS: Visit Provider Radiology Diagnostic Radiology | DX: K70.31 Alcoholic cirrhosis of liver with ascites (principal) | CPT/HCPCS: 76705 ==